=== PATIENT | female | born 1940 | race Caucasian/White ===

== ENCOUNTER 2017-04-27 13:00 | Emergency (ER) | payer MEDICARE ==
[2017-04-27 13:23] VITALS: RESP 16
[2017-04-27] MEDS ORDERED: IBUPROFEN 600 MG TAB PO STA (13:26)
[2017-04-27] MEDS ORDERED: SODIUM CHLORIDE 0.9% 1,000 ML IV STA (13:27)
[2017-04-27] MEDS ORDERED: ACETAMINOPHEN TAB 500 MG TAB PO STA (13:27)
[2017-04-27 13:52] LABS: Basophils % (A) 0 %; Eosinophils # (A) 0.1 k/uL (0-0.7); Eosinophils % (A) 2 %; HCT 37.1 % (34.0-46.0); HGB 11.6 gm/dL (11.4-16.0); Lymphocytes # (A) 1.2 k/uL (1.0-4.8); Lymphocytes % (A) 13 %; MCH 27.6 pg (25.0-35.0); MCHC 31.4 g/dL (31.0-37.0); Mean Platelet Volume 7.5; Monocytes # (A) 0.5 k/uL (0-1.0); Monocytes % (A) 6 %; Neutrophils # (A) 7.1 k/uL (1.3-7.7); Neutrophils % (A) 78 %; Platelet Count 185 k/uL (150-450); RBC 4.21 m/uL (3.80-5.40); RDW 14.9 % (11.5-15.5)
--- NOTE | 2017-04-27 13:54 | ED ---
General Adult HPI - General Chief complaint: Upper Respiratory Infection Stated complaint: PAIN ALL OVER Time Seen by Provider: 04/27/17 13:23 Source: patient, RN notes reviewed Mode of arrival: EMS Limitations: no limitations - History of Present Illness Initial comments: 77-year-old female presents to the emergency department with a chief complaint of body aches. Patient has felt this way for the past day or so. She states now cough no congestion just joint aching. She denies any Motrin Tylenol today. She denies any abdominal pain nausea vomiting. She states she did have one episode of diarrhea. She was concerned that just felt sore she was feeling so she thought that she should be seen. Patient denies any recent fever, chills , shortness of breath, chest pain, back pain, abdominal pain, nausea vomiting, numbness or tingling, dysuria or hematuria, constipation or diarrhea, headaches or visual changes, or any other current symptoms. - Related Data Home Medications Medication Instructions Recorded Confirmed ALPRAZolam [Xanax] 0.25 mg PO TID PRN 08/29/14 04/27/17 Aspirin 81 mg PO DAILY 08/29/14 04/27/17 Furosemide [Lasix] 20 mg PO DAILY 08/29/14 04/27/17 Irbesartan [Avapro] 300 mg PO DAILY 08/29/14 04/27/17 Metoprolol Succinate (ER) [Toprol 50 mg PO BID 08/29/14 04/27/17 XL] Insulin Aspart [NovoLOG Flexpen] 6 units SQ AC-LUNCH 03/03/17 04/27/17 Insulin Aspart [NovoLOG Flexpen] 8 units SQ AC-BRKFST 03/03/17 04/27/17 Insulin Aspart [NovoLOG Flexpen] 12 units SQ AC-SUPPER 03/03/17 04/27/17 Insulin Glargine,Hum.rec.anlog 20 units SQ HS 03/03/17 04/27/17 [Toujeo Solostar] Insulin Aspart [NovoLOG Flexpen] See Protocol SQ AC-TID PRN 04/27/17 04/27/17 Insulin Glargine,Hum.rec.anlog 20 units SQ HS 04/27/17 04/27/17 [Toujeo Solostar] Previous Rx's Medication Instructions Recorded Clopidogrel [Plavix] 75 mg PO DAILY #90 tab 03/05/17 Allergies Allergy/AdvReac Type Severity Reaction Status Date / Time adhesive tape Allergy Rash/Hives Uncoded 04/27/17 13:50 Review of Systems ROS Statement: Those systems with pertinent positive or pertinent negative responses have been documented in the HPI. ROS Other: All systems not noted in ROS Statement are negative. Past Medical History Past Medical History: Cancer, Heart Failure, Diabetes Mellitus, Hypertension Additional Past Medical History / Comment(s): hx skin cancer History of Any Multi-Drug Resistant Organisms: None Reported Past Surgical History: Hysterectomy, Joint Replacement, Orthopedic Surgery, Pacemaker, Tonsillectomy Additional Past Surgical History / Comment(s): rt knee arthroscopy, rt knee replacement, nahomy big toe joint replacement, vein stripping, surgery for fx left femur Past Anesthesia/Blood Transfusion Reactions: No Reported Reaction Type of Cardiac Device: Permanent Pacemaker Device Placement Date:: 03/2012 Past Psychological History: No Psychological Hx Reported Smoking Status: Former smoker Past Alcohol Use History: None Reported Past Drug Use History: None Reported - Past Family History Mother Additional Family Medical History / Comment(s): Alzheimers Father Family Medical History: Cancer Additional Family Medical History / Comment(s): Lung disease General Exam - General Exam Comments Initial Comments: General: The patient is awake and alert, in no distress, and does not appear acutely ill. Eye: Pupils are equal, round. Ears, nose, mouth and throat: There are moist mucous membranes. Neck: The neck is supple, there is no tenderness. Cardiovascular: There is a regular rate and rhythm. No murmur, rub or gallop is appreciated. Respiratory: Lungs are clear to auscultation, respirations are non-labored, breath sounds are equal. No wheezes, stridor, rales, or rhonchi. Gastrointestinal: Soft, non-distended, non-tender abdomen without masses or organomegaly noted. There is no rebound or guarding present. No CVA tenderness. Bowel sounds are unremarkable. Back: There is no tenderness to palpation in the midline. There is no obvious deformity. No rashes noted. Musculoskeletal: Normal ROM, no tenderness, There is no pedal edema. There is no calf tenderness or swelling. Sensation intact. Pulses equal bilaterally 2+. Neurological: CN II-XII intact, There are no obvious motor or sensory deficits. Coordination appears grossly intact. Speech is normal. Skin: Skin is warm and dry and no rashes or lesions are noted. Psychiatric: Cooperative, appropriate mood & affect, normal judgment. Limitations: no limitations Course Vital Signs 04/27/17 13:20 Temperature 99 F Pulse Rate 73 Respiratory 16 Rate Blood Pressure 143/65 O2 Sat by Pulse 95 Oximetry Medical Decision Making - Medical Decision Making 77-year-old female presents to the emergency department with a chief complaint of body aches. This time patient's lab work has been reviewed. This time we did discuss possible causes for bodies. We discussed could be early influenza currently we discussed continuing Motrin and Tylenol. She was offered steroids help for possible arthritis type flareup however she does not want to take. We did discuss return parameters and follow-up and all questions. Patient stated that she understood and she is agreement this plan. All questions have been answered. She will be discharged at this time. - Lab Data Result diagrams: 04/27/17 13:41 04/27/17 13:41 Lab Results 04/27/17 04/27/17 04/27/17 Range/Units 13:41 13:41 13:41 WBC 9.0 (3.8-10.6) k/uL RBC 4.21 (3.80-5.40) m/uL Hgb 11.6 (11.4-16.0) gm/dL Hct 37.1 (34.0-46.0) % MCV 88.0 (80.0-100.0) fL MCH 27.6 (25.0-35.0) pg MCHC 31.4 (31.0-37.0) g/dL RDW 14.9 (11.5-15.5) % Plt Count 185 (150-450) k/uL Neutrophils % 78 % Lymphocytes % 13 % Monocytes % 6 % Eosinophils % 2 % Basophils % 0 % Neutrophils # 7.1 (1.3-7.7) k/uL Lymphocytes # 1.2 (1.0-4.8) k/uL Monocytes # 0.5 (0-1.0) k/uL Eosinophils # 0.1 (0-0.7) k/uL Basophils # 0.0 (0-0.2) k/uL PT (9.0-12.0) sec INR (<1.2) APTT (22.0-30.0) sec Sodium 140 (137-145) mmol/L Potassium 4.6 (3.5-5.1) mmol/L Chloride 105 (98-107) mmol/L Carbon Dioxide 24 (22-30) mmol/L Anion Gap 11 mmol/L BUN 29 H (7-17) mg/dL Creatinine 1.04 (0.52-1.04) mg/dL Est GFR (MDRD) Af Amer >60 (>60 ml/min/1.73 sqM) Est GFR (MDRD) Non-Af 52 (>60 ml/min/1.73 sqM) Glucose 138 H (74-99) mg/dL Plasma Lactic Acid Julian 1.9 (0.7-2.0) mmol/L Calcium 9.2 (8.4-10.2) mg/dL Total Bilirubin 0.7 (0.2-1.3) mg/dL AST 18 (14-36) U/L ALT 23 (9-52) U/L Alkaline Phosphatase 93 (38-126) U/L Creatine Kinase (30-135) U/L Total Protein 6.6 (6.3-8.2) g/dL Albumin 3.7 (3.5-5.0) g/dL Urine Color Urine Appearance (Clear) Urine pH (5.0-8.0) Ur Specific [place] (1.001-1.035) Urine Protein (Negative) Urine Glucose (UA) (Negative) Urine Ketones (Negative) Urine Blood (Negative) Urine Nitrite (Negative) Urine Bilirubin (Negative) Urine Urobilinogen (<2.0) mg/dL Ur Leukocyte Esterase (Negative) Influenza Type A RNA (Not Detectd) Influenza Type B (PCR) (Not Detectd) 04/27/17 04/27/17 04/27/17 Range/Units 13:41 13:41 13:49 WBC (3.8-10.6) k/uL RBC (3.80-5.40) m/uL Hgb (11.4-16.0) gm/dL Hct (34.0-46.0) % MCV (80.0-100.0) fL MCH (25.0-35.0) pg MCHC (31.0-37.0) g/dL RDW (11.5-15.5) % Plt Count (150-450) k/uL Neutrophils % % Lymphocytes % % Monocytes % % Eosinophils % % Basophils % % Neutrophils # (1.3-7.7) k/uL Lymphocytes # (1.0-4.8) k/uL Monocytes # (0-1.0) k/uL Eosinophils # (0-0.7) k/uL Basophils # (0-0.2) k/uL PT 9.8 (9.0-12.0) sec INR 1.0 (<1.2) APTT 23.5 (22.0-30.0) sec Sodium (137-145) mmol/L Potassium (3.5-5.1) mmol/L Chloride (98-107) mmol/L Carbon Dioxide (22-30) mmol/L Anion Gap mmol/L BUN (7-17) mg/dL Creatinine (0.52-1.04) mg/dL Est GFR (MDRD) Af Amer (>60 ml/min/1.73 sqM) Est GFR (MDRD) Non-Af (>60 ml/min/1.73 sqM) Glucose (74-99) mg/dL Plasma Lactic Acid Julian (0.7-2.0) mmol/L Calcium (8.4-10.2) mg/dL Total Bilirubin (0.2-1.3) mg/dL AST (14-36) U/L ALT (9-52) U/L Alkaline Phosphatase (38-126) U/L Creatine Kinase 51 (30-135) U/L Total Protein (6.3-8.2) g/dL Albumin (3.5-5.0) g/dL Urine Color Urine Appearance (Clear) Urine pH (5.0-8.0) Ur Specific [place] (1.001-1.035) Urine Protein (Negative) Urine Glucose (UA) (Negative) Urine Ketones (Negative) Urine Blood (Negative) Urine Nitrite (Negative) Urine Bilirubin (Negative) Urine Urobilinogen (<2.0) mg/dL Ur Leukocyte Esterase (Negative) Influenza Type A RNA Not Detected (Not Detectd) Influenza Type B (PCR) Not Detected (Not Detectd) 04/27/17 Range/Units 13:49 WBC (3.8-10.6) k/uL RBC (3.80-5.40) m/uL Hgb (11.4-16.0) gm/dL Hct (34.0-46.0) % MCV (80.0-100.0) fL MCH (25.0-35.0) pg MCHC (31.0-37.0) g/dL RDW (11.5-15.5) % Plt Count (150-450) k/uL Neutrophils % % Lymphocytes % % Monocytes % % Eosinophils % % Basophils % % Neutrophils # (1.3-7.7) k/uL Lymphocytes # (1.0-4.8) k/uL Monocytes # (0-1.0) k/uL Eosinophils # (0-0.7) k/uL Basophils # (0-0.2) k/uL PT (9.0-12.0) sec INR (<1.2) APTT (22.0-30.0) sec Sodium (137-145) mmol/L Potassium (3.5-5.1) mmol/L Chloride (98-107) mmol/L Carbon Dioxide (22-30) mmol/L Anion Gap mmol/L BUN (7-17) mg/dL Creatinine (0.52-1.04) mg/dL Est GFR (MDRD) Af Amer (>60 ml/min/1.73 sqM) Est GFR (MDRD) Non-Af (>60 ml/min/1.73 sqM) Glucose (74-99) mg/dL Plasma Lactic Acid Julian (0.7-2.0) mmol/L Calcium (8.4-10.2) mg/dL Total Bilirubin (0.2-1.3) mg/dL AST (14-36) U/L ALT (9-52) U/L Alkaline Phosphatase (38-126) U/L Creatine Kinase (30-135) U/L Total Protein (6.3-8.2) g/dL Albumin (3.5-5.0) g/dL Urine Color Light Yellow Urine Appearance Clear (Clear) Urine pH 5.5 (5.0-8.0) Ur Specific [place] 1.011 (1.001-1.035) Urine Protein Negative (Negative) Urine Glucose (UA) Negative (Negative) Urine Ketones Negative (Negative) Urine Blood Negative (Negative) Urine Nitrite Negative (Negative) Urine Bilirubin Negative (Negative) Urine Urobilinogen <2.0 (<2.0) mg/dL Ur Leukocyte Esterase Negative (Negative) Influenza Type A RNA (Not Detectd) Influenza Type B (PCR) (Not Detectd) - Radiology Data Radiology results: report reviewed, image reviewed Disposition Clinical Impression: Body aches Disposition: HOME SELF-CARE Condition: Stable Instructions: Influenza (ED) Additional Instructions: Please use medication as discussed. Please follow up with family doctor if symptoms have not improved over the next two days. Please return to the emergency room if your symptoms increase or worsen or for any other concerns. Referrals: Andi Chowdhury MD [Primary Care Provider] - 1-2 days Time of Disposition: 15:03
[2017-04-27 14:05] LABS: ALT 23 U/L (9-52); AST 18 U/L (14-36); Albumin 3.7 g/dL (3.5-5.0); Alkaline Phosphatase 93 U/L (38-126); Anion Gap 11 mmol/L; Blood Urea Nitrogen 29 mg/dL (7-17); Calcium 9.2 mg/dL (8.4-10.2); Carbon Dioxide 24 mmol/L (22-30); Chloride 105 mmol/L (98-107); Glucose 138 mg/dL (74-99); Potassium 4.6 mmol/L (3.5-5.1); Sodium 140 mmol/L (137-145); Total Bilirubin 0.7 mg/dL (0.2-1.3); Total Protein 6.6 g/dL (6.3-8.2)
[2017-04-27 14:15] LABS: Partial Thromboplastin Time 23.5 sec (22.0-30.0); Prothrombin Time 9.8 sec (9.0-12.0)
--- NOTE | 2017-04-27 14:16 | XR ---
EXAMINATION TYPE: XR chest 2V DATE OF EXAM: 04/27/2017 COMPARISON: 03/24/2013 TECHNIQUE: PA and lateral views submitted. HISTORY: Cough, fever and chills FINDINGS: The lungs are clear and there is no pneumothorax, pleural effusion, or focal pneumonia. Atheroscler otic change aorta. Arthropathy shoulders. Cardiac multilead device noted. No overt failure. Hypertrop hic and degenerative change of the spine. IMPRESSION: 1. No acute process.
[2017-04-27 14:26] LABS: Appearance,Urine Clear (Clear); Bilirubin,Urine Negative (Negative); Blood,Urine Negative (Negative); Color,Urine Light Yellow; Glucose,Urine (UA) Negative (Negative); Ketones,Urine Negative (Negative); Leukocyte Esterase,Urine Negative (Negative); Nitrite,Urine Negative (Negative); PH, Urine 5.5 (5.0-8.0); Protein,Urine Negative (Negative); Specific Gravity,Urine 1.011 (1.001-1.035); Urobilinogen,Urine <2.0 mg/dL (<2.0)
[2017-04-27 15:12] VITALS: BP 131/62; PULSE 72; TEMP 98.7
== END 2017-04-27 15:15 | disposition home or self-care (01) ==
LOC: EC 13:00
DX: R52 Pain, unspecified (principal); R05 Cough; R19.7 Diarrhea, unspecified; E11.9 Type 2 diabetes mellitus without complications; I11.0 Hypertensive heart disease with heart failure; I50.9 Heart failure, unspecified; Z85.828 Personal history of other malignant neoplasm of skin; Z90.89 Acquired absence of other organs; Z87.891 Personal history of nicotine dependence; Z91.048 Other nonmedicinal substance allergy status; Z79.82 Long term (current) use of aspirin; Z79.4 Long term (current) use of insulin; Z79.899 Other long term (current) drug therapy
CPT/HCPCS: 36415; 71046; 80053; 81003; 82550; 83605; 85025; 85610; 85730; 87040; 87502; 96360; 99284

== ENCOUNTER 2017-10-19 01:21 | Emergency (ER) | payer MEDICARE ==
[2017-10-19] MEDS ORDERED: HYDROcodone/APAP 5-325MG 1 EACH TAB PO STA (01:46)
--- NOTE | 2017-10-19 02:18 | ED ---
Extremity Problem HPI - General Chief complaint: Extremity Problem,Nontraumatic Stated complaint: arm pain Time Seen by Provider: 10/19/17 01:42 Source: patient, RN notes reviewed Mode of arrival: ambulatory Limitations: no limitations - History of Present Illness Initial comments: 77-year-old female presents emergency Department chief complaint of right wrist pain. Patient states that has been bothering her for a week or 2 but states since Thursday she's had excruciating pain. She states that she is appointment tomorrow morning but states that she cannot tolerate the pain any longer. She states that the only thing that seemed to help was taking ibuprofen though she states that she is not supposed to take ibuprofen. Patient states that she had no trauma. She states it is warm to the touch, mildly red in color. Patient states that she's had no issues like this in the past. She's had excruciating pain with range of motion. She has been wearing a wrist brace but states is not helping. She states icing does help at times. Patient denies any paresthesias. No history gout. - Related Data Home Medications Medication Instructions Recorded Confirmed ALPRAZolam [Xanax] 0.25 mg PO TID PRN 08/29/14 04/27/17 Aspirin 81 mg PO DAILY 08/29/14 04/27/17 Furosemide [Lasix] 20 mg PO DAILY 08/29/14 04/27/17 Irbesartan [Avapro] 300 mg PO DAILY 08/29/14 04/27/17 Metoprolol Succinate (ER) [Toprol 50 mg PO BID 08/29/14 04/27/17 XL] Insulin Aspart [NovoLOG Flexpen] 6 units SQ AC-LUNCH 03/03/17 04/27/17 Insulin Aspart [NovoLOG Flexpen] 8 units SQ AC-BRKFST 03/03/17 04/27/17 Insulin Aspart [NovoLOG Flexpen] 12 units SQ AC-SUPPER 03/03/17 04/27/17 Insulin Glargine,Hum.rec.anlog 20 units SQ HS 03/03/17 04/27/17 [Dianna Gregg] Insulin Aspart [NovoLOG Flexpen] See Protocol SQ AC-TID PRN 04/27/17 04/27/17 Insulin Glargine,Hum.rec.anlog 20 units SQ HS 04/27/17 04/27/17 [Dianna Wilsonadamjessica] Previous Rx's Medication Instructions Recorded Clopidogrel [Plavix] 75 mg PO DAILY #90 tab 03/05/17 Azithromycin [Zithromax Z-pack] 0 mg PO DIRECTED #6 tab 07/05/17 Colchicine [Colcrys] 0.6 mg PO DAILY #3 tablet 10/19/17 Allergies Allergy/AdvReac Type Severity Reaction Status Date / Time adhesive tape Allergy Rash/Hives Uncoded 10/19/17 01:27 Review of Systems ROS Statement: Those systems with pertinent positive or pertinent negative responses have been documented in the HPI. ROS Other: All systems not noted in ROS Statement are negative. Past Medical History Past Medical History: Cancer, Heart Failure, Diabetes Mellitus, Hypertension Additional Past Medical History / Comment(s): hx skin cancer History of Any Multi-Drug Resistant Organisms: None Reported Past Surgical History: Hysterectomy, Joint Replacement, Orthopedic Surgery, Pacemaker, Tonsillectomy Additional Past Surgical History / Comment(s): rt knee arthroscopy, rt knee replacement, nahomy big toe joint replacement, vein stripping, surgery for fx left femur Past Anesthesia/Blood Transfusion Reactions: No Reported Reaction Type of Cardiac Device: Permanent Pacemaker Device Placement Date:: 03/2012 Past Psychological History: No Psychological Hx Reported Smoking Status: Former smoker Past Alcohol Use History: None Reported Past Drug Use History: None Reported - Past Family History Mother Additional Family Medical History / Comment(s): Alzheimers Father Family Medical History: Cancer Additional Family Medical History / Comment(s): Lung disease General Exam Limitations: no limitations General appearance: alert, in no apparent distress Respiratory exam: Present: normal lung sounds bilaterally. Absent: respiratory distress, wheezes, rales, rhonchi, stridor Cardiovascular Exam: Present: regular rate, normal rhythm, normal heart sounds. Absent: systolic murmur, diastolic murmur, rubs, gallop, clicks Extremities exam: Present: other (Right wrist there is moderate warmth with palpation, mild swelling and moderate discomfort with range of motion which is limited range of motion. Neurovascular intact equal radial pulses there is no proximal forearm tenderness no hand tenderness.) Skin exam: Present: warm, dry, intact, normal color. Absent: rash Course Vital Signs 10/19/17 01:24 Temperature 97.9 F Pulse Rate 71 Respiratory 20 Rate Blood Pressure 202/82 O2 Sat by Pulse 96 Oximetry Medical Decision Making - Medical Decision Making 77-year-old female presented right wrist pain. Patient had lab work, x-ray no chest x-ray is unremarkable. Patient has elevated uric acid and CRP consistent with gouty arthritis. Patient will be given colchicine now, prescription for 0.6 mg for 3 days. She has an appointment in morning with Dr. Nam orthopedics. Patient was offered steroids so she refuses secondary to being diabetic and not comfortable adjusting her blood sugar. Patient has renal impairment and anti-inflammatories are not an option at this time. - Lab Data Result diagrams: 10/19/17 02:00 10/19/17 02:00 Lab Results 10/19/17 10/19/17 10/19/17 Range/Units 02:00 02:00 02:00 WBC 6.0 (3.8-10.6) k/uL RBC 4.47 (3.80-5.40) m/uL Hgb 12.0 (11.4-16.0) gm/dL Hct 38.7 (34.0-46.0) % MCV 86.6 (80.0-100.0) fL MCH 26.8 (25.0-35.0) pg MCHC 30.9 L (31.0-37.0) g/dL RDW 14.8 (11.5-15.5) % Plt Count 203 (150-450) k/uL Neutrophils % 58 % Lymphocytes % 27 % Monocytes % 7 % Eosinophils % 6 % Basophils % 1 % Neutrophils # 3.5 (1.3-7.7) k/uL Lymphocytes # 1.6 (1.0-4.8) k/uL Monocytes # 0.4 (0-1.0) k/uL Eosinophils # 0.3 (0-0.7) k/uL Basophils # 0.0 (0-0.2) k/uL Sodium 139 (137-145) mmol/L Potassium 4.8 (3.5-5.1) mmol/L Chloride 105 (98-107) mmol/L Carbon Dioxide 23 (22-30) mmol/L Anion Gap 11 mmol/L BUN 39 H (7-17) mg/dL Creatinine 1.20 H (0.52-1.04) mg/dL Est GFR (CKD-EPI)AfAm 51 (>60 ml/min/1.73 sqM) Est GFR (CKD-EPI)NonAf 44 (>60 ml/min/1.73 sqM) Glucose 151 H (74-99) mg/dL Plasma Lactic Acid Julian 2.0 (0.7-2.0) mmol/L Uric Acid 11.7 H (3.7-7.4) mg/dL Calcium 9.2 (8.4-10.2) mg/dL Total Bilirubin 0.4 (0.2-1.3) mg/dL AST 29 (14-36) U/L ALT 39 (9-52) U/L Alkaline Phosphatase 94 (38-126) U/L C-Reactive Protein 23.0 H (<10.0) mg/L Total Protein 7.1 (6.3-8.2) g/dL Albumin 4.2 (3.5-5.0) g/dL Disposition Clinical Impression: Gout of wrist Disposition: HOME SELF-CARE Condition: Stable Instructions: Low Purine Diet (ED), Gout (ED) Additional Instructions: Please return to the Emergency Department if symptoms worsen or any other concerns. Prescriptions: Colchicine [Colcrys] 0.6 mg PO DAILY #3 tablet Is patient prescribed a controlled substance at d/c from ED?: No Referrals: Andi Chowdhury MD [Primary Care Provider] - 1-2 days Time of Disposition: 02:46
[2017-10-19 02:19] LABS: Basophils % (A) 1 %; Eosinophils # (A) 0.3 k/uL (0-0.7); Eosinophils % (A) 6 %; HCT 38.7 % (34.0-46.0); Lymphocytes # (A) 1.6 k/uL (1.0-4.8); Lymphocytes % (A) 27 %; MCH 26.8 pg (25.0-35.0); MCHC 30.9 g/dL (31.0-37.0); MCV 86.6 fL (80.0-100.0); Mean Platelet Volume 7.6; Monocytes # (A) 0.4 k/uL (0-1.0); Monocytes % (A) 7 %; Neutrophils # (A) 3.5 k/uL (1.3-7.7); Neutrophils % (A) 58 %; Platelet Count 203 k/uL (150-450); RBC 4.47 m/uL (3.80-5.40); RDW 14.8 % (11.5-15.5)
--- NOTE | 2017-10-19 02:21 | XR ---
EXAMINATION TYPE: XR wrist complete RT DATE OF EXAM: 10/19/2017 COMPARISON: NONE HISTORY: Wrist pain TECHNIQUE: 4 views FINDINGS: I see no fracture nor dislocation. Joint spaces are normal. There are no pathologic calcifi cations. Scaphoid is intact. There is small calcification at the triangular cartilage. IMPRESSION: No acute abnormality of the right wrist. No fracture seen.
[2017-10-19 02:28] LABS: Albumin 4.2 g/dL (3.5-5.0); Calcium 9.2 mg/dL (8.4-10.2); Potassium 4.8 mmol/L (3.5-5.1); Total Bilirubin 0.4 mg/dL (0.2-1.3); Total Protein 7.1 g/dL (6.3-8.2); Uric Acid 11.7 mg/dL (3.7-7.4)
[2017-10-19] MEDS ORDERED: COLCHICINE 0.6 MG EACH PO STA (02:42)
[2017-10-19] MEDS ORDERED: Acetaminophen-Codeine 300-30mg TAB PO STA (02:46)
[2017-10-19 03:19] VITALS: BP 180/81; PULSE 64; RESP 16; TEMP 98.1
[2017-10-19 04:03] LABS: Erythrocyte Sedimentation Rate 48 mm/hr (0-20)
== END 2017-10-19 03:19 | disposition home or self-care (01) ==
LOC: EC 01:21
DX: M10.9 Gout, unspecified (principal); I11.0 Hypertensive heart disease with heart failure; I50.9 Heart failure, unspecified; E11.9 Type 2 diabetes mellitus without complications; Z85.828 Personal history of other malignant neoplasm of skin; Z95.0 Presence of cardiac pacemaker; Z96.651 Presence of right artificial knee joint; Z96.698 Presence of other orthopedic joint implants; Z87.891 Personal history of nicotine dependence; Z79.82 Long term (current) use of aspirin; Z79.4 Long term (current) use of insulin; Z79.899 Other long term (current) drug therapy; Z91.048 Other nonmedicinal substance allergy status; Z53.29 Procedure and treatment not carried out because of patient's decision for other reasons
CPT/HCPCS: 36415; 80053; 83605; 84550; 85025; 85652; 86140; 87040; 99284

== ENCOUNTER 2017-12-17 00:16 | Emergency (ER) | payer MEDICARE ==
[2017-12-17 00:30] VITALS: TEMP 98.4
[2017-12-17] MEDS ORDERED: SODIUM CHLORIDE 0.9% 500 ML IV STA (01:20)
[2017-12-17] MEDS ORDERED: MORPHINE SULFATE 4 MG/ML SYRINGE IV STA (01:20)
[2017-12-17] MEDS ORDERED: KETOROLAC 30 MG/ML 1 ML VIAL IVP STA (01:20)
[2017-12-17] MEDS ORDERED: ONDANSETRON 4 MG/2 ML VIAL IVP STA (01:21)
[2017-12-17 02:28] LABS: Basophils # (A) 0.1 k/uL (0-0.2); Basophils % (A) 1 %; Eosinophils # (A) 0.4 k/uL (0-0.7); Eosinophils % (A) 4 %; HCT 40.1 % (34.0-46.0); HGB 12.3 gm/dL (11.4-16.0); Lymphocytes # (A) 1.2 k/uL (1.0-4.8); Lymphocytes % (A) 15 %; MCH 28.4 pg (25.0-35.0); MCHC 30.7 g/dL (31.0-37.0); Mean Platelet Volume 7.2; Monocytes # (A) 0.6 k/uL (0-1.0); Monocytes % (A) 7 %; Neutrophils # (A) 5.9 k/uL (1.3-7.7); Neutrophils % (A) 71 %; Platelet Count 159 k/uL (150-450); RBC 4.35 m/uL (3.80-5.40); RDW 15.2 % (11.5-15.5); WBC 8.4 k/uL (3.8-10.6)
[2017-12-17 02:30] LABS: MCV 92.3 fL (80.0-100.0)
[2017-12-17 02:36] LABS: Albumin 3.9 g/dL (3.5-5.0); Calcium 9.7 mg/dL (8.4-10.2); Potassium 4.8 mmol/L (3.5-5.1); Total Bilirubin 0.4 mg/dL (0.2-1.3)
[2017-12-17] MEDS ORDERED: HYDROmorphone 1 MG/ML 1 ML SYRINGE IVP STA (03:13)
[2017-12-17 04:14] LABS: Appearance,Urine Clear (Clear); Bacteria,Urine Few /hpf; Bilirubin,Urine Negative (Negative); Blood,Urine Negative (Negative); Color,Urine Light Yellow; Glucose,Urine (UA) Negative (Negative); Ketones,Urine Negative (Negative); Leukocyte Esterase,Urine Negative (Negative); Mucus,Urine Occasional /hpf; Nitrite,Urine Positive (Negative); PH, Urine 5.5 (5.0-8.0); Protein,Urine Trace (Negative); RBC,Urine <1 /hpf (0-5); Specific Gravity,Urine 1.016 (1.001-1.035); Squamous Epithelial Cell,Urine 1 /hpf (0-4); Urobilinogen,Urine <2.0 mg/dL (<2.0); WBC,Urine 1 /hpf (0-5)
--- NOTE | 2017-12-17 04:14 | XR ---
EXAMINATION TYPE: XR Hip LT and AP Pelvis DATE OF EXAM: 12/17/2017 COMPARISON: NONE HISTORY: Pain TECHNIQUE: A single AP view of the pelvis is obtained. Two views of the left hip are obtained. FINDINGS: The pelvic ring is intact. Proximal left femur and hip joint are intact. There is no sign o f hip dysplasia. There are phleboliths in the pelvis. IMPRESSION: No acute abnormality of the pelvis and left hip. No fracture. Hip joint spaces are fairly normal.
--- NOTE | 2017-12-17 04:15 | XR ---
EXAMINATION TYPE: XR lumbar spine 2 or 3V DATE OF EXAM: 12/17/2017 COMPARISON: NONE HISTORY: Back pain TECHNIQUE: 3 views FINDINGS: Vertebra have fairly normal alignment. There is slight levoscoliosis. There is mild degener ative disc space narrowing throughout the lumbar spine with spur formation. There is vacuum disc at L 4-5 and L5-S1. Abdominal aorta is atheromatous. Posterior elements are intact. There is no compressio n fracture. Sacroiliac joints are intact. IMPRESSION: Multilevel spondylotic changes. No fracture.
--- NOTE | 2017-12-17 04:44 | ED ---
Back Pain HPI - General Chief Complaint: Back Pain/Injury Stated Complaint: Back Pain Time Seen by Provider: 12/17/17 01:15 Source: patient, EMS Limitations: no limitations - History of Present Illness Initial Comments: 77-year-old female patient presents to the emergency department today for complaints of acute left lower back pain. Patient states this started this morning when she woke from sleep. Patient states she felt she may have slept wrong. Patient states that the day progressed the pain got worse and worse. States that she was resting on the couch this evening when she tried to get up to go to bed she couldn't get off the couch without severe pain. Patient states that she has severe pain at rest and it gets worse with any type of movement. Patient denies any radiation of the pain down her legs. Denies any numbness or tingling to the lower extremities. Denies any loss of bowel or bladder control or saddle anesthesia. Patient denies any fever or chills. Denies any history of kidney stones. Patient states that she does not generally have problems with back pain. Patient states that she did have a left hip tony in place at one point which they had to remove because it came loose. Patient states that she does generally have pain with a left hip but never up into her back. Patient denies any recent rash, shortness breath, chest pain, abdominal pain, nausea, vomiting, diarrhea, constipation, dizziness, weakness, hematuria, dysuria, urinary urgency, urinary frequency, headache, visual changes, or any other complaints. - Related Data Home Medications Medication Instructions Recorded Confirmed ALPRAZolam [Xanax] 0.25 mg PO TID PRN 08/29/14 04/27/17 Aspirin 81 mg PO DAILY 08/29/14 04/27/17 Furosemide [Lasix] 20 mg PO DAILY 08/29/14 04/27/17 Irbesartan [Avapro] 300 mg PO DAILY 08/29/14 04/27/17 Metoprolol Succinate (ER) [Toprol 50 mg PO BID 08/29/14 04/27/17 XL] Insulin Aspart [NovoLOG Flexpen] 6 units SQ AC-LUNCH 03/03/17 04/27/17 Insulin Aspart [NovoLOG Flexpen] 8 units SQ AC-BRKFST 03/03/17 04/27/17 Insulin Aspart [NovoLOG Flexpen] 12 units SQ AC-SUPPER 03/03/17 04/27/17 Insulin Glargine,Hum.rec.anlog 20 units SQ HS 03/03/17 04/27/17 [Toujeo Solostar] Insulin Aspart [NovoLOG Flexpen] See Protocol SQ AC-TID PRN 04/27/17 04/27/17 Insulin Glargine,Hum.rec.anlog 20 units SQ HS 04/27/17 04/27/17 [Toujeo Solostar] Previous Rx's Medication Instructions Recorded Clopidogrel [Plavix] 75 mg PO DAILY #90 tab 03/05/17 Azithromycin [Zithromax Z-pack] 0 mg PO DIRECTED #6 tab 07/05/17 Colchicine [Colcrys] 0.6 mg PO DAILY #3 tablet 10/19/17 Sulfamethoxazole/Trimethoprim 1 each PO BID #6 tablet 12/17/17 [Bactrim DS 800-160 mg] Allergies Allergy/AdvReac Type Severity Reaction Status Date / Time adhesive tape Allergy Rash/Hives Uncoded 10/19/17 01:27 Review of Systems ROS Statement: Those systems with pertinent positive or pertinent negative responses have been documented in the HPI. ROS Other: All systems not noted in ROS Statement are negative. Past Medical History Past Medical History: Cancer, Heart Failure, Diabetes Mellitus, Hypertension Additional Past Medical History / Comment(s): hx skin cancer, gout History of Any Multi-Drug Resistant Organisms: None Reported Past Surgical History: Hysterectomy, Joint Replacement, Orthopedic Surgery, Pacemaker, Tonsillectomy Additional Past Surgical History / Comment(s): rt knee arthroscopy, rt knee replacement, nahomy big toe joint replacement, vein stripping, surgery for fx left femur, stent placed in left carotid Past Anesthesia/Blood Transfusion Reactions: No Reported Reaction Type of Cardiac Device: Permanent Pacemaker Device Placement Date:: 03/2012 Past Psychological History: No Psychological Hx Reported Smoking Status: Former smoker Past Alcohol Use History: None Reported Past Drug Use History: None Reported - Past Family History Mother Additional Family Medical History / Comment(s): Alzheimers Father Family Medical History: Cancer Additional Family Medical History / Comment(s): Lung disease General Exam Limitations: no limitations General appearance: alert, in no apparent distress, other (This is a well- developed, well-nourished elderly female patient in mild distress related to pain. Vital signs upon presentation are temperature 98.4F, pulse 81, respirations 18, blood pressure 175/78, pulse ox 95% on room air.) Eye exam: Present: normal appearance, PERRL, EOMI. Absent: scleral icterus, conjunctival injection, periorbital swelling ENT exam: Present: normal exam, normal oropharynx, mucous membranes moist Respiratory exam: Present: normal lung sounds bilaterally. Absent: respiratory distress, wheezes, rales, rhonchi, stridor Cardiovascular Exam: Present: regular rate, normal rhythm, normal heart sounds. Absent: systolic murmur, diastolic murmur, rubs, gallop, clicks GI/Abdominal exam: Present: soft, normal bowel sounds. Absent: distended, tenderness, guarding, rebound, rigid Extremities exam: Present: normal inspection, full ROM, normal capillary refill. Absent: tenderness, pedal edema, joint swelling, calf tenderness Back exam: Present: normal inspection. Absent: vertebral tenderness Neurological exam: Present: alert, oriented X3, CN II-XII intact, other ( Strength in all 4 extremities is 5/5.) Psychiatric exam: Present: normal affect, normal mood Skin exam: Present: warm, dry, intact, normal color. Absent: rash Course Vital Signs 12/17/17 00:18 Temperature 98.4 F Pulse Rate 81 Respiratory 18 Rate Blood Pressure 175/78 O2 Sat by Pulse 95 Oximetry Medical Decision Making - Medical Decision Making 77-year-old female patient presented to the emergency department today for complaints of low back pain. Physical examination was relatively unremarkable. Patient is neurologically intact. Patient has no history of low back pain however does have history of some left hip pain. X-rays of the lumbar spine and the left hip are unremarkable no acute findings. Labs are unremarkable. Patient did have positive nitrite in the urine. We will treat with 3 day course of Bactrim for this as well as send a urine culture. Patient did receive pain medication here in the emergency department. She is feeling better upon reevaluation. She is able to sit up on the edge of the bed and ambulate. She'll be discharged home with a starter pack for Flexeril and, according. She is instructed to follow-up with Dr. Chowdhury for recheck in 1-2 days. Return parameters discussed in detail. She verbalizes understanding and agrees with this plan. - Lab Data Result diagrams: 12/17/17 02:00 12/17/17 02:00 Lab Results 12/17/17 12/17/17 12/17/17 Range/Units 02:00 02:00 03:40 WBC 8.4 (3.8-10.6) k/uL RBC 4.35 (3.80-5.40) m/uL Hgb 12.3 (11.4-16.0) gm/dL Hct 40.1 (34.0-46.0) % MCV 92.3 D (80.0-100.0) fL MCH 28.4 (25.0-35.0) pg MCHC 30.7 L (31.0-37.0) g/dL RDW 15.2 (11.5-15.5) % Plt Count 159 (150-450) k/uL Neutrophils % 71 % Lymphocytes % 15 % Monocytes % 7 % Eosinophils % 4 % Basophils % 1 % Neutrophils # 5.9 (1.3-7.7) k/uL Lymphocytes # 1.2 (1.0-4.8) k/uL Monocytes # 0.6 (0-1.0) k/uL Eosinophils # 0.4 (0-0.7) k/uL Basophils # 0.1 (0-0.2) k/uL Sodium 140 (137-145) mmol/L Potassium 4.8 (3.5-5.1) mmol/L Chloride 107 (98-107) mmol/L Carbon Dioxide 23 (22-30) mmol/L Anion Gap 10 mmol/L BUN 40 H (7-17) mg/dL Creatinine 1.03 (0.52-1.04) mg/dL Est GFR (CKD-EPI)AfAm 62 (>60 ml/min/1.73 sqM) Est GFR (CKD-EPI)NonAf 53 (>60 ml/min/1.73 sqM) Glucose 167 H (74-99) mg/dL Calcium 9.7 (8.4-10.2) mg/dL Total Bilirubin 0.4 (0.2-1.3) mg/dL AST 24 (14-36) U/L ALT 32 (9-52) U/L Alkaline Phosphatase 93 (38-126) U/L Total Protein 7.0 (6.3-8.2) g/dL Albumin 3.9 (3.5-5.0) g/dL Urine Color Light Yellow Urine Appearance Clear (Clear) Urine pH 5.5 (5.0-8.0) Ur Specific [place] 1.016 (1.001-1.035) Urine Protein Trace H (Negative) Urine Glucose (UA) Negative (Negative) Urine Ketones Negative (Negative) Urine Blood Negative (Negative) Urine Nitrite Positive H (Negative) Urine Bilirubin Negative (Negative) Urine Urobilinogen <2.0 (<2.0) mg/dL Ur Leukocyte Esterase Negative (Negative) Urine RBC <1 (0-5) /hpf Urine WBC 1 (0-5) /hpf Ur Squamous Epith Cells 1 (0-4) /hpf Urine Bacteria Few H (None) /hpf Urine Mucus Occasional H (None) /hpf - Radiology Data Radiology results: report reviewed, image reviewed Three-view x-ray of the lumbar spine is obtained. Report was reviewed in its entirety. Impression by Dr. Pablo shows multilevel spondylotic changes. No fracture. X-ray of the left hip and pelvis are obtained. Report was reviewed in its entirety. Impression by Dr. Pablo shows no acute abnormality of the pelvis and left hip. No fracture. Hip joint spaces are fairly normal. Disposition Clinical Impression: Acute low back pain, Urinary tract infection Disposition: HOME SELF-CARE Condition: Good Instructions: Acute Low Back Pain (ED) Additional Instructions: Apply warm moist heat to the low back. Take medications as directed and as needed. Follow-up with your primary care physician for recheck as soon as possible. Return here immediately for any new, worsening, or concerning symptoms. Prescriptions: Sulfamethoxazole/Trimethoprim [Bactrim DS 800-160 mg] 1 each PO BID #6 tablet Is patient prescribed a controlled substance at d/c from ED?: No Referrals: Andi Chowdhury MD [Primary Care Provider] - 1-2 days Time of Disposition: 06:14
[2017-12-17] MEDS ORDERED: ACET/COD 300 MG/30 MG STARTER PACK 6 TAB BTL PO STA (06:14)
[2017-12-17] MEDS ORDERED: CYCLOBENZAPRINE 10MG STARTER 3 TAB BTL PO STA (06:14)
[2017-12-17 06:32] VITALS: BP 138/76; PULSE 74; RESP 17
== END 2017-12-17 06:45 | disposition home or self-care (01) ==
LOC: EC 00:16
DX: M47.816 Spondylosis without myelopathy or radiculopathy, lumbar region (principal); N39.0 Urinary tract infection, site not specified; M25.552 Pain in left hip; I11.0 Hypertensive heart disease with heart failure; I50.9 Heart failure, unspecified; E11.9 Type 2 diabetes mellitus without complications; M10.9 Gout, unspecified; Z87.891 Personal history of nicotine dependence; Z91.048 Other nonmedicinal substance allergy status; Z79.4 Long term (current) use of insulin; Z79.82 Long term (current) use of aspirin; Z79.899 Other long term (current) drug therapy; Z98.890 Other specified postprocedural states
CPT/HCPCS: 36415; 72100; 73502; 80053; 81001; 85025; 87086; 96374; 96375; 99284

== ENCOUNTER 2017-12-24 08:28 | Emergency (ER) | payer MEDICARE ==
[2017-12-24 08:41] VITALS: RESP 18
[2017-12-24] MEDS ORDERED: ORPHENADRINE 30 MG/ML 2 ML VIAL IM STA (09:25)
[2017-12-24] MEDS ORDERED: HYDROcodone/APAP 5-325MG 1 EACH TAB PO STA (09:25)
--- NOTE | 2017-12-24 09:27 | ED ---
Neck Injury/Pain HPI - General Chief Complaint: Neck Pain/Injury Stated Complaint: NECK PAIN Time Seen by Provider: 12/24/17 09:05 Source: patient, RN notes reviewed Mode of arrival: wheelchair Limitations: no limitations - History of Present Illness Initial Comments: 77-year-old female presents emergency Department chief complaint of neck pain. Patient states started a couple days primarily worsen the left compared to the right. She states that she feels pain around her left shoulder blade and is worse with any movement her left shoulder. Patient denies any numbness tingling or weakness of her upper extremity denies any chest pain or shortness breath. Denies headache or dizziness. She states that she felt like she slept wrong and woke up the symptoms. Patient states that she turns or bends her neck is symptoms are worse. She's had no fever no chills. She states Tylenol and heat were working initially but have not worsened that she has not been moving. - Related Data Home Medications Medication Instructions Recorded Confirmed ALPRAZolam [Xanax] 0.25 mg PO TID PRN 08/29/14 12/24/17 Aspirin 81 mg PO DAILY 08/29/14 12/24/17 Furosemide [Lasix] 20 mg PO DAILY 08/29/14 12/24/17 Irbesartan [Avapro] 300 mg PO DAILY 08/29/14 12/24/17 Metoprolol Succinate (ER) [Toprol 50 mg PO BID 08/29/14 12/24/17 XL] Insulin Aspart [NovoLOG Flexpen] 6 units SQ AC-LUNCH 03/03/17 12/24/17 Insulin Aspart [NovoLOG Flexpen] 8 units SQ AC-BRKFST 03/03/17 12/24/17 Insulin Aspart [NovoLOG Flexpen] 12 units SQ AC-SUPPER 03/03/17 12/24/17 Insulin Glargine,Hum.rec.anlog 20 units SQ HS 03/03/17 12/24/17 [Toujeo Solostar] Insulin Aspart [NovoLOG Flexpen] See Protocol SQ AC-TID PRN 04/27/17 12/24/17 Insulin Glargine,Hum.rec.anlog 20 units SQ HS 04/27/17 12/24/17 [Toujeo Solostar] Allopurinol [Zyloprim] 100 mg PO DAILY 12/24/17 12/24/17 Magnesium Oxide [Mag-Ox] 250 mg PO TUSA 12/24/17 12/24/17 metFORMIN HCL [Glucophage] 1,000 mg PO HS 12/24/17 12/24/17 Previous Rx's Medication Instructions Recorded Clopidogrel [Plavix] 75 mg PO DAILY #90 tab 03/05/17 Orphenadrine [Norflex] 100 mg PO Q12H #14 tablet.er 12/24/17 Allergies Allergy/AdvReac Type Severity Reaction Status Date / Time adhesive tape Allergy Rash/Hives Verified 12/24/17 09:08 Review of Systems ROS Statement: Those systems with pertinent positive or pertinent negative responses have been documented in the HPI. ROS Other: All systems not noted in ROS Statement are negative. Past Medical History Past Medical History: Cancer, Heart Failure, Diabetes Mellitus, Hypertension Additional Past Medical History / Comment(s): hx skin cancer, gout History of Any Multi-Drug Resistant Organisms: None Reported Past Surgical History: Hysterectomy, Joint Replacement, Orthopedic Surgery, Pacemaker, Tonsillectomy Additional Past Surgical History / Comment(s): rt knee arthroscopy, rt knee replacement, nahomy big toe joint replacement, vein stripping, surgery for fx left femur, stent placed in left carotid Past Anesthesia/Blood Transfusion Reactions: No Reported Reaction Type of Cardiac Device: Permanent Pacemaker Device Placement Date:: 03/2012 Past Psychological History: No Psychological Hx Reported Smoking Status: Former smoker Past Alcohol Use History: None Reported Past Drug Use History: None Reported - Past Family History Mother Additional Family Medical History / Comment(s): Alzheimers Father Family Medical History: Cancer Additional Family Medical History / Comment(s): Lung disease General Exam Limitations: no limitations General appearance: alert, in no apparent distress Head exam: Present: atraumatic, normocephalic, normal inspection Eye exam: Present: normal appearance, PERRL, EOMI. Absent: scleral icterus, conjunctival injection, periorbital swelling ENT exam: Present: normal exam, normal oropharynx, mucous membranes moist, TM's normal bilaterally, normal external ear exam Neck exam: Present: normal inspection (No rash noted), tenderness (Tenderness to the left cervical paraspinal, trapezius region). Absent: meningismus, full ROM (Decreased range of motion secondary to reported pain), lymphadenopathy Respiratory exam: Present: normal lung sounds bilaterally. Absent: respiratory distress, wheezes, rales, rhonchi, stridor Cardiovascular Exam: Present: regular rate, normal rhythm, normal heart sounds. Absent: systolic murmur, diastolic murmur, rubs, gallop, clicks Extremities exam: Present: other (Upper extremity strength equal bilaterally, neurovascular intact equal radial pulses) Back exam: Present: full ROM. Absent: tenderness Neurological exam: Present: alert, oriented X3, CN II-XII intact, reflexes normal. Absent: motor sensory deficit Course Vital Signs 12/24/17 08:37 Temperature 98.3 F Pulse Rate 74 Respiratory 18 Rate Blood Pressure 188/73 O2 Sat by Pulse 97 Oximetry Medical Decision Making - Medical Decision Making 77-year-old female presented for neck discomfort. Patient symptoms seem to related to muscle spasms, spasmatic torticollis. Patient had CT of her neck which shows degenerative changes possible bulbar bulging disc at C7-T1. Patient has normal upper extremity strength neurovascular intact. Patient we discharged at this time return parameters were discussed. Disposition Clinical Impression: Trapezius muscle spasm, Neck pain Disposition: HOME SELF-CARE Condition: Stable Instructions: Cervical Sprain (ED), Muscle Spasm (ED) Additional Instructions: Please return to the Emergency Department if symptoms worsen or any other concerns. Prescriptions: Orphenadrine [Norflex] 100 mg PO Q12H #14 tablet.er Is patient prescribed a controlled substance at d/c from ED?: No Referrals: Andi Chowdhury MD [Primary Care Provider] - 1-2 days Time of Disposition: 11:02
--- NOTE | 2017-12-24 10:23 | CT ---
EXAMINATION TYPE: CT cervical spine wo con DATE OF EXAM: 12/24/2017 COMPARISON: NONE HISTORY: Neck pain without injury CT DLP: 561 mGycm. Automated Exposure Control for Dose Reduction was Utilized. TECHNIQUE: CT scan of the cervical spine is obtained without contrast, axial images are obtained, sa gittal and coronal reformatted images are also reviewed. FINDINGS: Cervical spine is visualized in its entirety from C1 through upper thoracic levels, demonstrates sati sfactory vertebral body heights. There is mild grade 1 anterolisthesis of C4 and C5 and extensive degenerative disc disease at C5-C6. Multilevel uncovertebral hypertrophy and facet arthropathy creating mild left neural foraminal narrow ing at C4-C5 and mild to moderate bilateral neural foraminal narrowing at C5-C6. Minimal neural young inal narrowing on the right is seen at C6-C7. Limitation of evaluation of the spinal canal on CT, how ever there appears to be mild spinal canal stenosis at C5-C6 secondary to a disc osteophyte complex a nd at least broad-based disc bulge. Disc herniation is possible. This would be better assessed with M RI. Broad-based disc bulge is seen at C6-C7. Suspected central small disc herniation at C7-T1 on image 64 of series 3. Prevertebral soft tissue appears within normal limits. The C1-C2 articulation is with in normal limits on the coronal images. Lung apices demonstrate bilateral pleural parenchymal thickening and mild paraseptal emphysematous ch nhung. Left carotid endarterectomy with endovascular stent graft placement has been performed. IMPRESSION: 1. No acute fracture of the cervical spine. 2. Grade 1 anterolisthesis of C3-4 and C5, likely on a degenerative basis. 3. Multilevel moderate degenerative change of the cervical spine resulting in mild spinal canal steno sis at C5-C6 and variable degrees of neural foraminal narrowing. There is a suspected small central d isc herniation at C7-T1 could be further evaluated with MRI.
[2017-12-24] MEDS ORDERED: ACET/COD 300 MG/30 MG STARTER PACK 6 TAB BTL PO STA (11:01)
[2017-12-24 11:16] VITALS: BP 168/73; PULSE 65; TEMP 97.5
== END 2017-12-24 11:16 | disposition home or self-care (01) ==
LOC: EC 08:28
DX: M62.830 Muscle spasm of back (principal); M54.2 Cervicalgia; M47.813 Spondylosis without myelopathy or radiculopathy, cervicothoracic region; I11.0 Hypertensive heart disease with heart failure; I50.9 Heart failure, unspecified; E11.9 Type 2 diabetes mellitus without complications; M10.9 Gout, unspecified; Z85.828 Personal history of other malignant neoplasm of skin; Z87.891 Personal history of nicotine dependence; Z95.0 Presence of cardiac pacemaker; Z96.651 Presence of right artificial knee joint; Z95.5 Presence of coronary angioplasty implant and graft; Z98.890 Other specified postprocedural states; Z79.4 Long term (current) use of insulin; Z79.82 Long term (current) use of aspirin; Z79.899 Other long term (current) drug therapy
CPT/HCPCS: 72125; 99283; 96372; J2360

== ENCOUNTER → 2018-02-19 | Outpatient (CLI) | payer MEDICARE ==
--- NOTE | 2018-02-19 18:25 | CT ---
EXAMINATION TYPE: CT angio neck DATE OF EXAM: 02/19/2018 HISTORY: Abnormal US at office per patient. History of left sided stent placement. COMPARISON: None CT DLP: 305.9 mGycm. Automated Exposure Control for Dose Reduction was Utilized. TECHNIQUE: CTA scan of the neck is performed with IV Contrast, patient injected with 65 mL of Isovue 300, axial images are obtained, coronal and sagittal reformatted images are reviewed. Three-D recons tructed images are created on an independent workstation and reviewed. FINDINGS: Carotid/Vascular Structures: Atheromatous plaquing is present at the right internal carotid artery or igin. Plaque is contributing to severe stenosis greater than 70%. There is a carotid stent present within the left internal carotid artery to common carotid artery. Th is appears patent. Other: [place]: Vertebral basilar system appears normal. Posterior cerebral vasculature is n ormal. Bilateral posterior communicating arteries are present. The internal carotid arteries bifurcat e normally into A1 and M1 segments. A patent anterior communicating artery is not clearly identified. Very small residual may be present. Series 4 image [id number]. Middle cerebral artery branches appear nor mal. IMPRESSION: 1. A left carotid stent appears patent as visualized. 2. Atheromatous plaque right internal carotid artery origin. This appears to have stenosis greater th an 70%. Correlate with the patient's clinical symptoms.
== END ==
LOC: RADCTMAIN 09:50
PROVIDERS: ATTEND Internal Medicine Interventional Cardiology
DX: I65.21 Occlusion and stenosis of right carotid artery (principal); Z95.5 Presence of coronary angioplasty implant and graft
CPT/HCPCS: 82565; 84520; 70498; 36415; Q9967

== ENCOUNTER → 2019-02-28 | Outpatient (CLI) | payer MEDICARE | END | disposition home or self-care (01) | LOC: RADCTMAIN 05:59 | PROVIDERS: ATTEND Nurse Practitioner Adult Health | DX: I65.23 Occlusion and stenosis of bilateral carotid arteries (principal) | CPT/HCPCS: 82565; 84520 ==

== ENCOUNTER → 2019-03-22 | Outpatient (CLI) | payer MEDICARE ==
[~2019-03-22] MED LIST: SODIUM CHLORIDE 0.9% 1,000 ML IV SCH
[2019-03-22 08:24] LABS: Calcium 9.9 mg/dL (8.4-10.2); Potassium 5.3 mmol/L (3.5-5.1)
[2019-03-22 12:36] LABS: Calcium 9.3 mg/dL (8.4-10.2); Potassium 4.8 mmol/L (3.5-5.1)
--- NOTE | 2019-03-22 13:48 | CT ---
EXAMINATION TYPE: CT angio neck DATE OF EXAM: 03/22/2019 HISTORY: Carotid steonsis COMPARISON: 02/19/2018 CT DLP: 353 mGycm. Automated Exposure Control for Dose Reduction was Utilized. TECHNIQUE: CTA scan of the neck is performed without and with IV Contrast, patient injected with 65 ml mL of Isovue 370, axial images are obtained, coronal and sagittal reformatted images are reviewed. Three-D reconstructed images are created on an independent workstation and reviewed. Source images are reviewed. FINDINGS: Carotid/Vascular Structures: Vertebral arteries are codominant. There is a three-vessel arch. Common carotid arteries appear normal. A stent may be present within the left carotid bifurcation. This appe ars patent. Atheromatous plaquing is at the right carotid bifurcation without significant flow-limiti ng stenosis. Plaquing does cause some narrowing estimated at up to 50%. This is calculated at less th an the prior study 02/19/2018. IMPRESSION: 1. Atheromatous plaquing causing moderate stenosis right carotid bifurcation at 50% stenosis. 2. Left carotid bifurcation stent remains patent.
[2019-03-22 16:08] LABS: Hemoglobin A1C 9.1 % (4.0-6.0)
== END | disposition home or self-care (01) ==
LOC: RADCTMAIN 07:28
PROVIDERS: ATTEND Internal Medicine Clinical Cardiac Electrophysiology
DX: I65.21 Occlusion and stenosis of right carotid artery (principal); I67.2 Cerebral atherosclerosis; E11.9 Type 2 diabetes mellitus without complications; E78.5 Hyperlipidemia, unspecified
CPT/HCPCS: 80061; 80048; 83036; 70498; 36415; Q9967

== ENCOUNTER → 2020-03-12 | Outpatient (CLI) | payer MEDICARE ==
--- NOTE | 2020-03-12 18:16 | US ---
EXAMINATION TYPE: US kidneys/renal and bladder DATE OF EXAM: 03/12/2020 COMPARISON: NONE CLINICAL HISTORY: N18.31 Chronic kidney disease. CKD stage 3 EXAM MEASUREMENTS: Right Kidney: 10.1 x 6.0 x 6.2 cm Left Kidney: 11.1 x 5.0 x 4.1 cm Right Kidney: 1.9 x 1.5 x 1.8cm poorly defined oval shaped hypoechoic to anechoic area inferior pole likely thin-walled cyst possibly with debris Left Kidney: multiple cysts with largest measuring 1.9 x 1.7 x 1.8cm inferior pole Bladder: not fully distended Bilateral Jets seen: no There is no evidence for hydronephrosis at this point in time. No nephrolithiasis is seen. Increased cortical echogenicity bilaterally. The urinary bladder is poorly distended with lobulated covarrubias. B ilateral ureteral jets are not seen. When scanning right kidney adjacent liver is heterogeneously hyperechoic. IMPRESSION: Suboptimal study without hydronephrosis seen bilaterally. Renal lesions identified likely reflect Bosniak type I or II cystic lesions.
== END | disposition home or self-care (01) ==
LOC: RADUSWWP 15:14
PROVIDERS: ATTEND Internal Medicine
DX: N28.89 Other specified disorders of kidney and ureter (principal); N18.31 Chronic kidney disease, stage 3a
CPT/HCPCS: 76770

== ENCOUNTER → 2020-09-03 | Outpatient (CLI) | payer MEDICARE ==
[2020-09-03 22:13] LABS: Chol/HDL Ratio 4.86; LDL Cholesterol,Calculated 80.6 mg/dL (0.0-131.0); VLDL Calculation 31.4 mg/dL (5.00-40.00)
[2020-09-03 22:31] LABS: Hemoglobin A1C 7.5 % (4.0-6.0)
[2020-09-04 01:27] LABS: Urine Creatinine 84.7 mg/dL
== END | disposition home or self-care (01) ==
LOC: LABWHC1 12:49
PROVIDERS: ATTEND Internal Medicine
DX: I10 Essential (primary) hypertension (principal); E11.9 Type 2 diabetes mellitus without complications; E78.2 Mixed hyperlipidemia
CPT/HCPCS: 36415; 80061; 82043; 82570; 83036; 84443

== ENCOUNTER → 2020-09-03 | Outpatient (CLI) | payer MEDICARE ==
[2020-09-03 13:21] LABS: Basophils # (A) 0.1 k/uL (0-0.2); Basophils % (A) 1 %; Eosinophils # (A) 0.2 k/uL (0-0.7); Eosinophils % (A) 4 %; HCT 42.4 % (34.0-46.0); HGB 13.3 gm/dL (11.4-16.0); Lymphocytes # (A) 1.4 k/uL (1.0-4.8); Lymphocytes % (A) 23 %; MCH 28.1 pg (25.0-35.0); MCHC 31.3 g/dL (31.0-37.0); MCV 89.7 fL (80.0-100.0); Monocytes # (A) 0.4 k/uL (0-1.0); Monocytes % (A) 7 %; Neutrophils % (A) 64 %; Platelet Count 177 k/uL (150-450); RBC 4.73 m/uL (3.80-5.40); RDW 14.4 % (11.5-15.5); WBC 6.2 k/uL (3.8-10.6)
[2020-09-03 13:26] LABS: Calcium 9.6 mg/dL (8.4-10.2); Potassium 4.9 mmol/L (3.5-5.1); Total Bilirubin 0.4 mg/dL (0.2-1.3); Total Protein 6.7 g/dL (6.3-8.2)
== END | disposition home or self-care (01) ==
LOC: LABPAT 11:33
PROVIDERS: ATTEND Internal Medicine Clinical Cardiac Electrophysiology
DX: Z01.812 Encounter for preprocedural laboratory examination (principal); I44.2 Atrioventricular block, complete
CPT/HCPCS: 80053; 85025

== ENCOUNTER → 2020-09-18 | Day surgery (SDC) | payer MEDICARE ==
[2020-09-12 18:14] VITALS: BMI 32.7
[~2020-09-18] MED LIST changes: +INSULIN ASPART (NovoLOG) 100 UNIT/ML VIAL SQ ONE; +SODIUM CHLORIDE 0.9% 1,000 ML IV ONE; +ceFAZolin 1 GM in SODIUM CHLORIDE 0.9% 250 ML IRRIGATION PRN
[2020-09-18 11:08] LABS: Glucose,Whole Blood 143 mg/dL (75-99)
[2020-09-18 11:11] VITALS: BP 180/77; PULSE 64; RESP 6; TEMP 98.7
== END ==
LOC: CATHEP 10:38
PROVIDERS: ATTEND Internal Medicine Clinical Cardiac Electrophysiology
DX: Z45.018 Encounter for adjustment and management of other part of cardiac pacemaker (principal); Z53.9 Procedure and treatment not carried out, unspecified reason

== ENCOUNTER 2020-09-27 08:05 | Day surgery (SDC) | payer MEDICARE ==
[2020-09-25 15:28] VITALS: BMI 32.7
[~2020-09-27 08:05] MED LIST changes: -INSULIN ASPART (NovoLOG) 100 UNIT/ML VIAL SQ ONE; +LACTATED RINGERS 1,000 ML IV SCH; -SODIUM CHLORIDE 0.9% 1,000 ML IV ONE
[2020-09-27 08:39] LABS: Glucose,Whole Blood 172 mg/dL (75-99)
[2020-09-27 08:47] VITALS: RESP 18; TEMP 98.5
[2020-09-27] MEDS ORDERED: MIDAZOLAM 2 MG/2 ML VIAL ONE (09:38)
[2020-09-27] MEDS ORDERED: fentaNYL (PF) 50 MCG/ML 2 ML AMP ONE (09:38)
[2020-09-27] MEDS ORDERED: VANCOMYCIN 1,000 MG in SODIUM CHLORIDE 0.9% 250 ML IVPB STA (09:52)
[2020-09-27] MEDS ORDERED: LIDOCAINE 1% INJ 10MG/ML (20 ML MDV) ONE ×2 (09:55)
[2020-09-27] MEDS: LIDOCAINE 1% INJ 10MG/ML (20 ML MDV) SQ ONE ×2 (10:12→10:55)
--- NOTE | 2020-09-27 10:30 | P.EPPROC ---
- EP Procedure Note Electrophysiology Procedure Note: Transvenous temporary pacing procedure Indication for the procedure: Severe underlying bradycardia/complete heart Patient was brought to the EP lab in a fasting state. Written informed consent was obtained prior to the procedure. The right groin was prepped and draped as a protocol. A 6-Maori sheath was placed in the right femoral vein. Via this, a temporary pacing catheter was placed in the right ventricle. Thresholds were interrogated. Temporary pacing was performed through the rest of the procedure. At the end of the entire procedure, the TVP was removed. The sheath was removed and hemostasis was assured. Patient tolerated the procedure well without any acute complications. Procedure performed Transvenous temporary pacing
[2020-09-27] MEDS ORDERED: LIDOCAINE 1% INJ 10MG/ML (20 ML MDV) SQ ONE (10:47)
[2020-09-27] MEDS ORDERED: ACETAMINOPHEN TAB 325 MG TAB PO PRN (11:37)
--- NOTE | 2020-09-27 12:01 | CE ---
CARDIAC ELECTROPHYSIOLOGY REPORT The patient has a biventricular pacemaker which is at [facility]. She was brought in for a biventricular pacemaker generator change. A TVP was 1st placed and she has complete heart block. Following that, the left pectoral area was prepped and draped as per protocol. 1% lidocaine was used for local anesthesia. A 4 cm incision was made over the generator and carried down to the level of the generator. The old generator was explanted. The new generator was implanted. Partial capsulectomy was performed. The leads were interrogated. The right atrial lead is a Guidant dextrous model #4136 serial #[id number]. P waves were 2.9 mV, pacing threshold 1 V at 0.4 milliseconds, pacing impedance of 543 ohms. The RV lead was a Guidant Selute passive lead model #4285 serial #[id number]. The pacing threshold was 1 V at 0.4 milliseconds. Pacing impedance of 544 ohms. The LV lead was an Easy Trak 3LVA dual electrode LV1 87 cm in length, model #4524, serial #[id number]. The LV threshold was 1.6 V at 0.4 milliseconds pacing impedance of 917 ohms from LV tip to RV. The new generator was implanted. This was a Aionex IS1/LV 1 generator (this was a generator specific for the LV 1 type left ventricular lead) model number U226, serial #[id number]. The leads and generator were then placed in subfascial pocket. The wound was closed in 3 layers and dressed per protocol. The patient received antibiotics perioperatively. RESULT: Successful dual dual-chamber biventricular pacemaker generator change, which has an LV- 1 port for the LV lead. (D[employer]). MMODL / IJN: [id number] /
[2020-09-27 15:43] VITALS: BP 159/60; PULSE 55
== END 2020-09-27 16:26 | disposition home or self-care (01) ==
LOC: CATHEP 08:05
PROVIDERS: ATTEND Internal Medicine Clinical Cardiac Electrophysiology
DX: R00.1 Bradycardia, unspecified (principal); I44.2 Atrioventricular block, complete; Z95.0 Presence of cardiac pacemaker; I10 Essential (primary) hypertension; E11.9 Type 2 diabetes mellitus without complications; Z79.4 Long term (current) use of insulin; E78.5 Hyperlipidemia, unspecified; Z79.02 Long term (current) use of antithrombotics/antiplatelets; Z79.82 Long term (current) use of aspirin
CPT/HCPCS: 33229; C1779; C1894; C1769 ×3; C2621; C1730; J2250; J3370; J0690; J2001; J3010

== ENCOUNTER 2020-10-21 19:43 | Observation (INO) | payer MEDICARE ==
[2020-10-21 20:03] LABS: Glucose,Whole Blood 449 mg/dL (75-99)
[2020-10-21] MEDS ORDERED: SODIUM CHLORIDE 0.9% 1,000 ML IV STA (20:03)
[2020-10-21] MEDS ORDERED: INSULIN REGULAR 100 UNIT/ML VIAL (IV) IV ONE ×2 (20:05→21:23)
--- NOTE | 2020-10-21 20:26 | ED ---
General Adult HPI - General Chief complaint: Recheck/Abnormal Lab/Rx Stated complaint: hyperglycemia Time Seen by Provider: 10/21/20 19:59 Source: patient, EMS Mode of arrival: EMS Limitations: no limitations - History of Present Illness Initial comments: Dictation was produced using [employer] dictation software. please excuse any grammatical, word or spelling errors. Chief Complaint: 80-year-old female presents with hyperglycemia History of Present Illness: This 72-year-old female presents today for hyperglycemia. Yesterday she took some prednisone for some gout that she noticed on her right upper extremity. She wasn't prescribed this for gout. She is takes prednisone on her own which feels like she is having gout symptoms. Patient's sugar today has been over 400. She denies any symptoms. She takes insulin and several other medications for blood glucose control. The ROS documented in this emergency department record has been reviewed and confirmed by me. Those systems with pertinent positive or negative responses have been documented in the HPI. All other systems are other negative and/or noncontributory. PHYSICAL EXAM: General Impression: Alert and oriented x3, not in acute distress HEENT: Normocephalic atraumatic, extra-ocular movements intact, pupils equal and reactive to light bilaterally, mucous membranes moist. Cardiovascular: Heart regular rate and rhythm Chest: Able to complete full sentences, no retractions, no tachypnea Abdomen: abdomen soft, non-tender, non-distended, no organomegaly Musculoskeletal: Pulses present and equal in all extremities, no peripheral edema Motor: no focal deficits noted Neurological: CN II-XII grossly intact, no focal motor or sensory deficits noted Skin: Intact with no visualized rashes Psych: Normal affect and mood ED course: 80 female presents emergency department for a symptomatic hyperglycemia. vital signs upon arrival are within acceptable limits. With patient's well-appearing at bedside. Laboratory evaluation obtained. CBC unremarkable. Metabolic panel is unremarkable. His glucose of 455. Patient is given fluids and given insulin. During insulin administration patient became very dizzy. Her glucose had been checked frequently with levels in the 300s. Patient's doesn't feel comfortable at home. Patient be admitted observation. Case discussed with Dr. Ortiz who is willing to admit. - Related Data Home Medications Medication Instructions Recorded Confirmed ALPRAZolam [Xanax] 0.25 mg PO TID PRN 08/29/14 09/27/20 Aspirin 81 mg PO DAILY 08/29/14 09/27/20 Furosemide [Lasix] 40 mg PO DAILY 08/29/14 09/27/20 Irbesartan [Avapro] 150 mg PO DAILY 08/29/14 09/27/20 Metoprolol Succinate (ER) [Toprol 50 mg PO BID 08/29/14 09/27/20 XL] Insulin Aspart [NovoLOG Flexpen] 15 units SQ AC-TID 03/03/17 09/27/20 Insulin Glargine,Hum.rec.anlog 54 units SQ HS 04/27/17 09/27/20 [Toujeo Solostar] Magnesium Oxide [Mag-Ox] 200 mg PO TUSA 12/24/17 09/27/20 Atorvastatin [Lipitor] 40 mg PO HS 09/12/20 09/27/20 Semaglutide [Rybelsus] 7 mg PO DAILY 09/12/20 09/27/20 amLODIPine [Norvasc] 5 mg PO DAILY 09/12/20 09/27/20 Previous Rx's Medication Instructions Recorded Clopidogrel [Plavix] 75 mg PO DAILY #90 tab 03/05/17 Allergies Allergy/AdvReac Type Severity Reaction Status Date / Time adhesive tape Allergy Rash/Hives Verified 10/21/20 19:58 Review of Systems ROS Statement: Those systems with pertinent positive or pertinent negative responses have been documented in the HPI. ROS Other: All systems not noted in ROS Statement are negative. Past Medical History Past Medical History: Cancer, Diabetes Mellitus, Hypertension, Osteoarthritis (OA) Additional Past Medical History / Comment(s): hx skin cancer, gout, SEE DR STRINGER'S HISTORY AND PHYSICAL FOR CARDIAC HISTORY, CHRONIC KIDNEY DISEASE STAGE 3, CATARACT SURGERY History of Any Multi-Drug Resistant Organisms: None Reported Past Surgical History: Hysterectomy, Joint Replacement, Orthopedic Surgery, Pacemaker, Tonsillectomy Additional Past Surgical History / Comment(s): rt knee arthroscopy, rt knee replacement, nahomy big toe joint replacement, vein stripping, surgery for fx left femur, stent placed in left carotid, PACEMAKER WITH DEFIB replaced September 2020 Past Anesthesia/Blood Transfusion Reactions: No Reported Reaction Type of Cardiac Device: Permanent Pacemaker Device Placement Date:: 03/2012 Past Psychological History: No Psychological Hx Reported Smoking Status: Former smoker Past Alcohol Use History: None Reported Past Drug Use History: None Reported - Past Family History Mother Additional Family Medical History / Comment(s): Alzheimers Father Family Medical History: Cancer Additional Family Medical History / Comment(s): Lung disease, SKIN CANCER General Exam Limitations: no limitations Course Vital Signs 10/21/20 10/21/20 10/21/20 19:58 20:47 21:29 Temperature 98.4 F Pulse Rate 90 73 92 Respiratory 20 20 20 Rate Blood Pressure 156/71 146/74 155/71 O2 Sat by Pulse 98 96 98 Oximetry 10/21/20 10/21/20 22:19 22:56 Temperature Pulse Rate 85 68 Respiratory 20 20 Rate Blood Pressure 153/67 142/58 O2 Sat by Pulse 98 98 Oximetry Medical Decision Making - Lab Data Result diagrams: 10/21/20 21:43 10/21/20 20:16 Lab Results 10/21/20 10/21/20 10/21/20 Range/Units 20:01 20:16 21:20 WBC (3.8-10.6) k/uL RBC (3.80-5.40) m/uL Hgb (11.4-16.0) gm/dL Hct (34.0-46.0) % MCV (80.0-100.0) fL MCH (25.0-35.0) pg MCHC (31.0-37.0) g/dL RDW (11.5-15.5) % Plt Count (150-450) k/uL MPV Neutrophils % % Lymphocytes % % Monocytes % % Eosinophils % % Basophils % % Neutrophils # (1.3-7.7) k/uL Lymphocytes # (1.0-4.8) k/uL Monocytes # (0-1.0) k/uL Eosinophils # (0-0.7) k/uL Basophils # (0-0.2) k/uL Sodium 133 L (137-145) mmol/L Potassium 5.0 (3.5-5.1) mmol/L Chloride 98 (98-107) mmol/L Carbon Dioxide 23 (22-30) mmol/L Anion Gap 12 mmol/L BUN 37 H (7-17) mg/dL Creatinine 1.06 H (0.52-1.04) mg/dL Est GFR (CKD-EPI)AfAm 58 (>60 ml/min/1.73 sqM) Est GFR (CKD-EPI)NonAf 51 (>60 ml/min/1.73 sqM) Glucose 455 H (74-99) mg/dL POC Glucose (mg/dL) 449 H 381 H (75-99) mg/dL POC Glu Fraud Investigator ID Lester Dick King Muna Calcium 9.0 (8.4-10.2) mg/dL 10/21/20 10/21/20 10/21/20 Range/Units 21:32 21:43 22:05 WBC 6.9 (3.8-10.6) k/uL RBC 4.26 (3.80-5.40) m/uL Hgb 13.0 (11.4-16.0) gm/dL Hct 39.3 (34.0-46.0) % MCV 92.3 (80.0-100.0) fL MCH 30.6 (25.0-35.0) pg MCHC 33.1 (31.0-37.0) g/dL RDW 14.5 (11.5-15.5) % Plt Count 174 (150-450) k/uL MPV 8.1 Neutrophils % 88 % Lymphocytes % 8 % Monocytes % 3 % Eosinophils % 0 % Basophils % 0 % Neutrophils # 6.1 (1.3-7.7) k/uL Lymphocytes # 0.5 L (1.0-4.8) k/uL Monocytes # 0.2 (0-1.0) k/uL Eosinophils # 0.0 (0-0.7) k/uL Basophils # 0.0 (0-0.2) k/uL Sodium (137-145) mmol/L Potassium (3.5-5.1) mmol/L Chloride (98-107) mmol/L Carbon Dioxide (22-30) mmol/L Anion Gap mmol/L BUN (7-17) mg/dL Creatinine (0.52-1.04) mg/dL Est GFR (CKD-EPI)AfAm (>60 ml/min/1.73 sqM) Est GFR (CKD-EPI)NonAf (>60 ml/min/1.73 sqM) Glucose (74-99) mg/dL POC Glucose (mg/dL) 338 H 336 H (75-99) mg/dL POC Glu Fraud Investigator ID Muna Roth Johnathan, Ari Calcium (8.4-10.2) mg/dL 10/21/20 Range/Units 23:11 WBC (3.8-10.6) k/uL RBC (3.80-5.40) m/uL Hgb (11.4-16.0) gm/dL Hct (34.0-46.0) % MCV (80.0-100.0) fL MCH (25.0-35.0) pg MCHC (31.0-37.0) g/dL RDW (11.5-15.5) % Plt Count (150-450) k/uL MPV Neutrophils % % Lymphocytes % % Monocytes % % Eosinophils % % Basophils % % Neutrophils # (1.3-7.7) k/uL Lymphocytes # (1.0-4.8) k/uL Monocytes # (0-1.0) k/uL Eosinophils # (0-0.7) k/uL Basophils # (0-0.2) k/uL Sodium (137-145) mmol/L Potassium (3.5-5.1) mmol/L Chloride (98-107) mmol/L Carbon Dioxide (22-30) mmol/L Anion Gap mmol/L BUN (7-17) mg/dL Creatinine (0.52-1.04) mg/dL Est GFR (CKD-EPI)AfAm (>60 ml/min/1.73 sqM) Est GFR (CKD-EPI)NonAf (>60 ml/min/1.73 sqM) Glucose (74-99) mg/dL POC Glucose (mg/dL) 324 H (75-99) mg/dL POC Glu Fraud Investigator Muna Chairez Calcium (8.4-10.2) mg/dL Disposition Clinical Impression: Hyperglycemia, Dizziness Disposition: ADMITTED IP TO THIS HOSP Condition: Fair Referrals: Regina Ortiz MD [Primary Care Provider] - 1-2 days
[2020-10-21 21:21] LABS: Glucose,Whole Blood 381 mg/dL (75-99)
[2020-10-21 21:33] LABS: Glucose,Whole Blood 338 mg/dL (75-99)
[2020-10-21 21:52] LABS: Basophils % (A) 0 %; Eosinophils % (A) 0 %; HCT 39.3 % (34.0-46.0); Lymphocytes # (A) 0.5 k/uL (1.0-4.8); Lymphocytes % (A) 8 %; MCH 30.6 pg (25.0-35.0); MCHC 33.1 g/dL (31.0-37.0); MCV 92.3 fL (80.0-100.0); Mean Platelet Volume 8.1; Monocytes # (A) 0.2 k/uL (0-1.0); Monocytes % (A) 3 %; Neutrophils # (A) 6.1 k/uL (1.3-7.7); Neutrophils % (A) 88 %; Platelet Count 174 k/uL (150-450); RBC 4.26 m/uL (3.80-5.40); RDW 14.5 % (11.5-15.5); WBC 6.9 k/uL (3.8-10.6)
[2020-10-21 22:07] LABS: Glucose,Whole Blood 336 mg/dL (75-99)
[2020-10-21] MEDS ORDERED: NALOXONE 0.4 MG/ML 1 ML VIAL IV PRN (23:11)
[2020-10-21 23:13] LABS: Glucose,Whole Blood 324 mg/dL (75-99)
[2020-10-21] MEDS ORDERED: SODIUM CHLORIDE 0.9% 1,000 ML IV SCH (23:15)
[2020-10-21] MEDS: INSULIN ASPART (NovoLOG) 100 UNIT/ML VIAL SQ SCH (23:32)
[2020-10-22 00:31] LABS: Glucose,Whole Blood 281 mg/dL (75-99)
[2020-10-22 01:16] LABS: Glucose,Whole Blood 270 mg/dL (75-99)
[2020-10-22 02:14] LABS: Glucose,Whole Blood 278 mg/dL (75-99)
[2020-10-22 03:08] LABS: Glucose,Whole Blood 295 mg/dL (75-99)
[2020-10-22 04:06] LABS: Glucose,Whole Blood 259 mg/dL (75-99)
[2020-10-22 05:08] LABS: Glucose,Whole Blood 266 mg/dL (75-99)
[2020-10-22 06:12] LABS: Glucose,Whole Blood 248 mg/dL (75-99)
[2020-10-22 06:57] LABS: Glucose,Whole Blood 252 mg/dL (75-99)
[2020-10-22] MEDS: INSULIN ASPART (NovoLOG) 100 UNIT/ML VIAL SQ SCH ×3 (07:35→20:57)
[2020-10-22] MEDS ORDERED: NON FORMULARY DRUG (Semaglutide [Rybelsus] 7 MG Tablet) PO SCH ×2 (09:00→14:16)
[2020-10-22] MEDS: ASPIRIN 81 MG PO SCH (09:57)
[2020-10-22] MEDS: LOSARTAN 50 MG TAB PO SCH (09:57)
[2020-10-22] MEDS: METOPROLOL TARTRATE 50 MG TAB PO SCH ×2 (09:57→20:57)
[2020-10-22] MEDS: amLODIPine 5 MG TAB PO SCH (09:58)
[2020-10-22] MEDS: FUROSEMIDE 20 MG TAB PO SCH ×2 (09:58→20:57)
[2020-10-22] MEDS: CLOPIDOGREL 75 MG TAB PO SCH (09:58)
[2020-10-22 11:37] LABS: Glucose,Whole Blood 245 mg/dL (75-99)
--- NOTE | 2020-10-22 14:01 | P.HPIM ---
History of Present Illness H&P Date: 10/22/20 HISTORY OF PRESENT ILLNESS This is a 80-year-old female patient of Dr. Ortiz with past medical history of diabetes mellitus type 2, hypertension, hyperlipidemia, chronic kidney disease stage III, complete heart block status post biventricular pacemaker, nonischemic cardiomyopathy, chronic systolic heart failure, carotid atherosclerosis status post stent. The patient was briefly started on prednisone because of suspected gout in her right arm. This is doing much better but she did not take her medications yesterday and her blood sugars were running high. Her last hem oglobin A1c in August was 7.5 and a medication adjustments were made, patient states that her blood sugars normally run 150-160. Patient presented to [facility] emergency center for evaluation and found to have blood sugar of 455. She was afebrile, heart rate 90, blood pressure 156/71, pulse ox 98% on room air. CBC was unremarkable. Sodium 133, potassium 5.0, chloride 90, CO2 23, BUN 37 creatinine 1.06. Blood sugars this morning are running in the 240s to 266. The patient did not receive her long acting insulin last evening. Patient will have family bring in Jovani and Dianna from home. REVIEW OF SYSTEMS Constitutional: No fever, no chills, no night sweats. No weight change. No weakness, fatigue or lethargy. No daytime sleepiness. EENT: No headache. No blurred vision or double vision, no loss of vision. No loss of Hearing, no ringing in the ears, no dizziness. No nasal drainage or congestion. No epistaxis. No sore throat. Lungs: No shortness of breath, cough, no sputum production. No wheezing. Cardiovascular: No chest pain, no lower extremity edema. No palpitations. No paroxysmal nocturnal dyspnea. No orthopnea. No lightheadedness or dizziness. No syncopal episodes. Abdominal: No abdominal pain. No nausea, vomiting. No diarrhea. No constipation. No bloody or tarry stools.. No loss of appetite. Genitourinary: No dysuria, increased frequency, urgency. No urinary retention. Musculoskeletal: No myalgias. No muscle weakness, no gait dysfunction, no frequent falls. No back pain. No neck pain. Integumentary: No wounds, no lesions. No rash or pruritus. No unusual bruising. No change in hair or nails. Neurologic: No aphasia. No facial droop. No change in mentation. No head injury. No headache. No paralysis. No paresthesia. Psychiatric: No depression. No anxiety. No mood swings. Endocrine: Noted abnormal blood sugars. No weight change. No excessive sweating or thirst. No cold intolerance. MEDICAL HISTORY Diabetes mellitus type 2 Hypertension Hyperlipidemia Coronary artery disease Chronic kidney disease stage III Complete heart block Nonischemic cardiomyopathy Chronic systolic heart failure Carotid atherosclerosis SURGICAL HISTORY Stent left internal carotid artery 02/2017 Dual-chamber biventricular pacemaker IM hip screw of the left hip done at [facility] Removal of soft flow medullary long Memorial nail left femur 08/2014 Tonsillectomy Total abdominal hysterectomy, bilateral salpingectomy oophorectomy Right knee open meniscus repair Hammertoe surgeries bilaterally SOCIAL HISTORY She was a smoker one pack per day, no alcohol use, no marijuana use, no illicit drug use. FAMILY HISTORY Father at age 72 from emphysema. Mother at age 85 from Alzheimer's dementia. Patient has 1 brother with no major medical problems. Patient has 3 sisters and one twin from a lung injury and the other 2 sisters are without major medical problems. Patient's one son and 2 daughters with no major medical problems. PHYSICAL EXAMINATION Gen: This is a 80-year-old female. Patient is resting in bed appears to be comfortable and in no acute distress. HEENT: Head is atraumatic, normocephalic. Pupils equal, round. Sclerae is anicteric. NECK: Supple. No JVD. No lymphadenopathy. No thyromegaly. LUNGS: Clear to auscultation. No wheezes or rhonchi. No intercostal retractions. HEART: First heart sound is depressed, second heart sound is normal, 2/6 systolic ejection murmur at the left sternal border, no S3, no S4. ABDOMEN: Soft. Bowel sounds are present. No masses. No tenderness. EXTREMITIES: No pedal edema. No calf tenderness. NEUROLOGICAL: Patient is awake, alert and oriented x3. Cranial nerves 2 through 12 are grossly intact. ASSESSMENT AND PLAN 1. Hyperglycemia secondary to steroid use and patient missed all her medications yesterday. Patient will be resumed on Toujeo 45 units at bedtime and Rybelsus 7 mg daily, NovoLog scale before meals and at bedtime. 2. Gout the right arm. Prednisone has been discontinued. 3. Diabetes mellitus type 2 uncontrolled with hyperglycemia secondary to missing her medications yesterday and from steroids. Continue as in #1. 4. Hypertension. Continue Norvasc 5 mg daily, Avapro 150 mg daily, Lasix 20 mg twice daily, Lopressor 50 mg twice daily. 5. Hyperlipidemia. Continue Lipitor 40 mg at bedtime. 6. Chronic kidney disease stage III. Avoid nephrotoxic agents. 7. History of complete heart block status post pacemaker implantation/AICD. 8. Nonischemic cardiomyopathy status post AICD. 9. Chronic systolic heart failure. Continue Lasix 20 mg twice daily, Lopressor 50 mg twice daily. 10. Carotid atherosclerosis status post stenting of the left internal carotid artery. Continue Plavix 75 mg daily, aspirin 81 mg daily, Lipitor 40 mg daily. 11. GI prophylaxis. Protonix. 12. DVT prophylaxis. Heparin subcu. Patient placed on the observation unit. DISCHARGE PLAN Home on Thursday. Impression and plan of care have been directed as dictated by the signing physician. Kyra Woods nurse practitioner acting as scribe for signing physician. Past Medical History Past Medical History: Cancer, Diabetes Mellitus, Hypertension, Osteoarthritis (OA) Additional Past Medical History / Comment(s): hx skin cancer, gout, SEE DR STRINGER'S HISTORY AND PHYSICAL FOR CARDIAC HISTORY, CHRONIC KIDNEY DISEASE STAGE 3, CATARACT SURGERY History of Any Multi-Drug Resistant Organisms: None Reported Past Surgical History: Hysterectomy, Joint Replacement, Orthopedic Surgery, Pacemaker, Tonsillectomy Additional Past Surgical History / Comment(s): rt knee arthroscopy, rt knee replacement, nahomy big toe joint replacement, vein stripping, surgery for fx left femur, stent placed in left carotid, PACEMAKER replaced September 2020 Past Anesthesia/Blood Transfusion Reactions: No Reported Reaction Additional Past Anesthesia/Blood Transfusion Reaction / Comment(s): Pt has never had a blood transfusion. 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 Past Drug Use History: None Reported - Past Family History Mother Additional Family Medical History / Comment(s): Alzheimers Father Family Medical History: Cancer Additional Family Medical History / Comment(s): Lung disease, SKIN CANCER Medications and Allergies Home Medications Medication Instructions Recorded Confirmed Type Aspirin 81 mg PO DAILY 08/29/14 10/21/20 History Furosemide [Lasix] 20 mg PO BID 08/29/14 10/21/20 History Irbesartan [Avapro] 150 mg PO DAILY 08/29/14 10/21/20 History Insulin Aspart [NovoLOG Flexpen] 12 units SQ AC-TID 03/03/17 10/21/20 History Clopidogrel [Plavix] 75 mg PO DAILY #90 tab 03/05/17 10/21/20 Rx Insulin Glargine,Hum.rec.anlog 45 units SQ HS 04/27/17 10/21/20 History [Toujeo Solostar] Semaglutide [Rybelsus] 7 mg PO DAILY 09/12/20 10/21/20 History amLODIPine [Norvasc] 5 mg PO DAILY 09/12/20 10/21/20 History Metoprolol Tartrate [Lopressor] 50 mg PO BID 10/21/20 10/21/20 History Atorvastatin [Lipitor] 80 mg PO HS tab 10/23/20 Rx Allergies Allergy/AdvReac Type Severity Reaction Status Date / Time adhesive tape Allergy Rash/Hives Verified 10/21/20 23:25 Physical Exam Vitals: Vital Signs Temp Pulse Pulse Resp BP BP Pulse Ox 10/22/20 07:00 98.4 F 65 16 133/72 94 L 10/22/20 05:15 95 10/22/20 02:00 79 17 10/22/20 01:10 98.2 F 60 16 158/75 97 10/22/20 01:05 79 10/22/20 00:24 98.3 F 79 17 151/75 98 10/21/20 23:35 97.9 F 10/21/20 23:34 69 20 129/57 97 10/21/20 22:56 68 20 142/58 98 10/21/20 22:19 85 20 153/67 98 10/21/20 21:29 92 20 155/71 98 10/21/20 20:47 73 20 146/74 96 10/21/20 19:58 98.4 F 90 20 156/71 98 Intake and Output 10/21/20 10/22/20 10/22/20 22:59 06:59 14:59 Intake Total 300 Balance 300 Intake: Oral 300 Other: Voiding Method Toilet Bedpan # Voids 2 Weight 94.347 kg 94.347 kg Results CBC & Chem 7: 10/21/20 21:43 10/21/20 20:16 Labs: Abnormal Lab Results - Last 24 Hours (Table) 10/21/20 10/21/20 10/21/20 Range/Units 20:01 20:16 21:20 Lymphocytes # (1.0-4.8) k/uL Sodium 133 L (137-145) mmol/L BUN 37 H (7-17) mg/dL Creatinine 1.06 H (0.52-1.04) mg/dL Glucose 455 H (74-99) mg/dL POC Glucose (mg/dL) 449 H 381 H (75-99) mg/dL 10/21/20 10/21/20 10/21/20 Range/Units 21:32 21:43 22:05 Lymphocytes # 0.5 L (1.0-4.8) k/uL Sodium (137-145) mmol/L BUN (7-17) mg/dL Creatinine (0.52-1.04) mg/dL Glucose (74-99) mg/dL POC Glucose (mg/dL) 338 H 336 H (75-99) mg/dL 10/21/20 10/22/20 10/22/20 Range/Units 23:11 00:28 01:14 Lymphocytes # (1.0-4.8) k/uL Sodium (137-145) mmol/L BUN (7-17) mg/dL Creatinine (0.52-1.04) mg/dL Glucose (74-99) mg/dL POC Glucose (mg/dL) 324 H 281 H 270 H (75-99) mg/dL 10/22/20 10/22/20 10/22/20 Range/Units 02:13 03:06 04:04 Lymphocytes # (1.0-4.8) k/uL Sodium (137-145) mmol/L BUN (7-17) mg/dL Creatinine (0.52-1.04) mg/dL Glucose (74-99) mg/dL POC Glucose (mg/dL) 278 H 295 H 259 H (75-99) mg/dL 10/22/20 10/22/20 10/22/20 Range/Units 05:07 06:11 06:56 Lymphocytes # (1.0-4.8) k/uL Sodium (137-145) mmol/L BUN (7-17) mg/dL Creatinine (0.52-1.04) mg/dL Glucose (74-99) mg/dL POC Glucose (mg/dL) 266 H 248 H 252 H (75-99) mg/dL Thrombosis Risk Factor Assmnt - Choose All That Apply Any of the Below Risk Factors Present?: No Each Risk Factor Represents 3 Points: Age 75 years or older Thrombosis Risk Factor Assessment Total Risk Factor Score: 3 Thrombosis Risk Factor Assessment Level: Moderate Risk
[2020-10-22 14:27] VITALS: BMI 33.5
[2020-10-22 17:19] LABS: Glucose,Whole Blood 229 mg/dL (75-99)
[2020-10-22 20:04] VITALS: RESP 18
[2020-10-22 20:26] LABS: Glucose,Whole Blood 232 mg/dL (75-99)
[2020-10-22] MEDS: HEPARIN SODIUM,PORCINE/PF 5,000 UNIT/0.5 ML SYRINGE SQ SCH (20:57)
[2020-10-22] MEDS ORDERED: TOUJEO SQ SCH (21:00)
[2020-10-22] MEDS ORDERED: ATORVASTATIN 40 MG TAB PO SCH (21:00)
[2020-10-23 07:04] LABS: Glucose,Whole Blood 187 mg/dL (75-99)
[2020-10-23] MEDS ORDERED: PANTOPRAZOLE 40 MG TABLET PO SCH (07:30)
[2020-10-23] MEDS: LOSARTAN 50 MG TAB PO SCH (07:43)
[2020-10-23] MEDS: METOPROLOL TARTRATE 50 MG TAB PO SCH (07:43)
[2020-10-23] MEDS: INSULIN ASPART (NovoLOG) 100 UNIT/ML VIAL SQ SCH (07:43)
[2020-10-23] MEDS: HEPARIN SODIUM,PORCINE/PF 5,000 UNIT/0.5 ML SYRINGE SQ SCH (07:43)
[2020-10-23] MEDS: amLODIPine 5 MG TAB PO SCH (07:43)
[2020-10-23] MEDS: ASPIRIN 81 MG PO SCH (07:43)
[2020-10-23] MEDS: FUROSEMIDE 20 MG TAB PO SCH (07:43)
[2020-10-23] MEDS: CLOPIDOGREL 75 MG TAB PO SCH (07:44)
[2020-10-23 07:55] VITALS: BP 152/78; PULSE 70; TEMP 98.1
--- NOTE | 2020-10-23 08:35 | P.DS ---
Providers Date of admission: 10/21/20 23:11 Expected date of discharge: 10/23/20 Attending physician: Regina Ortiz Primary care physician: Regina Ortiz [facility] Course: HISTORY OF PRESENT ILLNESS This is a 80-year-old female patient of Dr. Ortiz with past medical history of diabetes mellitus type 2, hypertension, hyperlipidemia, chronic kidney disease stage III, complete heart block status post biventricular pacemaker, nonischemic cardiomyopathy, chronic systolic heart failure, carotid atherosclerosis status post stent. The patient was briefly started on prednisone because of suspected gout in her right arm. This is doing much better but she did not take her medications yesterday and her blood sugars were running high. Her last hemoglobin A1c in August was 7.5 and a medication adjustments were made, patient states that her blood sugars normally run 150-160. Patient presented to [facility] emergency center for evaluation and found to have blood sugar of 455. She was afebrile, heart rate 90, blood pressure 156/71, pulse ox 98% on room air. CBC was unremarkable. Sodium 133, potassium 5.0, chloride 90, CO2 23, BUN 37 creatinine 1.06. Blood sugars this morning are running in the 240s to 266. The patient did not receive her long acting insulin last evening. Patient will have family bring in Jovani and Dianna from home. 10/23: Patient states that she is feeling much better today. She is eating well and denies any nausea. No chest pain. No lightheadedness or dizziness. Patient has been ambulating in her room to the bathroom and back to bed. She has been afebrile, heart rate 70, blood pressure 152/78, pulse ox 97% on room air. Blood sugars have been running between 187 and 232. She has been resumed back on her home diabetes medications. The patient will be discharged home today in stable condition. ASSESSMENT AND PLAN 1. Hyperglycemia secondary to steroid use and patient missed all her medications yesterday. 2. Gout the right arm. 3. Diabetes mellitus type 2 uncontrolled with hyperglycemia secondary to missing her medications yesterday and from steroids. 4. Hypertension. 5. Hyperlipidemia. 6. Chronic kidney disease stage III. 7. History of complete heart block status post pacemaker implantation. 8. Nonischemic cardiomyopathy status post AICD. 9. Chronic systolic heart failure. 10. Carotid atherosclerosis status post stenting of the left internal carotid artery. DISCHARGE PLAN Home Impression and plan of care have been directed as dictated by the signing physician. Kyra Woods nurse practitioner acting as scribe for signing physician. Patient Condition at Discharge: Good Plan - Discharge Summary Discharge Rx Participant: Yes New Discharge Prescriptions: New Atorvastatin [Lipitor] 80 mg PO HS tab Continue Aspirin 81 mg PO DAILY Irbesartan [Avapro] 150 mg PO DAILY Furosemide [Lasix] 20 mg PO BID Insulin Aspart [NovoLOG Flexpen] 12 units SQ AC-TID Clopidogrel [Plavix] 75 mg PO DAILY #90 tab Insulin Glargine,Hum.rec.anlog [Toujeo Solostar] 45 units SQ HS amLODIPine [Norvasc] 5 mg PO DAILY Semaglutide [Rybelsus] 7 mg PO DAILY Metoprolol Tartrate [Lopressor] 50 mg PO BID Discharge Medication List Aspirin 81 mg PO DAILY 08/29/14 [History] Furosemide [Lasix] 20 mg PO BID 08/29/14 [History] Irbesartan [Avapro] 150 mg PO DAILY 08/29/14 [History] Insulin Aspart [NovoLOG Flexpen] 12 units SQ AC-TID 03/03/17 [History] Clopidogrel [Plavix] 75 mg PO DAILY #90 tab 03/05/17 [Rx] Insulin Glargine,Hum.rec.anlog [Toujeo Solostar] 45 units SQ HS 04/27/17 [History] Semaglutide [Rybelsus] 7 mg PO DAILY 09/12/20 [History] amLODIPine [Norvasc] 5 mg PO DAILY 09/12/20 [History] Metoprolol Tartrate [Lopressor] 50 mg PO BID 10/21/20 [History] Atorvastatin [Lipitor] 80 mg PO HS tab 10/23/20 [Rx] Follow up Appointment(s)/Referral(s): Regina Ortiz MD [Primary Care Provider] - 1 Week Patient Instructions/Handouts: Diabetic Hyperglycemia (DC) Activity/Diet/Wound Care/Special Instructions: activity as tolerated diabetic diet Discharge Disposition: HOME SELF-CARE
== END 2020-10-23 10:19 | disposition home or self-care (01) ==
LOC: EC 19:43 → 6NMEDSUR 23:11
PROVIDERS: ADMIT Internal Medicine; ATTEND Internal Medicine
DX: E11.65 Type 2 diabetes mellitus with hyperglycemia (principal); M10.9 Gout, unspecified; T38.0X5A Adverse effect of glucocorticoids and synthetic analogues, initial encounter; E11.22 Type 2 diabetes mellitus with diabetic chronic kidney disease; E78.5 Hyperlipidemia, unspecified; F17.210 Nicotine dependence, cigarettes, uncomplicated; I13.0 Hypertensive heart and chronic kidney disease with heart failure and stage 1 through stage 4 chronic kidney disease, or unspecified chronic kidney disease; I42.8 Other cardiomyopathies; I50.22 Chronic systolic (congestive) heart failure; N18.30 Chronic kidney disease, stage 3 unspecified; Z79.02 Long term (current) use of antithrombotics/antiplatelets; Z79.4 Long term (current) use of insulin; Z79.82 Long term (current) use of aspirin; Z79.899 Other long term (current) drug therapy; Z80.8 Family history of malignant neoplasm of other organs or systems; Z82.0 Family history of epilepsy and other diseases of the nervous system; Z82.5 Family history of asthma and other chronic lower respiratory diseases; Z85.828 Personal history of other malignant neoplasm of skin; Z90.710 Acquired absence of both cervix and uterus; Z95.810 Presence of automatic (implantable) cardiac defibrillator; Z96.651 Presence of right artificial knee joint
CPT/HCPCS: 99285; 96360; 96361; 36415; 80048; 85025; G0378 ×3; J1644 ×2

== ENCOUNTER 2020-11-14 11:01 | Observation (INO) | payer MEDICARE ==
[2020-11-14] MEDS ORDERED: SODIUM CHLORIDE 0.9% 500 ML 500 ML IV ONE (11:11)
[2020-11-14 11:12] LABS: Glucose,Whole Blood 240 mg/dL (75-99)
--- NOTE | 2020-11-14 11:13 | ED ---
General Adult HPI - General Chief complaint: Syncope Stated complaint: near syncope Time Seen by Provider: 11/14/20 11:05 Source: patient, RN notes reviewed, old records reviewed Mode of arrival: EMS Limitations: no limitations - History of Present Illness Initial comments: This is a 80-year-old female with a past medical history significant for diabete s hypertension high cholesterol. Patient states she woke up this morning and felt fine until she ate breakfast. Patient states right after breakfast she started feeling lightheaded and thought she might pass out. Patient states he continued for quite a while and when EMS arrived she still felt like she might pass out. Patient denies any chest pain difficulty breathing shortness of breath. Patient denies any headache patient denies numbness weakness. Patient denies any dizziness. Patient denies any nausea or vomiting or diarrhea recently. Patient denies abdominal pain. Patient denies any back pain. Patient denies any recent injury or trauma. - Related Data Home Medications Medication Instructions Recorded Confirmed Aspirin 81 mg PO DAILY 08/29/14 11/14/20 Furosemide [Lasix] 20 mg PO BID 08/29/14 11/14/20 Insulin Aspart [NovoLOG Flexpen] 12 units SQ AC-TID 03/03/17 11/14/20 Insulin Glargine,Hum.rec.anlog 45 units SQ HS 04/27/17 11/14/20 [Toudejuan Solostar] Semaglutide [Rybelsus] 7 mg PO AC-BRKFST 09/12/20 11/14/20 amLODIPine [Norvasc] 5 mg PO DAILY 09/12/20 11/14/20 Metoprolol Tartrate [Lopressor] 50 mg PO BID 10/21/20 11/14/20 Acetaminophen [Tylenol Extra 1,000 mg PO Q6H PRN 11/14/20 11/14/20 Strength] Atorvastatin [Lipitor] 40 mg PO HS 11/14/20 11/14/20 Irbesartan [Avapro] 225 mg PO DAILY 11/14/20 11/14/20 Magnesium 125 mg PO TUSA 11/14/20 11/14/20 Previous Rx's Medication Instructions Recorded Clopidogrel [Plavix] 75 mg PO DAILY #90 tab 03/05/17 Allergies Allergy/AdvReac Type Severity Reaction Status Date / Time adhesive tape Allergy Rash/Hives Verified 11/14/20 11:09 Review of Systems ROS Statement: Those systems with pertinent positive or pertinent negative responses have been documented in the HPI. ROS Other: All systems not noted in ROS Statement are negative. Past Medical History Past Medical History: Cancer, Diabetes Mellitus, Hypertension, Osteoarthritis (OA) Additional Past Medical History / Comment(s): hx skin cancer, gout, SEE DR STRINGER'S HISTORY AND PHYSICAL FOR CARDIAC HISTORY, CHRONIC KIDNEY DISEASE STAGE 3, CATARACT SURGERY History of Any Multi-Drug Resistant Organisms: None Reported Past Surgical History: Hysterectomy, Joint Replacement, Orthopedic Surgery, Pacemaker, Tonsillectomy Additional Past Surgical History / Comment(s): rt knee arthroscopy, rt knee replacement, nahomy big toe joint replacement, vein stripping, surgery for fx left femur, stent placed in left carotid, PACEMAKER replaced September 2020 Past Anesthesia/Blood Transfusion Reactions: No Reported Reaction Additional Past Anesthesia/Blood Transfusion Reaction / Comment(s): Pt has never had a blood transfusion. Type of Cardiac Device: Permanent Pacemaker Device Placement Date:: 09/2020 Past Psychological History: No Psychological Hx Reported Smoking Status: Former smoker Past Alcohol Use History: Occasional Past Drug Use History: None Reported - Past Family History Mother Additional Family Medical History / Comment(s): Alzheimers Father Family Medical History: Cancer Additional Family Medical History / Comment(s): Lung disease, SKIN CANCER General Exam - General Exam Comments Initial Comments: GENERAL: Patient is well-developed and well-nourished. Patient is nontoxic and well- hydrated and is in mild distress. ENT: Neck is soft and supple. No significant lymphadenopathy is noted. Oropharynx is clear. Moist mucous membranes. Neck has full range of motion without eliciting any pain. EYES: The sclera were anicteric and conjunctiva were pink and moist. Extraocular movements were intact and pupils were equal round and reactive to light. Eyelids were unremarkable. PULMONARY: Unlabored respirations. Good breath sounds bilaterally. No audible rales rhonchi or wheezing was noted. CARDIOVASCULAR: There is a regular rate and rhythm without any murmurs gallops or rubs. ABDOMEN: Soft and nontender with normal bowel sounds. SKIN: Skin is clear with no lesions or rashes and otherwise unremarkable. NEUROLOGIC: Patient is alert and oriented x3. Cranial nerves II through XII are grossly intact. Motor and sensory are also intact. Normal speech, volume and content. Symmetrical smile. MUSCULOSKELETAL: Normal extremities with adequate strength and full range of motion. No lower extremity swelling or edema. No calf tenderness. LYMPHATICS: No significant lymphadenopathy is noted PSYCHIATRIC: Normal psychiatric evaluation. 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 Patient's EKG shows no ST segment elevation or depression. Chest x-ray shows no acute abnormality. I went back into reevaluate the patient patient states she still felt kind of lightheaded. He did not feel safe going home. I spoke with Dr. Ortiz he agreed to admit her admitted I consult to cardiology. I wrote admitting orders. - Lab Data Result diagrams: 11/14/20 11:18 11/14/20 11:18 Lab Results 11/14/20 11/14/20 11/14/20 Range/Units 11:10 11:18 11:18 WBC 6.5 (3.8-10.6) k/uL RBC 4.30 (3.80-5.40) m/uL Hgb 13.0 (11.4-16.0) gm/dL Hct 39.1 (34.0-46.0) % MCV 90.9 (80.0-100.0) fL MCH 30.2 (25.0-35.0) pg MCHC 33.3 (31.0-37.0) g/dL RDW 14.4 (11.5-15.5) % Plt Count 197 (150-450) k/uL MPV 7.3 Neutrophils % 68 % Lymphocytes % 19 % Monocytes % 5 % Eosinophils % 5 % Basophils % 1 % Neutrophils # 4.4 (1.3-7.7) k/uL Lymphocytes # 1.2 (1.0-4.8) k/uL Monocytes # 0.3 (0-1.0) k/uL Eosinophils # 0.3 (0-0.7) k/uL Basophils # 0.1 (0-0.2) k/uL PT 9.8 (9.0-12.0) sec INR 0.9 (<1.2) APTT 18.3 L (22.0-30.0) sec Sodium (137-145) mmol/L Potassium (3.5-5.1) mmol/L Chloride (98-107) mmol/L Carbon Dioxide (22-30) mmol/L Anion Gap mmol/L BUN (7-17) mg/dL Creatinine (0.52-1.04) mg/dL Est GFR (CKD-EPI)AfAm (>60 ml/min/1.73 sqM) Est GFR (CKD-EPI)NonAf (>60 ml/min/1.73 sqM) Glucose (74-99) mg/dL POC Glucose (mg/dL) 240 H (75-99) mg/dL POC Glu Shingle Cutter ID Isacc Curry Calcium (8.4-10.2) mg/dL Magnesium (1.6-2.3) mg/dL Total Bilirubin (0.2-1.3) mg/dL AST (14-36) U/L ALT (4-34) U/L Alkaline Phosphatase (38-126) U/L Troponin I (0.000-0.034) ng/mL Total Protein (6.3-8.2) g/dL Albumin (3.5-5.0) g/dL 11/14/20 11/14/20 Range/Units 11:18 11:18 WBC (3.8-10.6) k/uL RBC (3.80-5.40) m/uL Hgb (11.4-16.0) gm/dL Hct (34.0-46.0) % MCV (80.0-100.0) fL MCH (25.0-35.0) pg MCHC (31.0-37.0) g/dL RDW (11.5-15.5) % Plt Count (150-450) k/uL MPV Neutrophils % % Lymphocytes % % Monocytes % % Eosinophils % % Basophils % % Neutrophils # (1.3-7.7) k/uL Lymphocytes # (1.0-4.8) k/uL Monocytes # (0-1.0) k/uL Eosinophils # (0-0.7) k/uL Basophils # (0-0.2) k/uL PT (9.0-12.0) sec INR (<1.2) APTT (22.0-30.0) sec Sodium 137 (137-145) mmol/L Potassium 4.6 (3.5-5.1) mmol/L Chloride 102 (98-107) mmol/L Carbon Dioxide 27 (22-30) mmol/L Anion Gap 8 mmol/L BUN 35 H (7-17) mg/dL Creatinine 1.11 H (0.52-1.04) mg/dL Est GFR (CKD-EPI)AfAm 55 (>60 ml/min/1.73 sqM) Est GFR (CKD-EPI)NonAf 48 (>60 ml/min/1.73 sqM) Glucose 239 H (74-99) mg/dL POC Glucose (mg/dL) (75-99) mg/dL POC Glu Shingle Cutter ID Calcium 9.4 (8.4-10.2) mg/dL Magnesium 1.9 (1.6-2.3) mg/dL Total Bilirubin 0.4 (0.2-1.3) mg/dL AST 25 (14-36) U/L ALT 18 (4-34) U/L Alkaline Phosphatase 76 (38-126) U/L Troponin I <0.012 (0.000-0.034) ng/mL Total Protein 6.6 (6.3-8.2) g/dL Albumin 3.9 (3.5-5.0) g/dL Disposition Clinical Impression: Near syncope Disposition: ADMITTED IP TO THIS [facility] Referrals: Regina Ortiz MD [Primary Care Provider] - 1-2 days Time of Disposition: 13:52
[2020-11-14 11:36] LABS: Basophils # (A) 0.1 k/uL (0-0.2); Basophils % (A) 1 %; Eosinophils # (A) 0.3 k/uL (0-0.7); Eosinophils % (A) 5 %; HCT 39.1 % (34.0-46.0); Lymphocytes # (A) 1.2 k/uL (1.0-4.8); Lymphocytes % (A) 19 %; MCH 30.2 pg (25.0-35.0); MCHC 33.3 g/dL (31.0-37.0); MCV 90.9 fL (80.0-100.0); Mean Platelet Volume 7.3; Monocytes # (A) 0.3 k/uL (0-1.0); Monocytes % (A) 5 %; Neutrophils # (A) 4.4 k/uL (1.3-7.7); Neutrophils % (A) 68 %; Platelet Count 197 k/uL (150-450); RDW 14.4 % (11.5-15.5); WBC 6.5 k/uL (3.8-10.6)
--- NOTE | 2020-11-14 11:41 | XR ---
EXAMINATION TYPE: XR chest 2V DATE OF EXAM: 11/14/2020 COMPARISON: Chest xray 07/05/2017 HISTORY: pain TECHNIQUE: Frontal and lateral views of the chest are obtained. FINDINGS: There is no focal air space opacity, pleural effusion, or pneumothorax seen. The cardiac silhouette size is stable. Generator is in the left pectoral region, leads are stable. Aorta is stab le. The osseous structures are intact. IMPRESSION: No acute cardiopulmonary process.
[2020-11-14 11:53] LABS: Albumin 3.9 g/dL (3.5-5.0); Calcium 9.4 mg/dL (8.4-10.2); Magnesium 1.9 mg/dL (1.6-2.3); Potassium 4.6 mmol/L (3.5-5.1); Total Bilirubin 0.4 mg/dL (0.2-1.3); Total Protein 6.6 g/dL (6.3-8.2)
[2020-11-14 12:36] LABS: INR 0.9 (<1.2); Prothrombin Time 9.8 sec (9.0-12.0)
[2020-11-14 12:43] LABS: Partial Thromboplastin Time 18.3 sec (22.0-30.0)
[2020-11-14] MEDS ORDERED: NITROGLYCERIN SL TABS 0.4 MG TAB SUBLINGUAL PRN (13:52)
[2020-11-14 16:52] LABS: Glucose,Whole Blood 125 mg/dL (75-99)
[2020-11-14] MEDS: INSULIN ASPART (NovoLOG) 100 UNIT/ML VIAL SQ SCH ×3 (17:07→22:00)
[2020-11-14 21:56] LABS: Glucose,Whole Blood 197 mg/dL (75-99)
[2020-11-14] MEDS: METOPROLOL TARTRATE 50 MG TAB PO SCH (22:00)
[2020-11-14] MEDS: ATORVASTATIN 40 MG TAB PO SCH (22:00)
[2020-11-14] MEDS: ACETAMINOPHEN TAB 500 MG TAB PO PRN (22:00)
[2020-11-14] MEDS: INSULIN DETEMIR (LEVEMIR) 100 UNIT/ML SYR SQ SCH (22:00)
[2020-11-15 07:57] LABS: Glucose,Whole Blood 132 mg/dL (75-99)
[2020-11-15] MEDS: INSULIN ASPART (NovoLOG) 100 UNIT/ML VIAL SQ SCH ×7 (08:50→21:02)
[2020-11-15] MEDS: amLODIPine 5 MG TAB PO SCH (08:50)
[2020-11-15] MEDS: METOPROLOL TARTRATE 50 MG TAB PO SCH ×2 (08:50→20:59)
[2020-11-15] MEDS: NON FORMULARY DRUG (Semaglutide [Rybelsus] 7 MG Tablet) PO SCH (08:50)
[2020-11-15] MEDS: CLOPIDOGREL 75 MG TAB PO SCH (08:51)
[2020-11-15] MEDS: ASPIRIN 81 MG PO SCH (08:51)
[2020-11-15] MEDS: LOSARTAN 25 MG TAB PO SCH (08:51)
[2020-11-15] MEDS: ACETAMINOPHEN TAB 500 MG TAB PO PRN ×2 (08:57→20:59)
[2020-11-15] MEDS ORDERED: ASPIRIN 325 MG TAB PO SCH (09:00)
--- NOTE | 2020-11-15 10:28 | P.CRDCN ---
History of Present Illness History of present illness: HISTORY OF PRESENTING ILLNESS This is a pleasant 80-year-old female past medical history significant for complete heart block, nonischemic cardiomyopathy status post AICD, type 2 diabetes, hypertension, dyslipidemia, carotid atherosclerosis s/p stenting, chronic kidney disease, mild nonobstructive coronary artery disease. She follows in the office with Dr. Lopez. We have been asked to see in consultation for near-syncope. Patient is seen and examined at bedside, no acute distress. Patient states yesterday morning after eating breakfast this she started to feel lightheaded, felt of rash, over her across her entire body and felt that she may pass out. EMS was called. When EMS arrived patient was hypertensive BP 180s/90s. EKG at EMS reveals BiV paced rhythm. She was noted to be pale/flushed. Patient describes this sensation similar to if her "pacemaker was turning off". Patient was brought to the emergency department for further evaluation. Patient denies any chest pain, shortness of breath, palpitations. She recently had a successful dual chamber biventricular pacemaker generator change by Dr. Lopez on 09/27/2020. DIAGNOSTICS EKG reveals AV paced Telemetry tracings indicate AV paced, no acute abnormalities noted on telemetry Orthostatic vital signs on 11/14 were negative Chest xray no active cardiopulmonary process. Most recent echocardiogram was in 2019 with an EF of 45-50%, grade 2 diastolic dysfunction, mild concentric hypertrophy, septal hypokinesis, mild aortic regurgitation, mild mitral regurgitation, mild tricuspid regurgitation Laboratory reviewed, CBC unremarkable, sodium 137, potassium 4.6, BUN 35, serum creatinine 1.11, troponin negative 3, magnesium 1.9. Current home cardiac medications include Plavix 75 mg daily, Lasix 20 mg twice a day, metoprolol titrate 50 mg twice a day, amlodipine 5 mg daily, aspirin 81 mg daily, atorvastatin 40 mg nightly, magnesium 125 mg Tuesdays and Saturdays. REVIEW OF SYSTEMS At the time of my exam: CONSTITUTIONAL: Denies fever or chills. +flushed CARDIOVASCULAR: Denies chest pain, shortness of breath, orthopnea, PND or palpitations. RESPIRATORY: Denies cough. GASTROINTESTINAL: Denies abdominal pain, diarrhea, constipation, nausea or vomiting. MUSCULOSKELETAL: Denies myalgias. NEUROLOGIC: +lightheaded, +pre syncope Denies numbness, tingling, headacbe or weakness. ENDOCRINE: Denies fatigue, weight change, polydipsia or polyurina. GENITOURINARY: Denies burning, hematuria or urgency with micturation. HEMATOLOGIC: Denies history of anemia or bleeding. PHYSICAL EXAMINATION Blood pressure 160/77 heart rate 65 afebrile and maintaining oxygen saturation on room air CONSTITUTIONAL: No apparent distress. HEENT: Head is normocephalic. Pupils are equal, round. Sclerae anicteric. Mucous membranes of the mouth are moist. No JVD. No carotid bruit. CHEST EXAMINATION: Lungs are clear to auscultation. No chest wall tenderness is noted on palpation or with deep breathing. HEART EXAMINATION: Regular rate and rhythm. S1, S2 heard. No murmurs, gallops or rub. ABDOMEN: Soft, nontender. Positive bowel sounds. EXTREMITIES: 2+ peripheral pulses, no lower extremity edema and no calf tenderness. NEUROLOGIC EXAMINATION: Patient is awake, alert and oriented x3. ASSESSMENT Pre Syncope Nonischemic cardiomyopathy status post AICD Type 2 diabetes Hypertension Dyslipidemia Carotid atherosclerosis s/p stenting Chronic kidney disease Mild nonobstructive coronary artery disease. PLAN Patient's symptoms possibly related to patient's fluctuating blood pressures, component of dysautonomia We will Interrogate patient's pacemaker Continue to monitor patient on telemetry Continue current cardiac medication Further recommendations based on clinical course Nurse Practitioner note has been reviewed, I agree with a documented findings and plan of care. Patient was seen and examined. Past Medical History Past Medical History: Cancer, Diabetes Mellitus, Hypertension, Osteoarthritis (OA) Additional Past Medical History / Comment(s): hx skin cancer, gout, SEE DR LOPEZ'S HISTORY AND PHYSICAL FOR CARDIAC HISTORY, CHRONIC KIDNEY DISEASE STAGE 3, CATARACT SURGERY History of Any Multi-Drug Resistant Organisms: None Reported Past Surgical History: Hysterectomy, Joint Replacement, Orthopedic Surgery, Pacemaker, Tonsillectomy Additional Past Surgical History / Comment(s): rt knee arthroscopy, rt knee replacement, nahomy big toe joint replacement, vein stripping, surgery for fx left femur, stent placed in left carotid, PACEMAKER replaced September 2020 Past Anesthesia/Blood Transfusion Reactions: No Reported Reaction Additional Past Anesthesia/Blood Transfusion Reaction / Comment(s): Pt has never had a blood transfusion. Type of Cardiac Device: Permanent Pacemaker Device Placement Date:: 09/2020 Past Psychological History: No Psychological Hx Reported Smoking Status: Former smoker Past Alcohol Use History: Occasional Additional Past Alcohol Use History / Comment(s): Pt states she was a social drinker. Past Drug Use History: None Reported - Past Family History Mother Additional Family Medical History / Comment(s): Alzheimers Father Family Medical History: Cancer Additional Family Medical History / Comment(s): Lung disease, SKIN CANCER Medications and Allergies Home Medications Medication Instructions Recorded Confirmed Type Aspirin 81 mg PO DAILY 08/29/14 11/14/20 History Furosemide [Lasix] 20 mg PO BID 08/29/14 11/14/20 History Insulin Aspart [NovoLOG Flexpen] 12 units SQ AC-TID 03/03/17 11/14/20 History Clopidogrel [Plavix] 75 mg PO DAILY #90 tab 03/05/17 11/14/20 Rx Insulin Glargine,Hum.rec.anlog 45 units SQ HS 04/27/17 11/14/20 History [Toujeo Solostar] Semaglutide [Rybelsus] 7 mg PO AC-BRKFST 09/12/20 11/14/20 History amLODIPine [Norvasc] 5 mg PO DAILY 09/12/20 11/14/20 History Metoprolol Tartrate [Lopressor] 50 mg PO BID 10/21/20 11/14/20 History Acetaminophen [Tylenol Extra 1,000 mg PO Q6H PRN 11/14/20 11/14/20 History Strength] Atorvastatin [Lipitor] 40 mg PO HS 11/14/20 11/14/20 History Irbesartan [Avapro] 225 mg PO DAILY 11/14/20 11/14/20 History Magnesium 125 mg PO TUSA 11/14/20 11/14/20 History Allergies Allergy/AdvReac Type Severity Reaction Status Date / Time adhesive tape Allergy Rash/Hives Verified 11/14/20 11:09 Physical Exam Vitals: Vital Signs Temp Pulse Pulse Pulse Pulse Pulse Resp 11/15/20 02:00 97.7 F 65 16 11/14/20 19:24 98.0 F 66 16 11/14/20 15:20 98.6 F 75 16 11/14/20 15:04 98.5 F 62 16 11/14/20 14:00 75 16 11/14/20 13:14 98.6 F 65 71 63 16 11/14/20 13:09 16 11/14/20 12:09 69 16 11/14/20 11:09 16 11/14/20 11:02 98.4 F 77 18 BP BP BP BP Pulse Ox 11/15/20 02:00 109/70 96 11/14/20 19:24 145/72 92 L 11/14/20 15:20 154/71 98 11/14/20 15:04 169/74 97 11/14/20 14:00 154/71 98 11/14/20 13:14 170/96 174/91 172/76 98 11/14/20 13:09 98 11/14/20 12:09 163/72 98 11/14/20 11:09 11/14/20 11:02 152/61 98 Intake and Output 11/14/20 11/15/20 11/15/20 22:59 06:59 14:59 Other: Voiding Method Toilet Toilet # Voids 1 1 Weight 94.347 kg Results 11/14/20 11:18 11/14/20 11:18 Cardiac Enzymes 11/14/20 11/14/20 11/14/20 Range/Units 11:18 11:18 14:17 AST 25 (14-36) U/L Troponin I <0.012 <0.012 (0.000-0.034) ng/mL 11/14/20 Range/Units 17:53 AST (14-36) U/L Troponin I <0.012 (0.000-0.034) ng/mL Coagulation 11/14/20 Range/Units 11:18 PT 9.8 (9.0-12.0) sec APTT 18.3 L (22.0-30.0) sec CBC 11/14/20 Range/Units 11:18 WBC 6.5 (3.8-10.6) k/uL RBC 4.30 (3.80-5.40) m/uL Hgb 13.0 (11.4-16.0) gm/dL Hct 39.1 (34.0-46.0) % Plt Count 197 (150-450) k/uL Comprehensive Metabolic Panel 11/14/20 Range/Units 11:18 Sodium 137 (137-145) mmol/L Potassium 4.6 (3.5-5.1) mmol/L Chloride 102 (98-107) mmol/L Carbon Dioxide 27 (22-30) mmol/L BUN 35 H (7-17) mg/dL Creatinine 1.11 H (0.52-1.04) mg/dL Glucose 239 H (74-99) mg/dL Calcium 9.4 (8.4-10.2) mg/dL AST 25 (14-36) U/L ALT 18 (4-34) U/L Alkaline Phosphatase 76 (38-126) U/L Total Protein 6.6 (6.3-8.2) g/dL Albumin 3.9 (3.5-5.0) g/dL Current Medications Generic Name Dose Route Start Last Admin Trade Name Freq PRN Reason Stop Dose Admin Acetaminophen 1,000 mg 11/14/20 15:33 11/14/20 22:00 Acetaminophen Tab 500 Mg Tab PO 1,000 mg Q6H PRN Administration Pain Amlodipine Besylate 5 mg 11/15/20 09:00 Amlodipine 5 Mg Tab PO DAILY [facility] Aspirin 81 mg 11/15/20 09:00 Aspirin 81 Mg PO DAILY [facility] Atorvastatin Calcium 40 mg 11/14/20 21:00 11/14/20 22:00 Atorvastatin 40 Mg Tab PO 40 mg HS JIMBO Administration Clopidogrel Bisulfate 75 mg 11/15/20 09:00 Clopidogrel 75 Mg Tab PO DAILY [facility] Insulin Aspart 12 unit 11/14/20 17:30 11/14/20 18:00 Insulin Aspart (Novolog) 100 Unit/Ml Vial SQ 12 unit AC-TID JIMBO Administration Insulin Aspart 0 unit 11/14/20 17:30 11/14/20 22:00 Insulin Aspart (Novolog) 100 Unit/Ml Vial SQ 2 unit ACHS [facility] Administration Protocol Insulin Detemir 45 unit 11/14/20 21:00 11/14/20 22:00 Insulin Detemir (Levemir) 100 Unit/Ml Syr SQ 45 unit HS JIMBO Administration Losartan Potassium 75 mg 11/15/20 09:00 Losartan 25 Mg Tab PO DAILY [facility] Magnesium Oxide 400 mg 11/17/20 09:00 Magnesium Oxide 400 Mg Tab PO TuSa@0900 [facility] Metoprolol Tartrate 50 mg 11/14/20 21:00 11/14/20 22:00 Metoprolol Tartrate 50 Mg Tab PO 50 mg BID JIMBO Administration Nitroglycerin 0.4 mg 11/14/20 13:52 Nitroglycerin Sl Tabs 0.4 Mg Tab SUBLINGUAL Q5M PRN Chest Pain Non-Formulary Medication 7 mg 11/15/20 07:30 Semaglutide [Rybelsus] PO AC-BRKFST JIMBO Intake and Output 11/14/20 11/15/20 11/15/20 22:59 06:59 14:59 Other: Voiding Method Toilet Toilet # Voids 1 1 Weight 94.347 kg 11/14/20 11:18 11/14/20 11:18
[2020-11-15 10:43] LABS: Chol/HDL Ratio 5.18; LDL Cholesterol,Calculated 67.2 mg/dL (0.0-131.0); VLDL Calculation 49.8 mg/dL (5.00-40.00)
[2020-11-15] MEDS ORDERED: BACLOFEN 10 MG TAB PO PRN (11:56)
[2020-11-15 12:06] LABS: Glucose,Whole Blood 116 mg/dL (75-99)
[2020-11-15 17:18] LABS: Glucose,Whole Blood 128 mg/dL (75-99)
[2020-11-15 20:45] LABS: Glucose,Whole Blood 188 mg/dL (75-99)
[2020-11-15] MEDS: INSULIN DETEMIR (LEVEMIR) 100 UNIT/ML SYR SQ SCH (20:58)
[2020-11-15] MEDS: ATORVASTATIN 40 MG TAB PO SCH (20:59)
[2020-11-16 07:14] LABS: Glucose,Whole Blood 110 mg/dL (75-99)
[2020-11-16 07:34] VITALS: BP 146/75; PULSE 53; RESP 18; TEMP 97.8
--- NOTE | 2020-11-16 08:45 | P.DS ---
Providers Date of admission: 11/14/20 14:13 Expected date of discharge: 11/16/20 Attending physician: Regina Ortiz Consults: 11/14/20 13:53 Consult Physician Urgent Consulting Provider: [facility] Consult Reason/Comments: Near syncope Do you want consulting provider notified?: Yes Primary care physician: Regina Ortiz Hospital Course: HISTORY OF PRESENT ILLNESS This is a 80-year-old female patient of Dr mehta with past medical history of diabetes mellitus type 2, hypertension, hyperlipidemia, chronic kidney disease stage III, complete heart block status post biventricular pacemaker, nonischemic caic systolic heart failure, carotid atherosclerosis status post stent, patient presented to the emergency department at [facility] with feeling numb all over her body from her head all the way down and she stated that she felt exactly when they shut her pacemaker off, she was complaining of shortness of breath, she denies any palpitations that time, she she was admitted to the hospital for evaluation of her pacemaker that was just put in September of this year, to rule out any lead malfunction. 11/15: Patient denies having any pacemaker. She has been seen by cardiology and the plan is for pacemaker check today and cardiology is planning to apply event monitor prior to discharge. In general, patient is feeling a little bit better. She does feel like she would when her pacemaker is turned off but in general that sensation is improved as well. Patient's been afebrile, heart rate in the 50s and 60s, blood pressure 160/77, pulse ox 97% on room air. Blood sugar is running between 116 132. Plan is to monitor patient overnight and probable discharge home tomorrow. 11/16: She remains afebrile, heart rate in the 50s and 60s, blood pressure 146/75, pulse ox 96% on room air. Patient denies having any chest pain or shortness of breath. We did add and baclofen yesterday due to back spasms which she states is improved but there is still a little left. Pacemaker was checked with no problems. Cardiology is planning for event monitor from their office. Patient will be discharged home today in stable condition. ASSESSMENT AND PLAN 1. Presyncope, possible pacemaker malfunctioning leads, rule out. 2. Gout the right arm. 3. Diabetes mellitus type 2 . 4. Hypertension. 5. Hyperlipidemia. 6. Chronic kidney disease stage III. 7. History of complete heart block status post pacemaker implantation/AICD. 8. Nonischemic cardiomyopathy status post AICD. 9. Chronic systolic heart failure. 10. Carotid atherosclerosis status post stenting of the left internal carotid artery. DISCHARGE PLAN HOME Impression and plan of care have been directed as dictated by the signing physician. Kyra oWods nurse practitioner acting as scribe for signing physician. Patient Condition at Discharge: Good Plan - Discharge Summary Discharge Rx Participant: No New Discharge Prescriptions: New Baclofen [Lioresal] 10 mg PO BID PRN #60 tab PRN Reason: Muscle Spasm Continue Aspirin 81 mg PO DAILY Furosemide [Lasix] 20 mg PO BID Insulin Aspart [NovoLOG Flexpen] 12 units SQ AC-TID Clopidogrel [Plavix] 75 mg PO DAILY #90 tab Insulin Glargine,Hum.rec.anlog [Toujeo Solostar] 45 units SQ HS amLODIPine [Norvasc] 5 mg PO DAILY Semaglutide [Rybelsus] 7 mg PO AC-BRKFST Magnesium 125 mg PO TUSA Irbesartan [Avapro] 225 mg PO DAILY Metoprolol Tartrate [Lopressor] 50 mg PO BID Atorvastatin [Lipitor] 40 mg PO HS Acetaminophen [Tylenol Extra Strength] 1,000 mg PO Q6H PRN PRN Reason: Pain Discharge Medication List Aspirin 81 mg PO DAILY 08/29/14 [History] Furosemide [Lasix] 20 mg PO BID 08/29/14 [History] Insulin Aspart [NovoLOG Flexpen] 12 units SQ AC-TID 03/03/17 [History] Clopidogrel [Plavix] 75 mg PO DAILY #90 tab 03/05/17 [Rx] Insulin Glargine,Hum.rec.anlog [Toujeo Solostar] 45 units SQ HS 04/27/17 [History] Semaglutide [Rybelsus] 7 mg PO AC-BRKFST 09/12/20 [History] amLODIPine [Norvasc] 5 mg PO DAILY 09/12/20 [History] Metoprolol Tartrate [Lopressor] 50 mg PO BID 10/21/20 [History] Acetaminophen [Tylenol Extra Strength] 1,000 mg PO Q6H PRN 11/14/20 [History] Atorvastatin [Lipitor] 40 mg PO HS 11/14/20 [History] Irbesartan [Avapro] 225 mg PO DAILY 11/14/20 [History] Magnesium 125 mg PO TUSA 11/14/20 [History] Baclofen [Lioresal] 10 mg PO BID PRN #60 tab 11/16/20 [Rx] Follow up Appointment(s)/Referral(s): Emir Lopez MD [STAFF PHYSICIAN] - 12/14/20 2:45 pm Regina Ortiz MD [Primary Care Provider] - 1 Week Patient Instructions/Handouts: Syncope (GEN), Near Syncope (GEN) Discharge Disposition: HOME SELF-CARE
[2020-11-16] MEDS: NON FORMULARY DRUG (Semaglutide [Rybelsus] 7 MG Tablet) PO SCH (09:12)
[2020-11-16] MEDS: amLODIPine 5 MG TAB PO SCH (09:13)
[2020-11-16] MEDS: METOPROLOL TARTRATE 50 MG TAB PO SCH (09:13)
[2020-11-16] MEDS: CLOPIDOGREL 75 MG TAB PO SCH (09:13)
[2020-11-16] MEDS: INSULIN ASPART (NovoLOG) 100 UNIT/ML VIAL SQ SCH ×2 (09:13)
[2020-11-16] MEDS: LOSARTAN 25 MG TAB PO SCH (09:14)
[2020-11-16] MEDS: ASPIRIN 81 MG PO SCH (09:14)
--- NOTE | 2020-11-16 12:20 | P.PN ---
Subjective Progress Note Date: 11/16/20 HISTORY OF PRESENTING ILLNESS This is a pleasant 80-year-old female past medical history significant for c omplete heart block, nonischemic cardiomyopathy status post AICD, type 2 diabetes, hypertension, dyslipidemia, carotid atherosclerosis s/p stenting, chronic kidney disease, mild nonobstructive coronary artery disease. She follows in the office with Dr. Lopez. We have been asked to see in consulta tion for near-syncope. Patient is seen and examined at bedside, no acute distress. Patient states yesterday morning after eating breakfast this she started to feel lightheaded, felt of rash, over her across her entire body and felt that she may pass out. EMS was called. When EMS arrived patient was hypertensive BP 180s/90s. EKG at EMS reveals BiV paced rhythm. She was noted to be pale/flushed. Patient describes this sensation similar to if her "pacemaker was turning off". Patient was brought to the emergency department for further evaluation. Patient denies any chest pain, shortness of breath, palpitations. She recently had a successful dual chamber biventricular pacemaker generator renee lory by Dr. Lopez on 09/27/2020. DIAGNOSTICS EKG reveals AV paced Telemetry tracings indicate AV paced, no acute abnormalities noted on telemetry Orthostatic vital signs on 11/14 were negative Chest xray no active cardiopulmonary process. Most recent echocardiogram was in 2019 with an EF of 45-50%, grade 2 diastolic dysfunction, mild concentric hypertrophy, septal hypokinesis, mild aortic regu rgitation, mild mitral regurgitation, mild tricuspid regurgitation Laboratory reviewed, CBC unremarkable, sodium 137, potassium 4.6, BUN 35, serum creatinine 1.11, troponin negative 3, magnesium 1.9. Current home cardiac medications include Plavix 75 mg daily, Lasix 20 mg twice a day, metoprolol titrate 50 mg twice a day, amlodipine 5 mg daily, aspirin 81 mg daily, atorvastatin 40 mg nightly, magnesium 125 mg Tuesdays and Saturdays. 11/16/2020 Patient examined this morning at the bedside. Denies chest pain or pressure. Denies shortness of breath. Denies dizziness or lightheadedness. Pacemaker interrogation completed with no acute findings. PHYSICAL EXAMINATION CONSTITUTIONAL: No apparent distress. HEENT: Head is normocephalic. Pupils are equal, round. Sclerae anicteric. Mucous membranes of the mouth are moist. No JVD. No carotid bruit. CHEST EXAMINATION: Lungs are clear to auscultation. No chest wall tenderness is noted on palpation or with deep breathing. HEART EXAMINATION: Regular rate and rhythm. S1, S2 heard. No murmurs, gallops or rub. ABDOMEN: Soft, nontender. Positive bowel sounds. EXTREMITIES: 2+ peripheral pulses, no lower extremity edema and no calf tenderness. NEUROLOGIC EXAMINATION: Patient is awake, alert and oriented x3. ASSESSMENT Pre Syncope Nonischemic cardiomyopathy status post AICD Type 2 diabetes Hypertension Dyslipidemia Carotid atherosclerosis s/p stenting Chronic kidney disease Mild nonobstructive coronary artery disease. PLAN Continue current cardiac medications Patient may be discharged home today from a cardiac standpoint She is to follow-up in the office and will receive an event monitor at that time Nurse Practitioner note has been reviewed, I agree with a documented findings and plan of care. Patient was seen and examined. Objective - Vital Signs Vital signs: Vital Signs Temp 97.8 F 11/16/20 07:00 Pulse 53 L 11/16/20 07:00 Resp 18 11/16/20 07:00 BP 146/75 11/16/20 07:00 Pulse Ox 96 11/16/20 07:00 Intake & Output 11/15/20 11/16/20 11/16/20 18:59 06:59 18:59 Intake Total 840 400 Balance 840 400 Intake: Oral 840 400 Other: Voiding Method Toilet Toilet # Voids 2 3 1 # Bowel Movements 1 - Labs CBC & Chem 7: 11/14/20 11:18 11/14/20 11:18 Labs: Abnormal Lab Results - Last 24 Hours (Table) 11/15/20 11/15/20 11/16/20 Range/Units 17:17 20:44 07:13 POC Glucose (mg/dL) 128 H 188 H 110 H (75-99) mg/dL
--- NOTE | 2020-11-16 15:03 | P.HPIM ---
History of Present Illness H&P Date: 11/14/20 HISTORY OF PRESENT ILLNESS This is a 80-year-old female patient of Dr mehta with past medical history of diabetes mellitus type 2, hypertension, hyperlipidemia, chronic kidney disease stage III, complete heart block status post biventricular pacemaker, nonischemic caic systolic heart failure, carotid atherosclerosis status post stent, patient presented to the emergency department at [facility] with feeling numb all over her body from her head all the way down and she stated that she felt exactly when they shut her pacemaker off, she was complaining of shortness of breath, she denies any palpitations that time, she she was admitted to the hospital for evaluation of her pacemaker that was just put in September of this year, to rule out any lead malfunction. REVIEW OF SYSTEMS Constitutional: No fever, no chills, no night sweats. No weight change. No weakness, fatigue or lethargy. No daytime sleepiness. EENT: No headache. No blurred vision or double vision, no loss of vision. No loss of Hearing, no ringing in the ears, no dizziness. No nasal drainage or congestion. No epistaxis. No sore throat. Lungs: No shortness of breath, cough, no sputum production. No wheezing. Cardiovascular: No chest pain, no lower extremity edema. No palpitations. No paroxysmal nocturnal dyspnea. No orthopnea. No lightheadedness or dizziness. No syncopal episodes. Abdominal: No abdominal pain. No nausea, vomiting. No diarrhea. No cons tipation. No bloody or tarry stools.. No loss of appetite. Genitourinary: No dysuria, increased frequency, urgency. No urinary retention. Musculoskeletal: No myalgias. No muscle weakness, no gait dysfunction, no frequent falls. No back pain. No neck pain. Integumentary: No wounds, no lesions. No rash or pruritus. No unusual bruising. No change in hair or nails. Neurologic: No aphasia. No facial droop. No change in mentation. No head injury. No headache. No paralysis. No paresthesia. Psychiatric: No depression. No anxiety. No mood swings. Endocrine: Noted abnormal blood sugars. No weight change. No excessive sweating or thirst. No cold intolerance. MEDICAL HISTORY Diabetes mellitus type 2 Hypertension Hyperlipidemia Coronary artery disease Chronic kidney disease stage III Complete heart block Nonischemic cardiomyopathy Chronic systolic heart failure Carotid atherosclerosis SURGICAL HISTORY Stent left internal carotid artery 02/2017 Dual-chamber biventricular pacemaker IM hip screw of the left hip done at Removal of soft flow medullary long [employer] nail left femur 08/2014 Tonsillectomy Total abdominal hysterectomy, bilateral salpingectomy oophorectomy Right knee open meniscus repair Hammertoe surgeries bilaterally SOCIAL HISTORY She was a smoker one pack per day, no alcohol use, no marijuana use, no illicit drug use. FAMILY HISTORY Father at age 72 from emphysema. Mother at age 85 from Alzheimer's dementia. Patient has 1 brother with no major medical problems. Patient has 3 sisters and one twin from a lung injury and the other 2 sisters are without major medical problems. Patient's one son and 2 daughters with no major medical problems. PHYSICAL EXAMINATION Gen: This is a 80-year-old female. Patient is resting in bed appears to be comfortable and in no acute distress. HEENT: Head is atraumatic, normocephalic. Pupils equal, round. Sclerae is anicteric. NECK: Supple. No JVD. No lymphadenopathy. No thyromegaly. LUNGS: Clear to auscultation. No wheezes or rhonchi. No intercostal retractions. HEART: First heart sound is depressed, second heart sound is normal, 2/6 systolic ejection murmur at the left sternal border, no S3, no S4.permanent pacemaker in the left upper precordium ABDOMEN: Soft. Bowel sounds are present. No masses. No tenderness. EXTREMITIES: No pedal edema. No calf tenderness. NEUROLOGICAL: Patient is awake, alert and oriented x3. Cranial nerves 2 through 12 are grossly intact. ASSESSMENT AND PLAN 1. possible pacemaker malfunctioning leads. Patient is to be hospitalized with evaluate by cardiology patient will have the pacemaker checked, and if there is no evidence of any lead malfunction patient will have an event monitor for the next 2 weeks and follow-up with cardiology as an outpatient. This was discussed with Dr. Lopez. 2. Gout the right arm. continue current Tylenol, patient may have a small dose of muscle relaxer to help with pain. Avoid prednisone. 3. Diabetes mellitus type 2 . continue patient on Lantus 45 units at bedtime along with Humalog 12 units before each meal 3 times every day, continue patient on Rybelsus 7 mg orally once every day, monitor the patient blood glucose of once every day per 4. Hypertension. Continue Norvasc 5 mg daily, Avapro 150 mg daily, Lasix 20 mg twice daily, Lopressor 50 mg twice daily. 5. Hyperlipidemia. Continue Lipitor 40 mg at bedtime. 6. Chronic kidney disease stage III. Avoid nephrotoxic agents. 7. History of complete heart block status post pacemaker implantation/AICD. 8. Nonischemic cardiomyopathy status post AICD. 9. Chronic systolic heart failure. Continue Lasix 20 mg twice daily, Lopressor 50 mg twice daily. 10. Carotid atherosclerosis status post stenting of the left internal carotid artery. Continue Plavix 75 mg daily, aspirin 81 mg daily, Lipitor 40 mg daily. 11. GI prophylaxis. Protonix 40 mg once every day . 12. DVT prophylaxis. continue patient on heparin 5000 units subcutaneously every 8 hours. Patient placed on the observation unit. Past Medical History Past Medical History: Cancer, Diabetes Mellitus, Hypertension, Osteoarthritis (OA) Additional Past Medical History / Comment(s): hx skin cancer, gout, SEE DR LOPEZ'S HISTORY AND PHYSICAL FOR CARDIAC HISTORY, CHRONIC KIDNEY DISEASE STAGE 3, CATARACT SURGERY History of Any Multi-Drug Resistant Organisms: None Reported Past Surgical History: Hysterectomy, Joint Replacement, Orthopedic Surgery, Pacemaker, Tonsillectomy Additional Past Surgical History / Comment(s): rt knee arthroscopy, rt knee replacement, nahomy big toe joint replacement, vein stripping, surgery for fx left femur, stent placed in left carotid, PACEMAKER replaced September 2020 Past Anesthesia/Blood Transfusion Reactions: No Reported Reaction Additional Past Anesthesia/Blood Transfusion Reaction / Comment(s): Pt has never had a blood transfusion. Type of Cardiac Device: Permanent Pacemaker Device Placement Date:: 09/2020 Past Psychological History: No Psychological Hx Reported Smoking Status: Former smoker Past Alcohol Use History: Occasional Additional Past Alcohol Use History / Comment(s): Pt states she was a social drinker. Past Drug Use History: None Reported - Past Family History Mother Additional Family Medical History / Comment(s): Alzheimers Father Family Medical History: Cancer Additional Family Medical History / Comment(s): Lung disease, SKIN CANCER Medications and Allergies Home Medications Medication Instructions Recorded Confirmed Type Aspirin 81 mg PO DAILY 08/29/14 11/14/20 History Furosemide [Lasix] 20 mg PO BID 08/29/14 11/14/20 History Insulin Aspart [NovoLOG Flexpen] 12 units SQ AC-TID 03/03/17 11/14/20 History Clopidogrel [Plavix] 75 mg PO DAILY #90 tab 03/05/17 11/14/20 Rx Insulin Glargine,Hum.rec.anlog 45 units SQ HS 04/27/17 11/14/20 History [Toujeo Solostar] Semaglutide [Rybelsus] 7 mg PO AC-BRKFST 09/12/20 11/14/20 History amLODIPine [Norvasc] 5 mg PO DAILY 09/12/20 11/14/20 History Metoprolol Tartrate [Lopressor] 50 mg PO BID 10/21/20 11/14/20 History Acetaminophen [Tylenol Extra 1,000 mg PO Q6H PRN 11/14/20 11/14/20 History Strength] Atorvastatin [Lipitor] 40 mg PO HS 11/14/20 11/14/20 History Irbesartan [Avapro] 225 mg PO DAILY 11/14/20 11/14/20 History Magnesium 125 mg PO TUSA 11/14/20 11/14/20 History Baclofen [Lioresal] 10 mg PO BID PRN #60 tab 11/16/20 Rx Allergies Allergy/AdvReac Type Severity Reaction Status Date / Time adhesive tape Allergy Rash/Hives Verified 11/14/20 11:09 Physical Exam Vitals: Vital Signs Temp Pulse Pulse Pulse Pulse Resp BP 11/14/20 15:20 98.6 F 75 16 154/71 11/14/20 15:04 98.5 F 62 16 11/14/20 14:00 75 16 154/71 11/14/20 13:14 98.6 F 65 71 63 16 11/14/20 13:09 16 11/14/20 12:09 69 16 163/72 11/14/20 11:09 16 11/14/20 11:02 98.4 F 77 18 152/61 BP BP BP Pulse Ox 11/14/20 15:20 98 11/14/20 15:04 169/74 97 11/14/20 14:00 98 11/14/20 13:14 170/96 174/91 172/76 98 11/14/20 13:09 98 11/14/20 12:09 98 11/14/20 11:09 11/14/20 11:02 98 Intake and Output 11/14/20 11/14/20 11/14/20 06:59 14:59 22:59 Other: Weight 94.347 kg 94.347 kg Results CBC & Chem 7: 11/14/20 11:18 11/14/20 11:18 Labs: Abnormal Lab Results - Last 24 Hours (Table) 11/14/20 11/14/20 11/14/20 Range/Units 11:10 11:18 11:18 APTT 18.3 L (22.0-30.0) sec BUN 35 H (7-17) mg/dL Creatinine 1.11 H (0.52-1.04) mg/dL Glucose 239 H (74-99) mg/dL POC Glucose (mg/dL) 240 H (75-99) mg/dL Thrombosis Risk Factor Assmnt - Choose All That Apply Any of the Below Risk Factors Present?: Yes Each Factor Represents 1 point: Obesity (BMI >25) Other Risk Factors: Yes Each Risk Factor Represents 3 Points: Age 75 years or older Thrombosis Risk Factor Assessment Total Risk Factor Score: 4 Thrombosis Risk Factor Assessment Level: Moderate Risk
--- NOTE | 2020-11-16 15:37 | P.PN ---
Subjective Progress Note Date: 11/15/20 HISTORY OF PRESENT ILLNESS This is a 80-year-old female patient of Dr mehta with past medical history of diabetes mellitus type 2, hypertension, hyperlipidemia, chronic kidney disease stage III, complete heart block status post biventricular pacemaker, nonischemic caic systolic heart failure, carotid atherosclerosis status post stent, patient presented to the emergency department at [facility] with feeling numb all over her body from her head all the way down and she stated that she felt exactly when they shut her pacemaker off, she was complaining of shortness of b reath, she denies any palpitations that time, she she was admitted to the hospital for evaluation of her pacemaker that was just put in September of this year, to rule out any lead malfunction. 11/15: Patient denies having any pacemaker. She has been seen by cardiology and the plan is for pacemaker check today and cardiology is planning to apply event monitor prior to discharge. In general, patient is feeling a little bit better. She does feel like she would when her pacemaker is turned off but in general that sensation is improved as well. Patient's been afebrile, heart rate in the 50s and 60s, blood pressure 160/77, pulse ox 97% on room air. Blood sugar is running between 116 132. Plan is to monitor patient overnight and probable discharge home tomorrow. REVIEW OF SYSTEMS Constitutional: No fever, no chills, no night sweats. No weight change. No weakness, fatigue or lethargy. No daytime sleepiness. EENT: No headache. No blurred vision or double vision, no loss of vision. No loss of Hearing, no ringing in the ears, no dizziness. No nasal drainage or c ongestion. No epistaxis. No sore throat. Lungs: No shortness of breath, cough, no sputum production. No wheezing. Cardiovascular: No chest pain, no lower extremity edema. No palpitations. No paroxysmal nocturnal dyspnea. No orthopnea. No lightheadedness or dizziness. No syncopal episodes. Abdominal: No abdominal pain. No nausea, vomiting. No diarrhea. No constipation. No bloody or tarry stools.. No loss of appetite. Genitourinary: No dysuria, increased frequency, urgency. No urinary retention. Musculoskeletal: No myalgias. No muscle weakness, no gait dysfunction, no frequent falls. No back pain. No neck pain. Integumentary: No wounds, no lesions. No rash or pruritus. No unusual bruising. No change in hair or nails. Neurologic: No aphasia. No facial droop. No change in mentation. No head injury. No headache. No paralysis. No paresthesia. Psychiatric: No depression. No anxiety. No mood swings. Endocrine: Noted abnormal blood sugars. No weight change. No excessive sweating or thirst. No cold intolerance. PHYSICAL EXAMINATION Gen: This is a 80-year-old female. Patient is resting in bed appears to be comfortable and in no acute distress. HEENT: Head is atraumatic, normocephalic. Pupils equal, round. Sclerae is anicteric. NECK: Supple. No JVD. No lymphadenopathy. No thyromegaly. LUNGS: Clear to auscultation. No wheezes or rhonchi. No intercostal retractions. HEART: First heart sound is depressed, second heart sound is normal, 2/6 systolic ejection murmur at the left sternal border, no S3, no S4.permanent pacemaker in the left upper precordium ABDOMEN: Soft. Bowel sounds are present. No masses. No tenderness. EXTREMITIES: No pedal edema. No calf tenderness. NEUROLOGICAL: Patient is awake, alert and oriented x3. Cranial nerves 2 through 12 are grossly intact. ASSESSMENT AND PLAN 1. possible pacemaker malfunctioning leads. Patient is to be hospitalized with evaluate by cardiology patient will have the pacemaker checked, and if there is no evidence of any lead malfunction patient will have an event monitor for the next 2 weeks and follow-up with cardiology as an outpatient. This was discussed with Dr. Lopez. 2. Gout the right arm. continue current Tylenol, patient may have a small dose of muscle relaxer to help with pain. Avoid prednisone. 3. Diabetes mellitus type 2 . continue patient on Lantus 45 units at bedtime along with Humalog 12 units before each meal 3 times every day, continue patient on Rybelsus 7 mg orally once every day, monitor the patient blood glucose of once every day per 4. Hypertension. Continue Norvasc 5 mg daily, Avapro 150 mg daily, Lasix 20 mg twice daily, Lopressor 50 mg twice daily. 5. Hyperlipidemia. Continue Lipitor 40 mg at bedtime. 6. Chronic kidney disease stage III. Avoid nephrotoxic agents. 7. History of complete heart block status post pacemaker implantation/AICD. 8. Nonischemic cardiomyopathy status post AICD. 9. Chronic systolic heart failure. Continue Lasix 20 mg twice daily, Lopressor 50 mg twice daily. 10. Carotid atherosclerosis status post stenting of the left internal carotid artery. Continue Plavix 75 mg daily, aspirin 81 mg daily, Lipitor 40 mg daily. 11. GI prophylaxis. Protonix 40 mg once every day . 12. DVT prophylaxis. continue patient on heparin 5000 units subcutaneously ev marnie 8 hours. DISCHARGE PLAN HOME Impression and plan of care have been directed as dictated by the signing physician. Kyra Woods nurse practitioner acting as scribe for signing physician. Objective - Vital Signs Vital signs: Vital Signs Temp 97.7 F 11/15/20 02:00 Pulse 65 11/15/20 02:00 Resp 16 11/15/20 02:00 BP 109/70 11/15/20 02:00 Pulse Ox 96 11/15/20 02:00 Intake & Output 11/14/20 11/15/20 11/15/20 18:59 06:59 18:59 Weight 94.347 kg Other: Voiding Method Toilet # Voids 1 - Labs CBC & Chem 7: 11/14/20 11:18 11/14/20 11:18 Labs: Abnormal Lab Results - Last 24 Hours (Table) 11/14/20 11/14/20 11/14/20 Range/Units 11:10 11:18 11:18 APTT 18.3 L (22.0-30.0) sec BUN 35 H (7-17) mg/dL Creatinine 1.11 H (0.52-1.04) mg/dL Glucose 239 H (74-99) mg/dL POC Glucose (mg/dL) 240 H (75-99) mg/dL 11/14/20 11/14/20 11/15/20 Range/Units 16:50 21:54 07:46 APTT (22.0-30.0) sec BUN (7-17) mg/dL Creatinine (0.52-1.04) mg/dL Glucose (74-99) mg/dL POC Glucose (mg/dL) 125 H 197 H 132 H (75-99) mg/dL
[2020-11-17] MEDS ORDERED: MAGNESIUM OXIDE 400 MG TAB PO SCH (09:00)
== END 2020-11-16 12:27 | disposition home or self-care (01) ==
LOC: EC 11:01 → 6NMEDSUR 14:13
PROVIDERS: ADMIT Internal Medicine; ATTEND Internal Medicine
DX: R55 Syncope and collapse (principal); M10.9 Gout, unspecified; I13.0 Hypertensive heart and chronic kidney disease with heart failure and stage 1 through stage 4 chronic kidney disease, or unspecified chronic kidney disease; E11.22 Type 2 diabetes mellitus with diabetic chronic kidney disease; N18.30 Chronic kidney disease, stage 3 unspecified; I50.22 Chronic systolic (congestive) heart failure; M19.90 Unspecified osteoarthritis, unspecified site; E78.5 Hyperlipidemia, unspecified; I25.10 Atherosclerotic heart disease of native coronary artery without angina pectoris; I44.2 Atrioventricular block, complete; I42.8 Other cardiomyopathies; I65.29 Occlusion and stenosis of unspecified carotid artery; M62.830 Muscle spasm of back; E66.9 Obesity, unspecified; Z68.33 Body mass index [BMI] 33.0-33.9, adult; R21 Rash and other nonspecific skin eruption; Z85.828 Personal history of other malignant neoplasm of skin; Z79.02 Long term (current) use of antithrombotics/antiplatelets; Z79.82 Long term (current) use of aspirin; Z79.4 Long term (current) use of insulin; Z79.899 Other long term (current) drug therapy; Z91.048 Other nonmedicinal substance allergy status; Z90.710 Acquired absence of both cervix and uterus; Z96.651 Presence of right artificial knee joint; Z95.810 Presence of automatic (implantable) cardiac defibrillator; Z95.0 Presence of cardiac pacemaker; Z95.828 Presence of other vascular implants and grafts; Z82.0 Family history of epilepsy and other diseases of the nervous system; Z82.5 Family history of asthma and other chronic lower respiratory diseases; Z80.8 Family history of malignant neoplasm of other organs or systems; Z83.6 Family history of other diseases of the respiratory system
CPT/HCPCS: 99285; 36415; 93005; 80061; 80053; 83735; 84484; 85025; 85610; 85730; 71046; G0378 ×3

== ENCOUNTER 2021-03-11 16:13 | Observation (INO) | payer MEDICARE ==
--- NOTE | 2021-03-11 16:58 | ED ---
General Adult HPI - General Chief complaint: Chest Pain Stated complaint: chest pain Time Seen by Provider: 03/11/21 16:32 Source: patient, RN notes reviewed, old records reviewed Mode of arrival: ambulatory Limitations: no limitations - History of Present Illness Initial comments: Patient is a 80-year-old female with past medical history remarkable for prior pacemaker placement, diabetes, hypertension, cancer who presents emergency Department following acute onset of chest pain. Patient states approximately an hour and a half ago she was having sharp chest pain starting the left chest that radiated to her left shoulder. She states she was sitting down eating soup with her grandchild when it happened. No exertional activity. States she felt momentarily weak when it happened. States it passed on its own prior to EMS arriving. EMS provided the patient with 325 mg of aspirin. Patient is remained a symptomatically since. She presents emergency Department with her chest pain. Describes it as sharp sensation. No known palliative or provocative factors. No other associated symptoms. Patient was vaccinated for Covid and received a booster 2 weeks ago. - Related Data Home Medications Medication Instructions Recorded Confirmed Aspirin 81 mg PO DAILY 08/29/14 11/14/20 Furosemide [Lasix] 20 mg PO BID 08/29/14 11/14/20 Insulin Aspart [NovoLOG Flexpen] 12 units SQ AC-TID 03/03/17 11/14/20 Insulin Glargine,Hum.rec.anlog 45 units SQ HS 04/27/17 11/14/20 [Toudejuan Solostar] Semaglutide [Rybelsus] 7 mg PO AC-BRKFST 09/12/20 11/14/20 amLODIPine [Norvasc] 5 mg PO DAILY 09/12/20 11/14/20 Metoprolol Tartrate [Lopressor] 50 mg PO BID 10/21/20 11/14/20 Acetaminophen [Tylenol Extra 1,000 mg PO Q6H PRN 11/14/20 11/14/20 Strength] Atorvastatin [Lipitor] 40 mg PO HS 11/14/20 11/14/20 Irbesartan [Avapro] 225 mg PO DAILY 11/14/20 11/14/20 Magnesium 125 mg PO TUSA 11/14/20 11/14/20 Previous Rx's Medication Instructions Recorded Clopidogrel [Plavix] 75 mg PO DAILY #90 tab 03/05/17 Baclofen [Lioresal] 10 mg PO BID PRN #60 tab 11/16/20 Allergies Allergy/AdvReac Type Severity Reaction Status Date / Time adhesive tape Allergy Rash/Hives Verified 11/14/20 11:09 Review of Systems ROS Statement: Those systems with pertinent positive or pertinent negative responses have been documented in the HPI. Review of Systems: CONST: Denies fever EYES: Denies blurry vision ENT: Denies nasal congestion C/V: Denies current chest pain. RESP: Denies shortness of breath GI: Denies abdominal pain : Denies dysuria SKIN: Denies rash. MSK: Denies joint pain. NEURO: Denies headache ROS Other: All systems not noted in ROS Statement are negative. Past Medical History Past Medical History: Cancer, Diabetes Mellitus, Hypertension, Osteoarthritis (OA) Additional Past Medical History / Comment(s): hx skin cancer, gout, SEE DR STRINGER'S HISTORY AND PHYSICAL FOR CARDIAC HISTORY, CHRONIC KIDNEY DISEASE STAGE 3, CATARACT SURGERY History of Any Multi-Drug Resistant Organisms: None Reported Past Surgical History: Hysterectomy, Joint Replacement, Orthopedic Surgery, Pacemaker, Tonsillectomy Additional Past Surgical History / Comment(s): rt knee arthroscopy, rt knee replacement, nahomy big toe joint replacement, vein stripping, surgery for fx left femur, stent placed in left carotid, PACEMAKER replaced September 2020 Past Anesthesia/Blood Transfusion Reactions: No Reported Reaction Additional Past Anesthesia/Blood Transfusion Reaction / Comment(s): Pt has never had a blood transfusion. Type of Cardiac Device: Permanent Pacemaker Device Placement Date:: 09/2020 Past Psychological History: No Psychological Hx Reported Smoking Status: Former smoker Past Alcohol Use History: Occasional Past Drug Use History: None Reported - Past Family History Mother Additional Family Medical History / Comment(s): Alzheimers Father Family Medical History: Cancer Additional Family Medical History / Comment(s): Lung disease, SKIN CANCER General Exam - General Exam Comments Initial Comments: General: Appears in no acute distress. HEAD: Normal with no signs of head trauma. EYES: PERRLA, EOMI, conjunctiva normal, no discharge. ENT: Hearing grossly intact, normal oropharynx. RESPIRATORY: Clear breath sounds bilaterally. No wheezes, rales, or rhonchi. C/V: Regular rate and rhythm. S1 and S2 auscultated. Peripheral pulses are 2+ intact throughout. Minimal peripheral edema that is measured bilaterally and unchanged per patient. ABD: Abd is soft, nontender, nondistended EXT: Normal range of motion, no obvious deformity SKIN: No rashes or lesions observed on exposed skin. NEURO: Alert and oriented 4. No focal deficits. Limitations: no limitations Course Vital Signs 03/11/21 16:14 Temperature 97.5 F L Pulse Rate 70 Respiratory 16 Rate Blood Pressure 155/66 O2 Sat by Pulse 96 Oximetry Medical Decision Making - Medical Decision Making Based on the patient's presentation and physical exam, I'm concerned for cardiopulmonary process for current symptoms particularly with her history of pacemaker placement. She is no history of MIs. She does have a history of carotid stents but no coronary sounds. We will obtain a cardiac workup including troponin, EKG, chest x-ray. She'll be connected to continuous cardiac monitoring. She already received aspirin. Patient is otherwise a symptomatically this time. She was in agreement with this plan. Patient's pacemaker was changed back in September and has had no issues since replacement. Patient's EKG shows no acute signs of ischemia. Heart Score is 5, which is moderate. Laboratories are remarkable for hyperglycemia. However she is a negative troponin. Remainder of the labs are unremarkable. Chest x-ray shows no acute cardiopulmonary process. On reevaluation, patient remains asymptomatic at this time. Due to her heart score, as well as risk factors with chest pain, I would like to admit her to the hospital observation for cardiac evaluation troponin trending as well as cardiac monitoring. She was in agreement this plan. Echo was ordered by myself. Cardiology was consulted. I spoke with the admitting physician, Dr. Ortiz who accepted the patient. Patient was therefore admitted in stable condition to telemetry bed. - Lab Data Result diagrams: 03/11/21 17:05 03/11/21 17:05 Lab Results 03/11/21 03/11/21 03/11/21 Range/Units 17:05 17:05 17:05 WBC 7.2 (3.8-10.6) k/uL RBC 4.50 (3.80-5.40) m/uL Hgb 13.4 (11.4-16.0) gm/dL Hct 42.2 (34.0-46.0) % MCV 93.7 (80.0-100.0) fL MCH 29.6 (25.0-35.0) pg MCHC 31.6 (31.0-37.0) g/dL RDW 13.6 (11.5-15.5) % Plt Count 159 (150-450) k/uL MPV 8.2 Neutrophils % 69 % Lymphocytes % 19 % Monocytes % 5 % Eosinophils % 5 % Basophils % 0 % Neutrophils # 4.9 (1.3-7.7) k/uL Lymphocytes # 1.4 (1.0-4.8) k/uL Monocytes # 0.4 (0-1.0) k/uL Eosinophils # 0.3 (0-0.7) k/uL Basophils # 0.0 (0-0.2) k/uL PT 10.0 (9.0-12.0) sec INR 0.9 (<1.2) APTT 20.6 L (22.0-30.0) sec Sodium 133 L (137-145) mmol/L Potassium 4.6 (3.5-5.1) mmol/L Chloride 100 (98-107) mmol/L Carbon Dioxide 22 (22-30) mmol/L Anion Gap 11 mmol/L BUN 56 H (7-17) mg/dL Creatinine 1.46 H (0.52-1.04) mg/dL Est GFR (CKD-EPI)AfAm 40 (>60 ml/min/1.73 sqM) Est GFR (CKD-EPI)NonAf 34 (>60 ml/min/1.73 sqM) Glucose 400 H (74-99) mg/dL Calcium 9.2 (8.4-10.2) mg/dL Magnesium 2.1 (1.6-2.3) mg/dL Total Bilirubin 0.4 (0.2-1.3) mg/dL AST 24 (14-36) U/L ALT 26 (4-34) U/L Alkaline Phosphatase 100 (38-126) U/L Troponin I (0.000-0.034) ng/mL Total Protein 6.8 (6.3-8.2) g/dL Albumin 3.9 (3.5-5.0) g/dL 03/11/21 Range/Units 17:05 WBC (3.8-10.6) k/uL RBC (3.80-5.40) m/uL Hgb (11.4-16.0) gm/dL Hct (34.0-46.0) % MCV (80.0-100.0) fL MCH (25.0-35.0) pg MCHC (31.0-37.0) g/dL RDW (11.5-15.5) % Plt Count (150-450) k/uL MPV Neutrophils % % Lymphocytes % % Monocytes % % Eosinophils % % Basophils % % Neutrophils # (1.3-7.7) k/uL Lymphocytes # (1.0-4.8) k/uL Monocytes # (0-1.0) k/uL Eosinophils # (0-0.7) k/uL Basophils # (0-0.2) k/uL PT (9.0-12.0) sec INR (<1.2) APTT (22.0-30.0) sec Sodium (137-145) mmol/L Potassium (3.5-5.1) mmol/L Chloride (98-107) mmol/L Carbon Dioxide (22-30) mmol/L Anion Gap mmol/L BUN (7-17) mg/dL Creatinine (0.52-1.04) mg/dL Est GFR (CKD-EPI)AfAm (>60 ml/min/1.73 sqM) Est GFR (CKD-EPI)NonAf (>60 ml/min/1.73 sqM) Glucose (74-99) mg/dL Calcium (8.4-10.2) mg/dL Magnesium (1.6-2.3) mg/dL Total Bilirubin (0.2-1.3) mg/dL AST (14-36) U/L ALT (4-34) U/L Alkaline Phosphatase (38-126) U/L Troponin I <0.012 (0.000-0.034) ng/mL Total Protein (6.3-8.2) g/dL Albumin (3.5-5.0) g/dL - EKG Data -: EKG Interpreted by Me EKG Comments: 12-lead Electrocardiogram Interpretation Note EKG was reviewed and interpreted by myself. 12-lead ECG performed at 1619 is interpreted by me as revealing ventricular paced rhythm. At a rate of 66 beats per minute. Left axis deviation. NC interval is 219 ms, QRS duration is 166 ms, QTc is 471 ms. Pacer spikes are present.. There are no acute ST segment or T-wave abnormalities to suggest acute myocardial ischemia or injury. There are chronic changes seen on prior EKGs, including chronic T-wave inversions in lead aVL and V2.. R wave progression across the precordium was satisfactory. By my interpretation this EKG is non-diagnostic for acute ischemia. No change in comparison to prior EKG. Disposition Clinical Impression: Chest pain, Hyperglycemia Disposition: ADMITTED IP TO THIS HOSP Condition: Stable Referrals: Regina Ortiz MD [Primary Care Provider] - 1-2 days
[2021-03-11 17:15] LABS: Basophils % (A) 0 %; Eosinophils # (A) 0.3 k/uL (0-0.7); Eosinophils % (A) 5 %; HCT 42.2 % (34.0-46.0); HGB 13.4 gm/dL (11.4-16.0); Lymphocytes # (A) 1.4 k/uL (1.0-4.8); Lymphocytes % (A) 19 %; MCH 29.6 pg (25.0-35.0); MCHC 31.6 g/dL (31.0-37.0); MCV 93.7 fL (80.0-100.0); Mean Platelet Volume 8.2; Monocytes # (A) 0.4 k/uL (0-1.0); Monocytes % (A) 5 %; Neutrophils # (A) 4.9 k/uL (1.3-7.7); Neutrophils % (A) 69 %; Platelet Count 159 k/uL (150-450); RDW 13.6 % (11.5-15.5); WBC 7.2 k/uL (3.8-10.6)
[2021-03-11 17:28] LABS: Albumin 3.9 g/dL (3.5-5.0); Calcium 9.2 mg/dL (8.4-10.2); Magnesium 2.1 mg/dL (1.6-2.3); Potassium 4.6 mmol/L (3.5-5.1); Total Bilirubin 0.4 mg/dL (0.2-1.3); Total Protein 6.8 g/dL (6.3-8.2)
[2021-03-11 17:36] LABS: INR 0.9 (<1.2)
--- NOTE | 2021-03-11 17:40 | XR ---
EXAMINATION TYPE: XR chest 2V DATE OF EXAM: 03/11/2021 4:58 PM COMPARISON:Multiple radiographs, with the most recent on 11/14/2020 CLINICAL INDICATION:Female, 80 years old with history of Chest Pain; TECHNIQUE: Frontal and lateral views of the chest. FINDINGS: Lungs/Pleura: There is no evidence of pleural effusion, focal consolidation, or pneumothorax. Pulmonary vascularity: Unremarkable. Heart/mediastinum: Cardiomediastinal silhouette is unremarkable. Musculoskeletal: No acute osseous pathology. Other findings: Five lead cardiac conduction device overlying the left hemithorax with lead tips projecting within th e heart. IMPRESSION: No acute cardiopulmonary disease/process.
[2021-03-11 17:42] LABS: Partial Thromboplastin Time 20.6 sec (22.0-30.0)
[2021-03-11] MEDS ORDERED: NALOXONE 0.4 MG/ML 1 ML VIAL IV PRN (17:44)
[2021-03-11] MEDS ORDERED: ACETAMINOPHEN TAB 325 MG TAB PO PRN (17:44)
[2021-03-11] MEDS ORDERED: ONDANSETRON 4 MG/2 ML VIAL IVP PRN (17:44)
[2021-03-11] MEDS ORDERED: SODIUM CHLORIDE 0.9% 1,000 ML IV STA (17:44)
[2021-03-11] MEDS ORDERED: ALPRAZolam 0.25 MG TAB PO PRN (19:41)
[2021-03-11] MEDS: HEPARIN SODIUM,PORCINE/PF 5,000 UNIT/0.5 ML SYRINGE SQ SCH ×2 (20:17→22:22)
[2021-03-11] MEDS: METOPROLOL TARTRATE 50 MG TAB PO SCH (20:17)
[2021-03-11] MEDS: FUROSEMIDE 20 MG TAB PO SCH (20:18)
[2021-03-11] MEDS ORDERED: ATORVASTATIN 40 MG TAB PO SCH (21:00)
[2021-03-11] MEDS ORDERED: INSULIN DETEMIR (LEVEMIR) 100 UNIT/ML SYR SQ SCH (21:00)
[2021-03-11 21:21] LABS: Glucose,Whole Blood 303 mg/dL (75-99)
[2021-03-12] MEDS ORDERED: NON FORMULARY DRUG (Semaglutide [Rybelsus] 7 MG Tablet) PO SCH (07:30)
[2021-03-12 07:38] LABS: Glucose,Whole Blood 187 mg/dL (75-99)
[2021-03-12] MEDS: INSULIN ASPART (NovoLOG) 100 UNIT/ML VIAL SQ SCH ×2 (07:51→13:05)
[2021-03-12 08:39] VITALS: BP 152/57; PULSE 56; RESP 16; TEMP 97.6
[2021-03-12] MEDS ORDERED: ASPIRIN 81 MG PO SCH (09:00)
[2021-03-12] MEDS ORDERED: MAGNESIUM OXIDE 400 MG TAB PO SCH (09:00)
[2021-03-12] MEDS ORDERED: NON FORMULARY DRUG (Dapagliflozin Propanediol [Farxiga] 5 MG Tablet) PO SCH (09:00)
[2021-03-12] MEDS ORDERED: CLOPIDOGREL 75 MG TAB PO SCH (09:00)
[2021-03-12] MEDS ORDERED: amLODIPine 5 MG TAB PO SCH (09:00)
[2021-03-12] MEDS ORDERED: LOSARTAN 50 MG TAB PO SCH (09:00)
[2021-03-12] MEDS: FUROSEMIDE 20 MG TAB PO SCH (09:05)
[2021-03-12] MEDS: HEPARIN SODIUM,PORCINE/PF 5,000 UNIT/0.5 ML SYRINGE SQ SCH (09:05)
[2021-03-12] MEDS: METOPROLOL TARTRATE 50 MG TAB PO SCH (09:05)
[2021-03-12 09:53] LABS: Basophils # (A) 0.03 X 10*3/uL (0.00-0.10); Basophils % (A) 0.5 %; Eosinophils # (A) 0.35 X 10*3/uL (0.04-0.35); Eosinophils % (A) 5.7 %; HCT 40.8 % (37.2-46.3); HGB 12.3 g/dL (12.0-15.0); Lymphocytes # (A) 1.98 X 10*3/uL (0.90-5.00); Lymphocytes % (A) 32.2 %; MCH 27.6 pg (27.0-32.0); MCHC 30.1 g/dL (32.0-37.0); MCV 91.5 fL (80.0-97.0); Mean Platelet Volume 10.9 fL (9.5-12.2); Monocytes # (A) 0.64 X 10*3/uL (0.20-1.00); Monocytes % (A) 10.4 %; Neutrophils # (A) 3.12 X 10*3/uL (1.80-7.70); Neutrophils % (A) 50.7 %; Platelet Count 170 X 10*3/uL (140-440); RBC 4.46 X 10*6/uL (4.10-5.20); RDW 13.5 % (11.5-14.5); WBC 6.15 X 10*3/uL (4.50-10.00)
[2021-03-12 10:31] LABS: African American GFR (CKD) 45.1 (60.0-200.0); Anion Gap 13.8 mmol/L (10.00-18.00); BUN/Creat Ratio 36.11 Ratio (12.00-20.00); Blood Urea Nitrogen 47.3 mg/dL (9.0-27.0); Calcium 8.9 mg/dL (8.7-10.3); Carbon Dioxide 23.9 mmol/L (20.0-27.5); Non-African American GFR(CKD) 38.9 (60.0-200.0); Potassium 4.2 mmol/L (3.5-5.5)
--- NOTE | 2021-03-12 10:55 | ECHOF ---
Referral Reason:chest pain MEASUREMENTS -------- HEIGHT: 165.1 cm WEIGHT: 93.0 kg BP: RVIDd: 2.9 cm (< 3.3) IVSd: 1.3 cm (0.6 - 1.1) LVIDd: 5.2 cm (3.9 - 5.3) LVPWd: 1.4 cm (0.6 - 1.1) IVSs: 1.3 cm LVIDs: 4.3 cm LVPWs: 2.0 cm LA Diam: 3.6 cm (2.7 - 3.8) LAESV Index (A-L): 48.19 ml/m Ao Diam: 2.5 cm (2.0 - 3.7) AV Cusp: 1.4 cm (1.5 - 2.6) LA Diam: 4.6 cm (2.7 - 3.8) MV E Derek: 0.68 m/s MV DecT: 338 ms MV A Derek: 0.89 m/s MV E/A Ratio: 0.76 RAP: 5.00 mmHg RVSP: 32.02 mmHg FINDINGS -------- Paced rhythm. This was a technically adequate study. Left ventricular wall thickness is normal. Overall left ventricular systolic function is low-normal with, an EF between 50 - 55 %. The right ventricle is normal in size. LA is severely dilated >40 ml/m2 The right atrial size is normal. There is mild aortic valve sclerosis. Trace amount of aortic regurgitation. Mild mitral regurgitation is present. Mild tricuspid regurgitation present. The right ventricular systolic pressure, as measured by Doppl er, is 32.02mmHg. Trace/mild (physiologic) pulmonic regurgitation. Echo free space indicative of a pericardial fat pad. There is a trivial pericardial effusion presen t. CONCLUSIONS -------- 1. Left ventricular wall thickness is normal. 2. Overall left ventricular systolic function is low-normal with, an EF between 50 - 55 %. 3. The right ventricle is normal in size. 4. LA is severely dilated >40 ml/m2 5. The right atrial size is normal. 6. There is mild aortic valve sclerosis. 7. Trace amount of aortic regurgitation. 8. Mild mitral regurgitation is present. 9. Mild tricuspid regurgitation present. 10. The right ventricular systolic pressure, as measured by Doppler, is 32.02mmHg. 11. Trace/mild (physiologic) pulmonic regurgitation. 12. Echo free space indicative of a pericardial fat pad. 13. There is a trivial pericardial effusion present. BIOLOGICAL TECHNICAL OFFICER: Gauri Berumen RDCS
[2021-03-12] MEDS ORDERED: INSULIN ASPART (NovoLOG) 100 UNIT/ML VIAL SQ SCH (12:30)
--- NOTE | 2021-03-12 12:30 | CONS ---
CONSULTATION Sis Garcia is a 80-year-old lady with a known history of a complete heart block, for which she has a biventricular pacemaker. She used to have an ICD, but currently she does not have one. She has a biventricular pacemaker, sees Dr. Lopez in the outpatient setting. She has diabetes, hypertension, hypercholesterolemia and nonischemic cardiomyopathy, but the last ejection fraction was more than 45%. She is here with an episode of what she describes as a sharp pain in the chest that started in the left chest, went to the left shoulder and then to the back. Quality of pain is atypical, fleeting, lasting a few seconds. She is asymptomatic at this time. Her EKG revealed a paced rhythm, not useful. Troponins are normal. She is resting comfortably. She is known to have had a previous cardiac cath some time ago, and there was no significant obstructive CAD. She is asymptomatic at the time of my evaluation. PAST MEDICAL HISTORY: 1. Nonischemic cardiomyopathy. 2. History of complete heart block with a biventricular pacemaker. 3. 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 4. History of hyperlipidemia. 5. Type 2 diabetes mellitus. ALLERGIES: NO KNOWN DRUG ALLERGIES. PHYSICAL EXAMINATION: On examination, blood pressure is 118/70, pulse rate 62 per minute, regular. HEENT unremarkable. Fundus was not examined by me. Neck is supple. No JVD. I do not hear a carotid bruit. There is no thyromegaly. Heart exam reveals S1, S2 with a short systolic murmur at the base and left sternal border. Lungs are clear. Abdomen is soft, nontender. Lower extremities reveal normal pulses. No edema. Central nervous system is normal. EKG revealed a ventricular paced rhythm. LABORATORY DATA: Laboratory data revealed unremarkable troponins. IMPRESSION: 1. Atypical chest pain. 2. Nonischemic cardiomyopathy. 3. Diabetes. 4. History of hypertension. RECOMMENDATIONS: I am recommending that we can increase activity and discharge the patient. Follow with Dr. Lopez. Pain seems atypical. She can have further stress test as an outpatient. I am recommending an appointment in the next 2 weeks. Advised the patient to call if she has any question, concern or problem. Thank you very much for the consult. MMODL / IJN: [id number] /
[2021-03-12 12:34] LABS: Glucose,Whole Blood 273 mg/dL (75-99)
== END 2021-03-12 14:18 | disposition home or self-care (01) ==
LOC: EC 16:13 → 6NMEDSUR 17:47
PROVIDERS: ADMIT Internal Medicine; ATTEND Internal Medicine
DX: R07.89 Other chest pain (principal); I42.8 Other cardiomyopathies; I12.9 Hypertensive chronic kidney disease with stage 1 through stage 4 chronic kidney disease, or unspecified chronic kidney disease; E11.22 Type 2 diabetes mellitus with diabetic chronic kidney disease; E11.65 Type 2 diabetes mellitus with hyperglycemia; N18.30 Chronic kidney disease, stage 3 unspecified; Z95.0 Presence of cardiac pacemaker; R53.1 Weakness; M19.90 Unspecified osteoarthritis, unspecified site; M10.9 Gout, unspecified; I44.2 Atrioventricular block, complete; I08.3 Combined rheumatic disorders of mitral, aortic and tricuspid valves; E78.00 Pure hypercholesterolemia, unspecified; E78.5 Hyperlipidemia, unspecified; Z20.822 Contact with and (suspected) exposure to COVID-19; Z79.82 Long term (current) use of aspirin; Z79.4 Long term (current) use of insulin; Z79.899 Other long term (current) drug therapy; Z91.048 Other nonmedicinal substance allergy status; Z85.828 Personal history of other malignant neoplasm of skin; Z90.710 Acquired absence of both cervix and uterus; Z96.651 Presence of right artificial knee joint; Z87.891 Personal history of nicotine dependence; Z96.698 Presence of other orthopedic joint implants; Z95.828 Presence of other vascular implants and grafts; Z71.9 Counseling, unspecified; Z82.0 Family history of epilepsy and other diseases of the nervous system; Z80.8 Family history of malignant neoplasm of other organs or systems; Z84.89 Family history of other specified conditions
CPT/HCPCS: 96372 ×2; 99285; 36415; 93005; 93306; 80053; 80048; 83735; 84484; 85025 ×2; 85610; 85730; 87635; 71046; G0378 ×2; J1644 ×2

== ENCOUNTER 2021-04-24 05:16 | Emergency (ER) | payer MEDICARE ==
[2021-04-24 05:22] VITALS: PULSE 74; RESP 16; TEMP 98.4
[2021-04-24] MEDS ORDERED: SODIUM CHLORIDE 0.9% 1,000 ML IV STA (06:10)
--- NOTE | 2021-04-24 06:12 | ED ---
Weakness HPI - General Chief complaint: Weakness Stated complaint: Hyperglycemia Time Seen by Provider: 04/24/21 06:06 Source: patient, EMS, RN notes reviewed Mode of arrival: EMS Limitations: no limitations - History of Present Illness Initial comments: This is a 81-year-old female presents emergency Department with chief complaint of weakness. Patient brought to emergency from via EMS patient states she's not felt well over the last 4-5 days states she just felt sick. Patient states her blood sugar was low last few days but was noted to be high today and she also is having some diarrhea. She states she felt worse so she said presents emergency department. Patient denies any chest pain, palpitations, shortness breath, fevers or chills no headache or dizziness no focal weakness. Patient states she's had some recent medication adjustments for her hyperglycemia. She has no localized abdominal pain no dysuria no hematuria. Patient offers no complaints. - Related Data Home Medications Medication Instructions Recorded Confirmed Aspirin 81 mg PO DAILY 08/29/14 03/11/21 Furosemide [Lasix] 20 mg PO BID 08/29/14 03/11/21 Insulin Aspart [NovoLOG Flexpen] 12 units SQ AC-TID 03/03/17 03/11/21 Insulin Glargine,Hum.rec.anlog 45 units SQ HS 04/27/17 03/11/21 [Dianna Gregg] Semaglutide [Rybelsus] 7 mg PO AC-BRKFST 09/12/20 03/11/21 amLODIPine [Norvasc] 5 mg PO DAILY 09/12/20 03/11/21 Metoprolol Tartrate [Lopressor] 50 mg PO BID 10/21/20 03/11/21 Irbesartan [Avapro] 150 mg PO DAILY 11/14/20 03/11/21 Magnesium 125 mg PO TUSA 11/14/20 03/11/21 ALPRAZolam [Xanax] 0.25 mg PO DAILY PRN 03/11/21 03/11/21 Atorvastatin Calcium [Lipitor] 40 mg PO HS 03/11/21 03/11/21 Dapagliflozin Propanediol [Farxiga] 5 mg PO DAILY 03/11/21 03/11/21 Previous Rx's Medication Instructions Recorded Clopidogrel [Plavix] 75 mg PO DAILY #90 tab 12/21/17 Nitrofurantoin Monohyd/M-Cryst 100 mg PO Q12HR #10 cap 04/24/21 [Macrobid] Allergies Allergy/AdvReac Type Severity Reaction Status Date / Time adhesive tape Allergy Rash/Hives Verified 04/24/21 05:17 Review of Systems ROS Statement: Those systems with pertinent positive or pertinent negative responses have been documented in the HPI. ROS Other: All systems not noted in ROS Statement are negative. Past Medical History Past Medical History: Cancer, Diabetes Mellitus, Hypertension, Osteoarthritis (OA) Additional Past Medical History / Comment(s): hx skin cancer, gout, SEE DR STRINGER'S HISTORY AND PHYSICAL FOR CARDIAC HISTORY, CHRONIC KIDNEY DISEASE STAGE 3, CATARACT SURGERY History of Any Multi-Drug Resistant Organisms: None Reported Past Surgical History: Hysterectomy, Joint Replacement, Orthopedic Surgery, Pacemaker, Tonsillectomy Additional Past Surgical History / Comment(s): rt knee arthroscopy, rt knee replacement, nahomy big toe joint replacement, vein stripping, surgery for fx left femur, stent placed in left carotid, PACEMAKER replaced x5 September 2020 Past Anesthesia/Blood Transfusion Reactions: No Reported Reaction Additional Past Anesthesia/Blood Transfusion Reaction / Comment(s): Pt has never had a blood transfusion. Type of Cardiac Device: Permanent Pacemaker Device Placement Date:: 09/2020 Past Psychological History: No Psychological Hx Reported Smoking Status: Former smoker Past Alcohol Use History: Occasional Past Drug Use History: None Reported - Past Family History Mother Additional Family Medical History / Comment(s): Alzheimers Father Family Medical History: Cancer Additional Family Medical History / Comment(s): Lung disease, SKIN CANCER General Exam Limitations: no limitations General appearance: alert, in no apparent distress Head exam: Present: atraumatic, normocephalic, normal inspection Eye exam: Present: normal appearance, PERRL, EOMI. Absent: scleral icterus, conjunctival injection, periorbital swelling ENT exam: Present: normal exam, normal oropharynx, mucous membranes moist Neck exam: Present: normal inspection, full ROM. Absent: tenderness, meningismus, lymphadenopathy Respiratory exam: Present: normal lung sounds bilaterally. Absent: respiratory distress, wheezes, rales, rhonchi, stridor Cardiovascular Exam: Present: regular rate, normal rhythm, normal heart sounds. Absent: systolic murmur, diastolic murmur, rubs, gallop, clicks GI/Abdominal exam: Present: soft, normal bowel sounds. Absent: distended, tenderness, guarding, rebound, rigid Neurological exam: Present: alert, oriented X3, CN II-XII intact Skin exam: Present: warm, dry, intact, normal color. Absent: rash Course Vital Signs 04/24/21 04/24/21 05:17 07:12 Temperature 98.4 F Pulse Rate 74 74 Respiratory 16 16 Rate Blood Pressure 159/83 149/79 O2 Sat by Pulse 98 94 L Oximetry Medical Decision Making - Medical Decision Making Patient presented for generalized weakness. Patient states she does feel improved after IV fluids she did have some mild dehydration. Patient does have evidence of urinary tract infection. Patient discharged in stable condition return parameters were discussed. - Lab Data Result diagrams: 04/24/21 06:16 04/24/21 06:16 Lab Results 04/24/21 04/24/21 04/24/21 Range/Units 06:16 06:16 06:16 WBC 8.2 (3.8-10.6) k/uL RBC 4.92 (3.80-5.40) m/uL Hgb 14.2 (11.4-16.0) gm/dL Hct 44.6 (34.0-46.0) % MCV 90.8 (80.0-100.0) fL MCH 29.0 (25.0-35.0) pg MCHC 31.9 (31.0-37.0) g/dL RDW 13.8 (11.5-15.5) % Plt Count 185 (150-450) k/uL MPV 8.5 Neutrophils % 78 % Lymphocytes % 10 % Monocytes % 7 % Eosinophils % 3 % Basophils % 0 % Neutrophils # 6.4 (1.3-7.7) k/uL Lymphocytes # 0.8 L (1.0-4.8) k/uL Monocytes # 0.6 (0-1.0) k/uL Eosinophils # 0.2 (0-0.7) k/uL Basophils # 0.0 (0-0.2) k/uL PT 10.1 (9.0-12.0) sec INR 0.9 (<1.2) APTT 20.0 L (22.0-30.0) sec Sodium 135 L (137-145) mmol/L Potassium 4.8 (3.5-5.1) mmol/L Chloride 101 (98-107) mmol/L Carbon Dioxide 22 (22-30) mmol/L Anion Gap 12 mmol/L BUN 52 H (7-17) mg/dL Creatinine 1.66 H (0.52-1.04) mg/dL Est GFR (CKD-EPI)AfAm 34 (>60 ml/min/1.73 sqM) Est GFR (CKD-EPI)NonAf 29 (>60 ml/min/1.73 sqM) Glucose 170 H (74-99) mg/dL Plasma Lactic Acid [place] (0.7-2.0) mmol/L Calcium 9.4 (8.4-10.2) mg/dL Magnesium 2.3 (1.6-2.3) mg/dL Total Bilirubin 1.0 (0.2-1.3) mg/dL AST 33 (14-36) U/L ALT 21 (4-34) U/L Alkaline Phosphatase 104 (38-126) U/L Troponin I (0.000-0.034) ng/mL Total Protein 7.4 (6.3-8.2) g/dL Albumin 3.9 (3.5-5.0) g/dL Urine Color Urine Appearance (Clear) Urine pH (5.0-8.0) Ur Specific [place] (1.001-1.035) Urine Protein (Negative) Urine Glucose (UA) (Negative) Urine Ketones (Negative) Urine Blood (Negative) Urine Nitrite (Negative) Urine Bilirubin (Negative) Urine Urobilinogen (<2.0) mg/dL Ur Leukocyte Esterase (Negative) Urine RBC (0-5) /hpf Urine WBC (0-5) /hpf Ur Squamous Epith Cells (0-4) /hpf Urine Bacteria (None) /hpf Urine Mucus (None) /hpf Coronavirus (PCR) (Not Detectd) 04/24/21 04/24/21 04/24/21 Range/Units 06:16 06:16 06:16 WBC (3.8-10.6) k/uL RBC (3.80-5.40) m/uL Hgb (11.4-16.0) gm/dL Hct (34.0-46.0) % MCV (80.0-100.0) fL MCH (25.0-35.0) pg MCHC (31.0-37.0) g/dL RDW (11.5-15.5) % Plt Count (150-450) k/uL MPV Neutrophils % % Lymphocytes % % Monocytes % % Eosinophils % % Basophils % % Neutrophils # (1.3-7.7) k/uL Lymphocytes # (1.0-4.8) k/uL Monocytes # (0-1.0) k/uL Eosinophils # (0-0.7) k/uL Basophils # (0-0.2) k/uL PT (9.0-12.0) sec INR (<1.2) APTT (22.0-30.0) sec Sodium (137-145) mmol/L Potassium (3.5-5.1) mmol/L Chloride (98-107) mmol/L Carbon Dioxide (22-30) mmol/L Anion Gap mmol/L BUN (7-17) mg/dL Creatinine (0.52-1.04) mg/dL Est GFR (CKD-EPI)AfAm (>60 ml/min/1.73 sqM) Est GFR (CKD-EPI)NonAf (>60 ml/min/1.73 sqM) Glucose (74-99) mg/dL Plasma Lactic Acid [place] 1.3 (0.7-2.0) mmol/L Calcium (8.4-10.2) mg/dL Magnesium (1.6-2.3) mg/dL Total Bilirubin (0.2-1.3) mg/dL AST (14-36) U/L ALT (4-34) U/L Alkaline Phosphatase (38-126) U/L Troponin I <0.012 (0.000-0.034) ng/mL Total Protein (6.3-8.2) g/dL Albumin (3.5-5.0) g/dL Urine Color Urine Appearance (Clear) Urine pH (5.0-8.0) Ur Specific [place] (1.001-1.035) Urine Protein (Negative) Urine Glucose (UA) (Negative) Urine Ketones (Negative) Urine Blood (Negative) Urine Nitrite (Negative) Urine Bilirubin (Negative) Urine Urobilinogen (<2.0) mg/dL Ur Leukocyte Esterase (Negative) Urine RBC (0-5) /hpf Urine WBC (0-5) /hpf Ur Squamous Epith Cells (0-4) /hpf Urine Bacteria (None) /hpf Urine Mucus (None) /hpf Coronavirus (PCR) Not Detected (Not Detectd) 04/24/21 Range/Units 07:00 WBC (3.8-10.6) k/uL RBC (3.80-5.40) m/uL Hgb (11.4-16.0) gm/dL Hct (34.0-46.0) % MCV (80.0-100.0) fL MCH (25.0-35.0) pg MCHC (31.0-37.0) g/dL RDW (11.5-15.5) % Plt Count (150-450) k/uL MPV Neutrophils % % Lymphocytes % % Monocytes % % Eosinophils % % Basophils % % Neutrophils # (1.3-7.7) k/uL Lymphocytes # (1.0-4.8) k/uL Monocytes # (0-1.0) k/uL Eosinophils # (0-0.7) k/uL Basophils # (0-0.2) k/uL PT (9.0-12.0) sec INR (<1.2) APTT (22.0-30.0) sec Sodium (137-145) mmol/L Potassium (3.5-5.1) mmol/L Chloride (98-107) mmol/L Carbon Dioxide (22-30) mmol/L Anion Gap mmol/L BUN (7-17) mg/dL Creatinine (0.52-1.04) mg/dL Est GFR (CKD-EPI)AfAm (>60 ml/min/1.73 sqM) Est GFR (CKD-EPI)NonAf (>60 ml/min/1.73 sqM) Glucose (74-99) mg/dL Plasma Lactic Acid Julian (0.7-2.0) mmol/L Calcium (8.4-10.2) mg/dL Magnesium (1.6-2.3) mg/dL Total Bilirubin (0.2-1.3) mg/dL AST (14-36) U/L ALT (4-34) U/L Alkaline Phosphatase (38-126) U/L Troponin I (0.000-0.034) ng/mL Total Protein (6.3-8.2) g/dL Albumin (3.5-5.0) g/dL Urine Color Light Yellow Urine Appearance Clear (Clear) Urine pH 5.5 (5.0-8.0) Ur Specific [place] 1.007 (1.001-1.035) Urine Protein Negative (Negative) Urine Glucose (UA) 4+ H (Negative) Urine Ketones Negative (Negative) Urine Blood Negative (Negative) Urine Nitrite Negative (Negative) Urine Bilirubin Negative (Negative) Urine Urobilinogen <2.0 (<2.0) mg/dL Ur Leukocyte Esterase Small H (Negative) Urine RBC 1 (0-5) /hpf Urine WBC 12 H (0-5) /hpf Ur Squamous Epith Cells 2 (0-4) /hpf Urine Bacteria Moderate H (None) /hpf Urine Mucus Rare H (None) /hpf Coronavirus (PCR) (Not Detectd) Disposition Clinical Impression: Dehydration, Diarrhea, UTI (urinary tract infection) Disposition: HOME SELF-CARE Condition: Stable Instructions (If sedation given, give patient instructions): Urinary Tract Infection in Women (ED) Additional Instructions: Please return to the Emergency Department if symptoms worsen or any other concerns. Prescriptions: Nitrofurantoin Monohyd/M-Cryst [Macrobid] 100 mg PO Q12HR #10 cap Is patient prescribed a controlled substance at d/c from ED?: No Referrals: Regina Ortiz MD [Primary Care Provider] - 1-2 days Time of Disposition: 07:34
[2021-04-24 06:30] LABS: Basophils % (A) 0 %; Eosinophils # (A) 0.2 k/uL (0-0.7); Eosinophils % (A) 3 %; HCT 44.6 % (34.0-46.0); HGB 14.2 gm/dL (11.4-16.0); Lymphocytes # (A) 0.8 k/uL (1.0-4.8); Lymphocytes % (A) 10 %; MCHC 31.9 g/dL (31.0-37.0); MCV 90.8 fL (80.0-100.0); Mean Platelet Volume 8.5; Monocytes # (A) 0.6 k/uL (0-1.0); Monocytes % (A) 7 %; Neutrophils # (A) 6.4 k/uL (1.3-7.7); Neutrophils % (A) 78 %; Platelet Count 185 k/uL (150-450); RBC 4.92 m/uL (3.80-5.40); RDW 13.8 % (11.5-15.5); WBC 8.2 k/uL (3.8-10.6)
[2021-04-24 06:46] LABS: Albumin 3.9 g/dL (3.5-5.0); Calcium 9.4 mg/dL (8.4-10.2); Magnesium 2.3 mg/dL (1.6-2.3); Potassium 4.8 mmol/L (3.5-5.1); Total Protein 7.4 g/dL (6.3-8.2)
[2021-04-24 06:51] LABS: INR 0.9 (<1.2); Prothrombin Time 10.1 sec (9.0-12.0)
[2021-04-24 07:11] LABS: Appearance,Urine Clear (Clear); Bacteria,Urine Moderate /hpf; Bilirubin,Urine Negative (Negative); Blood,Urine Negative (Negative); Color,Urine Light Yellow; Glucose,Urine (UA) 4+ (Negative); Ketones,Urine Negative (Negative); Leukocyte Esterase,Urine Small (Negative); Mucus,Urine Rare /hpf; Nitrite,Urine Negative (Negative); PH, Urine 5.5 (5.0-8.0); Protein,Urine Negative (Negative); RBC,Urine 1 /hpf (0-5); Specific Gravity,Urine 1.007 (1.001-1.035); Squamous Epithelial Cell,Urine 2 /hpf (0-4); Urobilinogen,Urine <2.0 mg/dL (<2.0); WBC,Urine 12 /hpf (0-5)
[2021-04-24 07:13] VITALS: BP 149/79
[2021-04-24] MEDS ORDERED: cefTRIAXone IN SWFI 1,000 MG/10 ML SYRINGE IVP STA (07:33)
== END 2021-04-24 08:13 | disposition home or self-care (01) ==
LOC: EC 05:16
DX: E86.0 Dehydration (principal); N39.0 Urinary tract infection, site not specified; E11.9 Type 2 diabetes mellitus without complications; I10 Essential (primary) hypertension; R19.7 Diarrhea, unspecified; Z87.891 Personal history of nicotine dependence; Z20.822 Contact with and (suspected) exposure to COVID-19; Z91.048 Other nonmedicinal substance allergy status
CPT/HCPCS: 36415; 93005; 80053; 83605; 83735; 84484; 85025; 85610; 85730; 81001; 87086; 87635; 96374; 96361; 99285; J0696

== ENCOUNTER 2021-08-01 17:57 | Emergency (ER) | payer MEDICARE ==
[2021-08-01 18:20] VITALS: TEMP 98.8
[2021-08-01] MEDS ORDERED: HYDROcodone/APAP 10-325MG 1 EACH TAB PO ONE (20:51)
[2021-08-01] MEDS ORDERED: ACET/COD 300 MG/30 MG STARTER PACK 6 TAB BTL PO STA (21:06)
--- NOTE | 2021-08-01 21:17 | ED ---
Extremity Problem HPI - General Chief complaint: Extremity Problem,Nontraumatic Stated complaint: Hands/knee pain Time Seen by Provider: 08/01/21 19:56 Source: patient Mode of arrival: ambulatory Limitations: no limitations - History of Present Illness Initial comments: Patient is a 81-year-old female who presents with bilateral wrists and bilateral knee pain. The pain started this morning. No injury. Patient thinks she is having a gout attack. She has history of gout which she states is typically in her wrist. She states this pain is severe and her knee pain is mild. Patient took 1 dose of her colchicine with no relief. Denies fever, chills, and other concerns. - Related Data Home Medications Medication Instructions Recorded Confirmed Aspirin 81 mg PO DAILY 08/29/14 08/01/21 Furosemide [Lasix] 20 mg PO BID 08/29/14 08/01/21 Insulin Aspart [NovoLOG Flexpen] 12 units SQ AC-TID 03/03/17 08/01/21 amLODIPine [Norvasc] 5 mg PO DAILY 09/12/20 08/01/21 Metoprolol Tartrate [Lopressor] 50 mg PO BID 10/21/20 08/01/21 Irbesartan [Avapro] 225 mg PO DAILY 11/14/20 08/01/21 Magnesium 250 mg PO TUSA 11/14/20 08/01/21 ALPRAZolam [Xanax] 0.25 mg PO DAILY PRN 03/11/21 08/01/21 Atorvastatin Calcium [Lipitor] 40 mg PO HS 03/11/21 08/01/21 Dapagliflozin Propanediol [Farxiga] 5 mg PO HS 03/11/21 08/01/21 Ezetimibe [Zetia] 10 mg PO HS 08/01/21 08/01/21 Insulin Detemir [Levemir Flextouch 48 units SQ HS 08/01/21 08/01/21 Pen] Previous Rx's Medication Instructions Recorded Clopidogrel [Plavix] 75 mg PO DAILY #90 tab 03/05/17 Docusate [Colace] 100 mg PO DAILY #5 capsule 08/01/21 HYDROcodone/APAP 7.5-325MG [[place] 1 tab PO Q6HR PRN 3 Days #12 tab 08/01/21 7.5-325] Allergies Allergy/AdvReac Type Severity Reaction Status Date / Time adhesive tape Allergy Rash/Hives Verified 08/01/21 18:20 Review of Systems ROS Statement: Those systems with pertinent positive or pertinent negative responses have been documented in the HPI. ROS Other: All systems not noted in ROS Statement are negative. Past Medical History Past Medical History: Cancer, Diabetes Mellitus, Hypertension, Osteoarthritis (OA) Additional Past Medical History / Comment(s): hx skin cancer, gout, SEE DR STRINGER'S HISTORY AND PHYSICAL FOR CARDIAC HISTORY, CHRONIC KIDNEY DISEASE STAGE 3, CATARACT SURGERY, gout History of Any Multi-Drug Resistant Organisms: None Reported Past Surgical History: Hysterectomy, Joint Replacement, Orthopedic Surgery, Pacemaker, Tonsillectomy Additional Past Surgical History / Comment(s): rt knee arthroscopy, rt knee replacement, nahomy big toe joint replacement, vein stripping, surgery for fx left femur, stent placed in left carotid, PACEMAKER replaced x5 September 2020 Past Anesthesia/Blood Transfusion Reactions: No Reported Reaction Additional Past Anesthesia/Blood Transfusion Reaction / Comment(s): Pt has never had a blood transfusion. Type of Cardiac Device: Permanent Pacemaker Device Placement Date:: 09/2020 Past Psychological History: No Psychological Hx Reported Smoking Status: Former smoker Past Alcohol Use History: Occasional Past Drug Use History: None Reported - Past Family History Mother Additional Family Medical History / Comment(s): Alzheimers Father Family Medical History: Cancer Additional Family Medical History / Comment(s): Lung disease, SKIN CANCER General Exam Limitations: no limitations General appearance: alert, in no apparent distress Head exam: Present: atraumatic, normocephalic, normal inspection Respiratory exam: Present: normal lung sounds bilaterally. Absent: respiratory distress, wheezes, rales, rhonchi, stridor Cardiovascular Exam: Present: regular rate, normal rhythm, normal heart sounds. Absent: systolic murmur, diastolic murmur, rubs, gallop, clicks GI/Abdominal exam: Present: soft, normal bowel sounds. Absent: distended, tenderness, guarding, rebound, rigid Extremities exam: Present: normal inspection (Over the bilateral wrists and knees), full ROM, tenderness (bilateral wrists), normal capillary refill. Absent: pedal edema, joint swelling, calf tenderness Neurological exam: Present: alert, oriented X3, CN II-XII intact Psychiatric exam: Present: normal affect, normal mood Skin exam: Present: warm, dry, intact, normal color. Absent: rash Course Vital Signs 08/01/21 08/01/21 18:17 21:57 Temperature 98.8 F Pulse Rate 71 74 Respiratory 18 16 Rate Blood Pressure 141/69 132/84 O2 Sat by Pulse 95 96 Oximetry Medical Decision Making - Medical Decision Making This is a 81-year-old female who presents with polyarthralgia. Thorough history and examination were performed. Patient is extremely tender over the bilateral wrists. There is no erythema, swelling, or warmth of the bilateral wrists or knees to suggest a septic joint. No fever or chills. Full range of motion. I did have Dr. Joseph examine the patient as well. He recommended patient have a more aggressive regimen of colchicine for possible gout exacerbation and patient to follow-up with her process laboratory specialist or rheumatology. Referred to environmental programs specialist. I will give her a short course of [place] due to her significant pain. I will prescribe her Colace to prevent constipation. Return parameters discussed. Patient verbalizes understanding and is agreeable to this plan. Disposition Clinical Impression: Polyarthritis Disposition: HOME SELF-CARE Condition: Good Instructions (If sedation given, give patient instructions): Arthralgia (ED) Additional Instructions: Please take colchicine as directed during our conversation. Each day you will take 0.6-1.2 mg initially, followed by 0.6 mg every 1-2 hours, up to 3 doses daily. Wait at least 3 days before initiating another course of therapy. Take stool softener while using [place] to prevent constipation. Follow-up with your process laboratory specialist or rheumatology listed in discharge instructions. Return to the emergency department if you experience new, concerning, or worsening symptoms Prescriptions: Docusate [Colace] 100 mg PO DAILY #5 capsule HYDROcodone/APAP 7.5-325MG [[place] 7.5-325] 1 tab PO Q6HR PRN 3 Days #12 tab PRN Reason: Pain Is patient prescribed a controlled substance at d/c from ED?: Yes Referrals: Regina Ortiz MD [Primary Care Provider] - 1-2 days Cassia Roach MD [STAFF PHYSICIAN] - 1-2 days Time of Disposition: 21:10 Decision Time: 21:17
[2021-08-01 21:58] VITALS: BP 132/84; PULSE 74; RESP 16
== END 2021-08-01 21:58 | disposition home or self-care (01) ==
LOC: EC 17:57
DX: M13.0 Polyarthritis, unspecified (principal); E11.22 Type 2 diabetes mellitus with diabetic chronic kidney disease; I12.9 Hypertensive chronic kidney disease with stage 1 through stage 4 chronic kidney disease, or unspecified chronic kidney disease; N18.30 Chronic kidney disease, stage 3 unspecified; Z79.4 Long term (current) use of insulin; Z79.82 Long term (current) use of aspirin; Z87.891 Personal history of nicotine dependence; Z96.653 Presence of artificial knee joint, bilateral; Z91.09 Other allergy status, other than to drugs and biological substances; Z79.899 Other long term (current) drug therapy; Z79.84 Long term (current) use of oral hypoglycemic drugs
CPT/HCPCS: 99283

== ENCOUNTER 2021-11-14 08:51 | Emergency (ER) | payer MEDICARE ==
[2021-11-14 09:01] VITALS: TEMP 98.2
[2021-11-14 09:02] LABS: Glucose,Whole Blood 59 mg/dL (70-110)
[2021-11-14] MEDS ORDERED: SODIUM CHLORIDE 0.9% 500 ML 500 ML IV STA (09:03)
[2021-11-14 09:15] LABS: Basophils % (A) 1 %; Eosinophils # (A) 0.4 k/uL (0-0.7); Eosinophils % (A) 5 %; HCT 43.3 % (34.0-46.0); Lymphocytes # (A) 2.1 k/uL (1.0-4.8); Lymphocytes % (A) 29 %; MCH 29.2 pg (25.0-35.0); MCHC 32.2 g/dL (31.0-37.0); MCV 90.7 fL (80.0-100.0); Mean Platelet Volume 7.6; Monocytes # (A) 0.6 k/uL (0-1.0); Monocytes % (A) 9 %; Neutrophils # (A) 3.9 k/uL (1.3-7.7); Neutrophils % (A) 54 %; Platelet Count 205 k/uL (150-450); RBC 4.78 m/uL (3.80-5.40); RDW 14.1 % (11.5-15.5); WBC 7.2 k/uL (3.8-10.6)
[2021-11-14 09:20] LABS: Glucose,Whole Blood 80 mg/dL (70-110)
[2021-11-14 09:24] LABS: INR 0.9 (<1.2); Partial Thromboplastin Time 22.1 sec (22.0-30.0); Prothrombin Time 9.8 sec (9.0-12.0)
--- NOTE | 2021-11-14 09:38 | XR ---
EXAMINATION TYPE: XR chest 2V DATE OF EXAM: 11/14/2021 COMPARISON: Chest x-ray March 11, 2021 HISTORY: Weakness. TECHNIQUE: Frontal and lateral views of the chest are obtained. FINDINGS: There is no suspicious focal air space opacity, pleural effusion, or pneumothorax seen. St able cardiomegaly with small the pacemaker/defibrillator. Exaggerated thoracic kyphosis is noted. IMPRESSION: Cardiomegaly without acute pulmonary process. No significant change from prior.
[2021-11-14 09:54] LABS: Albumin 4.1 g/dL (3.5-5.0); Calcium 9.3 mg/dL (8.4-10.2); Magnesium 1.9 mg/dL (1.6-2.3); Potassium 3.6 mmol/L (3.5-5.1); Total Bilirubin 0.4 mg/dL (0.2-1.3)
--- NOTE | 2021-11-14 09:58 | ED ---
Weakness HPI - General Chief complaint: Weakness Stated complaint: lethargic Time Seen by Provider: 11/14/21 08:56 Source: patient, EMS, RN notes reviewed Mode of arrival: EMS Limitations: no limitations - History of Present Illness Initial comments: 81-year-old female presents emergency department via EMS to the general was weakness. Patient states she's felt "blah" since yesterday afternoon. Patient states she just hasn't felt well. She cannot describe it. Patient denies any chest pain or shortness breath. Patient was found to be hypoxemic she's had some new medication changes which she took insulin this morning without eating. Blood sugar was 55. Patient denies any headache, blurred vision, focal weakness, dysuria hematuria denies any reported fever but states she saw hot and cold. - Related Data Home Medications Medication Instructions Recorded Confirmed Aspirin 81 mg PO DAILY 08/29/14 11/14/21 Furosemide [Lasix] 20 mg PO DAILY 08/29/14 11/14/21 Insulin Aspart [NovoLOG Flexpen] 12 units SQ AC-TID 03/03/17 11/14/21 amLODIPine [Norvasc] 5 mg PO DAILY 09/12/20 11/14/21 Metoprolol Tartrate [Lopressor] 50 mg PO BID 10/21/20 11/14/21 Irbesartan [Avapro] 225 mg PO DAILY 11/14/20 11/14/21 Magnesium 250 mg PO TUSA 11/14/20 11/14/21 Atorvastatin Calcium [Lipitor] 40 mg PO HS 03/11/21 11/14/21 Dapagliflozin Propanediol [Farxiga] 5 mg PO HS 03/11/21 11/14/21 Febuxostat [Uloric] 40 mg PO DAILY 11/14/21 11/14/21 Insulin Glargine/Lixisenatide 30 units SQ QAM 11/14/21 11/14/21 [Soliqua 100 Unit-33 Mcg/ml Pen] [place]-3 Acid Ethyl Esters [Lovaza] 2 gm PO BID 11/14/21 11/14/21 Previous Rx's Medication Instructions Recorded Clopidogrel [Plavix] 75 mg PO DAILY #90 tab 03/05/17 Allergies Allergy/AdvReac Type Severity Reaction Status Date / Time adhesive tape Allergy Rash/Hives Verified 11/14/21 10:56 Review of Systems ROS Statement: Those systems with pertinent positive or pertinent negative responses have been documented in the HPI. ROS Other: All systems not noted in ROS Statement are negative. Past Medical History Past Medical History: Cancer, Diabetes Mellitus, Hypertension, Osteoarthritis (OA) Additional Past Medical History / Comment(s): hx skin cancer, gout, SEE DR STRINGER'S HISTORY AND PHYSICAL FOR CARDIAC HISTORY, CHRONIC KIDNEY DISEASE STAGE 3, CATARACT SURGERY, gout History of Any Multi-Drug Resistant Organisms: None Reported Past Surgical History: Hysterectomy, Joint Replacement, Orthopedic Surgery, Pacemaker, Tonsillectomy Additional Past Surgical History / Comment(s): rt knee arthroscopy, rt knee replacement, nahomy big toe joint replacement, vein stripping, surgery for fx left femur, stent placed in left carotid, PACEMAKER replaced x5 September 2020 Past Anesthesia/Blood Transfusion Reactions: No Reported Reaction Additional Past Anesthesia/Blood Transfusion Reaction / Comment(s): Pt has never had a blood transfusion. Type of Cardiac Device: Permanent Pacemaker Device Placement Date:: 09/2020 Past Psychological History: No Psychological Hx Reported Smoking Status: Former smoker Past Alcohol Use History: Occasional Past Drug Use History: None Reported - Past Family History Mother Additional Family Medical History / Comment(s): Alzheimers Father Family Medical History: Cancer Additional Family Medical History / Comment(s): Lung disease, SKIN CANCER General Exam Limitations: no limitations General appearance: alert, in no apparent distress Head exam: Present: atraumatic, normocephalic, normal inspection Eye exam: Present: normal appearance, PERRL, EOMI. Absent: scleral icterus, conjunctival injection, periorbital swelling ENT exam: Present: normal exam, normal oropharynx, mucous membranes moist Neck exam: Present: normal inspection, full ROM. Absent: tenderness, meningism us, lymphadenopathy Respiratory exam: Present: normal lung sounds bilaterally. Absent: respiratory distress, wheezes, rales, rhonchi, stridor Cardiovascular Exam: Present: regular rate, normal rhythm, normal heart sounds. Absent: systolic murmur, diastolic murmur, rubs, gallop, clicks GI/Abdominal exam: Present: soft, normal bowel sounds. Absent: distended, tenderness, guarding, rebound, rigid Neurological exam: Present: alert, oriented X3, CN II-XII intact, reflexes normal. Absent: motor sensory deficit Skin exam: Present: warm, dry, intact, normal color. Absent: rash Course Vital Signs 11/14/21 08:58 Temperature 98.2 F Pulse Rate 85 Respiratory 20 Rate Blood Pressure 154/67 O2 Sat by Pulse 94 L Oximetry Medical Decision Making - Medical Decision Making 81-year-old female presented for generalized weakness. Patient's found to be hypoglycemic. Male labs unremarkable. Patient states she feels greatly improved after eating. I did advise the patient to have her, calibrated, check. Patient is asymptomatic will be discharged in stable condition return parameters were discussed. - Lab Data Result diagrams: 11/14/21 09:05 11/14/21 09:05 Lab Results 11/14/21 11/14/21 11/14/21 Range/Units 08:56 09:05 09:05 WBC 7.2 (3.8-10.6) k/uL RBC 4.78 (3.80-5.40) m/uL Hgb 14.0 (11.4-16.0) gm/dL Hct 43.3 (34.0-46.0) % MCV 90.7 (80.0-100.0) fL MCH 29.2 (25.0-35.0) pg MCHC 32.2 (31.0-37.0) g/dL RDW 14.1 (11.5-15.5) % Plt Count 205 (150-450) k/uL MPV 7.6 Neutrophils % 54 % Lymphocytes % 29 % Monocytes % 9 % Eosinophils % 5 % Basophils % 1 % Neutrophils # 3.9 (1.3-7.7) k/uL Lymphocytes # 2.1 (1.0-4.8) k/uL Monocytes # 0.6 (0-1.0) k/uL Eosinophils # 0.4 (0-0.7) k/uL Basophils # 0.0 (0-0.2) k/uL PT 9.8 (9.0-12.0) sec INR 0.9 (<1.2) APTT 22.1 (22.0-30.0) sec Sodium (137-145) mmol/L Potassium (3.5-5.1) mmol/L Chloride (98-107) mmol/L Carbon Dioxide (22-30) mmol/L Anion Gap mmol/L BUN (7-17) mg/dL Creatinine (0.52-1.04) mg/dL Est GFR (CKD-EPI)AfAm (>60 ml/min/1.73 sqM) Est GFR (CKD-EPI)NonAf (>60 ml/min/1.73 sqM) Glucose (74-99) mg/dL POC Glucose (mg/dL) 59 L (70-110) mg/dL POC Glu Assessment Services Manager ID Radha Benton Lactic Ac Sepsis Rflx Plasma Lactic Acid [place] (0.7-2.0) mmol/L Calcium (8.4-10.2) mg/dL Magnesium (1.6-2.3) mg/dL Total Bilirubin (0.2-1.3) mg/dL AST (14-36) U/L ALT (4-34) U/L Alkaline Phosphatase (38-126) U/L Troponin I (0.000-0.034) ng/mL Total Protein (6.3-8.2) g/dL Albumin (3.5-5.0) g/dL Urine Color Urine Appearance (Clear) Urine pH (5.0-8.0) Ur Specific [place] (1.001-1.035) Urine Protein (Negative) Urine Glucose (UA) (Negative) Urine Ketones (Negative) Urine Blood (Negative) Urine Nitrite (Negative) Urine Bilirubin (Negative) Urine Urobilinogen (<2.0) mg/dL Ur Leukocyte Esterase (Negative) Coronavirus (PCR) (Not Detectd) 11/14/21 11/14/21 11/14/21 Range/Units 09:05 09:05 09:05 WBC (3.8-10.6) k/uL RBC (3.80-5.40) m/uL Hgb (11.4-16.0) gm/dL Hct (34.0-46.0) % MCV (80.0-100.0) fL MCH (25.0-35.0) pg MCHC (31.0-37.0) g/dL RDW (11.5-15.5) % Plt Count (150-450) k/uL MPV Neutrophils % % Lymphocytes % % Monocytes % % Eosinophils % % Basophils % % Neutrophils # (1.3-7.7) k/uL Lymphocytes # (1.0-4.8) k/uL Monocytes # (0-1.0) k/uL Eosinophils # (0-0.7) k/uL Basophils # (0-0.2) k/uL PT (9.0-12.0) sec INR (<1.2) APTT (22.0-30.0) sec Sodium 143 (137-145) mmol/L Potassium 3.6 (3.5-5.1) mmol/L Chloride 104 (98-107) mmol/L Carbon Dioxide 26 (22-30) mmol/L Anion Gap 13 mmol/L BUN 30 H (7-17) mg/dL Creatinine 1.15 H (0.52-1.04) mg/dL Est GFR (CKD-EPI)AfAm 52 (>60 ml/min/1.73 sqM) Est GFR (CKD-EPI)NonAf 45 (>60 ml/min/1.73 sqM) Glucose 57 L (74-99) mg/dL POC Glucose (mg/dL) (70-110) mg/dL POC Glu Assessment Services Manager ID Lactic Ac Sepsis Rflx Plasma Lactic Acid [place] 2.2 H* (0.7-2.0) mmol/L Calcium 9.3 (8.4-10.2) mg/dL Magnesium 1.9 (1.6-2.3) mg/dL Total Bilirubin 0.4 (0.2-1.3) mg/dL AST 24 (14-36) U/L ALT 20 (4-34) U/L Alkaline Phosphatase 99 (38-126) U/L Troponin I (0.000-0.034) ng/mL Total Protein 7.0 (6.3-8.2) g/dL Albumin 4.1 (3.5-5.0) g/dL Urine Color Light Yellow Urine Appearance Clear (Clear) Urine pH 7.5 (5.0-8.0) Ur Specific [place] 1.012 (1.001-1.035) Urine Protein Trace H (Negative) Urine Glucose (UA) 4+ H (Negative) Urine Ketones Negative (Negative) Urine Blood Negative (Negative) Urine Nitrite Negative (Negative) Urine Bilirubin Negative (Negative) Urine Urobilinogen <2.0 (<2.0) mg/dL Ur Leukocyte Esterase Negative (Negative) Coronavirus (PCR) (Not Detectd) 11/14/21 11/14/21 11/14/21 Range/Units 09:05 09:05 09:19 WBC (3.8-10.6) k/uL RBC (3.80-5.40) m/uL Hgb (11.4-16.0) gm/dL Hct (34.0-46.0) % MCV (80.0-100.0) fL MCH (25.0-35.0) pg MCHC (31.0-37.0) g/dL RDW (11.5-15.5) % Plt Count (150-450) k/uL MPV Neutrophils % % Lymphocytes % % Monocytes % % Eosinophils % % Basophils % % Neutrophils # (1.3-7.7) k/uL Lymphocytes # (1.0-4.8) k/uL Monocytes # (0-1.0) k/uL Eosinophils # (0-0.7) k/uL Basophils # (0-0.2) k/uL PT (9.0-12.0) sec INR (<1.2) APTT (22.0-30.0) sec Sodium (137-145) mmol/L Potassium (3.5-5.1) mmol/L Chloride (98-107) mmol/L Carbon Dioxide (22-30) mmol/L Anion Gap mmol/L BUN (7-17) mg/dL Creatinine (0.52-1.04) mg/dL Est GFR (CKD-EPI)AfAm (>60 ml/min/1.73 sqM) Est GFR (CKD-EPI)NonAf (>60 ml/min/1.73 sqM) Glucose (74-99) mg/dL POC Glucose (mg/dL) 80 (70-110) mg/dL POC Glu Assessment Services Manager ID Radha Benton Lactic Ac Sepsis Rflx Plasma Lactic Acid [place] (0.7-2.0) mmol/L Calcium (8.4-10.2) mg/dL Magnesium (1.6-2.3) mg/dL Total Bilirubin (0.2-1.3) mg/dL AST (14-36) U/L ALT (4-34) U/L Alkaline Phosphatase (38-126) U/L Troponin I <0.012 (0.000-0.034) ng/mL Total Protein (6.3-8.2) g/dL Albumin (3.5-5.0) g/dL Urine Color Urine Appearance (Clear) Urine pH (5.0-8.0) Ur Specific [place] (1.001-1.035) Urine Protein (Negative) Urine Glucose (UA) (Negative) Urine Ketones (Negative) Urine Blood (Negative) Urine Nitrite (Negative) Urine Bilirubin (Negative) Urine Urobilinogen (<2.0) mg/dL Ur Leukocyte Esterase (Negative) Coronavirus (PCR) Not Detected (Not Detectd) 11/14/21 11/14/21 11/14/21 Range/Units 09:37 10:08 12:04 WBC (3.8-10.6) k/uL RBC (3.80-5.40) m/uL Hgb (11.4-16.0) gm/dL Hct (34.0-46.0) % MCV (80.0-100.0) fL MCH (25.0-35.0) pg MCHC (31.0-37.0) g/dL RDW (11.5-15.5) % Plt Count (150-450) k/uL MPV Neutrophils % % Lymphocytes % % Monocytes % % Eosinophils % % Basophils % % Neutrophils # (1.3-7.7) k/uL Lymphocytes # (1.0-4.8) k/uL Monocytes # (0-1.0) k/uL Eosinophils # (0-0.7) k/uL Basophils # (0-0.2) k/uL PT (9.0-12.0) sec INR (<1.2) APTT (22.0-30.0) sec Sodium (137-145) mmol/L Potassium (3.5-5.1) mmol/L Chloride (98-107) mmol/L Carbon Dioxide (22-30) mmol/L Anion Gap mmol/L BUN (7-17) mg/dL Creatinine (0.52-1.04) mg/dL Est GFR (CKD-EPI)AfAm (>60 ml/min/1.73 sqM) Est GFR (CKD-EPI)NonAf (>60 ml/min/1.73 sqM) Glucose (74-99) mg/dL POC Glucose (mg/dL) 147 H (70-110) mg/dL POC Glu Assessment Services Manager ID Hermilo Chavez Lactic Ac Sepsis Rflx Y Plasma Lactic Acid [place] 1.6 (0.7-2.0) mmol/L Calcium (8.4-10.2) mg/dL Magnesium (1.6-2.3) mg/dL Total Bilirubin (0.2-1.3) mg/dL AST (14-36) U/L ALT (4-34) U/L Alkaline Phosphatase (38-126) U/L Troponin I (0.000-0.034) ng/mL Total Protein (6.3-8.2) g/dL Albumin (3.5-5.0) g/dL Urine Color Urine Appearance (Clear) Urine pH (5.0-8.0) Ur Specific [place] (1.001-1.035) Urine Protein (Negative) Urine Glucose (UA) (Negative) Urine Ketones (Negative) Urine Blood (Negative) Urine Nitrite (Negative) Urine Bilirubin (Negative) Urine Urobilinogen (<2.0) mg/dL Ur Leukocyte Esterase (Negative) Coronavirus (PCR) (Not Detectd) Disposition Clinical Impression: Hypoglycemia Disposition: HOME SELF-CARE Condition: Stable Instructions (If sedation given, give patient instructions): Hypoglycemia in a Person with Diabetes (ED) Additional Instructions: Please return to the Emergency Department if symptoms worsen or any other concerns. Is patient prescribed a controlled substance at d/c from ED?: No Referrals: Regina Ortiz MD [Primary Care Provider] - 1-2 days Time of Disposition: 12:40
[2021-11-14 10:10] LABS: Glucose,Whole Blood 147 mg/dL (70-110)
[2021-11-14 11:22] LABS: Appearance,Urine Clear (Clear); Bilirubin,Urine Negative (Negative); Blood,Urine Negative (Negative); Color,Urine Light Yellow; Glucose,Urine (UA) 4+ (Negative); Ketones,Urine Negative (Negative); Leukocyte Esterase,Urine Negative (Negative); Nitrite,Urine Negative (Negative); PH, Urine 7.5 (5.0-8.0); Protein,Urine Trace (Negative); Specific Gravity,Urine 1.012 (1.001-1.035); Urobilinogen,Urine <2.0 mg/dL (<2.0)
[2021-11-14 13:23] VITALS: BP 137/66; PULSE 68; RESP 18
[2021-11-14 13:30] LABS: Glucose,Whole Blood 141 mg/dL (70-110)
== END 2021-11-14 13:22 | disposition home or self-care (01) ==
LOC: EC 08:51
DX: E16.2 Hypoglycemia, unspecified (principal); E11.9 Type 2 diabetes mellitus without complications; I10 Essential (primary) hypertension; M19.90 Unspecified osteoarthritis, unspecified site; Z87.891 Personal history of nicotine dependence; Z88.8 Allergy status to other drugs, medicaments and biological substances; Z79.82 Long term (current) use of aspirin; Z79.4 Long term (current) use of insulin; Z79.899 Other long term (current) drug therapy; Z20.822 Contact with and (suspected) exposure to COVID-19
CPT/HCPCS: 36415; 71046; 80053; 81003; 83605; 83735; 84484; 85025; 85610; 85730; 87635; 99285

== ENCOUNTER 2021-12-16 16:03 | Emergency (ER) | payer MEDICARE ==
[2021-12-16 16:09] VITALS: RESP 20; TEMP 98.3
[2021-12-16 16:40] VITALS: BP 152/80; PULSE 80
[2021-12-16] MEDS ORDERED: COLCHICINE 0.6 MG EACH PO STA (17:16)
[2021-12-16] MEDS ORDERED: HYDROcodone/APAP 7.5-325MG 1 EACH TAB PO ONE (17:21)
[2021-12-16] MEDS ORDERED: ACET/COD 300 MG/30 MG STARTER PACK 6 TAB BTL PO STA (17:31)
--- NOTE | 2021-12-16 17:33 | ED ---
Extremity Problem HPI - General Chief complaint: Extremity Problem,Nontraumatic Stated complaint: Right arm pain Time Seen by Provider: 12/16/21 16:12 Source: patient Mode of arrival: ambulatory Limitations: no limitations - History of Present Illness Initial comments: Patient is a 41-year-old female with history of gout presenting with chief complaint of right wrist pain. Patient states that this pain feels identical to previous gout attacks. Patient states symptoms started this morning. Patient is having pain with range of motion. States that the wrist feels somewhat warm. Denies any numbness, tingling, weakness. No fever or chills. No recent injuries or breaks in the skin. No rash or red streaking. - Related Data Home Medications Medication Instructions Recorded Confirmed Aspirin 81 mg PO DAILY 08/29/14 11/14/21 Furosemide [Lasix] 20 mg PO DAILY 08/29/14 11/14/21 Insulin Aspart [NovoLOG Flexpen] 12 units SQ AC-TID 03/03/17 11/14/21 amLODIPine [Norvasc] 5 mg PO DAILY 09/12/20 11/14/21 Metoprolol Tartrate [Lopressor] 50 mg PO BID 10/21/20 11/14/21 Irbesartan [Avapro] 225 mg PO DAILY 11/14/20 11/14/21 Magnesium 250 mg PO TUSA 11/14/20 11/14/21 Atorvastatin Calcium [Lipitor] 40 mg PO HS 03/11/21 11/14/21 Dapagliflozin Propanediol [Farxiga] 5 mg PO HS 03/11/21 11/14/21 Febuxostat [Uloric] 40 mg PO DAILY 11/14/21 11/14/21 Insulin Glargine/Lixisenatide 30 units SQ QAM 11/14/21 11/14/21 [Soliqua 100 Unit-33 Mcg/ml Pen] [place]-3 Acid Ethyl Esters [Lovaza] 2 gm PO BID 11/14/21 11/14/21 Previous Rx's Medication Instructions Recorded Clopidogrel [Plavix] 75 mg PO DAILY #90 tab 03/05/17 Colchicine 0.6 mg PO Q1HR #2 tablet 12/16/21 Allergies Allergy/AdvReac Type Severity Reaction Status Date / Time adhesive tape Allergy Rash/Hives Verified 11/14/21 10:56 Review of Systems ROS Statement: Those systems with pertinent positive or pertinent negative responses have been documented in the HPI. ROS Other: All systems not noted in ROS Statement are negative. Past Medical History Past Medical History: Cancer, Diabetes Mellitus, Hypertension, Osteoarthritis (OA) Additional Past Medical History / Comment(s): hx skin cancer, gout, SEE DR STRINGER'S HISTORY AND PHYSICAL FOR CARDIAC HISTORY, CHRONIC KIDNEY DISEASE STAGE 3, CATARACT SURGERY, gout History of Any Multi-Drug Resistant Organisms: None Reported Past Surgical History: Hysterectomy, Joint Replacement, Orthopedic Surgery, Pacemaker, Tonsillectomy Additional Past Surgical History / Comment(s): rt knee arthroscopy, rt knee replacement, nahomy big toe joint replacement, vein stripping, surgery for fx left femur, stent placed in left carotid, PACEMAKER replaced x5 September 2020 Past Anesthesia/Blood Transfusion Reactions: No Reported Reaction Additional Past Anesthesia/Blood Transfusion Reaction / Comment(s): Pt has never had a blood transfusion. Type of Cardiac Device: Permanent Pacemaker Device Placement Date:: 09/2020 Past Psychological History: No Psychological Hx Reported Smoking Status: Former smoker Past Alcohol Use History: Occasional Past Drug Use History: None Reported - Past Family History Mother Additional Family Medical History / Comment(s): Alzheimers Father Family Medical History: Cancer Additional Family Medical History / Comment(s): Lung disease, SKIN CANCER General Exam Limitations: no limitations General appearance: alert, in no apparent distress Head exam: Present: atraumatic, normocephalic, normal inspection Eye exam: Present: normal appearance, PERRL, EOMI. Absent: scleral icterus, conjunctival injection, periorbital swelling Neck exam: Present: normal inspection Right Hand Wrist exam: Present: tenderness, swelling. Absent: full ROM (Limited secondary to pain), erythema Vascular: Present: radial pulse (2+). Absent: vascular compromise Neurological exam: Present: alert, oriented X3, CN II-XII intact Psychiatric exam: Present: normal affect, normal mood Skin exam: Present: warm, dry, intact, normal color. Absent: rash Course Vital Signs 12/16/21 12/16/21 16:04 16:40 Temperature 98.3 F Pulse Rate 72 80 Respiratory 20 Rate Blood Pressure 200/76 152/80 O2 Sat by Pulse 98 Oximetry Medical Decision Making - Medical Decision Making Patient is a 81-year-old female presenting with chief complaint of right wrist pain. Patient believes this is a gout flareup as it feels similar to previous flareups, states that she most commonly gets these episodes in the wrists. On examination there is swelling and mild warmth appreciated on palpation. Patient has limited range of motion secondary to pain. No fever or chills, no erythema, does not appear to be infectious in nature. Patient normally takes colchicine for gout flareups, is given 1.2 mg here in the ER and sent home with 0.6 mg every hour for 2 hours. Sent home with Tylenol 3 for pain. Educated on supportive treatment. Follow-up with PCP. Report back to ER with any new or worsening symptoms. Discussed return parameters and answered all questions. Patient conveyed verbal understanding and agreed to the plan. I discussed this case in detail with my attending Dr. Glass. Disposition Clinical Impression: Gout Disposition: HOME SELF-CARE Condition: Good Instructions (If sedation given, give patient instructions): Low Purine Diet (ED), Gout (ED) Additional Instructions: Follow-up with PCP. Report back to ER with any new or worsening symptoms. Take 0.6 mg of colchicine every hour after receiving dose here in the ER. Prescriptions: Colchicine 0.6 mg PO Q1HR #2 tablet Is patient prescribed a controlled substance at d/c from ED?: No Referrals: Regina Ortiz MD [Primary Care Provider] - 1-2 days Time of Disposition: 17:33
== END 2021-12-16 17:45 | disposition home or self-care (01) ==
LOC: EC 16:03
DX: M10.9 Gout, unspecified (principal); M19.90 Unspecified osteoarthritis, unspecified site; I12.9 Hypertensive chronic kidney disease with stage 1 through stage 4 chronic kidney disease, or unspecified chronic kidney disease; E11.22 Type 2 diabetes mellitus with diabetic chronic kidney disease; N18.30 Chronic kidney disease, stage 3 unspecified; Z87.891 Personal history of nicotine dependence; Z91.048 Other nonmedicinal substance allergy status; Z79.4 Long term (current) use of insulin; Z79.899 Other long term (current) drug therapy; Z79.82 Long term (current) use of aspirin
CPT/HCPCS: 99283

== ENCOUNTER 2022-02-13 10:00 | Emergency (ER) | payer MEDICARE ==
[2022-02-13 10:08] VITALS: RESP 18; TEMP 98
[2022-02-13] MEDS ORDERED: oxyCODONE-APAP 10-325MG 1 EACH TAB PO STA (10:41)
--- NOTE | 2022-02-13 10:50 | ED ---
General Adult HPI - General Chief complaint: Extremity Injury, Lower Stated complaint: Left leg pain Time Seen by Provider: 02/13/22 10:16 Source: patient, family Mode of arrival: wheelchair Limitations: no limitations - History of Present Illness Initial comments: Dictation was produced using [employer] dictation software. please excuse any grammatical, word or spelling errors. Chief Complaint: 81-year-old female presents emergency department for left posterior knee pain History of Present Illness: This is 81-year-old female presents emergency department for acute left posterior knee pain. Patient states that she believes she may have twisted in awkward direction causing constant pain. States that just behind the knee. Denies any shortness of breath. The ROS documented in this emergency department record has been reviewed and confirmed by me. Those systems with pertinent positive or negative responses have been documented in the HPI. All other systems are other negative and/or noncontributory. PHYSICAL EXAM: General Impression: Alert and oriented x3, not in acute distress HEENT: Normocephalic atraumatic, extra-ocular movements intact, pupils equal and reactive to light bilaterally, mucous membranes moist. Cardiovascular: Heart regular rate and rhythm Chest: Able to complete full sentences, no retractions, no tachypnea Musculoskeletal: Pulses present and equal in all extremities, no peripheral edema Motor: no focal deficits noted Neurological: CN II-XII grossly intact, no focal motor or sensory deficits noted Skin: Intact with no visualized rashes Psych: Normal affect and mood Lower extremity: Palpable tenderness to the left posterior knee ED course: 81-year-old female presents with acute onset left posterior knee pain. Vital signs upon arrival are within acceptable limits. Nursing notes and chart review was performed X-ray of the knee is unremarkable. Venous Doppler is negative for DVT. There appears to be a Arias's cyst. Patient will be discharged. Critical Care: no Critical Care time: n/a - Related Data Home Medications Medication Instructions Recorded Confirmed Aspirin 81 mg PO DAILY 08/29/14 11/14/21 Furosemide [Lasix] 20 mg PO DAILY 08/29/14 11/14/21 Insulin Aspart [NovoLOG Flexpen] 12 units SQ AC-TID 03/03/17 11/14/21 amLODIPine [Norvasc] 5 mg PO DAILY 09/12/20 11/14/21 Metoprolol Tartrate [Lopressor] 50 mg PO BID 10/21/20 11/14/21 Irbesartan [Avapro] 225 mg PO DAILY 11/14/20 11/14/21 Magnesium 250 mg PO TUSA 11/14/20 11/14/21 Atorvastatin Calcium [Lipitor] 40 mg PO HS 03/11/21 11/14/21 Dapagliflozin Propanediol [Farxiga] 5 mg PO HS 03/11/21 11/14/21 Febuxostat [Uloric] 40 mg PO DAILY 11/14/21 11/14/21 Insulin Glargine/Lixisenatide 30 units SQ QAM 11/14/21 11/14/21 [Soliqua 100 Unit-33 Mcg/ml Pen] [place]-3 Acid Ethyl Esters [Lovaza] 2 gm PO BID 11/14/21 11/14/21 Previous Rx's Medication Instructions Recorded Clopidogrel [Plavix] 75 mg PO DAILY #90 tab 03/05/17 Colchicine 0.6 mg PO Q1HR #2 tablet 12/16/21 Allergies Allergy/AdvReac Type Severity Reaction Status Date / Time adhesive tape Allergy Rash/Hives Verified 02/13/22 10:08 Review of Systems ROS Statement: Those systems with pertinent positive or pertinent negative responses have been documented in the HPI. ROS Other: All systems not noted in ROS Statement are negative. Past Medical History Past Medical History: Cancer, Diabetes Mellitus, Hypertension, Osteoarthritis (OA) Additional Past Medical History / Comment(s): hx skin cancer, gout, SEE DR STRINGER'S HISTORY AND PHYSICAL FOR CARDIAC HISTORY, CHRONIC KIDNEY DISEASE STAGE 3, CATARACT SURGERY, gout History of Any Multi-Drug Resistant Organisms: None Reported Past Surgical History: Hysterectomy, Joint Replacement, Orthopedic Surgery, Pacemaker, Tonsillectomy Additional Past Surgical History / Comment(s): rt knee arthroscopy, rt knee replacement, nahomy big toe joint replacement, vein stripping, surgery for fx left femur, stent placed in left carotid, PACEMAKER replaced x5 September 2020 Past Anesthesia/Blood Transfusion Reactions: No Reported Reaction Additional Past Anesthesia/Blood Transfusion Reaction / Comment(s): Pt has never had a blood transfusion. Type of Cardiac Device: Permanent Pacemaker Device Placement Date:: 09/2020 Past Psychological History: No Psychological Hx Reported Smoking Status: Former smoker Past Alcohol Use History: Occasional Past Drug Use History: None Reported - Past Family History Mother Additional Family Medical History / Comment(s): Alzheimers Father Family Medical History: Cancer Additional Family Medical History / Comment(s): Lung disease, SKIN CANCER General Exam Limitations: no limitations Course Vital Signs 02/13/22 10:03 Temperature 98 F Pulse Rate 62 Respiratory 18 Rate Blood Pressure 163/71 O2 Sat by Pulse 98 Oximetry Disposition Clinical Impression: Bakers cyst Disposition: HOME SELF-CARE Condition: Good Instructions (If sedation given, give patient instructions): Arias Cyst (ED) Is patient prescribed a controlled substance at d/c from ED?: No Referrals: Regina Ortiz MD [Primary Care Provider] - 1-2 days Time of Disposition: 12:25
--- NOTE | 2022-02-13 11:17 | US ---
EXAMINATION TYPE: US venous doppler duplex LE LT DATE OF EXAM: 02/13/2022 11:09 AM COMPARISON: NONE CLINICAL HISTORY: pain. Left popiteal ache that extends into lower thigh, no h/o dvt SIDE PERFORMED: Left TECHNIQUE: The lower extremity deep venous system is examined utilizing real time linear array sonog shantanu with graded compression, doppler sonography and color-flow sonography. VESSELS IMAGED: Common Femoral Vein Deep Femoral Vein Greater Saphenous Vein * Femoral Vein Popliteal Vein Small Saphenous Vein * Proximal Calf Veins (* superficial vessels) Left Leg: Negative for DVT4.7cm complex cystic area that is probable Arias's cyst IMPRESSION: No evidence for DVT at this time.
--- NOTE | 2022-02-13 11:56 | XR ---
EXAMINATION TYPE: XR knee 4V LT DATE OF EXAM: 02/13/2022 CLINICAL HISTORY: pain TECHNIQUE: Three views of the left knee are obtained. Patellar sunrise views also submitted. COMPARISON: None. FINDINGS: There is no acute fracture/dislocation. The tri-compartment joint spaces appear mildly na rrowed. The overlying soft tissue appears unremarkable. IMPRESSION: There is no acute fracture or dislocation ICD 10 NO FRACTURE, INITIAL EVALUATION
[2022-02-13] MEDS ORDERED: ACET/COD 300 MG/30 MG STARTER PACK 6 TAB BTL PO STA (12:35)
[2022-02-13 12:42] VITALS: BP 136/73; PULSE 60
== END 2022-02-13 12:42 | disposition home or self-care (01) ==
LOC: EC 10:00
DX: M71.22 Synovial cyst of popliteal space [Baker], left knee (principal); E11.9 Type 2 diabetes mellitus without complications; I10 Essential (primary) hypertension; M19.90 Unspecified osteoarthritis, unspecified site; Z87.891 Personal history of nicotine dependence; Z88.8 Allergy status to other drugs, medicaments and biological substances; Z79.82 Long term (current) use of aspirin; Z79.4 Long term (current) use of insulin; Z79.899 Other long term (current) drug therapy
CPT/HCPCS: 99284

== ENCOUNTER 2022-02-13 21:28 | Emergency (ER) | payer MEDICARE ==
[2022-02-13 23:07] VITALS: BP 149/71; PULSE 74; RESP 18; TEMP 97.6
--- NOTE | 2022-02-13 23:32 | ED ---
Recheck HPI - General Source: patient Mode of arrival: ambulatory Limitations: no limitations <Justyn Wilburn - Last Filed: 02/13/22 23:31> - General Source: patient, EMS, RN notes reviewed <Duke Alvarez - Last Filed: 02/14/22 00:35> - General Chief Complaint: Extremity Problem,Nontraumatic Stated Complaint: Recheck-L knee pain - History of Present Illness Initial Comments: Patient was seen here earlier today for left knee pain. Patient had a venous Doppler and playing from x-ray done which showed a probable Arias cyst. Patient was sent home with pain medication. Patient had increased pain again. Note that the patient had not taken any pain medicine since leaving here. Patient had Percocet here in the ER was sent home with Tylenol with Codeine starter pack. Patient denies any subsequent injury. Denies any distal paresthesias. No distal proximal pain. (Duke Alvarez) - Related Data Home Medications Medication Instructions Recorded Confirmed Aspirin 81 mg PO DAILY 08/29/14 02/13/22 Insulin Aspart [NovoLOG Flexpen] 10 units SQ AC-TID 03/03/17 02/13/22 amLODIPine [Norvasc] 5 mg PO DAILY 09/12/20 02/13/22 Metoprolol Tartrate [Lopressor] 50 mg PO BID 10/21/20 02/13/22 Irbesartan [Avapro] 225 mg PO DAILY 11/14/20 02/13/22 Magnesium 125 mg PO TUSA 11/14/20 02/13/22 Atorvastatin Calcium [Lipitor] 40 mg PO HS 03/11/21 02/13/22 Dapagliflozin Propanediol [Farxiga] 5 mg PO HS 03/11/21 02/13/22 Febuxostat [Uloric] 40 mg PO DAILY 11/14/21 02/13/22 [place]-3 Acid Ethyl Esters [Lovaza] 2 gm PO BID 11/14/21 02/13/22 Insulin Detemir [Levemir Flextouch 31 units SQ DAILY 02/13/22 02/13/22 Pen] Previous Rx's Medication Instructions Recorded Clopidogrel [Plavix] 75 mg PO DAILY #90 tab 03/05/17 HYDROcodone/APAP 5-325MG [[place] 1 tab PO Q6HR PRN 3 Days #12 tab 02/14/22 5-325] Allergies Allergy/AdvReac Type Severity Reaction Status Date / Time adhesive tape Allergy Rash/Hives Verified 02/13/22 23:07 Review of Systems ROS Other: All systems not noted in ROS Statement are negative. <Justyn Wilburn - Last Filed: 02/13/22 23:31> ROS Other: All systems not noted in ROS Statement are negative. <Duke Alvarez - Last Filed: 02/14/22 00:35> ROS Statement: Those systems with pertinent positive or pertinent negative responses have been documented in the HPI. Past Medical History Past Medical History: Cancer, Diabetes Mellitus, Hypertension, Osteoarthritis (OA) Additional Past Medical History / Comment(s): hx skin cancer, gout, SEE DR STRINGER'S HISTORY AND PHYSICAL FOR CARDIAC HISTORY, CHRONIC KIDNEY DISEASE STAGE 3, CATARACT SURGERY, gout History of Any Multi-Drug Resistant Organisms: None Reported Past Surgical History: Hysterectomy, Joint Replacement, Orthopedic Surgery, Pacemaker, Tonsillectomy Additional Past Surgical History / Comment(s): rt knee arthroscopy, rt knee replacement, nahomy big toe joint replacement, vein stripping, surgery for fx left femur, stent placed in left carotid, PACEMAKER replaced x5 September 2020 Past Anesthesia/Blood Transfusion Reactions: No Reported Reaction Additional Past Anesthesia/Blood Transfusion Reaction / Comment(s): Pt has never had a blood transfusion. Type of Cardiac Device: Permanent Pacemaker Device Placement Date:: 09/2020 Past Psychological History: No Psychological Hx Reported Smoking Status: Former smoker Past Alcohol Use History: Occasional Past Drug Use History: None Reported - Past Family History Mother Additional Family Medical History / Comment(s): Alzheimers Father Family Medical History: Cancer Additional Family Medical History / Comment(s): Lung disease, SKIN CANCER <Justyn Wilburn - Last Filed: 02/13/22 23:31> General Exam Limitations: no limitations <Justyn Wilburn - Last Filed: 02/13/22 23:31> General appearance: in distress Head exam: Present: atraumatic Eye exam: Present: normal appearance, EOMI ENT exam: Present: normal exam Neck exam: Present: normal inspection, full ROM Respiratory exam: Present: normal lung sounds bilaterally. Absent: respiratory distress, wheezes, rales, rhonchi, stridor Cardiovascular Exam: Present: regular rate, normal rhythm, normal heart sounds. Absent: systolic murmur, diastolic murmur, rubs, gallop, clicks GI/Abdominal exam: Present: soft. Absent: tenderness Extremities exam: Present: tenderness (Patient has tenderness in the left popliteal space. No erythema. No break in skin integrity. No rashes or lesions. Distal neurovascular status intact.), normal capillary refill. Abse nt: full ROM (Range of motion with left knee limited by pain. Normal range of motion in the hip and ankle.), pedal edema, joint swelling, calf tenderness Back exam: Present: normal inspection Neurological exam: Present: alert, oriented X3, CN II-XII intact. Absent: motor sensory deficit Psychiatric exam: Present: normal affect, normal mood <Duke Alvarez - Last Filed: 02/14/22 00:35> - General Exam Comments Initial Comments: Patient does not appear to be ill or toxic. Blood pressure minimally elevated. The refill less than 2 seconds. Pedal pulses are 2+ at 4. (Duke Alvarez) Course Vital Signs 02/13/22 23:04 Temperature 97.6 F Pulse Rate 74 Respiratory 18 Rate Blood Pressure 149/71 O2 Sat by Pulse 95 Oximetry Medical Decision Making - Radiology Data Radiology results: report reviewed, image reviewed (Reviewed images from earlier today.) <Duke Alvarez - Last Filed: 02/14/22 00:35> - Medical Decision Making The case was discussed in detail with ED attending physician. Presentation, findings, treatment plan discussed in detail. Publicity Expert Dr. Wilburn Reviewed images were reviewed today. Patient presents again with for pain related to a left Arias cyst. Patient does not appear to have any infectious process. Does not appear to have any vascular insult. We'll treat the patient's pain and have her follow-up with orthopedics. Patient was told to return to the ER for any signs or symptoms worsen. Told to return immediately if any other problems arise. All questions answered. Treatment plan discussed. Patient in agreement Every effort has been made to ensure accuracy of this dictation. However, due to the limitations of electronic medical records and dictation devices, errors in charting still occur. (Duke Alvarez) Disposition <Justyn Wilburn - Last Filed: 02/13/22 23:31> Is patient prescribed a controlled substance at d/c from ED?: Yes When asked, does pt state using other controlled substances?: No If prescribed controlled substance>3 days was MAPS reviewed?: Prescribed <3 Days If opioid is for acute pain is fill amount 7 days or less?: Yes If Rx opioid, was Start Talking consent form obtained?: Yes Time of Disposition: 00:34 <Duke Alvarez - Last Filed: 02/14/22 00:35> Clinical Impression: Arias's cyst of knee Disposition: HOME SELF-CARE Condition: Good Instructions (If sedation given, give patient instructions): Airas Cyst (ED) Additional Instructions: Follow-up with your regular physician as directed. Return to the ER immediately if any symptoms worsen, new symptoms arise, or any other problems develop. Referrals: Sergo Nam MD [STAFF PHYSICIAN] - 1-2 days
[2022-02-13] MEDS ORDERED: HYDROmorphone 1 MG/ML 1 ML SYRINGE IVP STA (23:53)
[2022-02-13] MEDS ORDERED: ONDANSETRON 4 MG/2 ML VIAL IVP STA (23:53)
== END 2022-02-14 01:20 | disposition home or self-care (01) ==
LOC: EC 21:28
DX: M71.22 Synovial cyst of popliteal space [Baker], left knee (principal); I12.9 Hypertensive chronic kidney disease with stage 1 through stage 4 chronic kidney disease, or unspecified chronic kidney disease; E11.22 Type 2 diabetes mellitus with diabetic chronic kidney disease; N18.30 Chronic kidney disease, stage 3 unspecified; Z87.891 Personal history of nicotine dependence; Z79.82 Long term (current) use of aspirin; Z79.84 Long term (current) use of oral hypoglycemic drugs; Z79.4 Long term (current) use of insulin; Z79.899 Other long term (current) drug therapy; Z91.09 Other allergy status, other than to drugs and biological substances
CPT/HCPCS: 99283; 96374; 96375; J2405; J1170

== ENCOUNTER → 2022-03-27 | Outpatient (CLI) | payer MEDICARE ==
--- NOTE | 2022-03-27 17:09 | US ---
EXAMINATION TYPE: US MSK right shoulder DATE OF EXAM: 03/27/2022 Comparison: No radiographic correlation available Clinical History: 82-year-old female using a walker with increasing right shoulder pain. M75.101 UNSP ROTATR-CUFF TEAR/RUPTR OF RIGHT SHLDR TECHNIQUE: Multiple sonographic images of the right shoulder are obtained. Some dynamic maneuvers wer e utilized. Findings: Unable to visualize the long head biceps tendon within the bicipital groove on either longitudinal or transverse imaging. Subscapularis tendon fibers are visualized intact. There is severe degenerative change at the AC joint with joint space narrowing, marginal spurring, an d severe capsular hypertrophy/synovitis. Body habitus limits detailed assessment of the posterior labrum. It may be degenerative and blunted. The spinoglenoid groove is clear. There is thickening and inhomogeneity of the supraspinatus tendon. There is a tiny 9 mm intrasubstanc e tear involving the posterior fibers at the footprint. No high-grade partial-thickness or full-thick ness tear is identified. Infraspinatus tendon appears intact. No effusion within the subacromial/subdeltoid bursa. Dynamic maneuvers show no evidence for subacromi al impingement. No atrophy of either supraspinatus or infraspinatus muscle bellies. Impression: 1. At least moderate supraspinatus tendinosis with intrasubstance change characterized by a small 9 m m insertional tear of the posterior fibers. No high-grade partial or full-thickness rotator cuff tear . 2. Unable to visualize the long head biceps tendon within the bicipital groove. Correlate for possibl e long head biceps tendon tear. 3. Severe AC joint OA. 4. We note significant limitation in patient's range of motion along with pain during the exam. Consi nora other etiologies such as adhesive capsulitis as well.
== END | disposition home or self-care (01) ==
LOC: RADUSWWP 12:45
PROVIDERS: ATTEND Orthopaedic Surgery Sports Medicine
DX: M75.101 Unspecified rotator cuff tear or rupture of right shoulder, not specified as traumatic (principal); M19.011 Primary osteoarthritis, right shoulder; M79.609 Pain in unspecified limb; S46.001A Unspecified injury of muscle(s) and tendon(s) of the rotator cuff of right shoulder, initial encounter

== ENCOUNTER 2022-04-01 19:22 | Emergency (ER) | payer MEDICARE ==
[2022-04-01 19:33] VITALS: TEMP 97.4
--- NOTE | 2022-04-01 19:50 | ED ---
General Adult HPI - General Source: patient, RN notes reviewed Mode of arrival: EMS Limitations: no limitations <Oscar Yanes - Last Filed: 04/01/22 19:47> <Attila Swenson - Last Filed: 04/02/22 04:34> - General Chief complaint: Weakness Stated complaint: Near syncope Time Seen by Provider: 04/01/22 19:30 - History of Present Illness Initial comments: Patient is a pleasant 82-year-old female presenting to the emergency department following near syncopal episode. Patient was at a meeting around 6 PM. Patient did not feel well during this. Patient felt like she may pass out. Symptoms have essentially resolved and feels normal at this time. Patient never lost consciousness. No chest pain or dyspnea. No abdominal or back pain. No confusion or isolated area of weakness. (Oscar Yanes) - Related Data Home Medications Medication Instructions Recorded Confirmed Aspirin 81 mg PO DAILY 08/29/14 04/01/22 Insulin Aspart [NovoLOG Flexpen] 10 units SQ AC-TID 03/03/17 04/01/22 amLODIPine [Norvasc] 5 mg PO DAILY 09/12/20 04/01/22 Metoprolol Tartrate [Lopressor] 50 mg PO BID 10/21/20 04/01/22 Irbesartan [Avapro] 225 mg PO DAILY 11/14/20 04/01/22 Magnesium 125 mg PO TUSA 11/14/20 04/01/22 Atorvastatin Calcium [Lipitor] 40 mg PO HS 03/11/21 04/01/22 Dapagliflozin Propanediol [Farxiga] 5 mg PO HS 03/11/21 04/01/22 Febuxostat [Uloric] 40 mg PO DAILY 11/14/21 04/01/22 [place]-3 Acid Ethyl Esters [Lovaza] 2 gm PO BID 11/14/21 04/01/22 Insulin Detemir [Levemir Flextouch 35 units SQ HS 02/13/22 04/01/22 Pen] Previous Rx's Medication Instructions Recorded Clopidogrel [Plavix] 75 mg PO DAILY #90 tab 03/05/17 Allergies Allergy/AdvReac Type Severity Reaction Status Date / Time adhesive tape Allergy Rash/Hives Verified 04/01/22 21:17 Review of Systems ROS Other: All systems not noted in ROS Statement are negative. Constitutional: Denies: fever Eyes: Denies: eye pain ENT: Denies: ear pain Respiratory: Denies: cough, dyspnea Cardiovascular: Denies: chest pain Endocrine: Denies: fatigue Gastrointestinal: Denies: abdominal pain Genitourinary: Denies: dysuria Musculoskeletal: Denies: back pain Skin: Denies: rash Neurological: Reports: weakness (Patient felt lightheaded and generally weak). Denies: headache, numbness, paresthesias, confusion, abnormal gait, vertigo <Oscar Yanes - Last Filed: 04/01/22 19:47> ROS Other: All systems not noted in ROS Statement are negative. <Attila Swenson - Last Filed: 04/02/22 04:34> ROS Statement: Those systems with pertinent positive or pertinent negative responses have been documented in the HPI. Past Medical History Past Medical History: Cancer, Diabetes Mellitus, Hypertension, Osteoarthritis (OA) Additional Past Medical History / Comment(s): hx skin cancer, gout, SEE DR STRINGER'S HISTORY AND PHYSICAL FOR CARDIAC HISTORY, CHRONIC KIDNEY DISEASE STAGE 3, CATARACT SURGERY, gout History of Any Multi-Drug Resistant Organisms: None Reported Past Surgical History: Hysterectomy, Joint Replacement, Orthopedic Surgery, Pacemaker, Tonsillectomy Additional Past Surgical History / Comment(s): rt knee arthroscopy, rt knee replacement, nahomy big toe joint replacement, vein stripping, surgery for fx left femur, stent placed in left carotid, PACEMAKER replaced x5 September 2020 Past Anesthesia/Blood Transfusion Reactions: No Reported Reaction Additional Past Anesthesia/Blood Transfusion Reaction / Comment(s): Pt has never had a blood transfusion. Type of Cardiac Device: Permanent Pacemaker Device Placement Date:: 09/2020 Past Psychological History: No Psychological Hx Reported Smoking Status: Former smoker Past Alcohol Use History: Occasional Past Drug Use History: None Reported - Past Family History Mother Additional Family Medical History / Comment(s): Alzheimers Father Family Medical History: Cancer Additional Family Medical History / Comment(s): Lung disease, SKIN CANCER <Oscar Yanes - Last Filed: 04/01/22 19:47> General Exam Limitations: no limitations General appearance: alert, in no apparent distress Head exam: Present: atraumatic Eye exam: Present: normal appearance, PERRL, EOMI ENT exam: Present: normal oropharynx Neck exam: Present: normal inspection. Absent: tenderness Respiratory exam: Present: normal lung sounds bilaterally Cardiovascular Exam: Present: regular rate, normal rhythm Expanded Peripheral pulses: 2+: Radial (R), Radial (L), Posterior Tibialis (R), Posterior Tibialis (L) GI/Abdominal exam: Present: soft. Absent: distended, tenderness Extremities exam: Present: normal inspection. Absent: pedal edema, calf tenderness Neurological exam: Present: alert, oriented X3, CN II-XII intact. Absent: motor sensory deficit Expanded Neurological exam: Present: protecting the airway Speech: Present: fluid speech Cranial nerves: EOM's Intact: Normal Motor strength exam: RUE: 5, LUE: 5, RLE: 5, LLE: 5 Eye Response: (4) open spontaneously Motor Response: (6) obeys commands Verbal Response: (5) oriented Psychiatric exam: Present: normal affect, normal mood Skin exam: Present: normal color <Oscar Yanes - Last Filed: 04/01/22 19:47> Course Vital Signs 04/01/22 04/01/22 04/01/22 19:30 20:00 20:30 Temperature 97.4 F L Pulse Rate 63 66 63 Respiratory 16 16 15 Rate Blood Pressure 153/97 159/67 159/67 O2 Sat by Pulse 94 L 93 L 92 L Oximetry 04/01/22 04/01/22 04/01/22 21:00 22:00 23:00 Temperature Pulse Rate 66 67 61 Respiratory 16 16 16 Rate Blood Pressure 160/65 155/69 155/69 O2 Sat by Pulse 91 L 91 L 91 L Oximetry 04/02/22 00:00 Temperature Pulse Rate 63 Respiratory 16 Rate Blood Pressure 166/73 O2 Sat by Pulse 92 L Oximetry EKG Findings - EKG Results: EKG: interpreted by ERMD (Left axis. Atrial paced rhythm.) Complex. Q waves. Nonspecific ST) <Oscar Yanes - Last Filed: 04/01/22 19:47> Medical Decision Making - Lab Data Result diagrams: 04/01/22 20:35 04/01/22 20:35 <Attila Swenson - Last Filed: 04/02/22 04:34> - Medical Decision Making Patient was signed out to me pending results of workup. I agree with the prior physicians assessment. Laboratory studies were remarkable for an elevated d- dimer of 1.3. Patient has an elevated BUN/creatinine with a history of CK D. Troponin is undetectable. CT brain showed no acute intracranial process. Chest x-ray reveals no acute cardio pulmonary process. At this time I did discuss the results with the patient. I believe a CT PE is worth pursuing to rule out PE as the cause of her symptoms. She was in a greement this plan. Due to her kidney function she will receive a fluid bolus prior to CT and after. There was a delay in obtaining CT PE due to this as well as large volumes in the emergency department requiring the CT scanner. CT PE was eventually completed and revealed no evidence of acute PE. 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 At this time after the patient. She is a symptomatic care would like to go home. I believe this is reasonable. We discussed her workup. She exposed understanding. Strict return precautions were discussed. She had a near syncopal episode at home. I instructed the patient to follow up with their PCP in the next 1-3 days. I explained that the patient should return to the emergency department if they experience any worsening symptoms. Strict return precautions were discussed with the patient. The patient expressed understanding of these instructions. I answered all questions that the patient had. The patient was discharged home in good condition with their prescriptions and follow up information. Was pt. sent in by a medical professional or institution (JOHNNY Haas, COMMERCIAL LEASE ADMINISTRATOR, urgent care, hospital, or long-term...) When possible be specific @ -No Did you speak to anyone other than the patient for history (EMS, parent, family, police, friend...)? What history was obtained from this source @ -No Did you review nursing and triage notes (agree or disagree)? Why? @ -I reviewed and agree with nursing and triage notes Were old charts reviewed (outside hosp., previous admission, EMS record, old EKG, old radiological studies, urgent care reports/EKG's, long-term records)? Report findings @ -No old charts were reviewed Differential Diagnosis (chest pain, altered mental status, abdominal pain women, abdominal pain men, vaginal bleeding, weakness, fever, dyspnea, syncope, headache, dizziness, GI bleed, back pain, seizure, CVA, palpatations, mental health)? @ -Differential Syncope: Valvular disease, hypertrophic cardiomyopathy, pulmonary embolism, tamponade, tachycardia, bradycardia, SD, hypovolemia, hemorrhage, dissection, anemia, intracranial hemorrhage, seizure, hypoglycemia, carbon monoxide poisoning, this is not meant to be an all-inclusive list. EKG interpreted by me (3pts min.). @ -As above X-rays interpreted by me (1pt min.). @ -Chest x-ray reveals no acute cardio pulmonary process. CT interpreted by me (1pt min.). @ -CT brain reveals no acute intracranial process, hemorrhage. CT PE reveals no evidence of acute pulmonary embolism. Patient does have pulmonary fibrosis. U/S interpreted by me (1pt. min.). @ -None done What testing was considered but not performed or refused? (CT, X-rays, U/S, labs)? Why? @ -None What meds were considered but not given or refused? Why? @ -None Did you discuss the management of the patient with other professionals (professionals i.e. , PA, COMMERCIAL LEASE ADMINISTRATOR, lab, RT, psych nurse, social media director, public housing manager, teacher, chief nursing officer, foster care case manager)? Give summary @ -No Was smoking cessation discussed for >3mins.? @ -No Was critical care preformed (if so, how long)? @ -No Were there social determinants of health that impacted care today? How? (Homelessness, low income, unemployed, alcoholism, drug addiction, transportation, low edu. Level, literacy, decrease access to med. care, fdc, rehab)? @ -No Was there de-escalation of care discussed even if they declined (Discuss DNR or withdrawal of care, Hospice)? DNR status @ -No What co-morbidities impacted this encounter? (DM, HTN, Smoking, COPD, CAD, Cancer, CVA, ARF, Chemo, Hep., AIDS, mental health diagnosis, sleep apnea, morbid obesity)? @ -Prior tobacco use, pulmonary fibrosis Was patient admitted / discharged? Hospital course, mention meds given and route, prescriptions, significant lab abnormalities, going to OR and other pertinent info. @ -Patient was discharged home. See above for ED course. Undiagnosed new problem with uncertain prognosis? @ -No Drug Therapy requiring intensive monitoring for toxicity (Heparin, Nitro, Insulin, Cardizem)? @ -No Were any procedures done? @ -No Diagnosis/symptom? @ -Near Syncope Acute, or Chronic, or Acute on Chronic? @ -Acute Uncomplicated (without systemic symptoms) or Complicated (systemic symptoms)? @ -Uncomplicated Side effects of treatment? @ -No Exacerbation, Progression, or Severe Exacerbation? @ -No Poses a threat to life or bodily function? How? (Chest pain, USA, SD, pneumonia, PE, COPD, DKA, ARF, appy, cholecystitis, CVA, Diverticulitis, Homicidal, Suicidal, threat to staff... and all critical care pts) @ -No Diagnosis/symptom? @ -Pulmonary fibrosis Acute, or Chronic, or Acute on Chronic? @ -Chronic Uncomplicated (without systemic symptoms) or Complicated (systemic symptoms)? @ -complicated Side effects of treatment? @ -none Exacerbation, Progression, or Severe Exacerbation] @ -no Poses a threat to life or bodily function? @ -no (Attila Swenson) - Lab Data Lab Results 04/01/22 04/01/22 04/01/22 Range/Units 20:35 20:35 20:35 WBC 8.0 (3.8-10.6) k/uL RBC 4.96 (3.80-5.40) m/uL Hgb 14.0 (11.4-16.0) gm/dL Hct 42.6 (34.0-46.0) % MCV 85.9 (80.0-100.0) fL MCH 28.3 (25.0-35.0) pg MCHC 32.9 (31.0-37.0) g/dL RDW 14.9 (11.5-15.5) % Plt Count 152 (150-450) k/uL MPV 7.9 Neutrophils % 67 % Lymphocytes % 18 % Monocytes % 7 % Eosinophils % 5 % Basophils % 1 % Neutrophils # 5.4 (1.3-7.7) k/uL Lymphocytes # 1.4 (1.0-4.8) k/uL Monocytes # 0.5 (0-1.0) k/uL Eosinophils # 0.4 (0-0.7) k/uL Basophils # 0.1 (0-0.2) k/uL PT 9.5 (9.0-12.0) sec INR 0.9 (<1.2) APTT 21.8 L (22.0-30.0) sec D-Dimer 1.30 H (<0.60) mg/L FEU Sodium 137 (137-145) mmol/L Potassium 4.9 (3.5-5.1) mmol/L Chloride 101 (98-107) mmol/L Carbon Dioxide 26 (22-30) mmol/L Anion Gap 10 mmol/L BUN 53 H (7-17) mg/dL Creatinine 1.19 H (0.52-1.04) mg/dL Est GFR (CKD-EPI)AfAm 50 (>60 ml/min/1.73 sqM) Est GFR (CKD-EPI)NonAf 43 (>60 ml/min/1.73 sqM) Glucose 272 H (74-99) mg/dL Calcium 9.2 (8.4-10.2) mg/dL Magnesium 2.5 H (1.6-2.3) mg/dL Total Bilirubin 0.6 (0.2-1.3) mg/dL AST 23 (14-36) U/L ALT 27 (4-34) U/L Alkaline Phosphatase 110 (38-126) U/L Troponin I (0.000-0.034) ng/mL Total Protein 7.3 (6.3-8.2) g/dL Albumin 4.0 (3.5-5.0) g/dL 04/01/22 Range/Units 20:35 WBC (3.8-10.6) k/uL RBC (3.80-5.40) m/uL Hgb (11.4-16.0) gm/dL Hct (34.0-46.0) % MCV (80.0-100.0) fL MCH (25.0-35.0) pg MCHC (31.0-37.0) g/dL RDW (11.5-15.5) % Plt Count (150-450) k/uL MPV Neutrophils % % Lymphocytes % % Monocytes % % Eosinophils % % Basophils % % Neutrophils # (1.3-7.7) k/uL Lymphocytes # (1.0-4.8) k/uL Monocytes # (0-1.0) k/uL Eosinophils # (0-0.7) k/uL Basophils # (0-0.2) k/uL PT (9.0-12.0) sec INR (<1.2) APTT (22.0-30.0) sec D-Dimer (<0.60) mg/L FEU Sodium (137-145) mmol/L Potassium (3.5-5.1) mmol/L Chloride (98-107) mmol/L Carbon Dioxide (22-30) mmol/L Anion Gap mmol/L BUN (7-17) mg/dL Creatinine (0.52-1.04) mg/dL Est GFR (CKD-EPI)AfAm (>60 ml/min/1.73 sqM) Est GFR (CKD-EPI)NonAf (>60 ml/min/1.73 sqM) Glucose (74-99) mg/dL Calcium (8.4-10.2) mg/dL Magnesium (1.6-2.3) mg/dL Total Bilirubin (0.2-1.3) mg/dL AST (14-36) U/L ALT (4-34) U/L Alkaline Phosphatase (38-126) U/L Troponin I <0.012 (0.000-0.034) ng/mL Total Protein (6.3-8.2) g/dL Albumin (3.5-5.0) g/dL Disposition <Oscar Yanes - Last Filed: 04/01/22 19:47> Is patient prescribed a controlled substance at d/c from ED?: No Time of Disposition: 02:20 <Attila Swenson - Last Filed: 04/02/22 04:34> Clinical Impression: Near syncope, Pulmonary fibrosis Disposition: HOME SELF-CARE Condition: Good Instructions (If sedation given, give patient instructions): Near Syncope (ED) Referrals: Regina Ortiz MD [Primary Care Provider] - 1-2 days
[2022-04-01 21:17] LABS: Calcium 9.2 mg/dL (8.4-10.2); Magnesium 2.5 mg/dL (1.6-2.3); Potassium 4.9 mmol/L (3.5-5.1); Total Bilirubin 0.6 mg/dL (0.2-1.3); Total Protein 7.3 g/dL (6.3-8.2)
[2022-04-01 21:44] LABS: Basophils # (A) 0.1 k/uL (0-0.2); Basophils % (A) 1 %; Eosinophils # (A) 0.4 k/uL (0-0.7); Eosinophils % (A) 5 %; HCT 42.6 % (34.0-46.0); Lymphocytes # (A) 1.4 k/uL (1.0-4.8); Lymphocytes % (A) 18 %; MCH 28.3 pg (25.0-35.0); MCHC 32.9 g/dL (31.0-37.0); MCV 85.9 fL (80.0-100.0); Mean Platelet Volume 7.9; Monocytes # (A) 0.5 k/uL (0-1.0); Monocytes % (A) 7 %; Neutrophils # (A) 5.4 k/uL (1.3-7.7); Neutrophils % (A) 67 %; Platelet Count 152 k/uL (150-450); RBC 4.96 m/uL (3.80-5.40); RDW 14.9 % (11.5-15.5)
[2022-04-01 21:54] LABS: INR 0.9 (<1.2); Prothrombin Time 9.5 sec (9.0-12.0)
[2022-04-01 22:13] LABS: Partial Thromboplastin Time 21.8 sec (22.0-30.0)
--- NOTE | 2022-04-01 22:21 | CT ---
EXAMINATION TYPE: CT brain wo con DATE OF EXAM: 04/01/2022 COMPARISON: 10/12/2012 HISTORY: near syncope CT DLP: 1161.4 mGycm Automated exposure control for dose reduction was used. Images of the brain obtained with no contrast. There is mild atrophy. There is no mass effect or midline shift. No sign of intracranial hemorrhage. The calvarium is intact there is hyperostosis frontalis. There is normal aeration of the mastoid sinu ses. IMPRESSION: Mild cerebral atrophy. No acute intracranial abnormality.
--- NOTE | 2022-04-01 22:24 | XR ---
EXAMINATION TYPE: XR chest 2V DATE OF EXAM: 04/01/2022 COMPARISON: 11/14/2021 HISTORY: Syncope TECHNIQUE: FINDINGS: There is no heart failure nor confluent pneumonic infiltrate. Heart appears enlarged. There is left axillary pacemaker. No pleural effusion. There are no hilar masses. Thoracic aorta is athero matous. IMPRESSION: Cardiomegaly. No active cardiopulmonary disease. Heart appears increased compared to old exams.
[2022-04-01 22:38] VITALS: RESP 16
[2022-04-01] MEDS ORDERED: SODIUM CHLORIDE 0.9% 1,000 ML IV STA (23:00)
[2022-04-02 00:54] VITALS: BP 166/73; PULSE 63
--- NOTE | 2022-04-02 02:04 | CT ---
EXAMINATION TYPE: CT chest angio for PE DATE OF EXAM: 04/02/2022 COMPARISON: None HISTORY: Elevated D-dimer. CT DLP: 541.5 mGycm Automated exposure control for dose reduction was used. CONTRAST: Performed with IV Contrast, patient injected with 80cc mL of Isovue 370. Images obtained from the thoracic inlet to the diaphragm with the IV contrast. There are Three-D post processed images. There is some reticular interstitial infiltrates in both lung mccain. Heart is enlarged. No pericard ial effusion. No pleural effusion. Thoracic aorta is intact. No aneurysm. There is no evidence of filling defect in the pulmonary arteri es. There are no hilar masses. There are a few bronchial lymph nodes up to 1 cm. The thoracic vertebrae are fairly normal alignment. There is T7 anterior wedging 25% that appears old . IMPRESSION: No evidence of pulmonary embolism. 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
== END 2022-04-02 02:39 | disposition home or self-care (01) ==
LOC: EC 19:22
DX: J84.10 Pulmonary fibrosis, unspecified (principal); R55 Syncope and collapse; E11.22 Type 2 diabetes mellitus with diabetic chronic kidney disease; I12.9 Hypertensive chronic kidney disease with stage 1 through stage 4 chronic kidney disease, or unspecified chronic kidney disease; N18.30 Chronic kidney disease, stage 3 unspecified; Z95.0 Presence of cardiac pacemaker; Z90.89 Acquired absence of other organs; Z90.710 Acquired absence of both cervix and uterus; Z87.891 Personal history of nicotine dependence; Z79.4 Long term (current) use of insulin; Z79.82 Long term (current) use of aspirin; Z79.899 Other long term (current) drug therapy; Z79.84 Long term (current) use of oral hypoglycemic drugs; Z96.651 Presence of right artificial knee joint
CPT/HCPCS: 36415; 85379; 80053; 83735; 84484; 85025; 85610; 85730; 71046; 70450; 71275; 99285; 96360; Q9967

== ENCOUNTER 2022-11-03 09:53 | Emergency (ER) | payer MEDICARE ==
[2022-11-03 10:05] VITALS: TEMP 98.8
[2022-11-03 11:27] LABS: Basophils % (A) 0 %; Eosinophils # (A) 0.5 k/uL (0-0.7); Eosinophils % (A) 5 %; HCT 41.1 % (34.0-46.0); HGB 13.5 gm/dL (11.4-16.0); Lymphocytes # (A) 1.2 k/uL (1.0-4.8); Lymphocytes % (A) 13 %; MCH 29.2 pg (25.0-35.0); MCHC 32.7 g/dL (31.0-37.0); MCV 89.4 fL (80.0-100.0); Mean Platelet Volume 7.7; Monocytes # (A) 0.5 k/uL (0-1.0); Monocytes % (A) 5 %; Neutrophils # (A) 6.8 k/uL (1.3-7.7); Neutrophils % (A) 75 %; Platelet Count 137 k/uL (150-450); RDW 15.4 % (11.5-15.5); WBC 9.1 k/uL (3.8-10.6)
[2022-11-03 11:32] LABS: Appearance,Urine Clear (Clear); Bacteria,Urine Rare /hpf; Bilirubin,Urine Negative (Negative); Blood,Urine Negative (Negative); Color,Urine Colorless; Glucose,Urine (UA) Negative (Negative); Ketones,Urine Negative (Negative); Leukocyte Esterase,Urine Negative (Negative); Nitrite,Urine Negative (Negative); PH, Urine 6.5 (5.0-8.0); Protein,Urine 1+ (Negative); RBC,Urine <1 /hpf (0-5); Specific Gravity,Urine 1.004 (1.001-1.035); Squamous Epithelial Cell,Urine 1 /hpf (0-4); Urobilinogen,Urine <2.0 mg/dL (<2.0); WBC,Urine 1 /hpf (0-5)
[2022-11-03 11:46] LABS: INR 0.9 (<1.2); Prothrombin Time 9.6 sec (9.0-12.0)
[2022-11-03 11:57] LABS: Partial Thromboplastin Time 21.8 sec (22.0-30.0)
--- NOTE | 2022-11-03 12:00 | XR ---
EXAMINATION TYPE: XR chest 2V DATE OF EXAM: 11/03/2022 COMPARISON: 04/01/2022 TECHNIQUE: PA and lateral views submitted. HISTORY: Weakness FINDINGS: The lungs are clear and there is no pneumothorax, pleural effusion, or focal pneumonia. Heart size normal and no overt failure. Osseous structures demonstrate hypertrophic and degenerative changes of the spine. Atherosclerotic change aorta. Arthropathy of the AC joint. Diffuse osteopenia. Multilead c ardiac device stable. IMPRESSION: 1. No acute process.
[2022-11-03 12:38] LABS: ALT 21 U/L (4-34); AST 24 U/L (14-36); African American GFR (CKD) 70 (>60 ml/min/1.73 sqM); Albumin 3.5 g/dL (3.5-5.0); Alkaline Phosphatase 80 U/L (38-126); Anion Gap 7 mmol/L; Blood Urea Nitrogen 25 mg/dL (7-17); Calcium 9.5 mg/dL (8.4-10.2); Carbon Dioxide 27 mmol/L (22-30); Chloride 105 mmol/L (98-107); Glucose 82 mg/dL (74-99); Magnesium 1.9 mg/dL (1.6-2.3); Non-African American GFR(CKD) 61 (>60 ml/min/1.73 sqM); Potassium 4.3 mmol/L (3.5-5.1); Sodium 139 mmol/L (137-145); Total Bilirubin 0.7 mg/dL (0.2-1.3); Total Protein 6.2 g/dL (6.3-8.2)
[2022-11-03 12:45] LABS: NT-Pro-B-Type Natriuretic Pept 711 pg/mL
[2022-11-03 13:36] VITALS: BP 155/70; PULSE 71; RESP 20
--- NOTE | 2022-11-03 14:03 | ED ---
General Adult HPI - General Chief complaint: Weakness Stated complaint: hypertension Time Seen by Provider: 11/03/22 10:01 Source: patient, RN notes reviewed, old records reviewed Mode of arrival: EMS Limitations: no limitations - History of Present Illness Initial comments: Patient is an 82-year-old female presents emergency Department complaining of f atigue and malaise. Nonspecific tremors as well. Has been ongoing since today but states she has been feeling well for 1-2 days.Denies Fever. Some nasal drainage and rhinorrhea. No known sick contacts. Denies chest pain or shortness of breath. Denies abdominal pain, nausea, vomiting, diarrhea. His no other acute complaints at this time. His no urinary complaints. However she is concerned she may UTI. Presents for further evaluation. Patient also noted she was mildly hypertensive this morning but it is improved. - Related Data Home Medications Medication Instructions Recorded Confirmed Aspirin 81 mg PO DAILY 08/29/14 11/03/22 Insulin Aspart [NovoLOG Flexpen] 5 units SQ TID-W/MEALS 03/03/17 11/03/22 amLODIPine [Norvasc] 5 mg PO DAILY 09/12/20 11/03/22 Metoprolol Tartrate [Lopressor] 50 mg PO BID 10/21/20 11/03/22 Irbesartan [Avapro] 225 mg PO DAILY 11/14/20 11/03/22 Magnesium 250 mg PO TUSA@2100 11/14/20 11/03/22 Atorvastatin Calcium [Lipitor] 40 mg PO HS 03/11/21 11/03/22 [place]-3 Acid Ethyl Esters [Lovaza] 2 gm PO DAILY 11/14/21 11/03/22 Insulin Detemir [Levemir Flextouch 40 units SQ HS 02/13/22 11/03/22 Pen] ALPRAZolam [Xanax] 0.25 mg PO HS PRN 11/03/22 11/03/22 Furosemide [Lasix] 20 mg PO DAILY 11/03/22 11/03/22 Potassium Chloride [Klor-Con 10 ER] 10 meq PO DAILY 11/03/22 11/03/22 Tirzepatide [Mounjaro] 7.5 mg SQ SA 11/03/22 11/03/22 allopurinoL [Zyloprim] 100 mg PO DAILY 11/03/22 11/03/22 Previous Rx's Medication Instructions Recorded Clopidogrel [Plavix] 75 mg PO DAILY #90 tab 03/05/17 Allergies Allergy/AdvReac Type Severity Reaction Status Date / Time adhesive tape Allergy Rash/Hives Verified 11/03/22 13:11 Review of Systems ROS Statement: Those systems with pertinent positive or pertinent negative responses have been documented in the HPI. Review of Systems: CONST: Endorses generalized weakness EYES: Denies blurry vision ENT: Denies nasal congestion C/V: Denies Chest pain RESP: Denies shortness of breath GI: Denies abdominal pain : Denies dysuria SKIN: Denies rash. MSK: Denies joint pain. NEURO: Denies headache ROS Other: All systems not noted in ROS Statement are negative. Past Medical History Past Medical History: Cancer, Diabetes Mellitus, Hypertension, Osteoarthritis (OA) Additional Past Medical History / Comment(s): hx skin cancer, gout, SEE DR STRINGER'S HISTORY AND PHYSICAL FOR CARDIAC HISTORY, CHRONIC KIDNEY DISEASE STAGE 3, CATARACT SURGERY, gout, laser surgery left eye History of Any Multi-Drug Resistant Organisms: None Reported Past Surgical History: Hysterectomy, Joint Replacement, Orthopedic Surgery, Pacemaker, Tonsillectomy Additional Past Surgical History / Comment(s): rt knee arthroscopy, rt knee replacement, nahomy big toe joint replacement, vein stripping, surgery for fx left femur, stent placed in left carotid, PACEMAKER replaced x5 September 2020 Past Anesthesia/Blood Transfusion Reactions: No Reported Reaction Additional Past Anesthesia/Blood Transfusion Reaction / Comment(s): Pt has never had a blood transfusion. Type of Cardiac Device: Permanent Pacemaker Device Placement Date:: 09/2020 Past Psychological History: No Psychological Hx Reported Smoking Status: Former smoker Past Alcohol Use History: Occasional Past Drug Use History: None Reported - Past Family History Mother Additional Family Medical History / Comment(s): Alzheimers Father Family Medical History: Cancer Additional Family Medical History / Comment(s): Lung disease, SKIN CANCER General Exam - General Exam Comments Initial Comments: General: Appears in no acute distress. HEAD: Normal with no signs of head trauma. EYES: PERRLA, EOMI, conjunctiva normal, no discharge. ENT: Hearing grossly intact, normal oropharynx. RESPIRATORY: Clear breath sounds bilaterally. No wheezes, rales, or rhonchi. C/V: Regular rate and rhythm. S1 and S2 auscultated, no edema, peripheral pulses 2+ and intact throughout ABD: Abd is soft, nontender, nondistended EXT: Normal range of motion, no obvious deformity SKIN: No rashes or lesions observed on exposed skin. NEURO: Alert and oriented x 4. Cranial nerves II-XII intact. No focal sensory or strength deficits. GCS of 15. NIH is 0. Limitations: no limitations Course Vital Signs 11/03/22 11/03/22 11/03/22 09:59 10:02 12:00 Temperature 98.8 F Pulse Rate 64 63 Respiratory 16 Rate Blood Pressure 187/85 116/91 O2 Sat by Pulse 96 95 94 L Oximetry 11/03/22 11/03/22 12:30 13:34 Temperature Pulse Rate 64 71 Respiratory 20 Rate Blood Pressure 143/53 155/70 O2 Sat by Pulse 95 95 Oximetry Medical Decision Making - Medical Decision Making Was pt. sent in by a medical professional or institution (, PA, LODGE OFFICER, urgent care, hospital, or halfway...) When possible be specific @ -No Did you speak to anyone other than the patient for history (EMS, parent, family, police, friend...)? What history was obtained from this source @ -No Did you review nursing and triage notes (agree or disagree)? Why? @ -I reviewed and agree with nursing and triage notes Were old charts reviewed (outside hosp., previous admission, EMS record, old EKG, old radiological studies, urgent care reports/EKG's, halfway records)? Report findings @ -Old EKGs reviewed. Differential Diagnosis (chest pain, altered mental status, abdominal pain women, abdominal pain men, vaginal bleeding, weakness, fever, dyspnea, syncope, headache, dizziness, GI bleed, back pain, seizure, CVA, palpatations, mental he alth, musculoskeletal)? @ -Differential Weakness: Hypoglycemia, shock, sepsis, hyponatremia, anemia, infection, SC, ETOH, adverse medicine reaction, overdose, stroke, this is not meant to be an all-inclusive list. EKG interpreted by me (3pts min.). @ -As above X-rays interpreted by me (1pt min.). @ -Chest x-ray reveals no obvious acute cardiopulmonary process. CT interpreted by me (1pt min.). @ -None done U/S interpreted by me (1pt. min.). @ -None done What testing was considered but not performed or refused? (CT, X-rays, U/S, labs)? Why? @ -None What meds were considered but not given or refused? Why? @ -None Did you discuss the management of the patient with other professionals (professionals i.e. , PA, LODGE OFFICER, lab, RT, psych nurse, social work supervisor, chip unloader, teacher, tourist information officer, pillowcase cleaner)? Give summary @ -Discussed the workup and results with patient's PCP Dr. Ortiz. Patient can follow-up with him in the office tomorrow. Was smoking cessation discussed for >3mins.? @ -No Was critical care preformed (if so, how long)? @ -No Were there social determinants of health that impacted care today? How? (Homelessness, low income, unemployed, alcoholism, drug addiction, transportation, low edu. Level, literacy, decrease access to med. care, penitentiary, rehab)? @ -No Was there de-escalation of care discussed even if they declined (Discuss DNR or withdrawal of care, Hospice)? DNR status @ -No What co-morbidities impacted this encounter? (DM, HTN, Smoking, COPD, CAD, Cancer, CVA, ARF, Chemo, Hep., AIDS, mental health diagnosis, sleep apnea, morbid obesity)? @ -None Was patient admitted / discharged? Hospital course, mention meds given and route, prescriptions, significant lab abnormalities, going to OR and other pertinent info. @ -Based on the patient's presentation and physical exam, presents for her nonspecific generalized weakness. No focal neurological deficits appreciated. Vital signs within acceptable limits. Exam is unremarkable. We will obtain Gen. laboratory studies, infectious labs. Patient was in agreement this plan. Chest x-ray showed no obvious acute infectious process. Labs are within acceptable limits including a negative viral swabs. EKG was unchanged from prior. On reevaluation, patient remains unchanged, possibly slightly improved. We discussed her workup. There is no clear indication for admission at this time but at her request I will speak with Dr. Ortiz for close follow-up. He was in agreement with holding off on admission and stated the patient can follow-up with him the office tomorrow. I conveyed this to the patient and she was in agreement with this plan. Strict return precautions discussed. She'll be discharged home at this time. I instructed the patient to follow up with their PCP in the next 1-3 days. I explained that the patient should return to the emergency department if they experience any worsening symptoms. Strict return precautions were discussed with the patient. The patient expressed understanding of these instructions. I answered all questions that the patient had. The patient was discharged home in good condition with their prescriptions and follow up information. Undiagnosed new problem with uncertain prognosis? @ -No Drug Therapy requiring intensive monitoring for toxicity (Heparin, Nitro, Insulin, Cardizem)? @ -No Were any procedures done? @ -No Diagnosis/symptom? @ -Subjective Weakness, possible viral syndrome Acute, or Chronic, or Acute on Chronic? @ -Acute Uncomplicated (without systemic symptoms) or Complicated (systemic symptoms)? @ -Uncomplicated Side effects of treatment? @ -No Exacerbation, Progression, or Severe Exacerbation? @ -No Poses a threat to life or bodily function? How? (Chest pain, USA, SC, pneumonia, PE, COPD, DKA, ARF, appy, cholecystitis, CVA, Diverticulitis, Homicidal, Suicidal, threat to staff... and all critical care pts) @ -No - Lab Data Result diagrams: 11/03/22 11:16 11/03/22 11:55 Lab Results 11/03/22 11/03/22 11/03/22 Range/Units 11:16 11:16 11:16 WBC 9.1 (3.8-10.6) k/uL RBC 4.60 (3.80-5.40) m/uL Hgb 13.5 (11.4-16.0) gm/dL Hct 41.1 (34.0-46.0) % MCV 89.4 (80.0-100.0) fL MCH 29.2 (25.0-35.0) pg MCHC 32.7 (31.0-37.0) g/dL RDW 15.4 (11.5-15.5) % Plt Count 137 L (150-450) k/uL MPV 7.7 Neutrophils % 75 % Lymphocytes % 13 % Monocytes % 5 % Eosinophils % 5 % Basophils % 0 % Neutrophils # 6.8 (1.3-7.7) k/uL Lymphocytes # 1.2 (1.0-4.8) k/uL Monocytes # 0.5 (0-1.0) k/uL Eosinophils # 0.5 (0-0.7) k/uL Basophils # 0.0 (0-0.2) k/uL PT 9.6 (9.0-12.0) sec INR 0.9 (<1.2) APTT 21.8 L (22.0-30.0) sec Sodium (137-145) mmol/L Potassium (3.5-5.1) mmol/L Chloride (98-107) mmol/L Carbon Dioxide (22-30) mmol/L Anion Gap mmol/L BUN (7-17) mg/dL Creatinine (0.52-1.04) mg/dL Est GFR (CKD-EPI)AfAm (>60 ml/min/1.73 sqM) Est GFR (CKD-EPI)NonAf (>60 ml/min/1.73 sqM) Glucose (74-99) mg/dL Plasma Lactic Acid [place] 1.3 (0.7-2.0) mmol/L Calcium (8.4-10.2) mg/dL Magnesium (1.6-2.3) mg/dL Total Bilirubin (0.2-1.3) mg/dL AST (14-36) U/L ALT (4-34) U/L Alkaline Phosphatase (38-126) U/L NT-Pro-B Natriuret Pep pg/mL Total Protein (6.3-8.2) g/dL Albumin (3.5-5.0) g/dL Urine Color Urine Appearance (Clear) Urine pH (5.0-8.0) Ur Specific [place] (1.001-1.035) Urine Protein (Negative) Urine Glucose (UA) (Negative) Urine Ketones (Negative) Urine Blood (Negative) Urine Nitrite (Negative) Urine Bilirubin (Negative) Urine Urobilinogen (<2.0) mg/dL Ur Leukocyte Esterase (Negative) Urine RBC (0-5) /hpf Urine WBC (0-5) /hpf Ur Squamous Epith Cells (0-4) /hpf Urine Bacteria (None) /hpf Influenza Type A (PCR) (Not Detectd) Influenza Type B (PCR) (Not Detectd) RSV (PCR) (Not Detectd) SARS-CoV-2 (PCR) (Not Detectd) 11/03/22 11/03/22 11/03/22 Range/Units 11:18 11:24 11:55 WBC (3.8-10.6) k/uL RBC (3.80-5.40) m/uL Hgb (11.4-16.0) gm/dL Hct (34.0-46.0) % MCV (80.0-100.0) fL MCH (25.0-35.0) pg MCHC (31.0-37.0) g/dL RDW (11.5-15.5) % Plt Count (150-450) k/uL MPV Neutrophils % % Lymphocytes % % Monocytes % % Eosinophils % % Basophils % % Neutrophils # (1.3-7.7) k/uL Lymphocytes # (1.0-4.8) k/uL Monocytes # (0-1.0) k/uL Eosinophils # (0-0.7) k/uL Basophils # (0-0.2) k/uL PT (9.0-12.0) sec INR (<1.2) APTT (22.0-30.0) sec Sodium 139 (137-145) mmol/L Potassium 4.3 (3.5-5.1) mmol/L Chloride 105 (98-107) mmol/L Carbon Dioxide 27 (22-30) mmol/L Anion Gap 7 mmol/L BUN 25 H (7-17) mg/dL Creatinine 0.90 (0.52-1.04) mg/dL Est GFR (CKD-EPI)AfAm 70 (>60 ml/min/1.73 sqM) Est GFR (CKD-EPI)NonAf 61 (>60 ml/min/1.73 sqM) Glucose 82 (74-99) mg/dL Plasma Lactic Acid [place] (0.7-2.0) mmol/L Calcium 9.5 (8.4-10.2) mg/dL Magnesium 1.9 (1.6-2.3) mg/dL Total Bilirubin 0.7 (0.2-1.3) mg/dL AST 24 (14-36) U/L ALT 21 (4-34) U/L Alkaline Phosphatase 80 (38-126) U/L NT-Pro-B Natriuret Pep 711 pg/mL Total Protein 6.2 L (6.3-8.2) g/dL Albumin 3.5 (3.5-5.0) g/dL Urine Color Colorless Urine Appearance Clear (Clear) Urine pH 6.5 (5.0-8.0) Ur Specific [place] 1.004 (1.001-1.035) Urine Protein 1+ H (Negative) Urine Glucose (UA) Negative (Negative) Urine Ketones Negative (Negative) Urine Blood Negative (Negative) Urine Nitrite Negative (Negative) Urine Bilirubin Negative (Negative) Urine Urobilinogen <2.0 (<2.0) mg/dL Ur Leukocyte Esterase Negative (Negative) Urine RBC <1 (0-5) /hpf Urine WBC 1 (0-5) /hpf Ur Squamous Epith Cells 1 (0-4) /hpf Urine Bacteria Rare H (None) /hpf Influenza Type A (PCR) Not Detected (Not Detectd) Influenza Type B (PCR) Not Detected (Not Detectd) RSV (PCR) Not Detected (Not Detectd) SARS-CoV-2 (PCR) Not Detected (Not Detectd) - EKG Data -: EKG Interpreted by Me EKG Comments: 12-lead Electrocardiogram Interpretation Note EKG was reviewed and interpreted by myself. 12-lead ECG performed at 1008 is interpreted by me as revealing ventricular paced rhythm at a rate of 62 beats per minute. Left axis deviation. PA interval is 246 ms, QRS durations 164 ms, QTc is 465 ms.. There were no ST or T wave abnormalities to suggest myocardial ischemia or injury. R wave progression across the precordium was satisfactory. By my interpretation this EKG is non-diagnostic for acute ischemia. Disposition Clinical Impression: Weakness Disposition: HOME SELF-CARE Condition: Good Instructions (If sedation given, give patient instructions): Weakness (ED) Additional Instructions: follow up with Dr. Ortiz tomorrow on 11/04/22 Is patient prescribed a controlled substance at d/c from ED?: No Referrals: Regina Ortiz MD [Primary Care Provider] - 1-2 days Time of Disposition: 13:45
== END 2022-11-03 14:46 | disposition home or self-care (01) ==
LOC: EC 09:53
DX: R53.1 Weakness (principal); E11.22 Type 2 diabetes mellitus with diabetic chronic kidney disease; I12.9 Hypertensive chronic kidney disease with stage 1 through stage 4 chronic kidney disease, or unspecified chronic kidney disease; N18.30 Chronic kidney disease, stage 3 unspecified; M19.90 Unspecified osteoarthritis, unspecified site; Z87.891 Personal history of nicotine dependence; Z79.4 Long term (current) use of insulin; Z79.82 Long term (current) use of aspirin; Z79.84 Long term (current) use of oral hypoglycemic drugs; Z79.1 Long term (current) use of non-steroidal anti-inflammatories (NSAID); Z91.09 Other allergy status, other than to drugs and biological substances; Z20.822 Contact with and (suspected) exposure to COVID-19; Z95.0 Presence of cardiac pacemaker; Z79.899 Other long term (current) drug therapy
CPT/HCPCS: 36415; 71046; 80053; 81001; 83605; 83735; 83880; 85025; 85610; 85730; 87636; 93005; 99285

== ENCOUNTER 2022-11-09 03:22 | Inpatient (IN) | payer MEDICARE ==
[2022-11-09] MEDS ORDERED: SODIUM CHLORIDE 0.9% 1,000 ML IV STA (03:54)
--- NOTE | 2022-11-09 03:55 | ED ---
Fever HPI - General Chief Complaint: Fever Stated Complaint: UTI Time Seen by Provider: 11/09/22 03:40 Source: EMS, RN notes reviewed, old records reviewed Mode of arrival: EMS Limitations: no limitations - History of Present Illness Initial Comments: This is a 82-year-old female to the emergency department today for weakness fever or chills. Muscle aches pains body aches pains patient overall does not feel well. A she is found to have fever. She does have history of high blood pressure diabetes. She feels very shaky and lightheaded and dizzy. Patient is a poor story secondary surveys ankle condition feeling weak patient is history of cancer diabetes and hypertension MD Complaint: fever, malaise, weakness -: unknown Temperature Source: subjective Associated Symptoms: chills, myalgias Treatments Prior to Arrival: none - Related Data Home Medications Medication Instructions Recorded Confirmed Aspirin 81 mg PO DAILY 08/29/14 11/09/22 Insulin Aspart [NovoLOG Flexpen] 5 units SQ TID-W/MEALS 03/03/17 11/09/22 amLODIPine [Norvasc] 5 mg PO DAILY 09/12/20 11/09/22 Metoprolol Tartrate [Lopressor] 50 mg PO BID 10/21/20 11/09/22 Irbesartan [Avapro] 300 mg PO DAILY 11/14/20 11/09/22 Magnesium 250 mg PO TUSA@2100 11/14/20 11/09/22 Atorvastatin Calcium [Lipitor] 40 mg PO HS 03/11/21 11/09/22 [place]-3 Acid Ethyl Esters [Lovaza] 2 gm PO DAILY 11/14/21 11/09/22 Insulin Detemir [Levemir Flextouch 40 units SQ HS 02/13/22 11/09/22 Pen] Furosemide [Lasix] 20 mg PO DAILY 11/03/22 11/09/22 Potassium Chloride [Klor-Con 10 ER] 10 meq PO DAILY 11/03/22 11/09/22 Tirzepatide [Mounjaro] 7.5 mg SQ AGUIRRE 11/03/22 11/09/22 allopurinoL [Zyloprim] 100 mg PO DAILY 11/03/22 11/09/22 ALPRAZolam [Xanax] 0.5 mg PO DAILY 11/09/22 11/09/22 Previous Rx's Medication Instructions Recorded Clopidogrel [Plavix] 75 mg PO DAILY #90 tab 03/05/17 Ciprofloxacin HCl [Cipro] 500 mg PO Q12HR 12 Days #24 tab 11/11/22 Allergies Allergy/AdvReac Type Severity Reaction Status Date / Time adhesive tape Allergy Rash/Hives Verified 11/09/22 12:33 Review of Systems ROS Statement: Those systems with pertinent positive or pertinent negative responses have been documented in the HPI. ROS Other: All systems not noted in ROS Statement are negative. Past Medical History Past Medical History: Cancer, Diabetes Mellitus, Hypertension, Osteoarthritis (OA) Additional Past Medical History / Comment(s): hx skin cancer, gout, SEE DR STRINGER'S HISTORY AND PHYSICAL FOR CARDIAC HISTORY, CHRONIC KIDNEY DISEASE STAGE 3, CATARACT SURGERY, gout, laser surgery left eye History of Any Multi-Drug Resistant Organisms: None Reported Past Surgical History: Hysterectomy, Joint Replacement, Orthopedic Surgery, Pacemaker, Tonsillectomy Additional Past Surgical History / Comment(s): rt knee arthroscopy, rt knee replacement, nahomy big toe joint replacement, vein stripping, surgery for fx left femur, stent placed in left carotid, PACEMAKER replaced x5 September 2020 Past Anesthesia/Blood Transfusion Reactions: No Reported Reaction Additional Past Anesthesia/Blood Transfusion Reaction / Comment(s): Pt has never had a blood transfusion. Type of Cardiac Device: Permanent Pacemaker Device Placement Date:: 09/2020 Past Psychological History: No Psychological Hx Reported Smoking Status: Former smoker Past Alcohol Use History: Occasional Past Drug Use History: None Reported - Past Family History Mother Additional Family Medical History / Comment(s): Alzheimers Father Family Medical History: Cancer Additional Family Medical History / Comment(s): Lung disease, SKIN CANCER General Exam General appearance: alert, in no apparent distress, anxious Head exam: Present: atraumatic, normocephalic, normal inspection Eye exam: Present: normal appearance, PERRL, EOMI. Absent: scleral icterus, conjunctival injection, periorbital swelling ENT exam: Present: normal exam, mucous membranes moist Neck exam: Present: normal inspection. Absent: tenderness, meningismus, lymphadenopathy Respiratory exam: Present: normal lung sounds bilaterally. Absent: respiratory distress, wheezes, rales, rhonchi, stridor Cardiovascular Exam: Present: regular rate, normal rhythm, normal heart sounds. Absent: systolic murmur, diastolic murmur, rubs, gallop, clicks GI/Abdominal exam: Present: soft, normal bowel sounds. Absent: distended, tenderness, guarding, rebound, rigid Extremities exam: Present: normal inspection, full ROM, normal capillary refill. Absent: tenderness, pedal edema, joint swelling, calf tenderness Back exam: Present: normal inspection Neurological exam: Present: alert, oriented X3, CN II-XII intact Psychiatric exam: Present: normal affect, normal mood Skin exam: Present: warm, dry, intact, normal color. Absent: rash Course Vital Signs 11/09/22 11/09/22 11/09/22 03:23 05:21 06:03 Temperature 99.6 F Pulse Rate 88 93 Respiratory 20 18 18 Rate Blood Pressure 175/74 156/65 146/99 O2 Sat by Pulse 95 95 94 L Oximetry 11/09/22 11/09/22 06:15 07:30 Temperature 100.4 F H 99.7 F H Pulse Rate 105 H Respiratory 16 Rate Blood Pressure 139/67 O2 Sat by Pulse 94 L Oximetry - Reevaluation(s) Reevaluation #1: 11/09/22 04:10 Medical record is reviewed Reevaluation #2: 11/09/22 07:13 Patient symptoms are improving with fever control Reevaluation #3: 11/09/22 07:13 Patient for results questions answered Reevaluation #4: 11/09/22 04:10 Was pt. sent in by a medical professional or institution (, PA, AUDIO/VIDEO TECHNICIAN, urgent care, hospital, or senior care...) When possible be specific @ -no Did you speak to anyone other than the patient for history (EMS, parent, family, police, friend...)? What history was obtained from this source @ -no Did you review nursing and triage notes (agree or disagree)? Why? @ -agree Are old charts reviewed (outside hosp., previous admission, EMS record, old EKG, old radiological studies, urgent care reports/EKG's, senior care records)? Report findings @ -yes Differential Diagnosis (chest pain, altered mental status, abdominal pain women, abdominal pain men, vaginal bleeding, weakness, fever, dyspnea, syncope, headache, dizziness, GI bleed, back pain, seizure, CVA, palpatations, mental health, musculoskeletal)? @ -prior EKG interpreted by me (3pts min.). @ -yes X-rays interpreted by me (1pt min.). @ -yes CT interpreted by me (1pt min.). @ -no U/S interpreted by me (1pt. min.). @ -no What testing was considered but not performed or refused? (CT, X-rays, U/S, labs)? Why? @ -none What meds were considered but not given or refused? Why? @ -none Did you discuss the management of the patient with other professionals (professionals i.e. , PA, AUDIO/VIDEO TECHNICIAN, lab, RT, psych nurse, social services analyst, hazardous waste technician, teacher, sailing officer, business case analyst)? Give summary @ -no Was smoking cessation discussed for >3mins.? @ -no Was critical care preformed (if so, how long)? @ -yes31 Were there social determinants of health that impacted care today? How? (Homelessness, low income, unemployed, alcoholism, drug addiction, transportation, low edu. Level, literacy, decrease access to med. care, [facility], rehab)? @ -none Was there de-escalation of care discussed even if they declined (Discuss DNR or withdrawal of care, Hospice)? DNR status @ -no What co-morbidities impacted this encounter? (DM, HTN, Smoking, COPD, CAD, Cancer, CVA, ARF, Chemo, Hep., AIDS, mental health diagnosis, sleep apnea, morbid obesity)? @ -none Was patient admitted / discharged? Hospital course, mention meds given and route, prescriptions, significant lab abnormalities, going to OR and other pertinent info. @ - 82 female to the emergency department for evaluation. Patient presents today for evaluation of fever. Patient does have pneumonia on x-ray we'll place on antibiotics fever control symptom management. Patient also is showing positive UTI Admitted Undiagnosed new problem with uncertain prognosis? @ -no Drug Therapy requiring intensive monitoring for toxicity (Heparin, Nitro, Insulin, Cardizem)? @ -no Were any procedures done? @ -no Diagnosis/symptom? @ -Fever, UTI, pneumonia Acute, or Chronic, or Acute on Chronic? @ -Acute Uncomplicated (without systemic symptoms) or Complicated (systemic symptoms)? @ -Complicated Side effects of treatment? @ -no Exacerbation, Progression, or Severe Exacerbation? @ -exacerbation Poses a threat to life or bodily function? How? (Chest pain, USA, NC, pneumonia, PE, COPD, DKA, ARF, appy, cholecystitis, CVA, Diverticulitis, Homicidal, Suicidal, threat to staff... and all critical care pts) @ -yes with sepsis Reevaluation #5: 11/09/22 04:10 Differential Weakness: Hypoglycemia, shock, sepsis, hyponatremia, anemia, infection, NC, ETOH, adverse medicine reaction, overdose, stroke, this is not meant to be an all-inclusive list. Differential Fever: Pneumonia, viral URI, endocarditis, myocarditis, pericarditis, otitis, sinusitis, peritonsillar Abscess, retropharyngeal Abscess, epiglottitis, per itonitis, appendicitis, [place] cystitis, diverticulitis, hepatitis, colitis, UTI, PID, TOA, pyelonephritis, prostatitis, epididymitis, meningitis, encephalitis, pulmonary embolism, CVA, thyroid storm, pancreatitis, adrenal crisis, cavernous sinus thrombosis, this is not meant to be an all-inclusive list. - Consultations Consultation #1: Spoke with admitting physicians who agree to admit this patient for evaluation and treatment Procedures - Sepsis Sepsis Focused Exam #1 Time Sepsis Criteria Met: 05:00 Sepsis Focused Exam Date: 11/09/22 Sepsis Focused Exam Time: 08:00 Sepsis Focused Exam Complete: Yes Vital Signs & RN Notes Reviewed: Yes Capillary Refill: < 2 Seconds: Fingers, Toes Peripheral Pulses: Normal: Radial (R), Radial (L), Posterior Tibialis (R), Posterior Tibialis (L), Dorsalis Pedis (R), Dorsalis Pedis (L) Skin Color: Normal for Patient Respiratory Exam: normal lung sounds Cardiovascular Exam: regular rate Medical Decision Making - Medical Decision Making 82 female to the emergency department for evaluation. Patient presents today for evaluation of fever. Patient does have pneumonia on x-ray we'll place on antibiotics fever control symptom management. Dr. Ortiz does require pulmonology consult - Lab Data Result diagrams: 11/11/22 05:39 11/11/22 05:39 Lab Results 11/09/22 11/09/22 11/09/22 Range/Units 04:32 04:46 04:46 WBC 8.7 (3.8-10.6) k/uL RBC 4.68 (3.80-5.40) m/uL Hgb 13.5 (11.4-16.0) gm/dL Hct 42.5 (34.0-46.0) % MCV 90.7 (80.0-100.0) fL MCH 28.8 (25.0-35.0) pg MCHC 31.8 (31.0-37.0) g/dL RDW 15.3 (11.5-15.5) % Plt Count 151 (150-450) k/uL MPV 8.1 Neutrophils % 87 % Lymphocytes % 6 % Monocytes % 2 % Eosinophils % 4 % Basophils % 0 % Neutrophils # 7.5 (1.3-7.7) k/uL Lymphocytes # 0.5 L (1.0-4.8) k/uL Monocytes # 0.2 (0-1.0) k/uL Eosinophils # 0.3 (0-0.7) k/uL Basophils # 0.0 (0-0.2) k/uL PT 9.4 (9.0-12.0) sec INR 0.9 (<1.2) APTT 21.4 L (22.0-30.0) sec Sodium (137-145) mmol/L Potassium (3.5-5.1) mmol/L Chloride (98-107) mmol/L Carbon Dioxide (22-30) mmol/L Anion Gap mmol/L BUN (7-17) mg/dL Creatinine (0.52-1.04) mg/dL Est GFR (CKD-EPI)AfAm (>60 ml/min/1.73 sqM) Est GFR (CKD-EPI)NonAf (>60 ml/min/1.73 sqM) Glucose (74-99) mg/dL Lactic Ac Sepsis Rflx Plasma Lactic Acid [place] (0.7-2.0) mmol/L Calcium (8.4-10.2) mg/dL Phosphorus (2.5-4.5) mg/dL Magnesium (1.6-2.3) mg/dL Total Bilirubin (0.2-1.3) mg/dL AST (14-36) U/L ALT (4-34) U/L Alkaline Phosphatase (38-126) U/L Troponin I (0.000-0.034) ng/mL NT-Pro-B Natriuret Pep pg/mL Total Protein (6.3-8.2) g/dL Albumin (3.5-5.0) g/dL Urine Color Colorless Urine Appearance Cloudy H (Clear) Urine pH 6.5 (5.0-8.0) Ur Specific [place] 1.010 (1.001-1.035) Urine Protein 2+ H (Negative) Urine Glucose (UA) Negative (Negative) Urine Ketones Negative (Negative) Urine Blood Large H (Negative) Urine Nitrite Positive H (Negative) Urine Bilirubin Negative (Negative) Urine Urobilinogen <2.0 (<2.0) mg/dL Ur Leukocyte Esterase Large H (Negative) Urine RBC 6 H (0-5) /hpf Urine WBC 95 H (0-5) /hpf Ur Squamous Epith Cells <1 (0-4) /hpf Amorphous Sediment Rare H (None) /hpf Urine Bacteria Many H (None) /hpf Influenza Type A (PCR) (Not Detectd) Influenza Type B (PCR) (Not Detectd) RSV (PCR) (Not Detectd) SARS-CoV-2 (PCR) (Not Detectd) 11/09/22 11/09/22 11/09/22 Range/Units 04:46 04:46 04:46 WBC (3.8-10.6) k/uL RBC (3.80-5.40) m/uL Hgb (11.4-16.0) gm/dL Hct (34.0-46.0) % MCV (80.0-100.0) fL MCH (25.0-35.0) pg MCHC (31.0-37.0) g/dL RDW (11.5-15.5) % Plt Count (150-450) k/uL MPV Neutrophils % % Lymphocytes % % Monocytes % % Eosinophils % % Basophils % % Neutrophils # (1.3-7.7) k/uL Lymphocytes # (1.0-4.8) k/uL Monocytes # (0-1.0) k/uL Eosinophils # (0-0.7) k/uL Basophils # (0-0.2) k/uL PT (9.0-12.0) sec INR (<1.2) APTT (22.0-30.0) sec Sodium 139 (137-145) mmol/L Potassium 4.9 (3.5-5.1) mmol/L Chloride 104 (98-107) mmol/L Carbon Dioxide 27 (22-30) mmol/L Anion Gap 8 mmol/L BUN 34 H (7-17) mg/dL Creatinine 1.05 H (0.52-1.04) mg/dL Est GFR (CKD-EPI)AfAm 58 (>60 ml/min/1.73 sqM) Est GFR (CKD-EPI)NonAf 50 (>60 ml/min/1.73 sqM) Glucose 142 H (74-99) mg/dL Lactic Ac Sepsis Rflx Plasma Lactic Acid [place] 2.1 H* (0.7-2.0) mmol/L Calcium 8.7 (8.4-10.2) mg/dL Phosphorus 3.0 (2.5-4.5) mg/dL Magnesium 1.9 (1.6-2.3) mg/dL Total Bilirubin 0.9 (0.2-1.3) mg/dL AST 29 (14-36) U/L ALT 20 (4-34) U/L Alkaline Phosphatase 79 (38-126) U/L Troponin I <0.012 (0.000-0.034) ng/mL NT-Pro-B Natriuret Pep 594 pg/mL Total Protein 6.7 (6.3-8.2) g/dL Albumin 3.9 (3.5-5.0) g/dL Urine Color Urine Appearance (Clear) Urine pH (5.0-8.0) Ur Specific [place] (1.001-1.035) Urine Protein (Negative) Urine Glucose (UA) (Negative) Urine Ketones (Negative) Urine Blood (Negative) Urine Nitrite (Negative) Urine Bilirubin (Negative) Urine Urobilinogen (<2.0) mg/dL Ur Leukocyte Esterase (Negative) Urine RBC (0-5) /hpf Urine WBC (0-5) /hpf Ur Squamous Epith Cells (0-4) /hpf Amorphous Sediment (None) /hpf Urine Bacteria (None) /hpf Influenza Type A (PCR) (Not Detectd) Influenza Type B (PCR) (Not Detectd) RSV (PCR) (Not Detectd) SARS-CoV-2 (PCR) (Not Detectd) 11/09/22 11/09/22 Range/Units 04:46 05:14 WBC (3.8-10.6) k/uL RBC (3.80-5.40) m/uL Hgb (11.4-16.0) gm/dL Hct (34.0-46.0) % MCV (80.0-100.0) fL MCH (25.0-35.0) pg MCHC (31.0-37.0) g/dL RDW (11.5-15.5) % Plt Count (150-450) k/uL MPV Neutrophils % % Lymphocytes % % Monocytes % % Eosinophils % % Basophils % % Neutrophils # (1.3-7.7) k/uL Lymphocytes # (1.0-4.8) k/uL Monocytes # (0-1.0) k/uL Eosinophils # (0-0.7) k/uL Basophils # (0-0.2) k/uL PT (9.0-12.0) sec INR (<1.2) APTT (22.0-30.0) sec Sodium (137-145) mmol/L Potassium (3.5-5.1) mmol/L Chloride (98-107) mmol/L Carbon Dioxide (22-30) mmol/L Anion Gap mmol/L BUN (7-17) mg/dL Creatinine (0.52-1.04) mg/dL Est GFR (CKD-EPI)AfAm (>60 ml/min/1.73 sqM) Est GFR (CKD-EPI)NonAf (>60 ml/min/1.73 sqM) Glucose (74-99) mg/dL Lactic Ac Sepsis Rflx Y Plasma Lactic Acid [place] (0.7-2.0) mmol/L Calcium (8.4-10.2) mg/dL Phosphorus (2.5-4.5) mg/dL Magnesium (1.6-2.3) mg/dL Total Bilirubin (0.2-1.3) mg/dL AST (14-36) U/L ALT (4-34) U/L Alkaline Phosphatase (38-126) U/L Troponin I (0.000-0.034) ng/mL NT-Pro-B Natriuret Pep pg/mL Total Protein (6.3-8.2) g/dL Albumin (3.5-5.0) g/dL Urine Color Urine Appearance (Clear) Urine pH (5.0-8.0) Ur Specific [place] (1.001-1.035) Urine Protein (Negative) Urine Glucose (UA) (Negative) Urine Ketones (Negative) Urine Blood (Negative) Urine Nitrite (Negative) Urine Bilirubin (Negative) Urine Urobilinogen (<2.0) mg/dL Ur Leukocyte Esterase (Negative) Urine RBC (0-5) /hpf Urine WBC (0-5) /hpf Ur Squamous Epith Cells (0-4) /hpf Amorphous Sediment (None) /hpf Urine Bacteria (None) /hpf Influenza Type A (PCR) Not Detected (Not Detectd) Influenza Type B (PCR) Not Detected (Not Detectd) RSV (PCR) Not Detected (Not Detectd) SARS-CoV-2 (PCR) Not Detected (Not Detectd) - EKG Data -: EKG Interpreted by Me (EKG is paced rate 1:30 QRS 150 QTC 4:15) EKG shows normal: sinus rhythm Rate: tachycardia - Radiology Data Radiology results: report reviewed (CXR is positive for pneumonia ), image reviewed Critical Care Time Critical Care Time: Yes Total Critical Care Time: 31 Disposition Clinical Impression: Weakness, Dizziness, Fever, Near syncope, Sepsis, UTI (urinary tract infection), Community acquired pneumonia Disposition: ADMITTED IP TO THIS [facility] Condition: Good Is patient prescribed a controlled substance at d/c from ED?: No Time of Disposition: 07:13
[2022-11-09 04:52] LABS: Basophils % (A) 0 %; Eosinophils # (A) 0.3 k/uL (0-0.7); Eosinophils % (A) 4 %; HCT 42.5 % (34.0-46.0); HGB 13.5 gm/dL (11.4-16.0); Lymphocytes # (A) 0.5 k/uL (1.0-4.8); Lymphocytes % (A) 6 %; MCH 28.8 pg (25.0-35.0); MCHC 31.8 g/dL (31.0-37.0); MCV 90.7 fL (80.0-100.0); Mean Platelet Volume 8.1; Monocytes # (A) 0.2 k/uL (0-1.0); Monocytes % (A) 2 %; Neutrophils # (A) 7.5 k/uL (1.3-7.7); Neutrophils % (A) 87 %; Platelet Count 151 k/uL (150-450); RBC 4.68 m/uL (3.80-5.40); RDW 15.3 % (11.5-15.5); WBC 8.7 k/uL (3.8-10.6)
[2022-11-09 05:03] LABS: Chloride 104 mmol/L (98-107)
[2022-11-09 05:04] LABS: ALT 20 U/L (4-34); African American GFR (CKD) 58 (>60 ml/min/1.73 sqM); Albumin 3.9 g/dL (3.5-5.0); Anion Gap 8 mmol/L; Blood Urea Nitrogen 34 mg/dL (7-17); Calcium 8.7 mg/dL (8.4-10.2); Carbon Dioxide 27 mmol/L (22-30); Glucose 142 mg/dL (74-99); Non-African American GFR(CKD) 50 (>60 ml/min/1.73 sqM); Sodium 139 mmol/L (137-145); Total Bilirubin 0.9 mg/dL (0.2-1.3); Total Protein 6.7 g/dL (6.3-8.2)
[2022-11-09] MEDS ORDERED: LORazepam 2 MG/ML INJ IV STA (05:07)
[2022-11-09 05:11] LABS: NT-Pro-B-Type Natriuretic Pept 594 pg/mL
[2022-11-09 05:13] LABS: AST 29 U/L (14-36); Magnesium 1.9 mg/dL (1.6-2.3); Potassium 4.9 mmol/L (3.5-5.1)
[2022-11-09 05:14] LABS: Alkaline Phosphatase 79 U/L (38-126)
[2022-11-09 05:41] LABS: INR 0.9 (<1.2); Partial Thromboplastin Time 21.4 sec (22.0-30.0); Prothrombin Time 9.4 sec (9.0-12.0)
[2022-11-09] MEDS ORDERED: ACETAMINOPHEN IV (For NPO) 1,000 MG in EMPTY BAG 1 BAG IVPB STA (06:15)
--- NOTE | 2022-11-09 06:25 | XR ---
EXAMINATION TYPE: XR chest 1V portable DATE OF EXAM: 11/09/2022 Comparison: 11/03/2022 Clinical History: 82-year-old female with weakness Findings: Left anterior chest wall ACD generator with 2 right atrial, 2 right ventricular, and a coronary sinus lead. Heart mildly enlarged. Left base underpenetrated and not well assessed. Mild patchy density al tosin the periphery of the right midlung. Mild interstitial prominence. Low lung volumes. Impression: Limited by portable technique and hypoventilatory changes. Left base underpenetrated and not well ass essed. Possible background mild pulmonary vascular congestion. Some possible atelectasis or early inf iltrate/edema periphery of the right midlung.
[2022-11-09] MEDS ORDERED: IBUPROFEN IV 800 MG in SODIUM CHLORIDE 0.9% 250 ML IV ONE (06:30)
[2022-11-09] MEDS ORDERED: AZITHROMYCIN 500 MG in SODIUM CHLORIDE 0.9% 250 ML IVPB STA (07:05)
[2022-11-09 07:09] LABS: Amorphous Sediment,Urine Rare /hpf; Appearance,Urine Cloudy (Clear); Bacteria,Urine Many /hpf; Bilirubin,Urine Negative (Negative); Blood,Urine Large (Negative); Color,Urine Colorless; Glucose,Urine (UA) Negative (Negative); Ketones,Urine Negative (Negative); Leukocyte Esterase,Urine Large (Negative); Nitrite,Urine Positive (Negative); PH, Urine 6.5 (5.0-8.0); Protein,Urine 2+ (Negative); RBC,Urine 6 /hpf (0-5); Squamous Epithelial Cell,Urine <1 /hpf (0-4); Urobilinogen,Urine <2.0 mg/dL (<2.0); WBC,Urine 95 /hpf (0-5)
[2022-11-09] MEDS ORDERED: MORPHINE SULFATE 4 MG/ML SYRINGE IV PRN (07:11)
[2022-11-09] MEDS ORDERED: NALOXONE 0.4 MG/ML 1 ML VIAL IV PRN (07:11)
[2022-11-09] MEDS ORDERED: ONDANSETRON 4 MG/2 ML VIAL IVP PRN (07:11)
[2022-11-09] MEDS: SODIUM CHLORIDE 0.9% 1,000 ML IV SCH ×2 (08:11→18:07)
--- NOTE | 2022-11-09 11:48 | P.HPIM ---
History of Present Illness This is a pleasant 82 years old female with past medical history of Diabetes Mellitus, Hypertension, Osteoarthritis, gout, CHRONIC KIDNEY DISEASE STAGE 3, status post permanent Pacemaker. She is patient of Dr. Ortiz Patient woke up this morning at 2:00 with chills and difficulty breathing, she has little cough with little phlegm in the back of her throat. Patient denies chest pain. Denies any GI or urinary symptoms. Her mentation is at baseline and she denies any weakness or numbness. Currently she is nonsmoker no alcohol or illicit drugs. Patient feels better after she's been treated in the emergency room. She was at [facility] about 2 weeks earlier and she is been seen by her supervisor [employer] Dr. Whitmore who told her problem was in the lining of her heart bedtime.(internet system is down in this facility today so could not access her records at [facility]) Patient had fever of 100.4. She is mildly tachypneic. Blood pressure is stable. Mildly tachycardic at 103 Labs showing unremarkable CBC except for mild lymphopenia, INR 0.9, creatinine 1.0 which looks at baseline. High creatinine came back to normal. Liver enzymes not elevated. His 554. Urinalysis suspicious for infection. Influenza A and type B, RSV, SARS (coronavirus) are undetected EKG showing an atrial ventricular paced rhythm CXR (no image just report in the system): Per radiology some possible atelectasis or earlier infiltrate of the right mid lung Review of Systems Review of systems CONSTITUTIONAL: No fever, no malaise, no fatigue. HEENT: No recent visual problems or hearing problems. Denied any sore throat. CARDIOVASCULAR: No orthopnea, PND, no palpitations, no syncope. PULMONARY: No chest wall tenderness, no hemoptysis. GASTROINTESTINAL: No diarrhea, no nausea, no vomiting, no abdominal pain. Normoactive bowel sounds. NEUROLOGICAL: No headaches, no weakness, no numbness. HEMATOLOGICAL: Denies any bleeding or petechiae. GENITOURINARY: Denies any burning micturition, frequency, or urgency. MUSCULOSKELETAL/RHEUMATOLOGICAL: Denies any joint pain, swelling, or any muscle pain. ENDOCRINE: Denies any polyuria or polydipsia. Past Medical History Past Medical History: Cancer, Diabetes Mellitus, Hypertension, Osteoarthritis (OA) Additional Past Medical History / Comment(s): hx skin cancer, gout, SEE DR STRINGER'S HISTORY AND PHYSICAL FOR CARDIAC HISTORY, CHRONIC KIDNEY DISEASE STAGE 3, CATARACT SURGERY, gout, laser surgery left eye History of Any Multi-Drug Resistant Organisms: None Reported Past Surgical History: Hysterectomy, Joint Replacement, Orthopedic Surgery, Pacemaker, Tonsillectomy Additional Past Surgical History / Comment(s): rt knee arthroscopy, rt knee replacement, nahomy big toe joint replacement, vein stripping, surgery for fx left femur, stent placed in left carotid, PACEMAKER replaced x5 September 2020 Past Anesthesia/Blood Transfusion Reactions: No Reported Reaction Additional Past Anesthesia/Blood Transfusion Reaction / Comment(s): Pt has never had a blood transfusion. Type of Cardiac Device: Permanent Pacemaker Device Placement Date:: 09/2020 Past Psychological History: No Psychological Hx Reported Smoking Status: Former smoker Past Alcohol Use History: Occasional Past Drug Use History: None Reported - Past Family History Mother Additional Family Medical History / Comment(s): Alzheimers Father Family Medical History: Cancer Additional Family Medical History / Comment(s): Lung disease, SKIN CANCER Medications and Allergies Home Medications Medication Instructions Recorded Confirmed Type Aspirin 81 mg PO DAILY 08/29/14 11/03/22 History Insulin Aspart [NovoLOG Flexpen] 5 units SQ TID-W/MEALS 03/03/17 11/03/22 History Clopidogrel [Plavix] 75 mg PO DAILY #90 tab 03/05/17 11/03/22 Rx amLODIPine [Norvasc] 5 mg PO DAILY 09/12/20 11/03/22 History Metoprolol Tartrate [Lopressor] 50 mg PO BID 10/21/20 11/03/22 History Irbesartan [Avapro] 225 mg PO DAILY 11/14/20 11/03/22 History Magnesium 250 mg PO TUSA@2100 11/14/20 11/03/22 History Atorvastatin Calcium [Lipitor] 40 mg PO HS 03/11/21 11/03/22 History Shirley-3 Acid Ethyl Esters [Lovaza] 2 gm PO DAILY 11/14/21 11/03/22 History Insulin Detemir [Levemir Flextouch 40 units SQ HS 02/13/22 11/03/22 History Pen] ALPRAZolam [Xanax] 0.25 mg PO HS PRN 11/03/22 11/03/22 History Furosemide [Lasix] 20 mg PO DAILY 11/03/22 11/03/22 History Potassium Chloride [Klor-Con 10 ER] 10 meq PO DAILY 11/03/22 11/03/22 History Tirzepatide [Mounjaro] 7.5 mg SQ SA 11/03/22 11/03/22 History allopurinoL [Zyloprim] 100 mg PO DAILY 11/03/22 11/03/22 History Allergies Allergy/AdvReac Type Severity Reaction Status Date / Time adhesive tape Allergy Rash/Hives Verified 11/09/22 03:29 Physical Exam Vitals: Vital Signs Temp Pulse Pulse Resp BP BP Pulse Ox 11/09/22 08:34 98.3 F 103 H 18 117/65 95 11/09/22 07:30 99.7 F H 105 H 16 139/67 94 L 11/09/22 06:15 100.4 F H 11/09/22 06:03 93 18 146/99 94 L 11/09/22 05:21 88 18 156/65 95 11/09/22 03:23 99.6 F 20 175/74 95 Intake and Output 11/08/22 11/09/22 11/09/22 22:59 06:59 14:59 Intake Total 118 Balance 118 Intake: Oral 118 Other: Voiding Method Toilet Weight 88.904 kg GENERAL: The patient is alert and oriented x3, not in any acute distress. Well developed, well nourished. HEENT: Pupils are round and equally reacting to light. EOMI. No scleral icterus. No conjunctival pallor. Normocephalic, atraumatic. No pharyngeal erythema. No thyromegaly. CARDIOVASCULAR: S1 and S2 present. No murmurs, rubs, or gallops. PULMONARY: Chest is clear to auscultation, no wheezing , no crackles. ABDOMEN: Soft, nontender, nondistended, normoactive bowel sounds. No palpable organomegaly. MUSCULOSKELETAL: No joint swelling or deformity. EXTREMITIES: No cyanosis, clubbing, or pedal edema. NEUROLOGICAL: Gross neurological examination did not reveal any focal deficits. SKIN: No rashes. no petechiae. Results CBC & Chem 7: 11/09/22 04:46 11/09/22 04:46 Labs: Abnormal Lab Results - Last 24 Hours (Table) 11/09/22 11/09/22 11/09/22 Range/Units 04:32 04:46 04:46 Lymphocytes # 0.5 L (1.0-4.8) k/uL APTT 21.4 L (22.0-30.0) sec BUN (7-17) mg/dL Creatinine (0.52-1.04) mg/dL Glucose (74-99) mg/dL Plasma Lactic Acid Julian (0.7-2.0) mmol/L Urine Appearance Cloudy H (Clear) Urine Protein 2+ H (Negative) Urine Blood Large H (Negative) Urine Nitrite Positive H (Negative) Ur Leukocyte Esterase Large H (Negative) Urine RBC 6 H (0-5) /hpf Urine WBC 95 H (0-5) /hpf Amorphous Sediment Rare H (None) /hpf Urine Bacteria Many H (None) /hpf 11/09/22 11/09/22 Range/Units 04:46 04:46 Lymphocytes # (1.0-4.8) k/uL APTT (22.0-30.0) sec BUN 34 H (7-17) mg/dL Creatinine 1.05 H (0.52-1.04) mg/dL Glucose 142 H (74-99) mg/dL Plasma Lactic Acid Julian 2.1 H* (0.7-2.0) mmol/L Urine Appearance (Clear) Urine Protein (Negative) Urine Blood (Negative) Urine Nitrite (Negative) Ur Leukocyte Esterase (Negative) Urine RBC (0-5) /hpf Urine WBC (0-5) /hpf Amorphous Sediment (None) /hpf Urine Bacteria (None) /hpf Assessment and Plan Assessment: Right lung hospital acquired pneumonia since patient reports hospitalization about 2 weeks earlier Sepsis secondary to above Diabetes mellitus Hypertension History of osteoarthritis Chronic kidney disease stage III sick sinus syndrome status post permanent pacemaker Plan: Continue with antibiotics Zithromax , but change ceftriaxoneIn to cefepime Infectious disease consult Continue with gentle hydration, normal saline 75 mL/h Follow-up culture results Labs and medication were reviewed.. Continue same treatment. Continue with symptomatic treatment. Resume home medication. Monitor lytes and vitals. DVT and GI prophylaxis. Further recommendations depends on the clinical course of t he patient DVT prophylaxis: Subcutaneous heparin GI Prophylaxis: Pepcid PT/OT: Pending Prognosis is guarded
[2022-11-09 12:22] LABS: Glucose,Whole Blood 164 mg/dL (70-110)
--- NOTE | 2022-11-09 14:57 | P.CONS ---
History of Present Illness - Reason for Consult Consult date: 11/09/22 Pneumonia Requesting physician: Nghia E Sheet - Chief Complaint Fever and chills x one day - History of Present Illness Patient is a 82-year-old female with a past medical history significant for diabetes mellitus hypertension osteoarthritis gout chronic kidney disease patient presenting to the ER after midnight complaining of weakness fever and chills along with body aches the patient symptoms started the day of presentation to the hospital patient denies having any headache or URI symptoms has been complaining of mostly feeling shaky and lightheaded dizzy patient denies having any chest pain shortness of breath did have mild cough which is not new for her denies any nausea vomiting no abdominal pain or diarrhea patient complaining of cloudy urine for the last few days but no hematuria with the same with the patient was evaluated on presentation to the hospital patient did have low-grade fever 100.4 F patient was tachycardic mildly hypoxic requiring supplemental oxygen patient did have a normal white count BUN/creatinine has been mildly elevated liver enzymes are normal she did have a positive UA with large leukocyte esterase 95 WBC influenza RSV and COVID testing are negative patient did have a chest x-ray left base underpenetrated mild pulmonary vascular congestion patient was started on cefepime and azithromycin infectious disease was consulted for further management of antibiotic therapy patient last urine culture done in 2018 did grew Citrobacter Review of Systems Positive point and negatives has been mentioned in the HPI, complete review of systems was performed and all other systems are negative Past Medical History Past Medical History: Cancer, Diabetes Mellitus, Hypertension, Osteoarthritis (OA) Additional Past Medical History / Comment(s): hx skin cancer, gout, SEE DR STRINGER'S HISTORY AND PHYSICAL FOR CARDIAC HISTORY, CHRONIC KIDNEY DISEASE STAGE 3, CATARACT SURGERY, gout, laser surgery left eye History of Any Multi-Drug Resistant Organisms: None Reported Past Surgical History: Hysterectomy, Joint Replacement, Orthopedic Surgery, Pacemaker, Tonsillectomy Additional Past Surgical History / Comment(s): rt knee arthroscopy, rt knee replacement, nahomy big toe joint replacement, vein stripping, surgery for fx left femur, stent placed in left carotid, PACEMAKER replaced x5 September 2020 Past Anesthesia/Blood Transfusion Reactions: No Reported Reaction Additional Past Anesthesia/Blood Transfusion Reaction / Comm: Pt has never had a blood transfusion. Type of Cardiac Device: Permanent Pacemaker Device Placement Date:: 09/2020 Past Psychological History: No Psychological Hx Reported Smoking Status: Former smoker Past Alcohol Use History: Occasional Past Drug Use History: None Reported - Past Family History Mother Additional Family Medical History / Comment(s): Alzheimers Father Family Medical History: Cancer Additional Family Medical History / Comment(s): Lung disease, SKIN CANCER Medications and Allergies Home Medications Medication Instructions Recorded Confirmed Type Aspirin 81 mg PO DAILY 08/29/14 11/09/22 History Insulin Aspart [NovoLOG Flexpen] 5 units SQ TID-W/MEALS 03/03/17 11/09/22 History Clopidogrel [Plavix] 75 mg PO DAILY #90 tab 03/05/17 11/09/22 Rx amLODIPine [Norvasc] 5 mg PO DAILY 09/12/20 11/09/22 History Metoprolol Tartrate [Lopressor] 50 mg PO BID 10/21/20 11/09/22 History Irbesartan [Avapro] 300 mg PO DAILY 11/14/20 11/09/22 History Magnesium 250 mg PO TUSA@2100 11/14/20 11/09/22 History Atorvastatin Calcium [Lipitor] 40 mg PO HS 03/11/21 11/09/22 History Aurora-3 Acid Ethyl Esters [Lovaza] 2 gm PO DAILY 11/14/21 11/09/22 History Insulin Detemir [Levemir Flextouch 40 units SQ HS 02/13/22 11/09/22 History Pen] Furosemide [Lasix] 20 mg PO DAILY 11/03/22 11/09/22 History Potassium Chloride [Klor-Con 10 ER] 10 meq PO DAILY 11/03/22 11/09/22 History Tirzepatide [Mounjaro] 7.5 mg SQ AGUIRRE 11/03/22 11/09/22 History allopurinoL [Zyloprim] 100 mg PO DAILY 11/03/22 11/09/22 History ALPRAZolam [Xanax] 0.5 mg PO DAILY 11/09/22 11/09/22 History Ciprofloxacin HCl [Cipro] 500 mg PO Q12HR 12 Days #24 tab 11/11/22 Rx Allergies Allergy/AdvReac Type Severity Reaction Status Date / Time adhesive tape Allergy Rash/Hives Verified 11/09/22 12:33 Physical Exam Vitals: Vital Signs Temp Pulse Pulse Resp BP BP Pulse Ox 11/09/22 08:34 98.3 F 103 H 18 117/65 95 11/09/22 07:30 99.7 F H 105 H 16 139/67 94 L 11/09/22 06:15 100.4 F H 11/09/22 06:03 93 18 146/99 94 L 11/09/22 05:21 88 18 156/65 95 11/09/22 03:23 99.6 F 20 175/74 95 Intake and Output 11/08/22 11/09/22 11/09/22 22:59 06:59 14:59 Intake Total 118 Balance 118 Intake: Oral 118 Other: Voiding Method Toilet Weight 88.904 kg GENERAL DESCRIPTION: An elderly female lying in bed, no distress. No tachypnea or accessory muscle of respiration use. HEENT: Shows Pallor , no scleral icterus. Oral mucous membrane is dry. No pharyngeal erythema or thrush NECK: Trachea central, no thyromegaly. LUNGS: Unlabored breathing. Decreased breath sounds at the base HEART: S1, S2, regular rate and rhythm. No loud murmur ABDOMEN: Soft, no tenderness , guarding or rigidity, no organomegaly EXTREMITIES: No edema of feet. SKIN: No rash, no masses palpable. NEUROLOGICAL: The patient is awake, alert, oriented x3, mood and affect normal. Results CBC & Chem 7: 11/11/22 05:39 11/11/22 05:39 Labs: Abnormal Lab Results - Last 24 Hours (Table) 11/09/22 11/09/22 11/09/22 Range/Units 04:32 04:46 04:46 Lymphocytes # 0.5 L (1.0-4.8) k/uL APTT 21.4 L (22.0-30.0) sec BUN (7-17) mg/dL Creatinine (0.52-1.04) mg/dL Glucose (74-99) mg/dL POC Glucose (mg/dL) (70-110) mg/dL Plasma Lactic Acid Julian (0.7-2.0) mmol/L Urine Appearance Cloudy H (Clear) Urine Protein 2+ H (Negative) Urine Blood Large H (Negative) Urine Nitrite Positive H (Negative) Ur Leukocyte Esterase Large H (Negative) Urine RBC 6 H (0-5) /hpf Urine WBC 95 H (0-5) /hpf Amorphous Sediment Rare H (None) /hpf Urine Bacteria Many H (None) /hpf 11/09/22 11/09/22 11/09/22 Range/Units 04:46 04:46 12:19 Lymphocytes # (1.0-4.8) k/uL APTT (22.0-30.0) sec BUN 34 H (7-17) mg/dL Creatinine 1.05 H (0.52-1.04) mg/dL Glucose 142 H (74-99) mg/dL POC Glucose (mg/dL) 164 H (70-110) mg/dL Plasma Lactic Acid Julian 2.1 H* (0.7-2.0) mmol/L Urine Appearance (Clear) Urine Protein (Negative) Urine Blood (Negative) Urine Nitrite (Negative) Ur Leukocyte Esterase (Negative) Urine RBC (0-5) /hpf Urine WBC (0-5) /hpf Amorphous Sediment (None) /hpf Urine Bacteria (None) /hpf Assessment and Plan (1) UTI (urinary tract infection) Current Visit: Yes Status: Acute Code(s): N39.0 - URINARY TRACT INFECTION, SITE NOT SPECIFIED SNOMED Code(s): 84326284 (2) Sepsis Current Visit: Yes Status: Acute Code(s): A41.9 - SEPSIS, UNSPECIFIED ORGANISM SNOMED Code(s): 53389369 Plan: 1patient was in the hospital with sepsis in this patient with a fever tachycardia cloudy urine source likely UTI likely from enteric gram-negative pathogen clinically doubt pneumonia 2-discontinue cefepime and Zithromax 3-start the patient Rocephin 2 g daily 4-check inflammatory markers We will follow on clinical condition and cultures to further adjust medication if needed Thank you for this consultation we will follow the patient along with you Dictation was produced using [employer] dictation software. please excuse any grammatical, word or spelling errors. Time with Patient: Greater than 30
[2022-11-09] MEDS ORDERED: DEXTROSE 50% SYRINGE 50 ML IVP PRN ×2 (15:59)
[2022-11-09 17:24] LABS: Glucose,Whole Blood 149 mg/dL (70-110)
[2022-11-09] MEDS: INSULIN ASPART (NovoLOG) 100 UNIT/ML VIAL SQ SCH ×2 (17:28→21:22)
[2022-11-09 20:53] LABS: Glucose,Whole Blood 221 mg/dL (70-110)
[2022-11-09] MEDS ORDERED: CEFEPIME 2 GM in SODIUM CHLORIDE 0.9% 100 ML IVPB SCH (21:00)
[2022-11-09] MEDS: FAMOTIDINE 20 MG TAB PO SCH (21:21)
[2022-11-09] MEDS: HEPARIN SODIUM,PORCINE 5,000 UNIT/ML 1 ML VIAL SQ SCH (21:21)
[2022-11-09] MEDS: INSULIN DETEMIR (LEVEMIR) 100 UNIT/ML SYR SQ SCH (21:22)
[2022-11-10 06:09] LABS: Glucose,Whole Blood 131 mg/dL (70-110)
[2022-11-10] MEDS: INSULIN ASPART (NovoLOG) 100 UNIT/ML VIAL SQ SCH ×4 (06:10→21:47)
[2022-11-10] MEDS: SODIUM CHLORIDE 0.9% 1,000 ML IV SCH (06:36)
[2022-11-10] MEDS ORDERED: AZITHROMYCIN 500 MG in SODIUM CHLORIDE 0.9% 250 ML IVPB SCH (09:00)
[2022-11-10 09:32] LABS: Basophils # (A) 0.04 X 10*3/uL (0.00-0.10); Basophils % (A) 0.5 %; Eosinophils # (A) 0.37 X 10*3/uL (0.04-0.35); Eosinophils % (A) 4.6 %; HCT 36.4 % (37.2-46.3); HGB 11.3 d/dL (12.0-15.0); Lymphocytes # (A) 1.38 X 10*3/uL (0.90-5.00); Lymphocytes % (A) 17.3 %; MCH 29.4 pg (27.0-32.0); MCV 94.5 FL (80.0-97.0); Mean Platelet Volume 11.3 FL (9.5-12.2); Monocytes # (A) 0.67 X 10*3/uL (0.20-1.00); Monocytes % (A) 8.4 %; NRBC Per 100 WBC 0 X 10*3/uL (0.00-0.01); Neutrophils # (A) 5.51 X 10*3/uL (1.80-7.70); Neutrophils % (A) 68.9 %; Platelet Count 130 X 10*3/uL (140-440); RBC 3.85 X 10*6/uL (4.10-5.20); WBC 7.99 X 10*3/uL (4.50-10.00)
[2022-11-10 10:17] LABS: ALT 18 U/L (8-44); AST 23 U/L (13-35); Albumin 3.2 d/dL (3.8-4.9); Alkaline Phosphatase 71 U/L (41-126); Blood Urea Nitrogen 24.2 mg/dL (9.0-27.0); Calcium 8.1 mg/dL (8.7-10.3); Carbon Dioxide 23.4 mmol/L (21.6-31.8); Chloride 112 mmol/L (96-109); Glucose 137 mg/dL (70-110); Potassium 4.5 mmol/L (3.5-5.5); Sodium 142 mmol/L (135-145); Total Bilirubin 0.2 mg/dL (0.3-1.2); Total Protein 5.2 d/dL (6.2-8.2)
[2022-11-10] MEDS: allopurinoL 100 MG TAB PO SCH (10:43)
[2022-11-10] MEDS: FAMOTIDINE 20 MG TAB PO SCH ×2 (10:43→21:46)
[2022-11-10 12:04] LABS: Glucose,Whole Blood 233 mg/dL (70-110)
[2022-11-10] MEDS: HEPARIN SODIUM,PORCINE 5,000 UNIT/ML 1 ML VIAL SQ SCH ×2 (12:37→21:46)
[2022-11-10 16:58] LABS: Glucose,Whole Blood 200 mg/dL (70-110)
[2022-11-10] MEDS: ALPRAZolam 0.5 MG TAB PO PRN (18:00)
[2022-11-10 20:29] LABS: Glucose,Whole Blood 180 mg/dL (70-110)
[2022-11-10] MEDS: INSULIN DETEMIR (LEVEMIR) 100 UNIT/ML SYR SQ SCH (21:47)
[2022-11-11] MEDS: SODIUM CHLORIDE 0.9% 1,000 ML IV SCH ×2 (03:45→08:23)
[2022-11-11 06:14] LABS: Basophils % (A) 0 %; Eosinophils # (A) 0.4 k/uL (0-0.7); Eosinophils % (A) 7 %; HCT 36.1 % (34.0-46.0); HGB 11.6 gm/dL (11.4-16.0); Hypochromasia Slight; Lymphocytes % (A) 19 %; MCH 29.7 pg (25.0-35.0); MCHC 32.1 g/dL (31.0-37.0); MCV 92.7 fL (80.0-100.0); Mean Platelet Volume 8.5; Monocytes # (A) 0.4 k/uL (0-1.0); Monocytes % (A) 8 %; Neutrophils # (A) 3.4 k/uL (1.3-7.7); Neutrophils % (A) 63 %; Platelet Count 130 k/uL (150-450); RBC 3.89 m/uL (3.80-5.40); RDW 15.4 % (11.5-15.5); WBC 5.4 k/uL (3.8-10.6)
[2022-11-11 06:17] LABS: Glucose,Whole Blood 138 mg/dL (70-110)
[2022-11-11] MEDS: INSULIN ASPART (NovoLOG) 100 UNIT/ML VIAL SQ SCH ×2 (06:21→14:21)
[2022-11-11 06:26] LABS: ALT 17 U/L (4-34); AST 23 U/L (14-36); African American GFR (CKD) 77 (>60 ml/min/1.73 sqM); Albumin 2.8 g/dL (3.5-5.0); Albumin/Globulin Ratio 1.1; Alkaline Phosphatase 66 U/L (38-126); Anion Gap 5 mmol/L; Blood Urea Nitrogen 16 mg/dL (7-17); Calcium 8.1 mg/dL (8.4-10.2); Carbon Dioxide 25 mmol/L (22-30); Chloride 109 mmol/L (98-107); Globulin 2.5 g/dL; Glucose 133 mg/dL (74-99); Non-African American GFR(CKD) 67 (>60 ml/min/1.73 sqM); Potassium 4.3 mmol/L (3.5-5.1); Sodium 139 mmol/L (137-145); Total Bilirubin 0.3 mg/dL (0.2-1.3); Total Protein 5.3 g/dL (6.3-8.2)
[2022-11-11 07:35] VITALS: RESP 16
[2022-11-11] MEDS: allopurinoL 100 MG TAB PO SCH (08:23)
[2022-11-11] MEDS: FAMOTIDINE 20 MG TAB PO SCH (08:23)
[2022-11-11] MEDS: HEPARIN SODIUM,PORCINE 5,000 UNIT/ML 1 ML VIAL SQ SCH (08:23)
[2022-11-11] MEDS ORDERED: POTASSIUM CHLORIDE ER 10 MEQ TAB.ER.PRT PO SCH (09:00)
[2022-11-11] MEDS ORDERED: CLOPIDOGREL 75 MG TAB PO SCH (09:00)
[2022-11-11] MEDS ORDERED: NON FORMULARY DRUG (Omega-3 Acid Ethyl Esters [Lovaza] 1 GM Capsule) PO SCH (09:00)
[2022-11-11] MEDS ORDERED: allopurinoL 100 MG TAB PO SCH (09:00)
[2022-11-11] MEDS ORDERED: amLODIPine 5 MG TAB PO SCH (09:00)
[2022-11-11] MEDS ORDERED: ALPRAZolam 0.5 MG TAB PO SCH (09:00)
[2022-11-11] MEDS ORDERED: FUROSEMIDE 20 MG TAB PO SCH (09:00)
[2022-11-11] MEDS ORDERED: ASPIRIN 81 MG PO SCH (09:00)
[2022-11-11] MEDS ORDERED: METOPROLOL TARTRATE 50 MG TAB PO SCH (09:00)
[2022-11-11 11:59] LABS: Glucose,Whole Blood 125 mg/dL (70-110)
--- NOTE | 2022-11-11 14:10 | P.PN ---
Subjective Progress Note Date: 11/10/22 HISTORY OF PRESENT ILLNESS This is an 82-year-old female patient of mine with past medical history of diabetes mellitus type 2, hypertension, hyperlipidemia, chronic kidney disease stage III, complete heart block status post biventricular pacemaker, nonischemic cardiomyopathy , carotid atherosclerosis status post stent, patient presented to the emergency department at [facility] with chills, cough with sputum production and difficulty breathing. Covid 19, influenza A, influenza B, RSV all tested negative. Chest x-ray revealed a left base under penetrated mild pulmonary vascular congestion. Patient was initially started on cefepime and azithromycin. Patient has been seen by infectious disease and antibiotics have been changed to IV ceftriaxone. Patient has been afebrile since yesterday morning. Heart rate is in the 60s, blood pressure 135/76. Pulse ox 99% on room air. Repeat blood work reveals WBC 7.9, hemoglobin 11.3, platelet count 130. Sodium 142, potassium 4.5, chloride 112, BUN 24 creatinine 1. C reactive protein is 8.6. Pro-calcitonin 8.5. Blood culture is positive for E. coli 2. No urine culture was obtained. REVIEW OF SYSTEMS Constitutional: No fever, no chills, no night sweats. No weight change. No weakness, fatigue or lethargy. No daytime sleepiness. HEENT: No headache. No blurred vision or double vision, no loss of vision. No loss of Hearing, no ringing in the ears, no dizziness. No nasal drainage or congestion. No epistaxis. No sore throat. Lungs: No shortness of breath, cough, no sputum production. No wheezing. Cardiovascular: positive for chest pain, positive for lower extremity edema. No palpitations. No paroxysmal nocturnal dyspnea. No orthopnea. No lightheadedness or dizziness. No syncopal episodes. Abdominal: No abdominal pain. No nausea, vomiting. No diarrhea. No co nstipation. No bloody or tarry stools.. No loss of appetite. Genitourinary: No dysuria, increased frequency, urgency. No urinary retention. Musculoskeletal: No myalgias. No muscle weakness, no gait dysfunction, no frequent falls. No back pain. No neck pain. Integumentary: No wounds, no lesions. No rash or pruritus. No unusual bruising. No change in hair or nails. Neurologic: No aphasia. No facial droop. No change in mentation. No head injury. No headache. No paralysis. No paresthesia. Psychiatric: No depression. No anxiety. No mood swings. Endocrine: Noted abnormal blood sugars. No weight change. No excessive sweating or thirst. No cold intolerance. PHYSICAL EXAMINATION Gen: This is an 82-year-old female. Patient is resting in bed appears to be comfortable and in no acute distress. HEENT: Head is atraumatic, normocephalic. Pupils equal, round. Sclerae is anicteric. NECK: Supple. No JVD. No lymphadenopathy. No thyromegaly. LUNGS: Clear to auscultation. No wheezes or rhonchi. No intercostal retractions. HEART: First heart sound is depressed, second heart sound is normal, 2/6 systolic ejection murmur at the left sternal border, no S3, no S4.permanent pacemaker in the left upper precordium ABDOMEN: Soft. Bowel sounds are present. No masses. No tenderness. EXTREMITIES: minimal pedal edema. No calf tenderness, dorsalis pedis +2 bilaterally. NEUROLOGICAL: Patient is awake, alert and oriented x3. Cranial nerves 2 through 12 are grossly intact, muscle power 4 out of 5 in upper and lower extremities bilaterally. ASSESSMENT AND PLAN 1. Urinary tract infection with E. coli bacteremia and sepsis. Consult with Dr. Efren alvarez. Cefepime and Zithromax have been discontinued and patient started on Rocephin 2 g daily. 2. Diabetes mellitus type 2 . continue patient on Lantus reduced dose of 20 units at bedtime along with NovoLog scale. Hold scheduled NovoLog and hold Mounjaro. 3. Hypertension. Continue Norvasc 5 mg daily, Avapro 150 mg daily, Lasix 20 mg twice daily, Lopressor 50 mg twice daily. 4. Hyperlipidemia. Continue Lipitor 40 mg at bedtime. 5. Chronic kidney disease stage III. Avoid nephrotoxic agents. 6. History of complete heart block status post pacemaker implantation/AICD. 7. Nonischemic cardiomyopathy status post AICD. 8. Chronic systolic heart failure. Continue Lasix 20 mg twice daily, Lopressor 50 mg twice daily. 9. Carotid atherosclerosis status post stenting of the left internal carotid artery. Continue Plavix 75 mg daily, aspirin 81 mg daily, Lipitor 40 mg daily. 10. GI prophylaxis. Protonix 40 mg once every day . 11. DVT prophylaxis. continue patient on heparin 5000 units subcutaneously every 8 hours. Impression and plan of care have been directed as dictated by the signing physician. Kyra Woods nurse practitioner acting as scribe for signing physician. Objective - Vital Signs Vital signs: Vital Signs Temp 98.3 F 11/11/22 07:00 Pulse 75 11/11/22 07:00 Resp 16 11/11/22 07:00 BP 156/80 11/11/22 07:00 Pulse Ox 98 11/11/22 07:00 FiO2 Intake & Output 11/10/22 11/11/22 11/11/22 18:59 06:59 18:59 Other: Voiding Method Toilet # Voids 2 1 - Labs CBC & Chem 7: 11/11/22 05:39 11/11/22 05:39 Labs: Abnormal Lab Results - Last 24 Hours (Table) 11/10/22 11/10/22 11/11/22 Range/Units 16:54 20:28 05:39 Plt Count 130 L (150-450) k/uL Chloride (98-107) mmol/L Glucose (74-99) mg/dL POC Glucose (mg/dL) 200 H 180 H (70-110) mg/dL Calcium (8.4-10.2) mg/dL Total Protein (6.3-8.2) g/dL Albumin (3.5-5.0) g/dL 11/11/22 11/11/22 11/11/22 Range/Units 05:39 06:16 11:57 Plt Count (150-450) k/uL Chloride 109 H (98-107) mmol/L Glucose 133 H (74-99) mg/dL POC Glucose (mg/dL) 138 H 125 H (70-110) mg/dL Calcium 8.1 L (8.4-10.2) mg/dL Total Protein 5.3 L (6.3-8.2) g/dL Albumin 2.8 L (3.5-5.0) g/dL Microbiology - Last 24 Hours (Table) 11/09/22 04:30 Blood Culture Gram Stain - Final Blood Blood Culture - Final Escherichia coli 11/09/22 04:15 Blood Culture Gram Stain - Final Blood Blood Culture - Final Escherichia coli
--- NOTE | 2022-11-11 14:13 | P.PN ---
Subjective Progress Note Date: 11/11/22 HISTORY OF PRESENT ILLNESS This is an 82-year-old female patient of mine with past medical history of diabetes mellitus type 2, hypertension, hyperlipidemia, chronic kidney disease stage III, complete heart block status post biventricular pacemaker, nonischemic cardiomyopathy , carotid atherosclerosis status post stent, patient presented to the emergency department at [facility] with chills, cough with sputum production and difficulty breathing. Covid 19, influenza A, influenza B, RSV all tested negative. Chest x-ray revealed a left base under penetrated mild pulmonary vascular congestion. Patient was initially started on cefepime and azithromycin. Patient has been seen by infectious disease and antibiotics have been changed to IV ceftriaxone. Patient has been afebrile since yesterday morning. Heart rate is in the 60s, blood pressure 135/76. Pulse ox 99% on room air. Repeat blood work reveals WBC 7.9, hemoglobin 11.3, platelet count 130. Sodium 142, potassium 4.5, chloride 112, BUN 24 creatinine 1. C reactive protein is 8.6. Pro-calcitonin 8.5. Blood culture is positive for E. coli 2. No urine culture was obtained. 11/11: Patient is seen today in follow-up. Blood cultures are E. coli resistant to ampicillin, Unasyn and Bactrim only. Patient is continued on ceftriaxone as directed by Dr. Schwartz. She remains afebrile, heart rate 75, blood pressure 146/80, pulse ox 98% on 2 L nasal cannula. Repeat blood work reveals WBC 5.4, hemoglobin 0.6, platelet count 130. Sodium 139, potassium 4.3, chloride 109, BUN 16 creatinine 0.83. Blood sugar 133. Calcium 8.1. Liver function tests within normal limits. REVIEW OF SYSTEMS Constitutional: No fever, no chills, no night sweats. No weight change. No weakness, fatigue or lethargy. No daytime sleepiness. HEENT: No headache. No blurred vision or double vision, no loss of vision. No loss of Hearing, no ringing in the ears, no dizziness. No nasal drainage or congestion. No epistaxis. No sore throat. Lungs: No shortness of breath, cough, no sputum production. No wheezing. Cardiovascular: positive for chest pain, positive for lower extremity edema. No palpitations. No paroxysmal nocturnal dyspnea. No orthopnea. No lightheadedness or dizziness. No syncopal episodes. Abdominal: No abdominal pain. No nausea, vomiting. No diarrhea. No constip ation. No bloody or tarry stools.. No loss of appetite. Genitourinary: No dysuria, increased frequency, urgency. No urinary retention. Musculoskeletal: No myalgias. No muscle weakness, no gait dysfunction, no frequent falls. No back pain. No neck pain. Integumentary: No wounds, no lesions. No rash or pruritus. No unusual bruising. No change in hair or nails. Neurologic: No aphasia. No facial droop. No change in mentation. No head injury. No headache. No paralysis. No paresthesia. Psychiatric: No depression. No anxiety. No mood swings. Endocrine: Noted abnormal blood sugars. No weight change. No excessive sweating or thirst. No cold intolerance. PHYSICAL EXAMINATION Gen: This is an 82-year-old female. Patient is resting in bed appears to be comfortable and in no acute distress. HEENT: Head is atraumatic, normocephalic. Pupils equal, round. Sclerae is anicteric. NECK: Supple. No JVD. No lymphadenopathy. No thyromegaly. LUNGS: Clear to auscultation. No wheezes or rhonchi. No intercostal retractions. HEART: First heart sound is depressed, second heart sound is normal, 2/6 systolic ejection murmur at the left sternal border, no S3, no S4.permanent pacemaker in the left upper precordium ABDOMEN: Soft. Bowel sounds are present. No masses. No tenderness. EXTREMITIES: minimal pedal edema. No calf tenderness, dorsalis pedis +2 b ilaterally. NEUROLOGICAL: Patient is awake, alert and oriented x3. Cranial nerves 2 through 12 are grossly intact, muscle power 4 out of 5 in upper and lower extremities bilaterally. ASSESSMENT AND PLAN 1. Urinary tract infection with E. coli bacteremia and sepsis. Consult with Dr. Schwartz appreciated. Cefepime and Zithromax have been discontinued and patient started on Rocephin 2 g daily. 2. Diabetes mellitus type 2 . continue patient on Lantus reduced dose of 20 units at bedtime along with NovoLog scale. Hold scheduled NovoLog and hold Mounjaro. 3. Hypertension. Continue Norvasc 5 mg daily, Avapro 150 mg daily, Lasix 20 mg twice daily, Lopressor 50 mg twice daily. 4. Hyperlipidemia. Continue Lipitor 40 mg at bedtime. 5. Chronic kidney disease stage III. Avoid nephrotoxic agents. 6. History of complete heart block status post pacemaker implantation/AICD. 7. Nonischemic cardiomyopathy status post AICD. 8. Chronic systolic heart failure. Continue Lasix 20 mg twice daily, Lopressor 50 mg twice daily. 9. Carotid atherosclerosis status post stenting of the left internal carotid artery. Continue Plavix 75 mg daily, aspirin 81 mg daily, Lipitor 40 mg daily. 10. GI prophylaxis. Protonix 40 mg once every day . 11. DVT prophylaxis. continue patient on heparin 5000 units subcutaneously every 8 hours. Impression and plan of care have been directed as dictated by the signing physician. Kyra Woods nurse practitioner acting as scribe for signing physician. Objective - Vital Signs Vital signs: Vital Signs Temp 98.3 F 11/11/22 07:00 Pulse 75 11/11/22 07:00 Resp 16 11/11/22 07:00 BP 156/80 11/11/22 07:00 Pulse Ox 98 11/11/22 07:00 FiO2 Intake & Output 11/10/22 11/11/22 11/11/22 18:59 06:59 18:59 Other: Voiding Method Toilet # Voids 2 1 - Labs CBC & Chem 7: 11/11/22 05:39 11/11/22 05:39 Labs: Abnormal Lab Results - Last 24 Hours (Table) 11/10/22 11/10/22 11/11/22 Range/Units 16:54 20:28 05:39 Plt Count 130 L (150-450) k/uL Chloride (98-107) mmol/L Glucose (74-99) mg/dL POC Glucose (mg/dL) 200 H 180 H (70-110) mg/dL Calcium (8.4-10.2) mg/dL Total Protein (6.3-8.2) g/dL Albumin (3.5-5.0) g/dL 11/11/22 11/11/22 11/11/22 Range/Units 05:39 06:16 11:57 Plt Count (150-450) k/uL Chloride 109 H (98-107) mmol/L Glucose 133 H (74-99) mg/dL POC Glucose (mg/dL) 138 H 125 H (70-110) mg/dL Calcium 8.1 L (8.4-10.2) mg/dL Total Protein 5.3 L (6.3-8.2) g/dL Albumin 2.8 L (3.5-5.0) g/dL Microbiology - Last 24 Hours (Table) 11/09/22 04:30 Blood Culture Gram Stain - Final Blood Blood Culture - Final Escherichia coli 11/09/22 04:15 Blood Culture Gram Stain - Final Blood Blood Culture - Final Escherichia coli
[2022-11-11] MEDS: ALPRAZolam 0.5 MG TAB PO PRN (14:22)
--- NOTE | 2022-11-11 14:27 | P.DS ---
Providers Date of admission: 11/09/22 07:11 Expected date of discharge: 11/11/22 Attending physician: Regina Ortiz Consults: 11/09/22 11:46 Consult Physician Routine Consulting Provider: Charley Schwartz Consult Reason/Comments: pna Do you want consulting provider notified?: Yes Primary care physician: Regina Ortiz Hospital Course: HISTORY OF PRESENT ILLNESS This is an 82-year-old female patient of mine with past medical history of diabetes mellitus type 2, hypertension, hyperlipidemia, chronic kidney disease stage III, complete heart block status post biventricular pacemaker, nonischemic cardiomyopathy , carotid atherosclerosis status post stent, patient presented to the emergency department at [facility] with chills, cough with sputum production and difficulty breathing. Covid 19, influenza A, influenza B, RSV all tested negative. Chest x-ray revealed a left base under penetrated mild pulmonary vascular congestion. Patient was initially started on cefepime and azithromycin. Patient has been seen by infectious disease and antibiotics have been changed to IV ceftriaxone. Patient has been afebrile since yesterday morning. Heart rate is in the 60s, blood pressure 135/76. Pulse ox 99% on room air. Repeat blood work reveals WBC 7.9, hemoglobin 11.3, platelet count 130. Sodium 142, potassium 4.5, chloride 112, BUN 24 creatinine 1. C reactive protein is 8.6. Pro-calcitonin 8.5. Blood culture is positive for E. coli 2. No urine culture was obtained. 11/11: Patient is seen today in follow-up. Blood cultures are E. coli resistant to ampicillin, Unasyn and Bactrim only. Patient is continued on ceftriaxone as directed by Dr. Schwartz. She remains afebrile, heart rate 75, blood pressure 146/80, pulse ox 98% on 2 L nasal cannula. Repeat blood work reveals WBC 5.4, hemoglobin 0.6, platelet count 130. Sodium 139, potassium 4.3, chloride 109, BUN 16 creatinine 0.83. Blood sugar 133. Calcium 8.1. Liver function tests within normal limits. Patient has been cleared for discharge by Dr. Schwartz. She will be discharged home today in stable condition. DISCHARGE DIAGNOSES 1. Urinary tract infection with E. coli bacteremia and sepsis. 2. Diabetes mellitus type 2 . 3. Hypertension. 4. Hyperlipidemia. 5. Chronic kidney disease stage III. 6. History of complete heart block status post pacemaker implantation/AICD. 7. Nonischemic cardiomyopathy status post AICD. 8. Chronic systolic heart failure. 9. Carotid atherosclerosis status post stenting of the left internal carotid artery. Discharge plan: Home Greater than 35 minutes was utilized and coordinating patient's discharge. Impression and plan of care have been directed as dictated by the signing physician. Kyra Woods nurse practitioner acting as scribe for signing physician. Patient Condition at Discharge: Good Plan - Discharge Summary Discharge Rx Participant: No New Discharge Prescriptions: New Ciprofloxacin HCl [Cipro] 500 mg PO Q12HR 12 Days #24 tab Continue Aspirin 81 mg PO DAILY Insulin Aspart [NovoLOG Flexpen] 5 units SQ TID-W/MEALS Clopidogrel [Plavix] 75 mg PO DAILY #90 tab amLODIPine [Norvasc] 5 mg PO DAILY Magnesium 250 mg PO TUSA@2100 Irbesartan [Avapro] 300 mg PO DAILY allopurinoL [Zyloprim] 100 mg PO DAILY Potassium Chloride [Klor-Con 10 ER] 10 meq PO DAILY Tirzepatide [Mounjaro] 7.5 mg SQ AGUIRRE Metoprolol Tartrate [Lopressor] 50 mg PO BID Atorvastatin Calcium [Lipitor] 40 mg PO HS [place]-3 Acid Ethyl Esters [Lovaza] 2 gm PO DAILY Insulin Detemir [Levemir Flextouch Pen] 40 units SQ HS Furosemide [Lasix] 20 mg PO DAILY ALPRAZolam [Xanax] 0.5 mg PO DAILY Discharge Medication List Aspirin 81 mg PO DAILY 08/29/14 [History] Insulin Aspart [NovoLOG Flexpen] 5 units SQ TID-W/MEALS 03/03/17 [History] Clopidogrel [Plavix] 75 mg PO DAILY #90 tab 03/05/17 [Rx] amLODIPine [Norvasc] 5 mg PO DAILY 09/12/20 [History] Metoprolol Tartrate [Lopressor] 50 mg PO BID 10/21/20 [History] Irbesartan [Avapro] 300 mg PO DAILY 11/14/20 [History] Magnesium 250 mg PO TUSA@2100 11/14/20 [History] Atorvastatin Calcium [Lipitor] 40 mg PO HS 03/11/21 [History] Odessa-3 Acid Ethyl Esters [Lovaza] 2 gm PO DAILY 11/14/21 [History] Insulin Detemir [Levemir Flextouch Pen] 40 units SQ HS 02/13/22 [History] Furosemide [Lasix] 20 mg PO DAILY 11/03/22 [History] Potassium Chloride [Klor-Con 10 ER] 10 meq PO DAILY 11/03/22 [History] Tirzepatide [Mounjaro] 7.5 mg SQ AGUIRRE 11/03/22 [History] allopurinoL [Zyloprim] 100 mg PO DAILY 11/03/22 [History] ALPRAZolam [Xanax] 0.5 mg PO DAILY 11/09/22 [History] Ciprofloxacin HCl [Cipro] 500 mg PO Q12HR 12 Days #24 tab 11/11/22 [Rx] Follow up Appointment(s)/Referral(s): Regina Ortiz MD [Primary Care Provider] - 1 Week Discharge Disposition: HOME SELF-CARE
[2022-11-11 14:33] VITALS: BP 157/82; PULSE 81; TEMP 98.2
--- NOTE | 2022-11-11 15:55 | P.PN ---
Subjective Progress Note Date: 11/10/22 Principal diagnosis: UTI and bacteremia Patient is a 82-year-old female with a past medical history significant for diabetes mellitus hypertension osteoarthritis gout chronic kidney disease patient presenting to the ER after midnight complaining of weakness fever and chills along with body aches, patient also have a cloudy urine positive UA concerning for urinary tract infection. On today's evaluation that is 11/10/2022, the patient denies having any fever or any chills, the patient is breathing comfortably on 2 L nasal cannula oxygen denies any chest pain shortness of breath or cough no nausea no vomiting no abdominal pain no diarrhea Patient did have a white count of 7.99, creatinine 1.0 blood culture with gram- negative bacilli Objective - Vital Signs Vital signs: Vital Signs Temp 97.8 F 11/10/22 07:00 Pulse 62 11/10/22 07:00 Resp 16 11/10/22 07:00 BP 135/76 11/10/22 07:00 Pulse Ox 96 11/10/22 08:07 FiO2 Intake & Output 11/09/22 11/10/22 11/10/22 18:59 06:59 18:59 Intake Total 118 Balance 118 Weight 88.904 kg Intake: Oral 118 Other: Voiding Method Toilet Toilet # Voids 3 1 - Exam GENERAL DESCRIPTION: An elderly female lying in bed in no distress RESPIRATORY SYSTEM: Unlabored breathing , decreased breath sounds at bases HEART: S1 S2 regular rate and rhythm , ABDOMEN: Soft , no tenderness EXTREMITIES: No edema feet - Labs CBC & Chem 7: 11/11/22 05:39 11/11/22 05:39 Labs: Abnormal Lab Results - Last 24 Hours (Table) 11/09/22 11/09/22 11/09/22 Range/Units 12:19 17:23 20:52 RBC (4.10-5.20) X 10*6/uL Hgb (12.0-15.0) d/dL Hct (37.2-46.3) % MCHC (32.0-37.0) d/dL RDW (11.5-14.5) % Plt Count (140-440) X 10*3/uL Eosinophils # (0.04-0.35) X 10*3/uL Chloride (96-109) mmol/L Est GFR (CKD-EPI) (>=60) BUN/Creatinine Ratio (12.00-20.00) Ratio Glucose (70-110) mg/dL POC Glucose (mg/dL) 164 H 149 H 221 H (70-110) mg/dL Hemoglobin A1c (<=6.0) % Calcium (8.7-10.3) mg/dL Total Bilirubin (0.3-1.2) mg/dL C-Reactive Protein (0.00-0.80) mg/dL Total Protein (6.2-8.2) d/dL Albumin (3.8-4.9) d/dL Procalcitonin (0.02-0.09) ng/mL 11/10/22 11/10/22 11/10/22 Range/Units 05:55 05:55 05:55 RBC 3.85 L (4.10-5.20) X 10*6/uL Hgb 11.3 L (12.0-15.0) d/dL Hct 36.4 L (37.2-46.3) % MCHC 31.0 L (32.0-37.0) d/dL RDW 16.0 H (11.5-14.5) % Plt Count 130 L (140-440) X 10*3/uL Eosinophils # 0.37 H (0.04-0.35) X 10*3/uL Chloride (96-109) mmol/L Est GFR (CKD-EPI) (>=60) BUN/Creatinine Ratio (12.00-20.00) Ratio Glucose (70-110) mg/dL POC Glucose (mg/dL) (70-110) mg/dL Hemoglobin A1c 8.1 H (<=6.0) % Calcium (8.7-10.3) mg/dL Total Bilirubin (0.3-1.2) mg/dL C-Reactive Protein (0.00-0.80) mg/dL Total Protein (6.2-8.2) d/dL Albumin (3.8-4.9) d/dL Procalcitonin 8.50 H (0.02-0.09) ng/mL 11/10/22 11/10/22 Range/Units 05:55 06:07 RBC (4.10-5.20) X 10*6/uL Hgb (12.0-15.0) d/dL Hct (37.2-46.3) % MCHC (32.0-37.0) d/dL RDW (11.5-14.5) % Plt Count (140-440) X 10*3/uL Eosinophils # (0.04-0.35) X 10*3/uL Chloride 112 H (96-109) mmol/L Est GFR (CKD-EPI) 57 L (>=60) BUN/Creatinine Ratio 24.20 H (12.00-20.00) Ratio Glucose 137 H (70-110) mg/dL POC Glucose (mg/dL) 131 H (70-110) mg/dL Hemoglobin A1c (<=6.0) % Calcium 8.1 L (8.7-10.3) mg/dL Total Bilirubin 0.2 L (0.3-1.2) mg/dL C-Reactive Protein 8.60 H (0.00-0.80) mg/dL Total Protein 5.2 L (6.2-8.2) d/dL Albumin 3.2 L (3.8-4.9) d/dL Procalcitonin (0.02-0.09) ng/mL Microbiology - Last 24 Hours (Table) 11/09/22 04:30 Blood Culture Gram Stain - Preliminary Blood Blood Culture - Preliminary Gram Neg Bacilli 11/09/22 04:15 Blood Culture Gram Stain - Preliminary Blood Blood Culture - Preliminary Gram Neg Bacilli Assessment and Plan (1) Gram-negative bacteremia Current Visit: Yes Status: Acute Code(s): R78.81 - BACTEREMIA SNOMED Code(s): 189532578691 (2) UTI (urinary tract infection) Current Visit: Yes Status: Acute Code(s): N39.0 - URINARY TRACT INFECTION, SITE NOT SPECIFIED SNOMED Code(s): 77520172 Plan: 1patient was in the hospital with sepsis in this patient with a fever tachycardia cloudy urine source likely UTI likely from enteric gram-negative pathogen clinically doubt pneumonia 2Patient with gram-negative bacteremia source likely urinary 3Patient to continue with Rocephin 2 g daily while waiting for the cultures to finalize Dictation was produced using [employer] dictation software. please excuse any gr ammatical, word or spelling errors. Time with Patient: Less than 30
--- NOTE | 2022-11-11 15:57 | P.PN ---
Subjective Progress Note Date: 11/11/22 Principal diagnosis: UTI and bacteremia Patient is a 82-year-old female with a past medical history significant for diabetes mellitus hypertension osteoarthritis gout chronic kidney disease patient presenting to the ER after midnight complaining of weakness fever and chills along with body aches, patient also have a cloudy urine positive UA concerning for urinary tract infection. On today's evaluation that is 11/11/2022, the patient remains to be afebrile, the patient is breathing comfortably on 2 L nasal cannula oxygen, the patient denies any chest pain shortness of breath or cough no nausea no vomiting no abdominal pain no diarrhea Patient did have a white count of 5.4, creatinine is 0.83 blood culture with E. coli that is a sensitive pathogen unfortunately urine culture were not done and the blood cultures also growing gram-positive cocci Objective - Vital Signs Vital signs: Vital Signs Temp 98.3 F 11/11/22 07:00 Pulse 75 11/11/22 07:00 Resp 16 11/11/22 07:00 BP 156/80 11/11/22 07:00 Pulse Ox 98 11/11/22 07:00 FiO2 Intake & Output 11/10/22 11/11/22 11/11/22 18:59 06:59 18:59 Other: Voiding Method Toilet # Voids 2 1 - Exam GENERAL DESCRIPTION: An elderly female lying in bed in no distress RESPIRATORY SYSTEM: Unlabored breathing , decreased breath sounds at bases HEART: S1 S2 regular rate and rhythm , ABDOMEN: Soft , no tenderness EXTREMITIES: No edema feet - Labs CBC & Chem 7: 11/11/22 05:39 11/11/22 05:39 Labs: Abnormal Lab Results - Last 24 Hours (Table) 11/10/22 11/10/22 11/11/22 Range/Units 16:54 20:28 05:39 Plt Count 130 L (150-450) k/uL Chloride (98-107) mmol/L Glucose (74-99) mg/dL POC Glucose (mg/dL) 200 H 180 H (70-110) mg/dL Calcium (8.4-10.2) mg/dL Total Protein (6.3-8.2) g/dL Albumin (3.5-5.0) g/dL 11/11/22 11/11/22 11/11/22 Range/Units 05:39 06:16 11:57 Plt Count (150-450) k/uL Chloride 109 H (98-107) mmol/L Glucose 133 H (74-99) mg/dL POC Glucose (mg/dL) 138 H 125 H (70-110) mg/dL Calcium 8.1 L (8.4-10.2) mg/dL Total Protein 5.3 L (6.3-8.2) g/dL Albumin 2.8 L (3.5-5.0) g/dL Microbiology - Last 24 Hours (Table) 11/09/22 04:30 Blood Culture Gram Stain - Final Blood Blood Culture - Final Escherichia coli 11/09/22 04:15 Blood Culture Gram Stain - Final Blood Blood Culture - Final Escherichia coli Assessment and Plan (1) Gram-positive bacteremia Current Visit: Yes Status: Acute Code(s): R78.81 - BACTEREMIA SNOMED Code(s): 259533421508 (2) Gram-negative bacteremia Current Visit: Yes Status: Acute Code(s): R78.81 - BACTEREMIA SNOMED Code(s): 924222921783 (3) UTI (urinary tract infection) Current Visit: Yes Status: Acute Code(s): N39.0 - URINARY TRACT INFECTION, SITE NOT SPECIFIED SNOMED Code(s): 42456115 Plan: 1patient was in the hospital with sepsis in this patient with a fever tachycardia cloudy urine source likely UTI likely from enteric gram-negative pathogen clinically doubt pneumonia 2Patient with E. coli bacteremia source likely urinary, unfortunately urine culture were not done 3-patient also have a positive blood culture gram-positive cocci with a question of possible skin contamination blood cultures will be repeated document clearance of bacteremia 3Patient to continue with Rocephin 2 g daily plan to finish therapy with oral antibiotics Dictation was produced using [employer] dictation software. please excuse any grammatical, word or spelling errors.
[2022-11-11] MEDS ORDERED: ATORVASTATIN 40 MG TAB PO SCH (21:00)
[2022-11-11] MEDS ORDERED: MAGNESIUM OXIDE 400 MG TAB PO SCH (21:00)
[2022-11-12] MEDS ORDERED: PANTOPRAZOLE 40 MG TABLET PO SCH (07:30)
[2022-11-12] MEDS ORDERED: LOSARTAN 50 MG TAB PO SCH (09:00)
== END 2022-11-11 16:28 | disposition home or self-care (01) | DRG 872 ==
LOC: EC 03:22 → 6NMEDSUR 07:11
PROVIDERS: ADMIT Internal Medicine; ATTEND Internal Medicine
DX: A41.51 Sepsis due to Escherichia coli [E. coli] (principal); N39.0 Urinary tract infection, site not specified; I13.0 Hypertensive heart and chronic kidney disease with heart failure and stage 1 through stage 4 chronic kidney disease, or unspecified chronic kidney disease; I42.8 Other cardiomyopathies; I50.22 Chronic systolic (congestive) heart failure; Z16.11 Resistance to penicillins; R74.01 Elevation of levels of liver transaminase levels; N18.30 Chronic kidney disease, stage 3 unspecified; D72.810 Lymphocytopenia; E11.22 Type 2 diabetes mellitus with diabetic chronic kidney disease; E78.5 Hyperlipidemia, unspecified; I49.5 Sick sinus syndrome; I65.23 Occlusion and stenosis of bilateral carotid arteries; M1A.9XX0 Chronic gout, unspecified, without tophus (tophi); Z79.02 Long term (current) use of antithrombotics/antiplatelets; Z79.4 Long term (current) use of insulin; Z79.82 Long term (current) use of aspirin; Z79.899 Other long term (current) drug therapy; Z85.828 Personal history of other malignant neoplasm of skin; Z87.891 Personal history of nicotine dependence; Z95.810 Presence of automatic (implantable) cardiac defibrillator; Z90.710 Acquired absence of both cervix and uterus; Z96.651 Presence of right artificial knee joint; Z20.822 Contact with and (suspected) exposure to COVID-19
CPT/HCPCS: 36415; 71045; 80053; 81001; 83036; 83605; 83735; 83880; 84100; 84145; 84484; 85025; 85610; 85730; 86140; 87040; 87077; 87186; 87636; 93005; 94760; 96361; 96365; 96375; 99291

== ENCOUNTER 2023-01-15 14:33 | Emergency (ER) | payer MEDICARE ==
--- NOTE | 2023-01-15 15:08 | ED ---
General Adult HPI - General Source: patient, RN notes reviewed Mode of arrival: ambulatory Limitations: no limitations <Deonna Hansen - Last Filed: 01/15/23 15:06> <Drea Oropeza - Last Filed: 01/16/23 00:13> - General Chief complaint: Abdominal Pain Stated complaint: abd pain Time Seen by Provider: 01/15/23 15:06 - History of Present Illness Initial comments: 82-year-old female presents emergency department chief complaint of right lower abdomen pain. She states it is starting 2 and half days ago. She reports that the pain does not radiate. She admits to pain while laying down with movement of the leg. Prior abdominal surgeries include hysterectomy. She states she felt like she had a fever yesterday but did not take her temperature time. (Deonna Hansen) 82-year-old female presents the emergency department reporting right lower quadrant abdominal pain. States that it started 2 days ago. Right lower quadrant is extremely tender to touch. She denies any provocative factors. She has not taken any medications at home for her pain. She denies diarrhea, constipation, black or bloody stools. States that she has chronic urinary tract infections however this does not feel similar. She denies any vaginal bleeding or discharge. No abdominal trauma. Pain does not radiate. No history of appendectomy. No history of kidney stones. No other alleviating, precipitating or modifying factors (Drea Oropeza) - Related Data Home Medications Medication Instructions Recorded Confirmed Aspirin 81 mg PO DAILY 08/29/14 01/15/23 Insulin Aspart [NovoLOG Flexpen] 5 units SQ TID-W/MEALS 03/03/17 01/15/23 amLODIPine [Norvasc] 5 mg PO DAILY 09/12/20 01/15/23 Metoprolol Tartrate [Lopressor] 50 mg PO BID 10/21/20 01/15/23 Irbesartan [Avapro] 150 mg PO BID 11/14/20 01/15/23 Magnesium 250 mg PO TUSA@2100 11/14/20 01/15/23 Atorvastatin Calcium [Lipitor] 40 mg PO HS 03/11/21 01/15/23 [place]-3 Acid Ethyl Esters [Lovaza] 2 gm PO BID 11/14/21 01/15/23 Insulin Detemir [Levemir Flextouch 40 units SQ HS 02/13/22 01/15/23 Pen] Furosemide [Lasix] 40 mg PO DAILY 11/03/22 01/15/23 allopurinoL [Zyloprim] 200 mg PO DAILY 11/03/22 01/15/23 ALPRAZolam [Xanax] 0.5 mg PO HS PRN 11/09/22 01/15/23 Ezetimibe [Zetia] 10 mg PO DIRECTED 01/15/23 01/15/23 Tirzepatide [Mounjaro] 10 mg SQ SA 01/15/23 01/15/23 Previous Rx's Medication Instructions Recorded Clopidogrel [Plavix] 75 mg PO DAILY #90 tab 03/05/17 Acetaminophen-Codeine 300-30mg 1 tab PO Q6HR PRN #20 tablet 01/15/23 [Tylenol #3] polyethylene glycoL 3350 [Miralax] 17 gm PO DAILY #527 gm 01/15/23 Allergies Allergy/AdvReac Type Severity Reaction Status Date / Time adhesive tape Allergy Rash/Hives Verified 01/15/23 21:32 Review of Systems ROS Other: All systems not noted in ROS Statement are negative. <Deonna Hansen - Last Filed: 01/15/23 15:06> ROS Other: All systems not noted in ROS Statement are negative. <Drea Oropeza - Last Filed: 01/16/23 00:13> ROS Statement: Those systems with pertinent positive or pertinent negative responses have been documented in the HPI. Past Medical History Past Medical History: Cancer, Diabetes Mellitus, Hypertension, Osteoarthritis (OA) Additional Past Medical History / Comment(s): hx skin cancer, gout, SEE DR STRINGER'S HISTORY AND PHYSICAL FOR CARDIAC HISTORY, CHRONIC KIDNEY DISEASE STAGE 3, CATARACT SURGERY, gout, laser surgery left eye History of Any Multi-Drug Resistant Organisms: None Reported Past Surgical History: Hysterectomy, Joint Replacement, Orthopedic Surgery, Pacemaker, Tonsillectomy Additional Past Surgical History / Comment(s): rt knee arthroscopy, rt knee replacement, nahomy big toe joint replacement, vein stripping, surgery for fx left femur, stent placed in left carotid, PACEMAKER replaced x5 September 2020 Past Anesthesia/Blood Transfusion Reactions: No Reported Reaction Additional Past Anesthesia/Blood Transfusion Reaction / Comment(s): Pt has never had a blood transfusion. Type of Cardiac Device: Permanent Pacemaker Device Placement Date:: 09/2020 Past Psychological History: No Psychological Hx Reported Smoking Status: Former smoker Past Alcohol Use History: Occasional Past Drug Use History: None Reported - Past Family History Mother Additional Family Medical History / Comment(s): Alzheimers Father Family Medical History: Cancer Additional Family Medical History / Comment(s): Lung disease, SKIN CANCER <Deonna Hansen - Last Filed: 01/15/23 15:06> General Exam Limitations: no limitations <Deonna Hansen - Last Filed: 01/15/23 15:06> General appearance: alert, in no apparent distress Head exam: Present: atraumatic, normocephalic, normal inspection Eye exam: Present: normal appearance, PERRL, EOMI. Absent: scleral icterus, conjunctival injection, periorbital swelling ENT exam: Present: normal exam, mucous membranes moist Neck exam: Present: normal inspection. Absent: tenderness, meningismus, lymphadenopathy Respiratory exam: Present: normal lung sounds bilaterally. Absent: respiratory distress, wheezes, rales, rhonchi, stridor Cardiovascular Exam: Present: regular rate, normal rhythm, normal heart sounds. Absent: systolic murmur, diastolic murmur, rubs, gallop, clicks GI/Abdominal exam: Present: soft, tenderness (Right lower quadrant), normal bowel sounds. Absent: distended, guarding, rebound, rigid Extremities exam: Present: normal inspection, full ROM, normal capillary refill. Absent: tenderness, pedal edema, joint swelling, calf tenderness Back exam: Present: normal inspection Neurological exam: Present: alert, oriented X3, CN II-XII intact Psychiatric exam: Present: normal affect, normal mood Skin exam: Present: warm, dry, intact, normal color. Absent: rash <Drea Oropeza - Last Filed: 01/16/23 00:13> - General Exam Comments Initial Comments: Visual Physical Exam Vital signs reviewed General: Well-appearing, nontoxic, no acute distress. Head: Normocephalic, atraumatic Eyes: PERRLA, EOMI ENT: Airway patent Chest: Nonlabored breathing Skin: No visual rash, normal skin tone Neuro: Alert and oriented 3 Musculoskeletal: No gross abnormalities (Deonna Hansen) Course Vital Signs 01/15/23 01/15/23 01/15/23 15:02 18:37 20:30 Temperature 98.1 F Pulse Rate 72 62 62 Respiratory 17 18 18 Rate Blood Pressure 123/68 127/52 116/59 O2 Sat by Pulse 96 97 96 Oximetry 01/15/23 01/15/23 21:30 22:37 Temperature Pulse Rate 71 68 Respiratory 16 18 Rate Blood Pressure 127/57 119/57 O2 Sat by Pulse 100 98 Oximetry Medical Decision Making <Deonna Hansen - Last Filed: 01/15/23 15:06> - Lab Data Result diagrams: 01/15/23 16:18 01/15/23 16:18 <Drea Oropeza - Last Filed: 01/16/23 00:13> - Medical Decision Making I preformed the quick note portion of this chart. Electronically signed by Deonna Hansen PA-C (Deonna Hansen) Was pt. sent in by a medical professional or institution ([facility], APPELLATE CONFEREE, urgent care, hospital, or long term...) When possible be specific @ -Dr. Ortiz sent the patient in Did you speak to anyone other than the patient for history (EMS, parent, family, police, friend...)? What history was obtained from this source @ -No Did you review nursing and triage notes (agree or disagree)? Why? @ -I reviewed and agree with nursing and triage notes Were old charts reviewed (outside hosp., previous admission, EMS record, old EKG, old radiological studies, urgent care reports/EKG's, long term records)? Report findings @ -No old charts were reviewed Differential Diagnosis (chest pain, altered mental status, abdominal pain women, abdominal pain men, vaginal bleeding, weakness, fever, dyspnea, syncope, headache, dizziness, GI bleed, back pain, seizure, CVA, palpatations, mental health, musculoskeletal)? @ -Differential Abdominal Pain Women: Appendicitis, Cholecystitis, diverticulosis, ischemic bowel, pancreatitis, hepatitis, UTI, gastroenteritis, AAA, incarcerated hernia, bowel obstruction, constipation, inflammatory bowel, hepatitis, peptic ulcer disease, splenic infarction, perforated viscus, vulvitis, ovarian torsion, PID, kidney stone, placenta abruption, this is not meant to be an all-inclusive list EKG interpreted by me (3pts min.). @ -Not done X-rays interpreted by me (1pt min.). @ -None done CT interpreted by me (1pt min.). @ -Yes and demonstrates no acute process U/S interpreted by me (1pt. min.). @ -None done What testing was considered but not performed or refused? (CT, X-rays, U/S, labs)? Why? @ -None What meds were considered but not given or refused? Why? @ -None Did you discuss the management of the patient with other professionals (jossy alston i.e. , PA, APPELLATE CONFEREE, lab, RT, psych nurse, psychotherapist social worker, glass beveler, teacher, motorized squad commanding officer, case specialist)? Give summary @ -No Was smoking cessation discussed for >3mins.? @ -No Was critical care preformed (if so, how long)? @ -No Were there social determinants of health that impacted care today? How? (Homelessness, low income, unemployed, alcoholism, drug addiction, transpor tation, low edu. Level, literacy, decrease access to med. care, retirement, rehab)? @ -No Was there de-escalation of care discussed even if they declined (Discuss DNR or withdrawal of care, Hospice)? DNR status @ -No What co-morbidities impacted this encounter? (DM, HTN, Smoking, COPD, CAD, Cancer, CVA, ARF, Chemo, Hep., AIDS, mental health diagnosis, sleep apnea, morbid obesity)? @ -None Was patient admitted / discharged? Hospital course, mention meds given and route, prescriptions, significant lab abnormalities, going to OR and other pertinent info. @ -Upon arrival the patient was placed into room 16. Thorough history and physical exam was performed. IV access is established. Patient was given 4 mg of morphine for pain control. Laboratory studies are conducted and reviewed. Patient provided a urine sample. CT is performed. Laboratory studies and imagi ng are within normal limits. Results discussed the patient. She has had significant improvement in her pain. She feels comfortable going home at this time. Informed patient that there may be concern for abdominal wall strain. Recommend no heavy lifting or bending. She will be given a prescription for Tylenol 3's which she is only to take for significant pain. I do recommend that she take a stool softener to attempt to clear her bowels out. She has an appointment with her primary care doctor on Thursday. She is to return should she have any significant pain over the weekend. Patient agreeable to this plan and she was discharged in stable condition Undiagnosed new problem with uncertain prognosis? @ -Yes Drug Therapy requiring intensive monitoring for toxicity (Heparin, Nitro, Insulin, Cardizem)? @ -No Were any procedures done? @ -No Diagnosis/symptom? @ -Acute right lower quadrant abdominal pain, possible abdominal wall strain Acute, or Chronic, or Acute on Chronic? @ -Acute Uncomplicated (without systemic symptoms) or Complicated (systemic symptoms)? @ -Uncomplicated Side effects of treatment? @ -No Exacerbation, Progression, or Severe Exacerbation? @ -No Poses a threat to life or bodily function? How? (Chest pain, USA, MD, pneumonia, PE, COPD, DKA, ARF, appy, cholecystitis, CVA, Diverticulitis, Homicidal, Suicidal, threat to staff... and all critical care pts) @ -No (Drea Oropeza) - Lab Data Lab Results 01/15/23 01/15/23 01/15/23 Range/Units 16:18 16:18 16:18 WBC 7.6 (3.8-10.6) k/uL RBC 4.21 (3.80-5.40) m/uL Hgb 12.7 (11.4-16.0) gm/dL Hct 38.3 (34.0-46.0) % MCV 91.0 (80.0-100.0) fL MCH 30.2 (25.0-35.0) pg MCHC 33.2 (31.0-37.0) g/dL RDW 14.4 (11.5-15.5) % Plt Count 190 (150-450) k/uL MPV 7.7 Neutrophils % 62 % Lymphocytes % 20 % Monocytes % 7 % Eosinophils % 9 % Basophils % 1 % Neutrophils # 4.7 (1.3-7.7) k/uL Lymphocytes # 1.5 (1.0-4.8) k/uL Monocytes # 0.5 (0-1.0) k/uL Eosinophils # 0.7 (0-0.7) k/uL Basophils # 0.0 (0-0.2) k/uL Sodium 142 (137-145) mmol/L Potassium 4.3 (3.5-5.1) mmol/L Chloride 103 (98-107) mmol/L Carbon Dioxide 30 (22-30) mmol/L Anion Gap 9 mmol/L BUN 47 H (7-17) mg/dL Creatinine 1.35 H (0.52-1.04) mg/dL Est GFR (CKD-EPI)AfAm 43 (>60 ml/min/1.73 sqM) Est GFR (CKD-EPI)NonAf 37 (>60 ml/min/1.73 sqM) Glucose 89 (74-99) mg/dL Plasma Lactic Acid Julian 0.8 (0.7-2.0) mmol/L Calcium 8.9 (8.4-10.2) mg/dL Total Bilirubin 0.7 (0.2-1.3) mg/dL AST 21 (14-36) U/L ALT 15 (4-34) U/L Alkaline Phosphatase 79 (38-126) U/L Total Protein 6.7 (6.3-8.2) g/dL Albumin 3.8 (3.5-5.0) g/dL Amylase 55 (30-110) U/L Lipase 88 (23-300) U/L Urine Color Urine Appearance (Clear) Urine pH (5.0-8.0) Ur Specific Alliance (1.001-1.035) Urine Protein (Negative) Urine Glucose (UA) (Negative) Urine Ketones (Negative) Urine Blood (Negative) Urine Nitrite (Negative) Urine Bilirubin (Negative) Urine Urobilinogen (<2.0) mg/dL Ur Leukocyte Esterase (Negative) 01/15/23 Range/Units 18:51 WBC (3.8-10.6) k/uL RBC (3.80-5.40) m/uL Hgb (11.4-16.0) gm/dL Hct (34.0-46.0) % MCV (80.0-100.0) fL MCH (25.0-35.0) pg MCHC (31.0-37.0) g/dL RDW (11.5-15.5) % Plt Count (150-450) k/uL MPV Neutrophils % % Lymphocytes % % Monocytes % % Eosinophils % % Basophils % % Neutrophils # (1.3-7.7) k/uL Lymphocytes # (1.0-4.8) k/uL Monocytes # (0-1.0) k/uL Eosinophils # (0-0.7) k/uL Basophils # (0-0.2) k/uL Sodium (137-145) mmol/L Potassium (3.5-5.1) mmol/L Chloride (98-107) mmol/L Carbon Dioxide (22-30) mmol/L Anion Gap mmol/L BUN (7-17) mg/dL Creatinine (0.52-1.04) mg/dL Est GFR (CKD-EPI)AfAm (>60 ml/min/1.73 sqM) Est GFR (CKD-EPI)NonAf (>60 ml/min/1.73 sqM) Glucose (74-99) mg/dL Plasma Lactic Acid Julian (0.7-2.0) mmol/L Calcium (8.4-10.2) mg/dL Total Bilirubin (0.2-1.3) mg/dL AST (14-36) U/L ALT (4-34) U/L Alkaline Phosphatase (38-126) U/L Total Protein (6.3-8.2) g/dL Albumin (3.5-5.0) g/dL Amylase (30-110) U/L Lipase (23-300) U/L Urine Color Colorless Urine Appearance Clear (Clear) Urine pH 5.5 (5.0-8.0) Ur Specific [place] 1.012 (1.001-1.035) Urine Protein Trace H (Negative) Urine Glucose (UA) Negative (Negative) Urine Ketones Negative (Negative) Urine Blood Negative (Negative) Urine Nitrite Negative (Negative) Urine Bilirubin Negative (Negative) Urine Urobilinogen <2.0 (<2.0) mg/dL Ur Leukocyte Esterase Negative (Negative) Disposition <Deonna Hansen - Last Filed: 01/15/23 15:06> Is patient prescribed a controlled substance at d/c from ED?: Yes When asked, does pt state using other controlled substances?: No If prescribed controlled substance>3 days was MAPS reviewed?: Prescribed <3 Days Time of Disposition: 21:54 <Drea Oropeza - Last Filed: 01/16/23 00:13> Clinical Impression: Abdominal pain Disposition: HOME SELF-CARE Condition: Stable Instructions (If sedation given, give patient instructions): Abdominal Pain (ED) Additional Instructions: No heavy lifting or bending. Please use the MiraLAX to help move your bowels a bit. Take the pain medication only you have severe pain. Follow-up with your doctor your scheduled appointment and return if your symptoms worsen this weekend Prescriptions: polyethylene glycoL 3350 [Miralax] 17 gm PO DAILY #527 gm Acetaminophen-Codeine 300-30mg [Tylenol #3] 1 tab PO Q6HR PRN #20 tablet PRN Reason: pain Referrals: Regina Ortiz MD [Primary Care Provider] - 1-2 days
[2023-01-15 15:22] VITALS: TEMP 98.1
[2023-01-15 16:49] LABS: Basophils % (A) 1 %; Eosinophils # (A) 0.7 k/uL (0-0.7); Eosinophils % (A) 9 %; HCT 38.3 % (34.0-46.0); HGB 12.7 gm/dL (11.4-16.0); Lymphocytes # (A) 1.5 k/uL (1.0-4.8); Lymphocytes % (A) 20 %; MCH 30.2 pg (25.0-35.0); MCHC 33.2 g/dL (31.0-37.0); Mean Platelet Volume 7.7; Monocytes # (A) 0.5 k/uL (0-1.0); Monocytes % (A) 7 %; Neutrophils # (A) 4.7 k/uL (1.3-7.7); Neutrophils % (A) 62 %; Platelet Count 190 k/uL (150-450); RBC 4.21 m/uL (3.80-5.40); RDW 14.4 % (11.5-15.5); WBC 7.6 k/uL (3.8-10.6)
[2023-01-15 16:51] LABS: ALT 15 U/L (4-34); AST 21 U/L (14-36); African American GFR (CKD) 43 (>60 ml/min/1.73 sqM); Albumin 3.8 g/dL (3.5-5.0); Alkaline Phosphatase 79 U/L (38-126); Amylase 55 U/L (30-110); Anion Gap 9 mmol/L; Blood Urea Nitrogen 47 mg/dL (7-17); Calcium 8.9 mg/dL (8.4-10.2); Carbon Dioxide 30 mmol/L (22-30); Chloride 103 mmol/L (98-107); Glucose 89 mg/dL (74-99); Lipase 88 U/L (23-300); Non-African American GFR(CKD) 37 (>60 ml/min/1.73 sqM); Potassium 4.3 mmol/L (3.5-5.1); Sodium 142 mmol/L (137-145); Total Bilirubin 0.7 mg/dL (0.2-1.3); Total Protein 6.7 g/dL (6.3-8.2)
[2023-01-15] MEDS ORDERED: MORPHINE SULFATE 4 MG/ML SYRINGE IVP STA (18:55)
[2023-01-15 19:17] LABS: Appearance,Urine Clear (Clear); Bilirubin,Urine Negative (Negative); Blood,Urine Negative (Negative); Color,Urine Colorless; Glucose,Urine (UA) Negative (Negative); Ketones,Urine Negative (Negative); Leukocyte Esterase,Urine Negative (Negative); Nitrite,Urine Negative (Negative); PH, Urine 5.5 (5.0-8.0); Protein,Urine Trace (Negative); Specific Gravity,Urine 1.012 (1.001-1.035); Urobilinogen,Urine <2.0 mg/dL (<2.0)
[2023-01-15] MEDS ORDERED: SODIUM CHLORIDE 0.9% 1,000 ML IV ONE (19:48)
--- NOTE | 2023-01-15 20:54 | CT ---
EXAMINATION TYPE: CT abdomen pelvis w con DATE OF EXAM: 01/15/2023 HISTORY: RLQ abdominal pain CT DLP: 1296.1mGycm Automated Exposure Control for Dose Reduction was Utilized. CONTRAST: CT scan of the abdomen and pelvis is performed with IV Contrast, patient injected with 80 c c with saline mL of Isovue 370. COMPARISON: 01/28/2011 FINDINGS: LUNG BASES: No acute process. Moderate cardiomegaly with panchamber enlargement, and coronary calcifi cations and aortic valve calcifications. LIVER/GB: No significant abnormality is appreciated. PANCREAS: No significant abnormality is seen. SPLEEN: No significant abnormality is seen. ADRENALS: No significant abnormality is seen. KIDNEYS: No significant abnormality is seen. BOWEL: No significant abnormality is seen. PERITONEAL CAVITY: No fluid or pneumoperitoneum. LYMPH NODES: No greater than 1cm abdominal or pelvic lymph nodes are appreciated. VASCULATURE: No significant abnormality seen. PELVIC VISCERA: No gross abnormality seen. OSSEOUS STRUCTURES: No significant abnormality is seen. IMPRESSION: No acute CT process.
[2023-01-15] MEDS ORDERED: ACET/COD 300 MG/30 MG STARTER PACK 6 TAB BTL PO STA (21:38)
[2023-01-15 22:48] VITALS: BP 119/57; PULSE 68; RESP 18
== END 2023-01-15 22:50 | disposition home or self-care (01) ==
LOC: EC 14:33
DX: R10.31 Right lower quadrant pain (principal); E11.22 Type 2 diabetes mellitus with diabetic chronic kidney disease; E11.36 Type 2 diabetes mellitus with diabetic cataract; I12.9 Hypertensive chronic kidney disease with stage 1 through stage 4 chronic kidney disease, or unspecified chronic kidney disease; N18.30 Chronic kidney disease, stage 3 unspecified; M10.9 Gout, unspecified; M19.90 Unspecified osteoarthritis, unspecified site; Z79.82 Long term (current) use of aspirin; Z79.4 Long term (current) use of insulin; Z79.899 Other long term (current) drug therapy; Z91.048 Other nonmedicinal substance allergy status; Z87.891 Personal history of nicotine dependence
CPT/HCPCS: 36415; 80053; 82150; 83605; 83690; 85025; 81003; 74177; 99284; 96374; J2270; Q9967

== ENCOUNTER 2023-03-16 15:42 | Emergency (ER) | payer MEDICARE ==
[2023-03-16 15:52] VITALS: RESP 18
--- NOTE | 2023-03-16 16:13 | ED ---
General Adult HPI - General Chief complaint: Chest Pain Stated complaint: Chest Pain/Back Pain Time Seen by Provider: 03/16/23 16:00 Source: patient, RN notes reviewed, old records reviewed Mode of arrival: wheelchair Limitations: no limitations - History of Present Illness Initial comments: This is a 82-year-old female who presents emergency department because she is having some left-sided chest pain that sharp in nature and lasts 1 second at a time. Patient states it started at 9:30 this morning and it comes every few minutes and goes away. Patient states there is no associated shortness of breath there's no palpitations there is no lasting pain per patient states is sharp 1 second pain and then is gone away. Patient states is not reproducible she denies any rashes or erythema. Patient denies abdominal pain patient denies nausea vomiting diarrhea. Patient denies any headache patient denies numbness weakness. Patient states it occurred when looking at the EKG and there was no change in the EKG when she experienced this on second episode in front of us. - Related Data Home Medications Medication Instructions Recorded Confirmed Aspirin 81 mg PO DAILY 08/29/14 03/16/23 Insulin Aspart [NovoLOG Flexpen] 5 units SQ TID-W/MEALS 03/03/17 03/16/23 amLODIPine [Norvasc] 5 mg PO DAILY 09/12/20 03/16/23 Irbesartan [Avapro] 150 mg PO BID 11/14/20 03/16/23 Magnesium 250 mg PO TUSA@2100 11/14/20 03/16/23 Atorvastatin Calcium [Lipitor] 40 mg PO HS 03/11/21 03/16/23 Insulin Detemir [Levemir Flextouch 40 units SQ HS 02/13/22 03/16/23 Pen] Furosemide [Lasix] 20 mg PO BID PRN 11/03/22 03/16/23 allopurinoL [Zyloprim] 100 mg PO BID 11/03/22 03/16/23 ALPRAZolam [Xanax] 0.5 mg PO HS PRN 11/09/22 03/16/23 Ezetimibe [Zetia] 10 mg PO DAILY 01/15/23 03/16/23 Tirzepatide [Mounjaro] 10 mg SQ SA 01/15/23 03/16/23 Metoprolol Succinate (ER) [Toprol 100 mg PO DAILY 03/16/23 03/16/23 Xl] Potassium Chloride ER [K-Dur 10] 10 meq PO DAILY PRN 03/16/23 03/16/23 Previous Rx's Medication Instructions Recorded Clopidogrel [Plavix] 75 mg PO DAILY #90 tab 03/05/17 Allergies Allergy/AdvReac Type Severity Reaction Status Date / Time adhesive tape Allergy Rash/Hives Verified 03/16/23 19:34 Review of Systems ROS Statement: Those systems with pertinent positive or pertinent negative responses have been documented in the HPI. ROS Other: All systems not noted in ROS Statement are negative. Past Medical History Past Medical History: Cancer, Diabetes Mellitus, Hypertension, Osteoarthritis (OA) Additional Past Medical History / Comment(s): hx skin cancer, gout, SEE DR STRINGER'S HISTORY AND PHYSICAL FOR CARDIAC HISTORY, CHRONIC KIDNEY DISEASE STAGE 3, CATARACT SURGERY, gout, laser surgery left eye History of Any Multi-Drug Resistant Organisms: None Reported Past Surgical History: Hysterectomy, Joint Replacement, Orthopedic Surgery, Pacemaker, Tonsillectomy Additional Past Surgical History / Comment(s): rt knee arthroscopy, rt knee replacement, nahomy big toe joint replacement, vein stripping, surgery for fx left femur, stent placed in left carotid, PACEMAKER replaced x5 September 2020 Past Anesthesia/Blood Transfusion Reactions: No Reported Reaction Additional Past Anesthesia/Blood Transfusion Reaction / Comment(s): Pt has never had a blood transfusion. Type of Cardiac Device: Permanent Pacemaker Device Placement Date:: 09/2020 Past Psychological History: No Psychological Hx Reported Smoking Status: Former smoker Past Alcohol Use History: Occasional Past Drug Use History: None Reported - Past Family History Mother Additional Family Medical History / Comment(s): Alzheimers Father Family Medical History: Cancer Additional Family Medical History / Comment(s): Lung disease, SKIN CANCER General Exam - General Exam Comments Initial Comments: GENERAL: Patient is well-developed and well-nourished. Patient is nontoxic and well- hydrated and is in no acute distress. ENT: Neck is soft and supple. No significant lymphadenopathy is noted. Oropharynx is clear. Moist mucous membranes. Neck has full range of motion without eliciting any pain. EYES: The sclera were anicteric and conjunctiva were pink and moist. Extraocular movements were intact and pupils were equal round and reactive to light. Eyelids were unremarkable. PULMONARY: Unlabored respirations. Good breath sounds bilaterally. No audible rales rhonchi or wheezing was noted. CARDIOVASCULAR: There is a regular rate and rhythm without any murmurs gallops or rubs. ABDOMEN: Soft and nontender with normal bowel sounds. SKIN: Skin is clear with no lesions or rashes and otherwise unremarkable. NEUROLOGIC: Patient is alert and oriented x3. Cranial nerves II through XII are grossly intact. Motor and sensory are also intact. Normal speech, volume and content. Symmetrical smile. MUSCULOSKELETAL: Normal extremities with adequate strength and full range of motion. No lower extremity swelling or edema. No calf tenderness. LYMPHATICS: No significant lymphadenopathy is noted PSYCHIATRIC: Normal psychiatric evaluation. Limitations: no limitations Course Vital Signs 03/16/23 03/16/23 03/16/23 15:49 16:52 17:50 Temperature 98.0 F 98.9 F Pulse Rate 71 62 64 Pulse Rate [ Chemical Pumper ] Respiratory 18 18 18 Rate Blood Pressure 150/79 151/61 148/62 O2 Sat by Pulse 97 95 95 Oximetry 03/16/23 03/16/23 03/16/23 17:51 18:00 19:00 Temperature Pulse Rate 72 68 Pulse Rate [ 62 Chemical Pumper ] Respiratory 18 18 18 Rate Blood Pressure 148/59 145/67 O2 Sat by Pulse 94 L 95 Oximetry 03/16/23 19:38 Temperature 98.0 F Pulse Rate 77 Pulse Rate [ Chemical Pumper ] Respiratory 18 Rate Blood Pressure 138/78 O2 Sat by Pulse 97 Oximetry Medical Decision Making - Medical Decision Making EKG shows a paced rhythm at 65 bpm AK interval is 242 QRS is 167 QT interval 464 QTC is 476. Was pt. sent in by a medical professional or institution (, PA, DIRECTOR OF COMMUNITY SERVICES, urgent care, hospital, or fci...) When possible be specific @ -No Did you speak to anyone other than the patient for history (EMS, parent, family, police, friend...)? What history was obtained from this source @ -No Did you review nursing and triage notes (agree or disagree)? Why? @ -I reviewed and agree with nursing and triage notes Were old charts reviewed (outside hosp., previous admission, EMS record, old EKG, old radiological studies, urgent care reports/EKG's, fci records)? Report findings @ -I reviewed prior charts in prior lab work on this patient Differential Diagnosis (chest pain, altered mental status, abdominal pain women, abdominal pain men, vaginal bleeding, weakness, fever, dyspnea, syncope, headache, dizziness, GI bleed, back pain, seizure, CVA, palpatations, mental health, musculoskeletal)? @ -Differential Chest Pain: Stable Angina, Unstable Angina, STEMI, NSTEMI Aortic Dissection, Pneumothorax, Musculoskeletal, Esophageal Spasm GERD, Cholecystitis, Pancreatitis, Zoster, this is not meant to be an all-inclusive list. EKG interpreted by me (3pts min.). @ -As above X-rays interpreted by me (1pt min.). @ -X-ray shows no acute abnormality CT interpreted by me (1pt min.). @ -CT of the chest shows no pulmonary embolism. U/S interpreted by me (1pt. min.). @ -None done What testing was considered but not performed or refused? (CT, X-rays, U/S, labs)? Why? @ -None What meds were considered but not given or refused? Why? @ -None Did you discuss the management of the patient with other professionals (professionals i.e. , PA, DIRECTOR OF COMMUNITY SERVICES, lab, RT, psych nurse, social studies department chair, quality rep, teacher, code enforcement officer, community case manager)? Give summary @ -No Was smoking cessation discussed for >3mins.? @ -No Was critical care preformed (if so, how long)? @ -No Were there social determinants of health that impacted care today? How? (Homeles sness, low income, unemployed, alcoholism, drug addiction, transportation, low edu. Level, literacy, decrease access to med. care, custodial, rehab)? @ -No Was there de-escalation of care discussed even if they declined (Discuss DNR or withdrawal of care, Hospice)? DNR status @ -No What co-morbidities impacted this encounter? (DM, HTN, Smoking, COPD, CAD, Cancer, CVA, ARF, Chemo, Hep., AIDS, mental health diagnosis, sleep apnea, morbid obesity)? @ -None Was patient admitted / discharged? Hospital course, mention meds given and route, prescriptions, significant lab abnormalities, going to OR and other pertinent info. @ -I went back into reevaluate the patient she stated after she moved her arms around she felt a change in her chest and no longer had any chest pain since she lifted her arm above her head. Patient's CAT scan was normal lab work was normal and patient feels comfortable going home and following up with her physician. Undiagnosed new problem with uncertain prognosis? @ -No Drug Therapy requiring intensive monitoring for toxicity (Heparin, Nitro, Insulin, Cardizem)? @ -No Were any procedures done? @ -No Diagnosis/symptom? @ -Atypical chest pain Acute, or Chronic, or Acute on Chronic? @ -Acute Uncomplicated (without systemic symptoms) or Complicated (systemic symptoms)? @ -Complicated Side effects of treatment? @ -No Exacerbation, Progression, or Severe Exacerbation? @ -No Poses a threat to life or bodily function? How? (Chest pain, USA, NV, pneumonia, PE, COPD, DKA, ARF, appy, cholecystitis, CVA, Diverticulitis, Homicidal, Suicidal, threat to staff... and all critical care pts) @ -No - Lab Data Result diagrams: 03/16/23 16:15 03/16/23 16:15 Lab Results 03/16/23 03/16/23 03/16/23 Range/Units 16:15 16:15 16:15 WBC 8.9 (3.8-10.6) k/uL RBC 4.62 (3.80-5.40) m/uL Hgb 13.5 (11.4-16.0) gm/dL Hct 42.2 (34.0-46.0) % MCV 91.4 (80.0-100.0) fL MCH 29.2 (25.0-35.0) pg MCHC 32.0 (31.0-37.0) g/dL RDW 14.5 (11.5-15.5) % Plt Count 221 (150-450) k/uL MPV 7.6 Neutrophils % 64 % Lymphocytes % 21 % Monocytes % 4 % Eosinophils % 9 % Basophils % 1 % Neutrophils # 5.7 (1.3-7.7) k/uL Lymphocytes # 1.9 (1.0-4.8) k/uL Monocytes # 0.4 (0-1.0) k/uL Eosinophils # 0.8 H (0-0.7) k/uL Basophils # 0.1 (0-0.2) k/uL PT 10.0 (10.0-12.5) sec INR 0.9 (<1.2) APTT 22.6 (22.0-30.0) sec D-Dimer 3.97 H (<0.60) mg/L FEU Sodium 139 (137-145) mmol/L Potassium 4.5 (3.5-5.1) mmol/L Chloride 101 (98-107) mmol/L Carbon Dioxide 25 (22-30) mmol/L Anion Gap 13 mmol/L BUN 39 H (7-17) mg/dL Creatinine 1.10 H (0.52-1.04) mg/dL Est GFR (CKD-EPI)AfAm 55 (>60 ml/min/1.73 sqM) Est GFR (CKD-EPI)NonAf 48 (>60 ml/min/1.73 sqM) Glucose 164 H (74-99) mg/dL Calcium 9.3 (8.4-10.2) mg/dL Magnesium 2.1 (1.6-2.3) mg/dL Total Bilirubin 0.6 (0.2-1.3) mg/dL AST 22 (14-36) U/L ALT 17 (4-34) U/L Alkaline Phosphatase 106 (38-126) U/L Troponin I (0.000-0.034) ng/mL Total Protein 7.1 (6.3-8.2) g/dL Albumin 4.1 (3.5-5.0) g/dL 03/16/23 Range/Units 16:15 WBC (3.8-10.6) k/uL RBC (3.80-5.40) m/uL Hgb (11.4-16.0) gm/dL Hct (34.0-46.0) % MCV (80.0-100.0) fL MCH (25.0-35.0) pg MCHC (31.0-37.0) g/dL RDW (11.5-15.5) % Plt Count (150-450) k/uL MPV Neutrophils % % Lymphocytes % % Monocytes % % Eosinophils % % Basophils % % Neutrophils # (1.3-7.7) k/uL Lymphocytes # (1.0-4.8) k/uL Monocytes # (0-1.0) k/uL Eosinophils # (0-0.7) k/uL Basophils # (0-0.2) k/uL PT (10.0-12.5) sec INR (<1.2) APTT (22.0-30.0) sec D-Dimer (<0.60) mg/L FEU Sodium (137-145) mmol/L Potassium (3.5-5.1) mmol/L Chloride (98-107) mmol/L Carbon Dioxide (22-30) mmol/L Anion Gap mmol/L BUN (7-17) mg/dL Creatinine (0.52-1.04) mg/dL Est GFR (CKD-EPI)AfAm (>60 ml/min/1.73 sqM) Est GFR (CKD-EPI)NonAf (>60 ml/min/1.73 sqM) Glucose (74-99) mg/dL Calcium (8.4-10.2) mg/dL Magnesium (1.6-2.3) mg/dL Total Bilirubin (0.2-1.3) mg/dL AST (14-36) U/L ALT (4-34) U/L Alkaline Phosphatase (38-126) U/L Troponin I <0.012 (0.000-0.034) ng/mL Total Protein (6.3-8.2) g/dL Albumin (3.5-5.0) g/dL Disposition Clinical Impression: Atypical chest pain Disposition: HOME SELF-CARE Instructions (If sedation given, give patient instructions): Chest Pain (ED), Costochondritis (ED) Is patient prescribed a controlled substance at d/c from ED?: No Referrals: Regina Ortiz MD [Primary Care Provider] - 1-2 days Time of Disposition: 19:19
[2023-03-16 16:24] LABS: Basophils # (A) 0.1 k/uL (0-0.2); Basophils % (A) 1 %; Eosinophils # (A) 0.8 k/uL (0-0.7); Eosinophils % (A) 9 %; HCT 42.2 % (34.0-46.0); HGB 13.5 gm/dL (11.4-16.0); Lymphocytes # (A) 1.9 k/uL (1.0-4.8); Lymphocytes % (A) 21 %; MCH 29.2 pg (25.0-35.0); MCV 91.4 fL (80.0-100.0); Mean Platelet Volume 7.6; Monocytes # (A) 0.4 k/uL (0-1.0); Monocytes % (A) 4 %; Neutrophils # (A) 5.7 k/uL (1.3-7.7); Neutrophils % (A) 64 %; Platelet Count 221 k/uL (150-450); RBC 4.62 m/uL (3.80-5.40); RDW 14.5 % (11.5-15.5); WBC 8.9 k/uL (3.8-10.6)
[2023-03-16 16:41] LABS: ALT 17 U/L (4-34); AST 22 U/L (14-36); African American GFR (CKD) 55 (>60 ml/min/1.73 sqM); Albumin 4.1 g/dL (3.5-5.0); Alkaline Phosphatase 106 U/L (38-126); Anion Gap 13 mmol/L; Blood Urea Nitrogen 39 mg/dL (7-17); Calcium 9.3 mg/dL (8.4-10.2); Carbon Dioxide 25 mmol/L (22-30); Chloride 101 mmol/L (98-107); Glucose 164 mg/dL (74-99); Magnesium 2.1 mg/dL (1.6-2.3); Non-African American GFR(CKD) 48 (>60 ml/min/1.73 sqM); Potassium 4.5 mmol/L (3.5-5.1); Sodium 139 mmol/L (137-145); Total Bilirubin 0.6 mg/dL (0.2-1.3); Total Protein 7.1 g/dL (6.3-8.2)
[2023-03-16 16:59] LABS: INR 0.9 (<1.2); Partial Thromboplastin Time 22.6 sec (22.0-30.0)
--- NOTE | 2023-03-16 17:01 | XR ---
EXAMINATION TYPE: XR chest 2V DATE OF EXAM: 03/16/2023 4:39 PM CLINICAL INDICATION:Female, 82 years old with history of Chest Pain; [facility] COMPARISON: Chest radiographs from 11/23/2022. TECHNIQUE: XR chest 2V Frontal and lateral views of the chest. FINDINGS: Lungs/Pleura: There is no evidence of pleural effusion, focal consolidation, or pneumothorax. Pulmonary vascularity: Pulmonary vascular congestion. Heart/mediastinum: Cardiomediastinal silhouette is enlarged and stable. Atherosclerotic calcificatio ns are seen in the aorta. Correlate cardiac conduction device present. Musculoskeletal: No acute osseous pathology. IMPRESSION: Cardiomegaly and mild pulmonary vascular congestion. Correlate with BNP for congestive heart failure.
--- NOTE | 2023-03-16 18:41 | CT ---
EXAMINATION TYPE: CT chest angio for PE CT DLP: 288.9 mGycm, Automated exposure control for dose reduction was used. DATE OF EXAM: 03/16/2023 6:14 PM COMPARISON: Chest radiograph from same day. 04/02/2022. CLINICAL INDICATION:Female, 82 years old with history of Chest pain and d-dimer; Chest pain and d-dim er TECHNIQUE/CONTRAST: CTA scan of the thorax is performed with IV Contrast, patient injected with 80cc mL of Isovue 300, OK P images are created and reviewed these are created on a separate workstation.. FINDINGS: Pulmonary Artery: There is no evidence for a filling defect within the pulmonary vasculature to sugge st acute pulmonary embolism. The pulmonary artery mildly enlarged up to 3.3 cm.. Lungs/Pleura: Paraseptal emphysema changes throughout the lungs. Scattered peripheral reticulation ev idence for pleural effusion. No evidence of focal consolidation, pleural effusion or pneumothorax. Airway: Large airways are patent. Heart: Heart is enlarged for size. Aortic valve leaflet calcifications. Vasculature: No evidence of aortic aneurysm. Mediastinum: No gross evidence of adenopathy. Small hiatal hernia is present. Musculoskeletal: No acute osseous abnormalities Soft Tissues: Cardiac conduction device with leads terminating in the coronary sinus right ventricle and right atrium. Lower neck: No significant findings. Upper Abdomen: Left renal cyst IMPRESSION: 1. No evidence of pulmonary embolism. 2. Cardiomegaly with evidence of pulmonary hypertension. Correlate with serum BNP for congestive hear t failure.
[2023-03-16 20:01] VITALS: BP 138/78; PULSE 77; TEMP 98
== END 2023-03-16 19:39 | disposition home or self-care (01) ==
LOC: EC 15:42
DX: I27.20 Pulmonary hypertension, unspecified (principal); I13.0 Hypertensive heart and chronic kidney disease with heart failure and stage 1 through stage 4 chronic kidney disease, or unspecified chronic kidney disease; E11.22 Type 2 diabetes mellitus with diabetic chronic kidney disease; N18.30 Chronic kidney disease, stage 3 unspecified; Z79.82 Long term (current) use of aspirin; Z79.4 Long term (current) use of insulin; Z87.891 Personal history of nicotine dependence; Z91.09 Other allergy status, other than to drugs and biological substances; Z79.899 Other long term (current) drug therapy
CPT/HCPCS: 36415; 93005; 85379; 80053; 83735; 84484; 85025; 85610; 85730; 71046; 71275; 99285; Q9967

== ENCOUNTER 2023-04-05 14:59 | Emergency (ER) | payer MEDICARE ==
[2023-04-05 15:22] VITALS: RESP 18
--- NOTE | 2023-04-05 15:24 | ED ---
Syncope HPI - General Stated Complaint: Dizzness Time Seen by Provider: 04/05/23 15:06 Source: patient Mode of arrival: EMS Limitations: no limitations - History of Present Illness Initial Comments: This patient is an 83-year-old woman who was playing bingo this afternoon when she started to feel very lightheaded like she was going to pass out. She also noted that there was some pain at the right side of her neck. When the symptoms persisted EMS was called and they brought her here to have evaluation. Patient has not noted other symptoms. No chest pain, dyspnea, diaphoresis, nausea or vomiting. The patient notes that last week "everyone in my house was sick," and that she had sore throat. MD Complaint: felt faint, almost passed out -: minutes(s) Prodromal Symptoms: none Witnessed: yes - by bystander Current Symptoms: lightheaded Context: other (Was playing bingo) - Related Data Home Medications Medication Instructions Recorded Confirmed Aspirin 81 mg PO DAILY 08/29/14 03/16/23 Insulin Aspart [NovoLOG Flexpen] 5 units SQ TID-W/MEALS 03/03/17 03/16/23 amLODIPine [Norvasc] 5 mg PO DAILY 09/12/20 03/16/23 Irbesartan [Avapro] 150 mg PO BID 11/14/20 03/16/23 Magnesium 250 mg PO TUSA@2100 11/14/20 03/16/23 Atorvastatin Calcium [Lipitor] 40 mg PO HS 03/11/21 03/16/23 Insulin Detemir [Levemir Flextouch 40 units SQ HS 02/13/22 03/16/23 Pen] Furosemide [Lasix] 20 mg PO BID PRN 11/03/22 03/16/23 allopurinoL [Zyloprim] 100 mg PO BID 11/03/22 03/16/23 ALPRAZolam [Xanax] 0.5 mg PO HS PRN 11/09/22 03/16/23 Ezetimibe [Zetia] 10 mg PO DAILY 01/15/23 03/16/23 Tirzepatide [Mounjaro] 10 mg SQ SA 01/15/23 03/16/23 Metoprolol Succinate (ER) [Toprol 100 mg PO DAILY 03/16/23 03/16/23 Xl] Potassium Chloride ER [K-Dur 10] 10 meq PO DAILY PRN 03/16/23 03/16/23 Previous Rx's Medication Instructions Recorded Clopidogrel [Plavix] 75 mg PO DAILY #90 tab 03/05/17 Allergies Allergy/AdvReac Type Severity Reaction Status Date / Time adhesive tape Allergy Rash/Hives Verified 04/05/23 15:22 Review of Systems ROS Statement: Those systems with pertinent positive or pertinent negative responses have been documented in the HPI. ROS Other: All systems not noted in ROS Statement are negative. Constitutional: Denies: fever, chills, weakness Eyes: Denies: eye pain, vision change ENT: Reports: as per HPI, throat pain. Denies: congestion Respiratory: Denies: cough, dyspnea Cardiovascular: Reports: syncope (Near-syncope). Denies: chest pain, palpitations, edema Gastrointestinal: Denies: abdominal pain, nausea, vomiting Genitourinary: Denies: dysuria, hematuria Musculoskeletal: Denies: back pain Skin: Denies: rash Neurological: Denies: headache, weakness, numbness Past Medical History Past Medical History: Cancer, Diabetes Mellitus, Hypertension, Osteoarthritis (OA) Additional Past Medical History / Comment(s): hx skin cancer, gout, SEE DR STRINGER'S HISTORY AND PHYSICAL FOR CARDIAC HISTORY, CHRONIC KIDNEY DISEASE STAGE 3, CATARACT SURGERY, gout, laser surgery left eye History of Any Multi-Drug Resistant Organisms: None Reported Past Surgical History: Hysterectomy, Joint Replacement, Orthopedic Surgery, Pacemaker, Tonsillectomy Additional Past Surgical History / Comment(s): rt knee arthroscopy, rt knee replacement, nahomy big toe joint replacement, vein stripping, surgery for fx left femur, stent placed in left carotid, PACEMAKER replaced x5 September 2020 Past Anesthesia/Blood Transfusion Reactions: No Reported Reaction Additional Past Anesthesia/Blood Transfusion Reaction / Comment(s): Pt has never had a blood transfusion. Type of Cardiac Device: Permanent Pacemaker Device Placement Date:: 09/2020 Past Psychological History: No Psychological Hx Reported Smoking Status: Former smoker Past Alcohol Use History: Occasional Past Drug Use History: None Reported - Past Family History Mother Additional Family Medical History / Comment(s): Alzheimers Father Family Medical History: Cancer Additional Family Medical History / Comment(s): Lung disease, SKIN CANCER General Exam General appearance: alert, in no apparent distress Head exam: Present: atraumatic, normocephalic Eye exam: Present: normal appearance. Absent: scleral icterus, conjunctival injection ENT exam: Present: normal oropharynx Neck exam: Present: normal inspection Respiratory exam: Present: normal lung sounds bilaterally. Absent: respiratory distress, wheezes, rales, rhonchi, stridor Cardiovascular Exam: Present: regular rate, normal rhythm, normal heart sounds. Absent: systolic murmur, diastolic murmur, rubs, gallop GI/Abdominal exam: Present: soft. Absent: distended, tenderness, guarding, rebound, rigid, mass Extremities exam: Present: normal inspection, normal capillary refill. Absent: pedal edema, calf tenderness Back exam: Present: normal inspection. Absent: CVA tenderness (R), CVA tenderness (L) Neurological exam: Present: alert, oriented X3, CN II-XII intact. Absent: motor sensory deficit Skin exam: Present: warm, dry, intact, normal color. Absent: rash Course Vital Signs 04/05/23 04/05/23 04/05/23 15:19 15:43 15:46 Temperature 98.6 F Pulse Rate 70 Pulse Rate [ 71 75 Hoist Operator ] Respiratory 18 Rate Blood Pressure 171/68 Blood Pressure 148/73 145/74 [Left Arm] O2 Sat by Pulse 100 95 95 Oximetry 04/05/23 04/05/23 04/05/23 15:48 17:02 18:16 Temperature Pulse Rate 66 63 Pulse Rate [ 79 Hoist Operator ] Respiratory 18 18 Rate Blood Pressure 126/66 148/79 Blood Pressure 155/71 [Left Arm] O2 Sat by Pulse 95 99 98 Oximetry 04/05/23 18:59 Temperature 97.8 F Pulse Rate 71 Pulse Rate [ Hoist Operator ] Respiratory 18 Rate Blood Pressure 141/73 Blood Pressure [Left Arm] O2 Sat by Pulse 96 Oximetry EKG Findings - EKG Comments: EKG Findings:: The rhythm is paced, rate 66 bpm. - EKG Results: EKG: interpreted by BRANDOND Medical Decision Making - Medical Decision Making The patient had chest x-ray which I interpreted as showing no acute infiltrate or pneumothorax. There is cardiomegaly. Was pt. sent in by a medical professional or institution (, PA, TENTER FEEDER, urgent care, hospital, or penitentiary...) When possible be specific @ -[No] Did you speak to anyone other than the patient for history (EMS, parent, family, police, friend...)? What history was obtained from this source @ -[No] Did you review nursing and triage notes (agree or disagree)? Why? @ -[I reviewed and agree with nursing and triage notes] Were old charts reviewed (outside hosp., previous admission, EMS record, old EKG, old radiological studies, urgent care reports/EKG's, penitentiary records)? Report findings @ -[No old charts were reviewed] Differential Diagnosis (chest pain, altered mental status, abdominal pain women, abdominal pain men, vaginal bleeding, weakness, fever, dyspnea, syncope, headache, dizziness, GI bleed, back pain, seizure, CVA, palpatations, mental health, musculoskeletal)? @ -[Differential Weakness: Hypoglycemia, shock, sepsis, hyponatremia, anemia, infection, SD, ETOH, adverse medicine reaction, overdose, stroke, this is not meant to be an all-inclusive list. EKG interpreted by me (3pts min.). @ -[I interpreted As above] X-rays interpreted by me (1pt min.). @ -[I interpreted as above CT interpreted by me (1pt min.). @ -[None done] U/S interpreted by me (1pt. min.). @ -[None done] What testing was considered but not performed or refused? (CT, X-rays, U/S, labs)? Why? @ -[None] What meds were considered but not given or refused? Why? @ -[None] Did you discuss the management of the patient with other professionals (professionals i.e. , PA, TENTER FEEDER, lab, RT, psych nurse, social media manager, cargo tank mechanic, teacher, marketing officer, hospice case manager)? Give summary @ -[No] Was smoking cessation discussed for >3mins.? @ -[No] Was critical care preformed (if so, how long)? @ -[No] Were there social determinants of health that impacted care today? How? (Homelessness, low income, unemployed, alcoholism, drug addiction, transportation, low edu. Level, literacy, decrease access to med. care, assisted, rehab)? @ -[No] Was there de-escalation of care discussed even if they declined (Discuss DNR or withdrawal of care, Hospice)? DNR status @ -[No] What co-morbidities impacted this encounter? (DM, HTN, Smoking, COPD, CAD, Cancer, CVA, ARF, Chemo, Hep., AIDS, mental health diagnosis, sleep apnea, morbid obesity)? @ -[None] Was patient admitted / discharged? Hospital course, mention meds given and route, prescriptions, significant lab abnormalities, going to [facility] and other [facility] info. @ -[Patient is an 83-year-old woman here with generalized weakness/presyncope. The physical exam suggests component of dehydration and the labs also point to this as well as patient being positive for influenza A infection. The patient is feeling better following IV fluids and feels she can go home. Discussed appropriate further care and return parameters. Undiagnosed new problem with uncertain prognosis? @ -[No] Drug Therapy requiring intensive monitoring for toxicity (Heparin, Nitro, Insulin, Cardizem)? @ -[No] Were any procedures done? @ -[No] Diagnosis/symptom? @ -[Presyncopal episode. Acute dehydration. Acute influenza a infection Acute, or Chronic, or Acute on Chronic? @ -[Acute Uncomplicated (without systemic symptoms) or Complicated (systemic symptoms)? @ -[Uncomplicated Side effects of treatment? @ -[No] Exacerbation, Progression, or Severe Exacerbation? @ -[No] Poses a threat to life or bodily function? How? (Chest pain, USA, SD, pneumonia, PE, COPD, DKA, ARF, appy, cholecystitis, CVA, Diverticulitis, Homicidal, Suicid al, threat to staff... and all critical care pts) @ -[No] - Lab Data Result diagrams: 04/05/23 16:08 04/05/23 16:08 Lab Results 04/05/23 04/05/23 04/05/23 Range/Units 16:08 16:08 16:08 WBC 9.1 (3.8-10.6) k/uL RBC 4.42 (3.80-5.40) m/uL Hgb 13.2 (11.4-16.0) gm/dL Hct 39.7 (34.0-46.0) % MCV 89.7 (80.0-100.0) fL MCH 29.8 (25.0-35.0) pg MCHC 33.3 (31.0-37.0) g/dL RDW 14.7 (11.5-15.5) % Plt Count 163 (150-450) k/uL MPV 7.9 Neutrophils % 78 % Lymphocytes % 13 % Monocytes % 4 % Eosinophils % 4 % Basophils % 0 % Neutrophils # 7.1 (1.3-7.7) k/uL Lymphocytes # 1.2 (1.0-4.8) k/uL Monocytes # 0.3 (0-1.0) k/uL Eosinophils # 0.4 (0-0.7) k/uL Basophils # 0.0 (0-0.2) k/uL Sodium (137-145) mmol/L Potassium (3.5-5.1) mmol/L Chloride (98-107) mmol/L Carbon Dioxide (22-30) mmol/L Anion Gap mmol/L BUN (7-17) mg/dL Creatinine (0.52-1.04) mg/dL Est GFR (CKD-EPI)AfAm (>60 ml/min/1.73 sqM) Est GFR (CKD-EPI)NonAf (>60 ml/min/1.73 sqM) Glucose (74-99) mg/dL Plasma Lactic Acid Julian (0.7-2.0) mmol/L Calcium (8.4-10.2) mg/dL Total Bilirubin (0.2-1.3) mg/dL AST (14-36) U/L ALT (4-34) U/L Alkaline Phosphatase (38-126) U/L Troponin I (0.000-0.034) ng/mL Total Protein (6.3-8.2) g/dL Albumin (3.5-5.0) g/dL Urine Color Colorless Urine Appearance Clear (Clear) Urine pH 6.0 (5.0-8.0) Ur Specific [place] 1.007 (1.001-1.035) Urine Protein Trace H (Negative) Urine Glucose (UA) Negative (Negative) Urine Ketones Negative (Negative) Urine Blood Negative (Negative) Urine Nitrite Negative (Negative) Urine Bilirubin Negative (Negative) Urine Urobilinogen <2.0 (<2.0) mg/dL Ur Leukocyte Esterase Negative (Negative) Influenza Type A (PCR) Detected A (Not Detectd) Influenza Type B (PCR) Not Detected (Not Detectd) RSV (PCR) Not Detected (Not Detectd) SARS-CoV-2 (PCR) Not Detected (Not Detectd) 04/05/23 04/05/23 04/05/23 Range/Units 16:08 16:08 16:08 WBC (3.8-10.6) k/uL RBC (3.80-5.40) m/uL Hgb (11.4-16.0) gm/dL Hct (34.0-46.0) % MCV (80.0-100.0) fL MCH (25.0-35.0) pg MCHC (31.0-37.0) g/dL RDW (11.5-15.5) % Plt Count (150-450) k/uL MPV Neutrophils % % Lymphocytes % % Monocytes % % Eosinophils % % Basophils % % Neutrophils # (1.3-7.7) k/uL Lymphocytes # (1.0-4.8) k/uL Monocytes # (0-1.0) k/uL Eosinophils # (0-0.7) k/uL Basophils # (0-0.2) k/uL Sodium 138 (137-145) mmol/L Potassium 4.3 (3.5-5.1) mmol/L Chloride 101 (98-107) mmol/L Carbon Dioxide 27 (22-30) mmol/L Anion Gap 10 mmol/L BUN 49 H (7-17) mg/dL Creatinine 1.27 H (0.52-1.04) mg/dL Est GFR (CKD-EPI)AfAm 46 (>60 ml/min/1.73 sqM) Est GFR (CKD-EPI)NonAf 40 (>60 ml/min/1.73 sqM) Glucose 134 H (74-99) mg/dL Plasma Lactic Acid Julian 1.1 (0.7-2.0) mmol/L Calcium 9.2 (8.4-10.2) mg/dL Total Bilirubin 0.6 (0.2-1.3) mg/dL AST 26 (14-36) U/L ALT 28 (4-34) U/L Alkaline Phosphatase 114 (38-126) U/L Troponin I <0.012 (0.000-0.034) ng/mL Total Protein 6.9 (6.3-8.2) g/dL Albumin 3.9 (3.5-5.0) g/dL Urine Color Urine Appearance (Clear) Urine pH (5.0-8.0) Ur Specific [place] (1.001-1.035) Urine Protein (Negative) Urine Glucose (UA) (Negative) Urine Ketones (Negative) Urine Blood (Negative) Urine Nitrite (Negative) Urine Bilirubin (Negative) Urine Urobilinogen (<2.0) mg/dL Ur Leukocyte Esterase (Negative) Influenza Type A (PCR) (Not Detectd) Influenza Type B (PCR) (Not Detectd) RSV (PCR) (Not Detectd) SARS-CoV-2 (PCR) (Not Detectd) Disposition Clinical Impression: Influenza A Disposition: HOME SELF-CARE Condition: Good Instructions (If sedation given, give patient instructions): Influenza (DC), Dizziness (ED) Is patient prescribed a controlled substance at d/c from ED?: No Referrals: Regina Ortiz MD [Primary Care Provider] - 1-2 days
[2023-04-05] MEDS ORDERED: ASPIRIN 81 MG PO STA (15:57)
[2023-04-05 16:22] LABS: Basophils % (A) 0 %; Eosinophils # (A) 0.4 k/uL (0-0.7); Eosinophils % (A) 4 %; HCT 39.7 % (34.0-46.0); HGB 13.2 gm/dL (11.4-16.0); Lymphocytes # (A) 1.2 k/uL (1.0-4.8); Lymphocytes % (A) 13 %; MCH 29.8 pg (25.0-35.0); MCHC 33.3 g/dL (31.0-37.0); MCV 89.7 fL (80.0-100.0); Mean Platelet Volume 7.9; Monocytes # (A) 0.3 k/uL (0-1.0); Monocytes % (A) 4 %; Neutrophils # (A) 7.1 k/uL (1.3-7.7); Neutrophils % (A) 78 %; Platelet Count 163 k/uL (150-450); RBC 4.42 m/uL (3.80-5.40); RDW 14.7 % (11.5-15.5); WBC 9.1 k/uL (3.8-10.6)
[2023-04-05 16:23] LABS: Appearance,Urine Clear (Clear); Bilirubin,Urine Negative (Negative); Blood,Urine Negative (Negative); Color,Urine Colorless; Glucose,Urine (UA) Negative (Negative); Ketones,Urine Negative (Negative); Leukocyte Esterase,Urine Negative (Negative); Nitrite,Urine Negative (Negative); Protein,Urine Trace (Negative); Specific Gravity,Urine 1.007 (1.001-1.035); Urobilinogen,Urine <2.0 mg/dL (<2.0)
[2023-04-05 16:32] LABS: ALT 28 U/L (4-34); AST 26 U/L (14-36); African American GFR (CKD) 46 (>60 ml/min/1.73 sqM); Albumin 3.9 g/dL (3.5-5.0); Alkaline Phosphatase 114 U/L (38-126); Anion Gap 10 mmol/L; Blood Urea Nitrogen 49 mg/dL (7-17); Calcium 9.2 mg/dL (8.4-10.2); Carbon Dioxide 27 mmol/L (22-30); Chloride 101 mmol/L (98-107); Glucose 134 mg/dL (74-99); Non-African American GFR(CKD) 40 (>60 ml/min/1.73 sqM); Potassium 4.3 mmol/L (3.5-5.1); Sodium 138 mmol/L (137-145); Total Bilirubin 0.6 mg/dL (0.2-1.3); Total Protein 6.9 g/dL (6.3-8.2)
--- NOTE | 2023-04-05 17:29 | XR ---
EXAMINATION TYPE: XR chest 1V portable DATE OF EXAM: 04/05/2023 4:21 PM CLINICAL INDICATION:Female, 83 years old with history of lightheaded; [facility] COMPARISON: 2V chest 03/16/2023 TECHNIQUE: XR chest 1V portable Portable AP radiograph of the chest.. FINDINGS: Lines/Tubes/Devices: No indwelling lines are seen. Left chest multilead pacemaker/AICD appears unchanged with leads termin ating over the RA, RV, coronary sinus. EKG leads. Heart/mediastinum: Heart appears mildly enlarged. Atherosclerotic calcifications are seen in the aor ta. Pulmonary vascularity: Not increased, Lungs/Pleura: There is no evidence of sizable pleural effusion, focal consolidation, or pneumothorax. Trace left pleural effusion not excluded. Musculoskeletal: No acute osseous abnormality demonstrated in the limits of the exam. Other findings: None. IMPRESSION: Mild cardiomegaly. No acute cardiopulmonary abnormality.
[2023-04-05] MEDS ORDERED: SODIUM CHLORIDE 0.9% 500 ML 500 ML IV STA (17:39)
[2023-04-05 19:08] VITALS: BP 141/73; PULSE 71; TEMP 97.8
== END 2023-04-05 19:02 | disposition home or self-care (01) ==
LOC: EC 14:59
DX: J10.1 Influenza due to other identified influenza virus with other respiratory manifestations (principal); R55 Syncope and collapse; E86.0 Dehydration; I12.9 Hypertensive chronic kidney disease with stage 1 through stage 4 chronic kidney disease, or unspecified chronic kidney disease; E11.22 Type 2 diabetes mellitus with diabetic chronic kidney disease; N18.30 Chronic kidney disease, stage 3 unspecified; M10.9 Gout, unspecified; M19.90 Unspecified osteoarthritis, unspecified site; Z20.822 Contact with and (suspected) exposure to COVID-19; Z79.82 Long term (current) use of aspirin; Z79.4 Long term (current) use of insulin; Z79.899 Other long term (current) drug therapy; Z91.048 Other nonmedicinal substance allergy status; Z87.891 Personal history of nicotine dependence; Z98.49 Cataract extraction status, unspecified eye
CPT/HCPCS: 36415; 71045; 80053; 81003; 83605; 84484; 85025; 87636; 93005; 99284

== ENCOUNTER 2023-04-30 09:38 | Emergency (ER) | payer MEDICARE ==
[2023-04-30 09:53] VITALS: RESP 18
[2023-04-30] MEDS: SODIUM CHLORIDE 0.9% 1,000 ML IV STA (11:04)
[2023-04-30 11:29] LABS: Basophils % (A) 1 %; Eosinophils # (A) 0.3 k/uL (0-0.7); Eosinophils % (A) 4 %; HCT 39.7 % (34.0-46.0); HGB 12.9 gm/dL (11.4-16.0); Lymphocytes # (A) 1.2 k/uL (1.0-4.8); Lymphocytes % (A) 18 %; MCH 29.8 pg (25.0-35.0); MCHC 32.5 g/dL (31.0-37.0); MCV 91.8 fL (80.0-100.0); Mean Platelet Volume 7.4; Monocytes # (A) 0.4 k/uL (0-1.0); Monocytes % (A) 5 %; Neutrophils # (A) 4.9 k/uL (1.3-7.7); Neutrophils % (A) 71 %; Platelet Count 155 k/uL (150-450); RBC 4.33 m/uL (3.80-5.40); RDW 15.1 % (11.5-15.5); WBC 6.9 k/uL (3.8-10.6)
[2023-04-30 11:43] LABS: ALT 21 U/L (4-34); AST 26 U/L (14-36); African American GFR (CKD) 64 (>60 ml/min/1.73 sqM); Albumin 3.9 g/dL (3.5-5.0); Alkaline Phosphatase 105 U/L (38-126); Anion Gap 6 mmol/L; Blood Urea Nitrogen 26 mg/dL (7-17); Calcium 9.5 mg/dL (8.4-10.2); Carbon Dioxide 31 mmol/L (22-30); Chloride 103 mmol/L (98-107); Glucose 113 mg/dL (74-99); Magnesium 1.9 mg/dL (1.6-2.3); Non-African American GFR(CKD) 55 (>60 ml/min/1.73 sqM); Potassium 4.8 mmol/L (3.5-5.1); Sodium 140 mmol/L (137-145); Total Bilirubin 0.7 mg/dL (0.2-1.3); Total Protein 6.7 g/dL (6.3-8.2)
[2023-04-30 11:46] LABS: Appearance,Urine Clear (Clear); Bilirubin,Urine Negative (Negative); Blood,Urine Large (Negative); Color,Urine Yellow; Glucose,Urine (UA) Negative (Negative); Ketones,Urine Negative (Negative); Leukocyte Esterase,Urine Small (Negative); Mucus,Urine Rare /hpf; Nitrite,Urine Negative (Negative); PH, Urine 6.5 (5.0-8.0); Protein,Urine 1+ (Negative); RBC,Urine >182 /hpf (0-5); Specific Gravity,Urine 1.009 (1.001-1.035); Squamous Epithelial Cell,Urine 2 /hpf (0-4); Urobilinogen,Urine <2.0 mg/dL (<2.0); WBC,Urine 27 /hpf (0-5)
[2023-04-30 11:55] VITALS: PULSE 64; TEMP 98.6
--- NOTE | 2023-04-30 12:05 | CT ---
EXAMINATION: CT ABDOMEN AND PELVIS WITHOUT IV CONTRAST DATE OF EXAMINATION: 10/29/2023. COMPARISON: 01/15/2023.. INDICATION: Hematuria. PROCEDURE: Axial CT of the abdomen and pelvis was performed with sagittal and coronal reformatted i mages without contrast enhancement. The exam is limited because some types of pathology may not be ad equately demonstrated due to lack of contrast enhancement. CT dose lowering techniques were used, to include: automated exposure control, adjustment for patient size, and/or use of iterative reconstruct ion. FINDINGS: LOWER CHEST : There is some scattered subpleural areas of reticulation seen throughout the lung base s which are likely chronic. There are no pleural or pericardial effusions. ABDOMEN: Liver and Biliary system: Normal. Adrenal glands: Normal. Kidneys and ureters: There is some cortical thinning seen throughout the left kidney which is compat ible with scarring and unchanged. There are a few left renal cysts which are also unchanged. Subcenti meter hypodensities in the right kidney are too small to fully characterize. There are no renal stone s, ureteral stones or hydronephrosis.. Spleen: Normal. Pancreas: Normal. Gallbladder: Normal. Lymph nodes, Peritoneum and mesentery: There is no mesenteric or retroperitoneal lymphadenopathy. Gastrointestinal tract: There are no dilated loops of bowel or free intraperitoneal air. . The appe ndix is not clearly seen. There is mild colonic diverticulosis in the right colon and moderate in the sigmoid colon without evidence of diverticulitis. There is a small sliding hiatal hernia. Aorta/IVC: There is moderate vascular calcification throughout the abdominal aorta without evidence of aneurysmal dilation. IVC normal. Abdominal wall: Normal. PELVIS: Fluid: There is no free fluid in the pelvis. Lymph Nodes: There is no pelvic or inguinal lymphadenopathy.. Urinary bladder: There is a 2.3 cm soft tissue mass which appears to be present the right posterior lateral bladder wall which could represent malignancy and cystoscopy and direct visualization is anahi mmended with urology consultation.. BONES: There are multilevel degenerative disc and facet changes seen throughout the spine. There are no acute osseous abnormalities.. ADDITIONAL SIGNIFICANT FINDINGS: Prior hysterectomy.. IMPRESSION: 1. Soft tissue mass within the posterior lateral aspect of the right bladder wall is suspicious for m alignancy. Urology consult and direct visualization is recommended.. 2. Left renal scarring and cysts. 3. Diverticulosis without evidence of diverticulitis. 3. Small hiatal hernia.
--- NOTE | 2023-04-30 12:14 | ED ---
General Adult HPI - General Chief complaint: Dizziness Stated complaint: HIGH BP Time Seen by Provider: 04/30/23 09:48 Source: patient, RN notes reviewed, old records reviewed Mode of arrival: ambulatory Limitations: no limitations - History of Present Illness Initial comments: 83-year-old female presents emergency department from outpatient CT with chief complaint of dizziness. Patient states that she is waiting to have her CT because she has been having ongoing hematuria. She states she was treated for UTI but was not improving and had a CAT scan ordered by PCP. Patient states that she became very lightheaded and dizzy in which she notified staff and they brought her over here for evaluation. They states that her blood pressure was elevated but upon arrival to the emergency department blood pressure within normal limits. - Related Data Home Medications Medication Instructions Recorded Confirmed Aspirin 81 mg PO DAILY 08/29/14 04/30/23 Insulin Aspart [NovoLOG Flexpen] 3 units SQ TID-W/MEALS 03/03/17 04/30/23 amLODIPine [Norvasc] 5 mg PO DAILY 09/12/20 04/30/23 Irbesartan [Avapro] 150 mg PO BID 11/14/20 04/30/23 Atorvastatin Calcium [Lipitor] 40 mg PO HS 03/11/21 04/30/23 Insulin Detemir [Levemir Flextouch 40 units SQ HS 02/13/22 04/30/23 Pen] Furosemide [Lasix] 40 mg PO DAILY PRN 11/03/22 04/30/23 allopurinoL [Zyloprim] 200 mg PO DAILY 11/03/22 04/30/23 ALPRAZolam [Xanax] 0.5 mg PO HS PRN 11/09/22 04/30/23 Tirzepatide [Mounjaro] 10 mg SQ AGUIRRE 01/15/23 04/30/23 Metoprolol Succinate (ER) [Toprol 100 mg PO DAILY 03/16/23 04/30/23 Xl] Potassium Chloride ER [K-Dur 10] 10 meq PO DAILY PRN 03/16/23 04/30/23 Magnesium 200 mg PO TUSA@2100 04/30/23 04/30/23 Previous Rx's Medication Instructions Recorded Clopidogrel [Plavix] 75 mg PO DAILY #90 tab 03/05/17 Allergies Allergy/AdvReac Type Severity Reaction Status Date / Time adhesive tape Allergy Rash/Hives Verified 04/30/23 12:11 Review of Systems ROS Statement: Those systems with pertinent positive or pertinent negative responses have been documented in the HPI. ROS Other: All systems not noted in ROS Statement are negative. Past Medical History Past Medical History: Cancer, Diabetes Mellitus, Hypertension, Osteoarthritis (OA) Additional Past Medical History / Comment(s): hx skin cancer, gout, SEE DR STRINGER'S HISTORY AND PHYSICAL FOR CARDIAC HISTORY, CHRONIC KIDNEY DISEASE STAGE 3, CATARACT SURGERY, gout, laser surgery left eye History of Any Multi-Drug Resistant Organisms: None Reported Past Surgical History: Hysterectomy, Joint Replacement, Orthopedic Surgery, Pacemaker, Tonsillectomy Additional Past Surgical History / Comment(s): rt knee arthroscopy, rt knee replacement, nahomy big toe joint replacement, vein stripping, surgery for fx left femur, stent placed in left carotid, PACEMAKER replaced x5 September 2020 Past Anesthesia/Blood Transfusion Reactions: No Reported Reaction Additional Past Anesthesia/Blood Transfusion Reaction / Comment(s): Pt has never had a blood transfusion. Type of Cardiac Device: Permanent Pacemaker Device Placement Date:: 09/2020 Past Psychological History: No Psychological Hx Reported Smoking Status: Former smoker Past Alcohol Use History: Occasional Past Drug Use History: None Reported - Past Family History Mother Additional Family Medical History / Comment(s): Alzheimers Father Family Medical History: Cancer Additional Family Medical History / Comment(s): Lung disease, SKIN CANCER General Exam Limitations: no limitations General appearance: alert, in no apparent distress Head exam: Present: atraumatic, normocephalic, normal inspection Eye exam: Present: normal appearance, PERRL, EOMI. Absent: scleral icterus, conjunctival injection, periorbital swelling ENT exam: Present: normal exam, normal oropharynx, mucous membranes moist Neck exam: Present: normal inspection, full ROM. Absent: tenderness, meningismus, lymphadenopathy Respiratory exam: Present: normal lung sounds bilaterally. Absent: respiratory distress, wheezes, rales, rhonchi, stridor Cardiovascular Exam: Present: regular rate, normal rhythm, normal heart sounds. Absent: systolic murmur, diastolic murmur, rubs, gallop, clicks GI/Abdominal exam: Present: soft, normal bowel sounds. Absent: distended, tenderness, guarding, rebound, rigid Back exam: Absent: CVA tenderness (R), CVA tenderness (L) Neurological exam: Present: alert Course Vital Signs 04/30/23 04/30/23 04/30/23 09:44 10:01 11:27 Temperature 98 F 98.6 F Pulse Rate 72 61 64 Respiratory 18 18 Rate Blood Pressure 167/72 156/77 165/79 O2 Sat by Pulse 98 96 Oximetry 04/30/23 12:38 Temperature Pulse Rate 64 Respiratory 18 Rate Blood Pressure 149/80 O2 Sat by Pulse 98 Oximetry EKG Findings - EKG Comments: EKG Findings:: EKG performed at 11: 16 ventricular paced rhythm with rate of 63 MO 245 QRS 169 QT/QTc 480/486 - EKG Results: EKG: interpreted by [facility] Medical Decision Making - Medical Decision Making Was pt. sent in by a medical professional or institution (Dr. PA, [employer] OFF[employer]ER, urgent care, hospital, or senior living...) When possible be specific @ -Outpatient CT Did you speak to anyone other than the patient for history (EMS, parent, family, police, friend...)? What history was obtained from this source @ -No Did you review nursing and triage notes (agree or disagree)? Why? @ -I reviewed and agree with nursing and triage notes Were old charts reviewed (outside hosp., previous admission, EMS record, old EKG, old radiological studies, urgent care reports/EKG's, senior living records)? Report findings @ -No old charts were reviewed Differential Diagnosis (chest pain, altered mental status, abdominal pain women, abdominal pain men, vaginal bleeding, weakness, fever, dyspnea, syncope, headache, dizziness, GI bleed, back pain, seizure, CVA, palpatations, mental health, musculoskeletal)? @ -Differential Syncope: Valvular disease, hypertrophic cardiomyopathy, pulmonary embolism, tamponade, tachycardia, bradycardia, MS, hypovolemia, hemorrhage, dissection, anemia, intra cranial hemorrhage, seizure, hypoglycemia, carbon monoxide poisoning, this is not meant to be an all-inclusive list. EKG interpreted by me (3pts min.). @ -As above X-rays interpreted by me (1pt min.). @ -None done CT interpreted by me (1pt min.). @ -[CT of the abdomen pelvis showing evidence of bladder wall mass U/S interpreted by me (1pt. min.). @ -None done What testing was considered but not performed or refused? (CT, X-rays, U/S, labs)? Why? @ -None What meds were considered but not given or refused? Why? @ -None Did you discuss the management of the patient with other professionals (prof david i.e. , PA, [employer]ER, lab, RT, psych nurse, social science professor, installation tech, teacher, information assurance officer, assistant case manager)? Give summary @ -[ Daughter updated on CT findings stated the patient may have a history of this that she was scheduled to see urology in which patient is stable for discharge I did contact urology for an appointment Was smoking cessation discussed for >3mins.? @ -No Was critical care preformed (if so, how long)? @ -No Were there social determinants of health that impacted care today? How? (Homelessness, low income, unemployed, alcoholism, drug addiction, transportation, low edu. Level, literacy, decrease access to med. care, snf, rehab)? @ -No Was there de-escalation of care discussed even if they declined (Discuss DNR or withdrawal of care, Hospice)? DNR status @ -No What co-morbidities impacted this encounter? (DM, HTN, Smoking, COPD, CAD, Cancer, CVA, ARF, Chemo, Hep., AIDS, mental health diagnosis, sleep apnea, morbid obesity)? @ -None Was patient admitted / discharged? Hospital course, mention meds given and route, prescriptions, significant lab abnormalities, going to OR and other pertinent info. @ -[Discharge patient found to have bladder wall mass patient felt dizzy lightheaded and outpatient CT and sent here for evaluation she states she feels improved vitals are stable laboratory studies reveal no acute findings. Undiagnosed new problem with uncertain prognosis? @ -Yes Drug Therapy requiring intensive monitoring for toxicity (Heparin, Nitro, Insulin, Cardizem)? @ -[No Were any procedures done? @ -No Diagnosis/symptom? @ -[Lightheadedness, bladder wall mass Acute, or Chronic, or Acute on Chronic? @ -Acute Uncomplicated (without systemic symptoms) or Complicated (systemic symptoms)? @ -[Complicated Side effects of treatment? @ -[No Exacerbation, Progression, or Severe Exacerbation? @ -No Poses a threat to life or bodily function? How? (Chest pain, USA, MS, pneumonia, PE, COPD, DKA, ARF, appy, cholecystitis, CVA, Diverticulitis, Homicidal, Suic idal, threat to staff... and all critical care pts) @ -[yes possible bladder cancer - Lab Data Result diagrams: 04/30/23 10:43 04/30/23 10:43 Lab Results 04/30/23 04/30/23 04/30/23 Range/Units 10:43 10:43 10:43 WBC 6.9 (3.8-10.6) k/uL RBC 4.33 (3.80-5.40) m/uL Hgb 12.9 (11.4-16.0) gm/dL Hct 39.7 (34.0-46.0) % MCV 91.8 (80.0-100.0) fL MCH 29.8 (25.0-35.0) pg MCHC 32.5 (31.0-37.0) g/dL RDW 15.1 (11.5-15.5) % Plt Count 155 (150-450) k/uL MPV 7.4 Neutrophils % 71 % Lymphocytes % 18 % Monocytes % 5 % Eosinophils % 4 % Basophils % 1 % Neutrophils # 4.9 (1.3-7.7) k/uL Lymphocytes # 1.2 (1.0-4.8) k/uL Monocytes # 0.4 (0-1.0) k/uL Eosinophils # 0.3 (0-0.7) k/uL Basophils # 0.0 (0-0.2) k/uL Sodium 140 (137-145) mmol/L Potassium 4.8 (3.5-5.1) mmol/L Chloride 103 (98-107) mmol/L Carbon Dioxide 31 H (22-30) mmol/L Anion Gap 6 mmol/L BUN 26 H (7-17) mg/dL Creatinine 0.97 (0.52-1.04) mg/dL Est GFR (CKD-EPI)AfAm 64 (>60 ml/min/1.73 sqM) Est GFR (CKD-EPI)NonAf 55 (>60 ml/min/1.73 sqM) Glucose 113 H (74-99) mg/dL Calcium 9.5 (8.4-10.2) mg/dL Magnesium 1.9 (1.6-2.3) mg/dL Total Bilirubin 0.7 (0.2-1.3) mg/dL AST 26 (14-36) U/L ALT 21 (4-34) U/L Alkaline Phosphatase 105 (38-126) U/L Total Protein 6.7 (6.3-8.2) g/dL Albumin 3.9 (3.5-5.0) g/dL Urine Color Yellow Urine Appearance Clear (Clear) Urine pH 6.5 (5.0-8.0) Ur Specific Adah 1.009 (1.001-1.035) Urine Protein 1+ H (Negative) Urine Glucose (UA) Negative (Negative) Urine Ketones Negative (Negative) Urine Blood Large H (Negative) Urine Nitrite Negative (Negative) Urine Bilirubin Negative (Negative) Urine Urobilinogen <2.0 (<2.0) mg/dL Ur Leukocyte Esterase Small H (Negative) Urine RBC >182 H (0-5) /hpf Urine WBC 27 H (0-5) /hpf Ur Squamous Epith Cells 2 (0-4) /hpf Urine Mucus Rare H (None) /hpf Disposition Clinical Impression: Bladder mass Disposition: HOME SELF-CARE Condition: Stable Instructions (If sedation given, give patient instructions): Hematuria (ED) Additional Instructions: Please return to the Emergency Department if symptoms worsen or any other concerns. Is patient prescribed a controlled substance at d/c from ED?: No Referrals: Regina Ortiz MD [Primary Care Provider] - 1-2 days Wade Kaplan MD [STAFF PHYSICIAN] - As Soon As Possible (Office was given in formation and they will contact you regarding an appoinment. ) Time of Disposition: 12:35
[2023-04-30 12:58] VITALS: BP 149/80
== END 2023-04-30 12:49 | disposition home or self-care (01) ==
LOC: EC 09:38
DX: K44.9 Diaphragmatic hernia without obstruction or gangrene (principal); C67.9 Malignant neoplasm of bladder, unspecified; E11.9 Type 2 diabetes mellitus without complications; I10 Essential (primary) hypertension; M19.90 Unspecified osteoarthritis, unspecified site; Z87.891 Personal history of nicotine dependence; Z79.4 Long term (current) use of insulin; Z79.82 Long term (current) use of aspirin; Z79.899 Other long term (current) drug therapy; Z91.048 Other nonmedicinal substance allergy status
CPT/HCPCS: 36415; 74176; 80053; 81001; 83735; 85025; 87086; 93005; 96360; 96361; 99284

== ENCOUNTER → 2023-05-29 | Outpatient (CLI) | payer MEDICARE ==
--- NOTE | 2023-05-29 14:31 | CT ---
Exam: CT Chest without contrast. Date: 05/29/2023. Comparison: None History: Pulmonary fibrosis. Technique: CT examination of the chest was performed without contrast. Coronal and sagittal reformats were performed. Supine and prone imaging was also performed with inspiratory and expiratory views. C T dose lowering techniques were used, to include: automated exposure control, adjustment for patient size, and/or use of iterative reconstruction. FINDINGS: Mediastinum and Jackie: There is no axillary, mediastinal or hilar lymphadenopathy. Pleural and Pericardial spaces: There are no pleural or pericardial effusions. Upper Abdomen: There is a small sliding hiatal hernia. There is cortical thinning in the upper pole o f the left kidney which likely relates to scarring. The visualized upper abdomen otherwise appears un remarkable. Cardiovascular: There is moderate vascular calcification within the thoracic aorta without evidence o f aneurysmal dilation. Moderate global cardiomegaly. Multiple the ICD leads are seen. Lung Parenchyma and Airways: Subpleural areas of reticulation are seen throughout the lungs bilateral ly which are more prominent to the lung bases which persist on the prone imaging and compatible with mild fibrotic changes. There is some minimal honeycombing also seen within the lower lobes bilaterall y. Bones: No fracture or aggressive osseous lesion. IMPRESSION: 1. 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 This is not significantly changed since the previous examination. 2. Cardiomegaly and coronary artery calcification.
== END | disposition home or self-care (01) ==
LOC: RADCTMAIN 13:26
PROVIDERS: ATTEND Internal Medicine Critical Care Medicine
DX: J84.9 Interstitial pulmonary disease, unspecified (principal); I51.7 Cardiomegaly; I25.10 Atherosclerotic heart disease of native coronary artery without angina pectoris; J84.10 Pulmonary fibrosis, unspecified
CPT/HCPCS: 71250

== ENCOUNTER 2023-06-11 11:37 | Day surgery (SDC) | payer MEDICARE ==
--- NOTE | 2023-06-11 11:47 | P.GSHP ---
History of Present Illness H&P Date: 06/11/23 83 yo female with a history of non invasive bladder cancer. the tumor was resected 05/10/2324 grade 3 tA. she developed gross hematuria a couple of days ago. SHe brought in a ua yesterday that looked infected. A culture was sent. Her hemturia worsened and she to the office today. I put in a 22 fr cath and irrigated alot of clot out of the bladder but couldnot clear the irriagation I attempted cystoscopy but there was too much clot to see any thing. SHe comes to the or to evacuate the rest of the clot and fulgarate any active bleeding points. - Constitutional Constitutional: Denies chills, Denies fever - EENT Eyes: denies blurred vision, denies pain Ears, nose, mouth and throat: Denies headache, Denies sore throat - Cardiovascular Cardiovascular: Denies chest pain, Denies shortness of breath - Respiratory Respiratory: Denies cough, Denies 7 - Gastrointestinal Gastrointestinal: Denies abdominal pain, Denies diarrhea, Denies nausea, Denies vomiting - Genitourinary (Female) Genitourinary: Denies dysuria, Denies hematuria - Genitourinary (Male) Genitourinary: Denies dysuria, Denies hematuria - Musculoskeletal Musculoskeletal: Denies myalgias - Integumentary Integumentary: Denies pruritus, Denies rash - Neurological Neurological: Denies numbness, Denies weakness - Psychiatric Psychiatric: Denies anxiety, Denies depression - Endocrine Endocrine: Denies fatigue, Denies weight change Past Medical History Past Medical History: Cancer, Diabetes Mellitus, Hypertension, Osteoarthritis (OA) Additional Past Medical History / Comment(s): hx skin cancer, gout, SEE DR STRINGER'S HISTORY AND PHYSICAL FOR CARDIAC HISTORY, CHRONIC KIDNEY DISEASE STAGE 3, CATARACT SURGERY, gout, laser surgery left eye History of Any Multi-Drug Resistant Organisms: None Reported Past Surgical History: Hysterectomy, Joint Replacement, Orthopedic Surgery, Pacemaker, Tonsillectomy Additional Past Surgical History / Comment(s): rt knee arthroscopy, rt knee replacement, nahomy big toe joint replacement, vein stripping, surgery for fx left femur, stent placed in left carotid, PACEMAKER replaced x5 September 2020 Past Anesthesia/Blood Transfusion Reactions: No Reported Reaction Additional Past Anesthesia/Blood Transfusion Reaction / Comment(s): Pt has never had a blood transfusion. Type of Cardiac Device: Permanent Pacemaker Device Placement Date:: 09/2020 Past Psychological History: No Psychological Hx Reported Smoking Status: Former smoker Past Alcohol Use History: Occasional Past Drug Use History: None Reported - Past Family History Mother Additional Family Medical History / Comment(s): Alzheimers Father Family Medical History: Cancer Additional Family Medical History / Comment(s): Lung disease, SKIN CANCER Medications and Allergies Home Medications Medication Instructions Recorded Confirmed Type Aspirin 81 mg PO DAILY 08/29/14 04/30/23 History Insulin Aspart [NovoLOG Flexpen] 3 units SQ TID-W/MEALS 03/03/17 04/30/23 History Clopidogrel [Plavix] 75 mg PO DAILY #90 tab 03/05/17 04/30/23 Rx amLODIPine [Norvasc] 5 mg PO DAILY 09/12/20 04/30/23 History Irbesartan [Avapro] 150 mg PO BID 11/14/20 04/30/23 History Atorvastatin Calcium [Lipitor] 40 mg PO HS 03/11/21 04/30/23 History Insulin Detemir [Levemir Flextouch 40 units SQ HS 02/13/22 04/30/23 History Pen] Furosemide [Lasix] 40 mg PO DAILY PRN 11/03/22 04/30/23 History allopurinoL [Zyloprim] 200 mg PO DAILY 11/03/22 04/30/23 History ALPRAZolam [Xanax] 0.5 mg PO HS PRN 11/09/22 04/30/23 History Tirzepatide [Mounjaro] 10 mg SQ AGUIRRE 01/15/23 04/30/23 History Metoprolol Succinate (ER) [Toprol 100 mg PO DAILY 03/16/23 04/30/23 History Xl] Potassium Chloride ER [K-Dur 10] 10 meq PO DAILY PRN 03/16/23 04/30/23 History Magnesium 200 mg PO TUSA@2100 04/30/23 04/30/23 History Allergies Allergy/AdvReac Type Severity Reaction Status Date / Time adhesive tape Allergy Rash/Hives Verified 04/30/23 12:11 Surgical - Exam - General well developed, well nourished, no distress - Eyes normal ocular movement, no icteric - ENT no hearing loss, no congestion - Neck no masses, trachea midline - Respiratory normal respiratory effort, clear to auscultation - Abdomen Abdomen: soft, non tender, no guarding, no rigid, no rebound - Integumentary no rash, no abnormal pigmentation - Neurologic no disoriented, no combative - Psychiatric oriented to time, oriented to person, oriented to place, speech is normal, memory intact Assessment and Plan Assessment: Impresssion: Gross hematuria 1 month post turbt. Possible uti, anticoagulation [asa and plavix] Plan: Cysto with evacuation of clot and fulgaration of bleeding.
[2023-06-11] MEDS: LACTATED RINGERS 1,000 ML IV ONE (12:38)
[2023-06-11 13:17] LABS: Glucose,Whole Blood 104 mg/dL (70-110)
[2023-06-11 13:24] LABS: Basophils % (A) 0 %; Eosinophils # (A) 0.6 k/uL (0-0.7); Eosinophils % (A) 6 %; HCT 36.6 % (34.0-46.0); HGB 11.6 gm/dL (11.4-16.0); Lymphocytes # (A) 1.6 k/uL (1.0-4.8); Lymphocytes % (A) 16 %; MCH 29.1 pg (25.0-35.0); MCHC 31.7 g/dL (31.0-37.0); MCV 91.6 fL (80.0-100.0); Mean Platelet Volume 7.8; Monocytes # (A) 0.6 k/uL (0-1.0); Monocytes % (A) 6 %; Neutrophils # (A) 7.3 k/uL (1.3-7.7); Neutrophils % (A) 71 %; Platelet Count 202 k/uL (150-450); RDW 14.8 % (11.5-15.5); WBC 10.2 k/uL (3.8-10.6)
[2023-06-11] MEDS ORDERED: ONDANSETRON 4 MG/2 ML VIAL ONE (13:24)
[2023-06-11] MEDS: ONDANSETRON 4 MG/2 ML VIAL IVP ONE (13:29)
[2023-06-11] MEDS: DEXAMETHASONE SOD PHOSPHATE 4 MG/ML 1 ML VIAL IVP ONE (13:30)
[2023-06-11] MEDS: GENTAMICIN 100 MG in SODIUM CHLORIDE 0.9% 100 ML IVPB PRN (13:30)
[2023-06-11 13:44] LABS: African American GFR (CKD) 46 (>60 ml/min/1.73 sqM); Anion Gap 7 mmol/L; Blood Urea Nitrogen 44 mg/dL (7-17); Calcium 8.7 mg/dL (8.4-10.2); Carbon Dioxide 23 mmol/L (22-30); Chloride 108 mmol/L (98-107); Glucose 107 mg/dL (74-99); Non-African American GFR(CKD) 40 (>60 ml/min/1.73 sqM); Sodium 138 mmol/L (137-145)
[2023-06-11] MEDS ORDERED: PROPOFOL 10 MG/ML 20 ML VIAL IV ONE (14:14)
[2023-06-11] MEDS ORDERED: PHENYLEPHRINE 10 MG/ML VIAL ONE (14:14)
[2023-06-11] MEDS ORDERED: LIDOCAINE 1% INJ 10MG/ML (20 ML MDV) ONE (14:14)
[2023-06-11] MEDS ORDERED: SUCCINYLCHOLINE CHLORIDE 200 MG/10 ML VIAL IV ONE (14:14)
[2023-06-11 14:26] LABS: Potassium 5.2 mmol/L (3.5-5.1)
[2023-06-11] MEDS: AMPICILLIN 1,000 MG in SODIUM CHLORIDE 0.9% 50 ML IVPB PRN (14:30)
--- NOTE | 2023-06-11 15:00 | P.OP ---
Date of Procedure: 06/11/23 Preoperative Diagnosis: Gross hematuria, history of bladder cancer with recent bladder tumor resection, clot urinary retention Postoperative Diagnosis: Same secondary to bladder bleeding Procedure(s) Performed: Cystoscopy, evacuation of clot, fulguration of bleeder Anesthesia: KISHOR Surgeon: Wade Kaplan Estimated Blood Loss (ml): 0 Pathology: none sent Condition: stable Disposition: PACU Indications for Procedure: Patient is 83. She underwent a transurethral resection of bladder tumor 1 month ago. For the last several days she has had gross hematuria. She brought a urine of dark blood yesterday that looked infected. It was sent for culture. Today she comes in and clot retention with more bleeding. I irrigated probably also liter of bloody out of her bladder. It still was bloody thus she comes for further endoscopy, fulguration of bleeder and evacuation of clot. Description of Procedure: Patient brought to the operating suite. She is given a general anesthetic. She's placed lithotomy position with a sterile prep and drape. Fallon catheters removed. I introduced the 25-Hebrew sheath and Foroblique lens into the bladder. I evacuate old clot. I look endoscopically and in the bladder and there is still a fair amount of clot. I then used the Encision evacuator to evacuate the rest of the clot out of the bladder. Upon inspecting the bladder there is the base of the tumor which is not very big have some old clot on it. It is fulgurated thoroughly. There is some area of cystitis either due to the catheter or perhaps a urine infection. There is no other active bleeding. I inspect the bladder thoroughly. End of the procedure the urine is perfectly clear. The bladder is drained the patient is awakened and returned recovery room good condition Impression postoperative urinary bleeding secondary to bladder bleeding from bladder previous bladder tumor resection treated with cauterization.
[2023-06-11 15:09] LABS: Glucose,Whole Blood 90 mg/dL (70-110)
[2023-06-11 15:30] VITALS: TEMP 97.4
[2023-06-11 16:06] VITALS: BP 143/75; PULSE 60; RESP 18
== END 2023-06-11 16:36 | disposition home or self-care (01) ==
LOC: OR 11:37
PROVIDERS: ATTEND Urology
DX: D49.4 Neoplasm of unspecified behavior of bladder (principal); I10 Essential (primary) hypertension; E11.9 Type 2 diabetes mellitus without complications; M19.90 Unspecified osteoarthritis, unspecified site; F10.90 Alcohol use, unspecified, uncomplicated; Z85.51 Personal history of malignant neoplasm of bladder; Z85.828 Personal history of other malignant neoplasm of skin; Z90.710 Acquired absence of both cervix and uterus; Z90.89 Acquired absence of other organs; Z95.0 Presence of cardiac pacemaker; Z96.651 Presence of right artificial knee joint; Z87.891 Personal history of nicotine dependence; Z80.1 Family history of malignant neoplasm of trachea, bronchus and lung; E78.5 Hyperlipidemia, unspecified; Z79.82 Long term (current) use of aspirin; Z79.4 Long term (current) use of insulin; Z79.02 Long term (current) use of antithrombotics/antiplatelets
CPT/HCPCS: 52224; 80048; 85025; J0330; J1100; J2405; J2001; J1580; J0290; J2704; J2371

== ENCOUNTER → 2023-06-15 | Outpatient (CLI) | payer MEDICARE ==
--- NOTE | 2023-06-15 12:32 | CT ---
EXAMINATION TYPE: CT cervical spine wo con DATE OF EXAM: 06/15/2023 COMPARISON: 12/24/2017 HISTORY: right shoulder pain CT DLP: 544.[address] of the cervical spine was performed with bone and soft tissue window settings submitted . Coronal and sagittal reconstruction is obtained C2-3, C3-4 and C4-5: Within normal limits C5-6: Severe degenerative disc space narrowing with ventral and dorsal spondylosis. Posterior hard di sc effaces the ventral thecal sac and results in left lateral recess stenosis and left greater than r ight foraminal encroachment. No evidence of disc herniation or central stenosis. C6-7: Moderate degenerative disc space narrowing. Posterior disc bulge. Ventral and dorsal spondylosi s. No evidence of disc herniation or central stenosis. No foraminal encroachment appreciated. C7-T1: Within normal limits IMPRESSION: 1. Degenerative disc disease and spondylosis as discussed at C5-6 and C6-7.
== END | disposition home or self-care (01) ==
LOC: RADCTMAIN 12:04
PROVIDERS: ATTEND Physical Medicine & Rehabilitation
DX: M50.122 Cervical disc disorder at C5-C6 level with radiculopathy (principal); M50.123 Cervical disc disorder at C6-C7 level with radiculopathy; M47.22 Other spondylosis with radiculopathy, cervical region
CPT/HCPCS: 72125

== ENCOUNTER 2023-08-25 19:54 | Emergency (ER) | payer MEDICARE ==
--- NOTE | 2023-08-25 20:30 | ED ---
General Adult HPI - General Chief complaint: Nausea/Vomiting/Diarrhea Stated complaint: Hypertension,Failure to thrive Time Seen by Provider: 08/25/23 20:25 Source: patient, EMS, RN notes reviewed Limitations: no limitations - History of Present Illness Initial comments: 83-year-old female presenting to the ED with lightheadedness. Patient states when she woke up this morning she did not feel well stating she has felt lightheaded as if she is going to pass out since waking up today. Also notes some associated nausea with this. Denies fever or chills. Denies chest pain or shortness of breath. Denies changes in bowel or bladder habits. Denies abdominal pain. Denies cough congestion sore throat. No other complaints at this time. - Related Data Home Medications Medication Instructions Recorded Confirmed Aspirin 81 mg PO DAILY 08/29/14 06/11/23 Insulin Aspart [NovoLOG Flexpen] 3 units SQ TID-W/MEALS 03/03/17 06/11/23 amLODIPine [Norvasc] 5 mg PO DAILY 09/12/20 06/11/23 Irbesartan [Avapro] 150 mg PO BID 11/14/20 06/11/23 Atorvastatin Calcium [Lipitor] 40 mg PO HS 03/11/21 06/11/23 Insulin Detemir [Levemir Flextouch 40 units SQ HS 02/13/22 06/11/23 Pen] Furosemide [Lasix] 40 mg PO DAILY PRN 11/03/22 06/11/23 allopurinoL [Zyloprim] 200 mg PO DAILY 11/03/22 06/11/23 ALPRAZolam [Xanax] 0.5 mg PO HS PRN 11/09/22 06/11/23 Tirzepatide [Mounjaro] 10 mg SQ AGUIRRE 01/15/23 06/11/23 Metoprolol Succinate (ER) [Toprol 100 mg PO DAILY 03/16/23 06/11/23 Xl] Magnesium 200 mg PO TUSA@2100 04/30/23 06/11/23 Previous Rx's Medication Instructions Recorded Clopidogrel [Plavix] 75 mg PO DAILY #90 tab 03/05/17 Sulfamethox-Tmp 800-160Mg [Bactrim 1 tab PO Q12HR #14 tab 06/11/23 DS 800-160 mg] Sulfamethox-Tmp 800-160Mg [Bactrim 1 tab PO Q12HR #14 tab 06/11/23 DS 800-160 mg] Allergies Allergy/AdvReac Type Severity Reaction Status Date / Time adhesive tape Allergy Rash/Hives Verified 08/25/23 20:23 Review of Systems ROS Statement: Those systems with pertinent positive or pertinent negative responses have been documented in the HPI. ROS Other: All systems not noted in ROS Statement are negative. Past Medical History Past Medical History: Cancer, Diabetes Mellitus, Hypertension, Osteoarthritis (OA) Additional Past Medical History / Comment(s): hx skin cancer, gout, SEE DR STRINGER'S HISTORY AND PHYSICAL FOR CARDIAC HISTORY, CHRONIC KIDNEY DISEASE STAGE 3, CATARACT SURGERY, gout, laser surgery left eye, hx UTIs, pulmonary fibrosis History of Any Multi-Drug Resistant Organisms: None Reported Past Surgical History: Hysterectomy, Joint Replacement, Orthopedic Surgery, Pacemaker, Tonsillectomy Additional Past Surgical History / Comment(s): rt knee arthroscopy, rt knee replacement, nahomy big toe joint replacement, vein stripping, surgery for fx left femur, stent placed in left carotid, PACEMAKER replaced x5 September 2020 Past Anesthesia/Blood Transfusion Reactions: No Reported Reaction Additional Past Anesthesia/Blood Transfusion Reaction / Comment(s): Pt has never had a blood transfusion. Type of Cardiac Device: Permanent Pacemaker Device Placement Date:: 09/2020 Past Psychological History: No Psychological Hx Reported Smoking Status: Former smoker Past Alcohol Use History: Occasional Past Drug Use History: None Reported - Past Family History Mother Additional Family Medical History / Comment(s): Alzheimers Father Family Medical History: Cancer Additional Family Medical History / Comment(s): Lung disease, SKIN CANCER General Exam - General Exam Comments Initial Comments: Visual Physical Exam Vital signs reviewed General: Well-appearing, nontoxic, no acute distress. Head: Normocephalic, atraumatic Eyes: PERRLA, EOMI ENT: Airway patent Chest: Nonlabored breathing Skin: No visual rash, normal skin tone Neuro: Alert and oriented 3 Musculoskeletal: No gross abnormalities Limitations: no limitations General appearance: alert, in no apparent distress Eye exam: Present: normal appearance Neck exam: Present: normal inspection Respiratory exam: Present: normal lung sounds bilaterally Cardiovascular Exam: Present: regular rate GI/Abdominal exam: Present: soft, normal bowel sounds, other (No CVA tenderness to percussion bilaterally.). Absent: distended, tenderness, guarding, rebound, rigid Neurological exam: Present: alert, oriented X3 Skin exam: Present: warm, dry Course Vital Signs 08/25/23 08/25/23 08/25/23 20:18 22:19 23:44 Temperature 98.2 F Pulse Rate 78 67 63 Respiratory 18 20 18 Rate Blood Pressure 158/75 166/73 143/62 O2 Sat by Pulse 96 95 95 Oximetry 08/26/23 01:00 Temperature Pulse Rate 65 Respiratory 18 Rate Blood Pressure 144/65 O2 Sat by Pulse 95 Oximetry Medical Decision Making - Medical Decision Making Quicknote portion performed. Signed Mikie Ricardo PA-C Was pt. sent in by a medical professional or institution (, [facility], MANAGER CLIENT SUPPORT, urgent care, hospital, or prison...) When possible be specific @ -No Did you speak to anyone other than the patient for history (EMS, parent, family, police, friend...)? What history was obtained from this source @ -No Did you review nursing and triage notes (agree or disagree)? Why? @ -I reviewed and agree with nursing and triage notes Were old charts reviewed (outside hosp., previous admission, EMS record, old EKG, old radiological studies, urgent care reports/EKG's, prison records)? Report findings @ -No old charts were reviewed Differential Diagnosis (chest pain, altered mental status, abdominal pain women, abdominal pain men, vaginal bleeding, weakness, fever, dyspnea, syncope, headache, dizziness, GI bleed, back pain, seizure, CVA, palpatations, mental health, musculoskeletal)? @ -Differential Weakness: Hypoglycemia, shock, sepsis, hyponatremia, anemia, infection, NV, ETOH, adverse medicine reaction, overdose, stroke, this is not meant to be an all-inclusive list. EKG interpreted by me (3pts min.). @ -EKG interpreted me showing a paced rhythm at [address] or T wave changes. HI 243, QRS 160, QT/QTc 447/465. X-rays interpreted by me (1pt min.). @ -None done CT interpreted by me (1pt min.). @ -None done U/S interpreted by me (1pt. min.). @ -None done What testing was considered but not performed or refused? (CT, X-rays, U/S, labs)? Why? @ -None What meds were considered but not given or refused? Why? @ -None Did you discuss the management of the patient with other professionals (professionals i.e. , PA, MANAGER CLIENT SUPPORT, lab, RT, psych nurse, social science professor, tonnage compilation clerk, teacher, forestry technical officer, adult protective caseworker)? Give summary @ -No Was smoking cessation discussed for >3mins.? @ -No Was critical care preformed (if so, how long)? @ -No Were there social determinants of health that impacted care today? How? (Homelessness, low income, unemployed, alcoholism, drug addiction, transp ortation, low edu. Level, literacy, decrease access to med. care, custodial, rehab)? @ -No Was there de-escalation of care discussed even if they declined (Discuss DNR or withdrawal of care, Hospice)? DNR status @ -No What co-morbidities impacted this encounter? (DM, HTN, Smoking, COPD, CAD, Cancer, CVA, ARF, Chemo, Hep., AIDS, mental health diagnosis, sleep apnea, morbid obesity)? @ -None Was patient admitted / discharged? Hospital course, mention meds given and route, prescriptions, significant lab abnormalities, going to OR and other pertinent info. @ -Discharge 83-year-old female presented to the ED with complaints of lightheadedness with episode of nausea upon presentation to the ED. Upon reevaluation at this time, patient reports feeling improved. Laboratory studies reviewed. CBC unremarkable. Chemistry panel shows an elevated BUN and creatinine at 25 and 1.06 respectively otherwise unremarkable. Urine shows no significant evidence of infection. Serology panel unremarkable. Patient discharged home in stable condition with instructions to closely follow-up with PCP. Discussed tricked return precautions with patient who verbalized agreement. Undiagnosed new problem with uncertain prognosis? @ -No Drug Therapy requiring intensive monitoring for toxicity (Heparin, Nitro, Insulin, Cardizem)? @ -No Were any procedures done? @ -No Diagnosis/symptom? @ -Lightheadedness Acute, or Chronic, or Acute on Chronic? @ -Acute Uncomplicated (without systemic symptoms) or Complicated (systemic symptoms)? @ -Uncomplicated Side effects of treatment? @ -No Exacerbation, Progression, or Severe Exacerbation? @ -No Poses a threat to life or bodily function? How? (Chest pain, USA, NV, pneumonia, PE, COPD, DKA, ARF, appy, cholecystitis, CVA, Diverticulitis, Homicidal, Suicid al, threat to staff... and all critical care pts) @ -No - Lab Data Result diagrams: 08/25/23 20:28 08/25/23 20:28 Lab Results 08/25/23 08/25/23 08/25/23 Range/Units 20:28 20:28 20:28 WBC 6.7 (3.8-10.6) k/uL RBC 4.32 (3.80-5.40) m/uL Hgb 12.0 (11.4-16.0) gm/dL Hct 38.8 (34.0-46.0) % MCV 89.7 (80.0-100.0) fL MCH 27.7 (25.0-35.0) pg MCHC 30.9 L (31.0-37.0) g/dL RDW 14.3 (11.5-15.5) % Plt Count 184 (150-450) k/uL MPV 7.7 Neutrophils % 67 % Lymphocytes % 20 % Monocytes % 6 % Eosinophils % 6 % Basophils % 1 % Neutrophils # 4.5 (1.3-7.7) k/uL Lymphocytes # 1.3 (1.0-4.8) k/uL Monocytes # 0.4 (0-1.0) k/uL Eosinophils # 0.4 (0-0.7) k/uL Basophils # 0.0 (0-0.2) k/uL Sodium 138 (137-145) mmol/L Potassium 4.1 (3.5-5.1) mmol/L Chloride 105 (98-107) mmol/L Carbon Dioxide 26 (22-30) mmol/L Anion Gap 7 mmol/L BUN 25 H (7-17) mg/dL Creatinine 1.06 H (0.52-1.04) mg/dL Est GFR (CKD-EPI)AfAm 57 (>60 ml/min/1.73 sqM) Est GFR (CKD-EPI)NonAf 50 (>60 ml/min/1.73 sqM) Glucose 183 H (74-99) mg/dL Calcium 9.0 (8.4-10.2) mg/dL Total Bilirubin 0.7 (0.2-1.3) mg/dL AST 23 (14-36) U/L ALT 14 (4-34) U/L Alkaline Phosphatase 96 (38-126) U/L Total Protein 6.4 (6.3-8.2) g/dL Albumin 3.9 (3.5-5.0) g/dL Urine Color Urine Appearance (Clear) Urine pH (5.0-8.0) Ur Specific [place] (1.001-1.035) Urine Protein (Negative) Urine Glucose (UA) (Negative) Urine Ketones (Negative) Urine Blood (Negative) Urine Nitrite (Negative) Urine Bilirubin (Negative) Urine Urobilinogen (<2.0) mg/dL Ur Leukocyte Esterase (Negative) Urine RBC (0-5) /hpf Urine WBC (0-5) /hpf Ur Squamous Epith Cells (0-4) /hpf Amorphous Sediment (None) /hpf Hyaline Casts (0-2) /lpf Urine Mucus (None) /hpf Influenza Type A (PCR) Not Detected (Not Detectd) Influenza Type B (PCR) Not Detected (Not Detectd) RSV (PCR) Not Detected (Not Detectd) SARS-CoV-2 (PCR) Not Detected (Not Detectd) 08/26/23 Range/Units 01:10 WBC (3.8-10.6) k/uL RBC (3.80-5.40) m/uL Hgb (11.4-16.0) gm/dL Hct (34.0-46.0) % MCV (80.0-100.0) fL MCH (25.0-35.0) pg MCHC (31.0-37.0) g/dL RDW (11.5-15.5) % Plt Count (150-450) k/uL MPV Neutrophils % % Lymphocytes % % Monocytes % % Eosinophils % % Basophils % % Neutrophils # (1.3-7.7) k/uL Lymphocytes # (1.0-4.8) k/uL Monocytes # (0-1.0) k/uL Eosinophils # (0-0.7) k/uL Basophils # (0-0.2) k/uL Sodium (137-145) mmol/L Potassium (3.5-5.1) mmol/L Chloride (98-107) mmol/L Carbon Dioxide (22-30) mmol/L Anion Gap mmol/L BUN (7-17) mg/dL Creatinine (0.52-1.04) mg/dL Est GFR (CKD-EPI)AfAm (>60 ml/min/1.73 sqM) Est GFR (CKD-EPI)NonAf (>60 ml/min/1.73 sqM) Glucose (74-99) mg/dL Calcium (8.4-10.2) mg/dL Total Bilirubin (0.2-1.3) mg/dL AST (14-36) U/L ALT (4-34) U/L Alkaline Phosphatase (38-126) U/L Total Protein (6.3-8.2) g/dL Albumin (3.5-5.0) g/dL Urine Color Colorless Urine Appearance Clear (Clear) Urine pH 7.0 (5.0-8.0) Ur Specific [place] 1.012 (1.001-1.035) Urine Protein 1+ H (Negative) Urine Glucose (UA) Negative (Negative) Urine Ketones Negative (Negative) Urine Blood Negative (Negative) Urine Nitrite Negative (Negative) Urine Bilirubin Negative (Negative) Urine Urobilinogen <2.0 (<2.0) mg/dL Ur Leukocyte Esterase Negative (Negative) Urine RBC 2 (0-5) /hpf Urine WBC 3 (0-5) /hpf Ur Squamous Epith Cells 2 (0-4) /hpf Amorphous Sediment Rare H (None) /hpf Hyaline Casts 4 H (0-2) /lpf Urine Mucus Rare H (None) /hpf Influenza Type A (PCR) (Not Detectd) Influenza Type B (PCR) (Not Detectd) RSV (PCR) (Not Detectd) SARS-CoV-2 (PCR) (Not Detectd) Disposition Clinical Impression: Lightheadedness Disposition: HOME SELF-CARE Condition: Good Additional Instructions: Please return to the Emergency Department if symptoms worsen or any other concerns. Please follow-up with your primary care provider. Is patient prescribed a controlled substance at d/c from ED?: No Referrals: Regina Ortiz MD [Primary Care Provider] - 1-2 days Time of Disposition: 02:29
[2023-08-25 20:52] LABS: Basophils % (A) 1 %; Eosinophils # (A) 0.4 k/uL (0-0.7); Eosinophils % (A) 6 %; HCT 38.8 % (34.0-46.0); Lymphocytes # (A) 1.3 k/uL (1.0-4.8); Lymphocytes % (A) 20 %; MCH 27.7 pg (25.0-35.0); MCHC 30.9 g/dL (31.0-37.0); MCV 89.7 fL (80.0-100.0); Mean Platelet Volume 7.7; Monocytes # (A) 0.4 k/uL (0-1.0); Monocytes % (A) 6 %; Neutrophils # (A) 4.5 k/uL (1.3-7.7); Neutrophils % (A) 67 %; Platelet Count 184 k/uL (150-450); RBC 4.32 m/uL (3.80-5.40); RDW 14.3 % (11.5-15.5); WBC 6.7 k/uL (3.8-10.6)
[2023-08-25 21:03] LABS: Carbon Dioxide 26 mmol/L (22-30); Chloride 105 mmol/L (98-107); Glucose 183 mg/dL (74-99); Potassium 4.1 mmol/L (3.5-5.1); Sodium 138 mmol/L (137-145)
[2023-08-25 21:04] LABS: ALT 14 U/L (4-34); AST 23 U/L (14-36); African American GFR (CKD) 57 (>60 ml/min/1.73 sqM); Albumin 3.9 g/dL (3.5-5.0); Alkaline Phosphatase 96 U/L (38-126); Anion Gap 7 mmol/L; Blood Urea Nitrogen 25 mg/dL (7-17); Non-African American GFR(CKD) 50 (>60 ml/min/1.73 sqM); Total Bilirubin 0.7 mg/dL (0.2-1.3); Total Protein 6.4 g/dL (6.3-8.2)
--- NOTE | 2023-08-25 21:18 | XR ---
EXAMINATION TYPE: XR chest 2V DATE OF EXAM: 08/25/2023 9:08 PM CLINICAL INDICATION:Female, 83 years old with history of pain; H COMPARISON: Chest radiographs from 04/05/2023 TECHNIQUE: XR chest 2V Frontal and lateral views of the chest. FINDINGS: Lungs/Pleura: Subsegmental atelectasis is present in the lung bases. No pleural effusion or pneumotho rax. Pulmonary vascularity: Unremarkable. Heart/mediastinum: Cardiomediastinal silhouette is enlarged and stable. Atherosclerotic calcificatio ns are seen in the aorta. Musculoskeletal: No acute osseous pathology. Left chest wall cardiac conduction device IMPRESSION: Stable mild cardiomegaly. No acute process.
[2023-08-26] MEDS: ONDANSETRON 4 MG/2 ML VIAL IVP STA (00:14)
[2023-08-26 02:01] LABS: Amorphous Sediment,Urine Rare /hpf; Appearance,Urine Clear (Clear); Bilirubin,Urine Negative (Negative); Blood,Urine Negative (Negative); Color,Urine Colorless; Glucose,Urine (UA) Negative (Negative); Hyaline Casts,Urine 4 /lpf (0-2); Ketones,Urine Negative (Negative); Leukocyte Esterase,Urine Negative (Negative); Mucus,Urine Rare /hpf; Nitrite,Urine Negative (Negative); Protein,Urine 1+ (Negative); RBC,Urine 2 /hpf (0-5); Specific Gravity,Urine 1.012 (1.001-1.035); Squamous Epithelial Cell,Urine 2 /hpf (0-4); Urobilinogen,Urine <2.0 mg/dL (<2.0); WBC,Urine 3 /hpf (0-5)
[2023-08-26 02:40] VITALS: BP 173/69; PULSE 63; RESP 17; TEMP 98
== END 2023-08-26 02:44 | disposition home or self-care (01) ==
LOC: EC 19:54
DX: R42 Dizziness and giddiness (principal); Z87.891 Personal history of nicotine dependence; Z91.048 Other nonmedicinal substance allergy status
CPT/HCPCS: 36415; 71046; 80053; 81001; 85025; 87636; 93005; 99284

== ENCOUNTER 2024-02-10 12:03 | Emergency (ER) | payer MEDICARE ==
[2024-02-10] MEDS: SODIUM CHLORIDE 0.9% 1,000 ML IV STA (12:45)
--- NOTE | 2024-02-10 12:53 | ED ---
General Adult HPI - General Chief complaint: Weakness Stated complaint: Hypotension Time Seen by Provider: 02/10/24 12:05 Source: EMS Mode of arrival: EMS Limitations: no limitations - History of Present Illness Initial comments: Dictation was produced using [employer] dictation software. please excuse any grammatical, word or spelling errors. Chief Complaint: 83-year-old female presents to the emergency department with dizziness History of Present Illness: 83-year-old female presents to the emergency department dizziness. Patient states that she was at a toy drive when all of a sudden she felt dizzy. Patient states her symptoms are significant whenever she stands. Patient has history of pulmonary fibrosis and bladder cancer. Patient denies any chest pain. No fever. No pain complaints. No vomiting. The ROS documented in this emergency department record has been reviewed and confirmed by me. Those systems with pertinent positive or negative responses have been documented in the HPI. All other systems are other negative and/or noncontributory. - Related Data Home Medications Medication Instructions Recorded Confirmed Insulin Aspart [NovoLOG Flexpen] 3 units SQ TID-W/MEALS PRN 03/03/17 02/10/24 amLODIPine [Norvasc] 5 mg PO DAILY 09/12/20 02/10/24 Irbesartan [Avapro] 150 mg PO BID 11/14/20 02/10/24 Atorvastatin Calcium [Lipitor] 40 mg PO HS 03/11/21 02/10/24 allopurinoL [Zyloprim] 100 mg PO HS 11/03/22 02/10/24 ALPRAZolam [Xanax] 0.5 mg PO DAILY PRN 11/09/22 02/10/24 Metoprolol Succinate (ER) [Toprol 100 mg PO DAILY 03/16/23 02/10/24 Xl] Magnesium 200 mg PO TUSA@2100 04/30/23 02/10/24 Insulin Glargine,Hum.rec.anlog 45 units SQ HS 02/10/24 02/10/24 [Lantus Solostar Pen] Tirzepatide [Mounjaro] 12.5 mg SQ AGUIRRE 02/10/24 02/10/24 Previous Rx's Medication Instructions Recorded Clopidogrel [Plavix] 75 mg PO DAILY #90 tab 03/05/17 Allergies Allergy/AdvReac Type Severity Reaction Status Date / Time adhesive tape Allergy Rash/Hives Verified 02/10/24 12:58 Review of Systems ROS Statement: Those systems with pertinent positive or pertinent negative responses have been documented in the HPI. ROS Other: All systems not noted in ROS Statement are negative. Past Medical History Past Medical History: Cancer, Diabetes Mellitus, Hypertension, Osteoarthritis (OA) Additional Past Medical History / Comment(s): hx skin cancer, gout, SEE DR STRINGER'S HISTORY AND PHYSICAL FOR CARDIAC HISTORY, CHRONIC KIDNEY DISEASE STAGE 3, CATARACT SURGERY, gout, laser surgery left eye, hx UTIs, pulmonary fibrosis History of Any Multi-Drug Resistant Organisms: None Reported Past Surgical History: Hysterectomy, Joint Replacement, Orthopedic Surgery, Pacemaker, Tonsillectomy Additional Past Surgical History / Comment(s): rt knee arthroscopy, rt knee replacement, nahomy big toe joint replacement, vein stripping, surgery for fx left femur, stent placed in left carotid, PACEMAKER replaced x5 September 2020 Past Anesthesia/Blood Transfusion Reactions: No Reported Reaction Additional Past Anesthesia/Blood Transfusion Reaction / Comment(s): Pt has never had a blood transfusion. Type of Cardiac Device: Permanent Pacemaker Device Placement Date:: 09/2020 Past Psychological History: Anxiety Smoking Status: Former smoker Past Alcohol Use History: Occasional Past Drug Use History: None Reported - Past Family History Mother Additional Family Medical History / Comment(s): Alzheimers Father Family Medical History: Cancer Additional Family Medical History / Comment(s): Lung disease, SKIN CANCER General Exam - General Exam Comments Initial Comments: PHYSICAL EXAM: General Impression: Alert and oriented x3, not in acute distress HEENT: Normocephalic atraumatic, extra-ocular movements intact, pupils equal and reactive to light bilaterally, mucous membranes moist. Cardiovascular: Heart regular rate and rhythm Chest: Able to complete full sentences, no retractions, no tachypnea Abdomen: abdomen soft, non-tender, non-distended, no organomegaly Musculoskeletal: Pulses present and equal in all extremities, no peripheral edema Motor: no focal deficits noted Neurological: CN II-XII grossly intact, no focal motor or sensory deficits noted Skin: Intact with no visualized rashes Psych: Normal affect and mood Limitations: no limitations Course Vital Signs 02/10/24 02/10/24 02/10/24 12:04 12:50 13:17 Temperature 98.3 F Pulse Rate 71 79 Pulse Rate [ 79 Purchasing/Receiving ] Respiratory 18 16 16 Rate Blood Pressure 173/69 162/72 Blood Pressure [Left Arm Sitting] Blood Pressure [Left Arm Standing] Blood Pressure 145/70 [Left Arm Supine] O2 Sat by Pulse 95 95 Oximetry 02/10/24 02/10/24 13:20 13:22 Temperature Pulse Rate Pulse Rate [ 78 107 H Purchasing/Receiving ] Respiratory 18 18 Rate Blood Pressure Blood Pressure 159/93 [Left Arm Sitting] Blood Pressure 147/78 [Left Arm Standing] Blood Pressure [Left Arm Supine] O2 Sat by Pulse Oximetry EKG Findings - EKG Comments: EKG Findings:: My EKG interpretation: Ventricular rate 63, ventricular paced rhythm,. 03/17/1943, QRS 171, QTc 477. No HI prolongation, no QTC prolongation, no ST or T-wave changes noted. Overall, this EKG is unremarkable Medical Decision Making - Medical Decision Making Was pt. sent in by a medical professional or institution (, PA, PRACTICE ASSISTANT, urgent care, hospital, or fdc...) When possible be specific @ -No Did you speak to anyone other than the patient for history (EMS, parent, family, police, friend...)? What history was obtained from this source @ -No Did you review nursing and triage notes (agree or disagree)? Why? @ -I reviewed and agree with nursing and triage notes Were old charts reviewed (outside hosp., previous admission, EMS record, old EKG, old radiological studies, urgent care reports/EKG's, fdc records)? Report findings @ -No old charts were reviewed Differential Diagnosis (chest pain, altered mental status, abdominal pain women, abdominal pain men, vaginal bleeding, musculoskeletal, weakness, fever, dyspnea, syncope, headache, dizziness, GI bleed, back pain, seizure, CVA, palpatations, mental health)? @ -Differential Dizziness: Benign paroxysmal positional Vertigo, Meniere's disease, otitis media, acoustic neuroma, vertebrobasilar insufficiency, cerebellar stroke, encephalitis, hypovolemic, arrhythmia, coronary artery syndrome, anemia, this is not meant to be an all-inclusive list EKG interpreted by me (3pts min.). @ -See above X-rays interpreted by me (1pt min.). @ -None done CT interpreted by me (1pt min.). @ -None done U/S interpreted by me (1pt. min.). @ -None done What testing was considered but not performed or refused? (CT, X-rays, U/S, labs)? Why? @ -None What meds were considered but not given or refused? Why? @ -None Was smoking cessation discussed for >3mins.? @ -No Were there social determinants of health that impacted care today? How? (Homelessness, low income, unemployed, alcoholism, drug addiction, transpo rtation, low edu. Level, literacy, decrease access to med. care, [place] [facility], rehab)? @ -No Was there de-escalation of care discussed even if they declined (Discuss DNR or withdrawal of care, Hospice)? DNR status @ -No What co-morbidities impacted this encounter? (DM, HTN, Smoking, COPD, CAD, Cancer, CVA, ARF, Chemo, Hep., AIDS, mental health diagnosis, sleep apnea, morbid obesity)? @ -Bladder cancer, pulmonary fibrosis, kidney disease Was patient admitted / discharged? Hospital course, mention meds given and route, prescriptions, significant lab abnormalities, going to OR and other pertinent info. @ -83-year-old female presents to the emergency department with dizziness. Vital signs are stable. Orthostatic blood pressures are normal. Patient has no high risk features. Physical examination is benign. Laboratory evaluation obtained. Labs are unremarkable. No UTI. Labs. To be well. Patient given IV fluids with improvement of symptoms. She did complain later that she had pruritus to her vaginal area. I did do a pelvic exam. Concerns for yeast infection. Patient given dose of Diflucan she has an appointment with her primary care doctor next week she is advised to follow-up with. Did you discuss the management of the patient with other professionals (professionals i.e. , PA, PRACTICE ASSISTANT, lab, RT, psych nurse, transition social worker, senior sustainability consultant, teacher, mechanical engineering officer, case assistant)? Give summary @ -No Was critical care preformed (if so, how long)? @ -No Undiagnosed new problem with uncertain prognosis? @ -No Drug Therapy requiring intensive monitoring for toxicity (Heparin, Nitro, I nsulin, Cardizem)? @ -No Were any procedures done? @ -No Diagnosis/symptom? Acute, or Chronic, or Acute on Chronic? Uncomplicated (without systemic symptoms) or Complicated (systemic symptoms)? @ -Dizziness Side effects of treatment? @ -No Exacerbation, Progression, or Severe Exacerbation? @ -No Poses a threat to life or bodily function? How? (Chest pain, USA, IA, pneumonia, PE, COPD, DKA, ARF, appy, cholecystitis, CVA, Diverticulitis, Homicidal, Suicidal, threat to staff... and all critical care pts) @ -No - Lab Data Result diagrams: 02/10/24 12:48 02/10/24 12:48 Lab Results 02/10/24 02/10/24 02/10/24 Range/Units 12:48 12:48 12:57 WBC 7.2 (3.8-10.6) k/uL RBC 4.73 (3.80-5.40) m/uL Hgb 13.6 (11.4-16.0) gm/dL Hct 42.4 (34.0-46.0) % MCV 89.7 (80.0-100.0) fL MCH 28.7 (25.0-35.0) pg MCHC 31.9 (31.0-37.0) g/dL RDW 14.6 (11.5-15.5) % Plt Count 169 (150-450) k/uL MPV 7.9 Neutrophils % 73 % Lymphocytes % 16 % Monocytes % 6 % Eosinophils % 4 % Basophils % 1 % Neutrophils # 5.3 (1.3-7.7) k/uL Lymphocytes # 1.1 (1.0-4.8) k/uL Monocytes # 0.4 (0-1.0) k/uL Eosinophils # 0.3 (0-0.7) k/uL Basophils # 0.1 (0-0.2) k/uL Sodium 141 (137-145) mmol/L Potassium 4.3 (3.5-5.1) mmol/L Chloride 104 (98-107) mmol/L Carbon Dioxide 31 H (22-30) mmol/L Anion Gap 6 mmol/L BUN 25 H (7-17) mg/dL Creatinine 1.13 H (0.52-1.04) mg/dL Est GFR (CKD-EPI)AfAm 53 (>60 ml/min/1.73 sqM) Est GFR (CKD-EPI)NonAf 46 (>60 ml/min/1.73 sqM) Glucose 150 H (74-99) mg/dL Calcium 9.2 (8.4-10.2) mg/dL Magnesium 2.1 (1.6-2.3) mg/dL Total Bilirubin 0.5 (0.2-1.3) mg/dL AST 20 (14-36) U/L ALT 15 (4-34) U/L Alkaline Phosphatase 93 (38-126) U/L Total Protein 6.8 (6.3-8.2) g/dL Albumin 4.0 (3.5-5.0) g/dL Urine Color Colorless Urine Appearance Cloudy H (Clear) Urine pH 6.5 (5.0-8.0) Ur Specific [place] 1.011 (1.001-1.035) Urine Protein 1+ H (Negative) Urine Glucose (UA) Negative (Negative) Urine Ketones Negative (Negative) Urine Blood Negative (Negative) Urine Nitrite Negative (Negative) Urine Bilirubin Negative (Negative) Urine Urobilinogen <2.0 (<2.0) mg/dL Ur Leukocyte Esterase Negative (Negative) Urine RBC 1 (0-5) /hpf Urine WBC 1 (0-5) /hpf Ur Squamous Epith Cells 2 (0-4) /hpf Urine Bacteria Moderate H (None) /hpf Urine Mucus Rare H (None) /hpf Disposition Clinical Impression: Dizzinesses Disposition: HOME SELF-CARE Condition: Good Instructions (If sedation given, give patient instructions): Lightheadedness (ED) Is patient prescribed a controlled substance at d/c from ED?: No Referrals: Regina Ortiz MD [Primary Care Provider] - 1-2 days Time of Disposition: 14:08
[2024-02-10 12:56] LABS: Basophils # (A) 0.1 k/uL (0-0.2); Basophils % (A) 1 %; Eosinophils # (A) 0.3 k/uL (0-0.7); Eosinophils % (A) 4 %; HCT 42.4 % (34.0-46.0); HGB 13.6 gm/dL (11.4-16.0); Lymphocytes # (A) 1.1 k/uL (1.0-4.8); Lymphocytes % (A) 16 %; MCH 28.7 pg (25.0-35.0); MCHC 31.9 g/dL (31.0-37.0); MCV 89.7 fL (80.0-100.0); Mean Platelet Volume 7.9; Monocytes # (A) 0.4 k/uL (0-1.0); Monocytes % (A) 6 %; Neutrophils # (A) 5.3 k/uL (1.3-7.7); Neutrophils % (A) 73 %; Platelet Count 169 k/uL (150-450); RBC 4.73 m/uL (3.80-5.40); RDW 14.6 % (11.5-15.5); WBC 7.2 k/uL (3.8-10.6)
[2024-02-10 13:04] LABS: ALT 15 U/L (4-34); AST 20 U/L (14-36); African American GFR (CKD) 53 (>60 ml/min/1.73 sqM); Alkaline Phosphatase 93 U/L (38-126); Anion Gap 6 mmol/L; Blood Urea Nitrogen 25 mg/dL (7-17); Calcium 9.2 mg/dL (8.4-10.2); Carbon Dioxide 31 mmol/L (22-30); Chloride 104 mmol/L (98-107); Glucose 150 mg/dL (74-99); Magnesium 2.1 mg/dL (1.6-2.3); Non-African American GFR(CKD) 46 (>60 ml/min/1.73 sqM); Potassium 4.3 mmol/L (3.5-5.1); Sodium 141 mmol/L (137-145); Total Bilirubin 0.5 mg/dL (0.2-1.3); Total Protein 6.8 g/dL (6.3-8.2)
[2024-02-10 13:06] LABS: Appearance,Urine Cloudy (Clear); Bacteria,Urine Moderate /hpf; Bilirubin,Urine Negative (Negative); Blood,Urine Negative (Negative); Color,Urine Colorless; Glucose,Urine (UA) Negative (Negative); Ketones,Urine Negative (Negative); Leukocyte Esterase,Urine Negative (Negative); Mucus,Urine Rare /hpf; Nitrite,Urine Negative (Negative); PH, Urine 6.5 (5.0-8.0); Protein,Urine 1+ (Negative); RBC,Urine 1 /hpf (0-5); Specific Gravity,Urine 1.011 (1.001-1.035); Squamous Epithelial Cell,Urine 2 /hpf (0-4); Urobilinogen,Urine <2.0 mg/dL (<2.0); WBC,Urine 1 /hpf (0-5)
[2024-02-10] MEDS: FLUCONAZOLE 150 MG TAB PO STA (14:30)
[2024-02-10 15:42] VITALS: RESP 16
[2024-02-10 16:54] VITALS: BP 184/83; PULSE 69; TEMP 98.9
== END 2024-02-10 17:05 | disposition home or self-care (01) ==
LOC: EC 12:03 → SUPCPDRO 12:03 → EC 17:05
DX: R42 Dizziness and giddiness (principal); J84.10 Pulmonary fibrosis, unspecified; I12.9 Hypertensive chronic kidney disease with stage 1 through stage 4 chronic kidney disease, or unspecified chronic kidney disease; E11.22 Type 2 diabetes mellitus with diabetic chronic kidney disease; N18.30 Chronic kidney disease, stage 3 unspecified; Z87.891 Personal history of nicotine dependence; Z85.51 Personal history of malignant neoplasm of bladder; Z91.09 Other allergy status, other than to drugs and biological substances
CPT/HCPCS: 36415; 80053; 81001; 83735; 85025; 93005; 96360; 96361; 99285

== ENCOUNTER → 2024-03-11 | Outpatient (CLI) | payer MEDICARE ==
--- NOTE | 2024-03-18 19:30 | MM ---
Reason for Exam: Screening (asymptomatic). Last mammogram was performed 7 year(s) and 1 month(s) ago. Patient History: Menarche at age 19. First Full-Term at age 21. Left ovary removed at age 33. Right ovary removed at age 33. Hysterectomy at age 33. Postmenopausal. Core Biopsy on the Right side. 03/22/2001, Excisional Biopsy on the Right side. 02/26/2001, High risk Stereotactic Core Biopsy on the right side. Maternal half sister had breast cancer, age 62. Risk Values: Nata 5 year model risk: 1.6%. NCI Lifetime model risk: 2.3%. Prior Study Comparison: 08/29/2003 Bilateral Special View Mammogram, [facility]. 09/19/2004 Bilateral Screening Mammogram, [facility]. 01/14/2017 Bilateral Screening Mammogram, [facility]. Tissue Density: The breasts are heterogeneously dense, which may obscure small masses. Findings: Analyzed By CAD. Unchanged central and neural focal asymmetry middle depth left breast. Interval development of a group of benign coarse/popcorn calcifications on either side. Generator device projecting at the left pectoralis. Other areas of asymmetric density show no persisting abnormality on 3-D images. Overall Assessment: Benign, BI-RAD 2 Management: Screening Mammogram of both breasts in 1 year. . Patient should continue monthly self-breast exams. A clinical breast exam by your physician is recommended on an annual basis. This exam should not preclude additional follow-up of suspicious palpable abnormalities. Note on Nata scores and lifetime risk: 1. A Nata score greater than 3% is considered moderate risk. If this is the case, consider specialist referral to assess eligibility for a risk reducing agent. 2. If overall lifetime risk for the development of breast cancer is 20% or higher, the patient may qualify for future screening with alternating mammogram and breast MRI. [facility], , 03/18/2024 6:40 PM. Electronically signed and approved by: Xavi Kc M.D. Radiologist
== END | disposition home or self-care (01) ==
LOC: RADMAMWWP 15:57
PROVIDERS: ATTEND Internal Medicine
DX: Z12.31 Encounter for screening mammogram for malignant neoplasm of breast (principal); Z90.722 Acquired absence of ovaries, bilateral; Z78.0 Asymptomatic menopausal state; Z80.3 Family history of malignant neoplasm of breast; R92.333 Mammographic heterogeneous density, bilateral breasts
CPT/HCPCS: 77063; 77067